=== PATIENT | female | born 1940 | race Caucasian/White ===

== ENCOUNTER 2016-06-18 11:27 | Outpatient (RCR) | payer MEDICARE, MEDICAID ==
[2016-03-25 10:27] LABS: BASOPHILS % (AUTO) 1 % (0-10); EOSINOPHILS # (AUTO) 0.3 10^3/uL (0.0-0.3); EOSINOPHILS % (AUTO) 6 % (0-10); LYMPHOCYTES # (AUTO) 0.8 X 10^3 (1.0-4.0); LYMPHOCYTES % (AUTO) 18 % (12-44); MEAN CORPUSCULAR HEMOGLOBIN 34 PG (25-34); MEAN CORPUSCULAR HGB CONC 32 G/DL (32-36); MEAN CORPUSCULAR VOLUME 106 FL (80-99); MEAN PLATELET VOLUME 7.4 FL (7.4-10.4); MONOCYTES # (AUTO) 0.5 X 10^3 (0.0-1.0); MONOCYTES % (AUTO) 11 % (0-12); NEUTROPHILS # (AUTO) 2.7 X 10^3 (1.8-7.8); NEUTROPHILS % (AUTO) 64 % (42-75); PLATELET COUNT 282 10^3/uL (130-400); RED BLOOD COUNT 2.82 10^6/uL (4.35-5.85); RED CELL DISTRIBUTION WIDTH 15.2 % (10.0-14.5); WHITE BLOOD COUNT 4.2 10^3/uL (4.3-11.0)
[2016-04-08 11:08] LABS: BASOPHILS % (AUTO) 1 % (0-10); EOSINOPHILS # (AUTO) 0.2 10^3/uL (0.0-0.3); EOSINOPHILS % (AUTO) 4 % (0-10); LYMPHOCYTES # (AUTO) 0.9 X 10^3 (1.0-4.0); LYMPHOCYTES % (AUTO) 20 % (12-44); MEAN CORPUSCULAR HEMOGLOBIN 34 PG (25-34); MEAN CORPUSCULAR HGB CONC 33 G/DL (32-36); MEAN CORPUSCULAR VOLUME 106 FL (80-99); MEAN PLATELET VOLUME 7.8 FL (7.4-10.4); MONOCYTES # (AUTO) 0.4 X 10^3 (0.0-1.0); MONOCYTES % (AUTO) 9 % (0-12); NEUTROPHILS # (AUTO) 2.8 X 10^3 (1.8-7.8); NEUTROPHILS % (AUTO) 67 % (42-75); PLATELET COUNT 315 10^3/uL (130-400); RED BLOOD COUNT 3.03 10^6/uL (4.35-5.85); RED CELL DISTRIBUTION WIDTH 15.1 % (10.0-14.5); WHITE BLOOD COUNT 4.2 10^3/uL (4.3-11.0)
[2016-04-22 14:56] LABS: BASOPHILS % (AUTO) 1 % (0-10); EOSINOPHILS # (AUTO) 0.2 10^3/uL (0.0-0.3); EOSINOPHILS % (AUTO) 4 % (0-10); LYMPHOCYTES # (AUTO) 0.9 X 10^3 (1.0-4.0); LYMPHOCYTES % (AUTO) 16 % (12-44); MEAN CORPUSCULAR HEMOGLOBIN 34 PG (25-34); MEAN CORPUSCULAR HGB CONC 32 G/DL (32-36); MEAN CORPUSCULAR VOLUME 107 FL (80-99); MEAN PLATELET VOLUME 7.6 FL (7.4-10.4); MONOCYTES # (AUTO) 0.5 X 10^3 (0.0-1.0); MONOCYTES % (AUTO) 9 % (0-12); NEUTROPHILS % (AUTO) 71 % (42-75); PLATELET COUNT 308 10^3/uL (130-400); RED BLOOD COUNT 3.28 10^6/uL (4.35-5.85); RED CELL DISTRIBUTION WIDTH 14.2 % (10.0-14.5); WHITE BLOOD COUNT 5.7 10^3/uL (4.3-11.0)
[2016-04-22 15:30] LABS: ALBUMIN 4.4 G/DL (3.2-4.5); BILIRUBIN,TOTAL 0.8 MG/DL (0.1-1.0); CALCIUM 9.8 MG/DL (8.5-10.1); CREATININE SERUM 2.38 MG/DL (0.60-1.30); POTASSIUM 4.4 MMOL/L (3.6-5.0); TOTAL PROTEIN 6.9 G/DL (6.4-8.2)
[2016-04-22 16:32] LABS: %SAT TOTAL IRON BINDING CAPIC 35 % (15-50); TIBC 475 ug/dL (280-380)
[2016-04-23 07:35] LABS: FERRITIN 218 ng/mL (15-150); UIBC 309 ug/dL (55-450)
[2016-05-06 11:03] LABS: BASOPHILS % (AUTO) 0 % (0-10); EOSINOPHILS # (AUTO) 0.2 10^3/uL (0.0-0.3); EOSINOPHILS % (AUTO) 4 % (0-10); LYMPHOCYTES # (AUTO) 0.8 X 10^3 (1.0-4.0); LYMPHOCYTES % (AUTO) 19 % (12-44); MEAN CORPUSCULAR HEMOGLOBIN 34 PG (25-34); MEAN CORPUSCULAR HGB CONC 33 G/DL (32-36); MEAN CORPUSCULAR VOLUME 104 FL (80-99); MEAN PLATELET VOLUME 7.9 FL (7.4-10.4); MONOCYTES # (AUTO) 0.3 X 10^3 (0.0-1.0); MONOCYTES % (AUTO) 8 % (0-12); NEUTROPHILS # (AUTO) 2.9 X 10^3 (1.8-7.8); NEUTROPHILS % (AUTO) 69 % (42-75); PLATELET COUNT 294 10^3/uL (130-400); RED BLOOD COUNT 3.09 10^6/uL (4.35-5.85); RED CELL DISTRIBUTION WIDTH 12.7 % (10.0-14.5); WHITE BLOOD COUNT 4.2 10^3/uL (4.3-11.0)
[2016-05-20 10:59] LABS: BASOPHILS % (AUTO) 1 % (0-10); EOSINOPHILS # (AUTO) 0.2 10^3/uL (0.0-0.3); EOSINOPHILS % (AUTO) 4 % (0-10); LYMPHOCYTES # (AUTO) 0.8 X 10^3 (1.0-4.0); LYMPHOCYTES % (AUTO) 20 % (12-44); MEAN CORPUSCULAR HEMOGLOBIN 34 PG (25-34); MEAN CORPUSCULAR HGB CONC 32 G/DL (32-36); MEAN CORPUSCULAR VOLUME 104 FL (80-99); MEAN PLATELET VOLUME 7.5 FL (7.4-10.4); MONOCYTES # (AUTO) 0.5 X 10^3 (0.0-1.0); MONOCYTES % (AUTO) 12 % (0-12); NEUTROPHILS # (AUTO) 2.5 X 10^3 (1.8-7.8); NEUTROPHILS % (AUTO) 64 % (42-75); PLATELET COUNT 256 10^3/uL (130-400); RED BLOOD COUNT 3.21 10^6/uL (4.35-5.85); RED CELL DISTRIBUTION WIDTH 13.9 % (10.0-14.5); WHITE BLOOD COUNT 3.9 10^3/uL (4.3-11.0)
[2016-06-03 11:17] LABS: BASOPHILS % (AUTO) 1 % (0-10); EOSINOPHILS # (AUTO) 0.2 10^3/uL (0.0-0.3); EOSINOPHILS % (AUTO) 5 % (0-10); LYMPHOCYTES # (AUTO) 0.7 X 10^3 (1.0-4.0); LYMPHOCYTES % (AUTO) 19 % (12-44); MEAN CORPUSCULAR HEMOGLOBIN 34 PG (25-34); MEAN CORPUSCULAR HGB CONC 32 G/DL (32-36); MEAN CORPUSCULAR VOLUME 106 FL (80-99); MEAN PLATELET VOLUME 7.9 FL (7.4-10.4); MONOCYTES # (AUTO) 0.5 X 10^3 (0.0-1.0); MONOCYTES % (AUTO) 13 % (0-12); NEUTROPHILS # (AUTO) 2.3 X 10^3 (1.8-7.8); NEUTROPHILS % (AUTO) 62 % (42-75); PLATELET COUNT 234 10^3/uL (130-400); RED BLOOD COUNT 3.24 10^6/uL (4.35-5.85); RED CELL DISTRIBUTION WIDTH 14.5 % (10.0-14.5); WHITE BLOOD COUNT 3.7 10^3/uL (4.3-11.0)
[~2016-06-18 11:27] MED LIST: ALDACTONE25 MG PO; AMLO10TA4 PO; ASP325T PO; BONIVA; CALC-656 PO; CARV3.122 PO; CYANOCOBALAMIN INJ 1000 MCG/ML (CANCER CENTER) ONE; DARBEPOETIN 60 MCG/ML ARANESP (CANCER CTR) INJ SCH; ESZO2TAB4 PO; FEXO180T PO; FURO40TA4 PO; HYDR50TA76 PO; MNTL10T PO; MULT-349 PO; NTR.4SL SL; OMG1KC PO; PROP1TAB77 PO; SIMV80TA3 PO
[2016-06-18 11:58] LABS: BASOPHILS % (AUTO) 1 % (0-10); EOSINOPHILS # (AUTO) 0.2 10^3/uL (0.0-0.3); EOSINOPHILS % (AUTO) 4 % (0-10); LYMPHOCYTES # (AUTO) 1.1 X 10^3 (1.0-4.0); LYMPHOCYTES % (AUTO) 21 % (12-44); MEAN CORPUSCULAR HEMOGLOBIN 34 PG (25-34); MEAN CORPUSCULAR HGB CONC 32 G/DL (32-36); MEAN CORPUSCULAR VOLUME 106 FL (80-99); MEAN PLATELET VOLUME 7.5 FL (7.4-10.4); MONOCYTES # (AUTO) 0.4 X 10^3 (0.0-1.0); MONOCYTES % (AUTO) 8 % (0-12); NEUTROPHILS # (AUTO) 3.3 X 10^3 (1.8-7.8); NEUTROPHILS % (AUTO) 66 % (42-75); PLATELET COUNT 388 10^3/uL (130-400); RED CELL DISTRIBUTION WIDTH 13.7 % (10.0-14.5); WHITE BLOOD COUNT 5.1 10^3/uL (4.3-11.0)
[2016-06-18] MEDS ORDERED: CYANOCOBALAMIN INJ 1000 MCG/ML (CANCER CENTER) ONE (12:01)
== END 2016-06-23 | disposition home or self-care (01) ==
LOC: ONC 11:27
PROVIDERS: ATTEND Internal Medicine Hematology & Oncology
DX: C90.00 Multiple myeloma not having achieved remission (principal); D53.9 Nutritional anemia, unspecified; N18.9 Chronic kidney disease, unspecified; I95.1 Orthostatic hypotension; I25.10 Atherosclerotic heart disease of native coronary artery without angina pectoris; J44.9 Chronic obstructive pulmonary disease, unspecified; Z95.1 Presence of aortocoronary bypass graft; Z87.891 Personal history of nicotine dependence; Z79.899 Other long term (current) drug therapy
CPT/HCPCS: 36415; 80053; 82728; 83540; 85025; 96372; 99213

== ENCOUNTER → 2016-09-06 | Outpatient (CLI) | payer MEDICARE, MEDICAID ==
[~2016-09-06] MED LIST changes: +ALBU2.5V4 IH; +AMLO10TA2 PO; +CETI10TA20 PO; +CHOL20003 PO; -CYANOCOBALAMIN INJ 1000 MCG/ML (CANCER CENTER) ONE; -DARBEPOETIN 60 MCG/ML ARANESP (CANCER CTR) INJ SCH; +EZET10TA5 PO; +FENO145T2 PO; +FERR324T11 PO; +FLT11013 IH; +GABA-486 PO; +HYDR25TA4 PO; +IPRA4AER IH; +LISI10TA2 PO; +LOSA100T28 PO; +MAG30ORA2 PO; +METO-270 PO; +NITR0.4T39 SL; +OMEG-141 PO; +OXYB5TAB9 PO; +PARI1CAP PO; +PARO30TA3 PO; +PARO40TA3 PO; +POLY17PO6 PO; +PRAV80TA2 PO; +PRIM50TA PO; +PROP20TA5 PO; +RANI150T90 PO; +RANO500T3 PO; +RT-ALBUINH IH; +UMEC62.5 IH
--- NOTE | 2016-09-06 14:12 | Diagnostic Imaging Report ---
PROCEDURE: MR imaging of the brain without contrast. TECHNIQUE: Multiplanar, multisequence MR imaging of the brain was performed without contrast. INDICATION: Memory loss. Vertigo. Confusion. FINDINGS: There is no diffusion restriction to suggest an acute infarct or other diffusion abnormality. There is a 1 cm T2 hyperintense lesion seen in the right periventricular white matter with superimposed background periventricular and deep white matter T2 hyperintensities seen probably related to chronic microvascular ischemic changes. There is also a focal area of encephalomalacia measuring 1.8 x 1 cm in the right cerebellar hemisphere probably related to an old infarct. There is no brain edema or suggestion of a mass. There is no hydrocephalus. No extra-axial fluid collection is seen. The central vascular flow voids in the basilar artery, dominant left vertebral artery, the right ICA, VICTORIANO and MCA, and the left ICA and MCA are seen. Flow-void signal in the left VITCORIANO is diminished. The visualized portions of the paranasal sinuses and orbits appear grossly unremarkable. IMPRESSION: 1. 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 2. There is diminished expected flow-void signal in the proximal left anterior cerebral artery with no significant abnormality along this arterial distribution and no evidence of acute infarct. If indicated, further evaluation could be obtained with an MRA of the head. Dictated by: Dictated on workstation # [id number]
== END ==
LOC: RAD 10:14
PROVIDERS: ATTEND Nurse Practitioner Family
DX: G25.2 Other specified forms of tremor (principal); R42 Dizziness and giddiness; R41.3 Other amnesia
CPT/HCPCS: 70551

== ENCOUNTER 2016-09-09 11:20 | Outpatient (RCR) | payer MEDICARE, MEDICAID ==
[2016-07-01 10:57] LABS: BASOPHILS % (AUTO) 1 % (0-10); EOSINOPHILS # (AUTO) 0.2 10^3/uL (0.0-0.3); EOSINOPHILS % (AUTO) 4 % (0-10); LYMPHOCYTES # (AUTO) 0.9 X 10^3 (1.0-4.0); LYMPHOCYTES % (AUTO) 21 % (12-44); MEAN CORPUSCULAR HEMOGLOBIN 34 PG (25-34); MEAN CORPUSCULAR HGB CONC 33 G/DL (32-36); MEAN CORPUSCULAR VOLUME 106 FL (80-99); MEAN PLATELET VOLUME 7.4 FL (7.4-10.4); MONOCYTES # (AUTO) 0.4 X 10^3 (0.0-1.0); MONOCYTES % (AUTO) 10 % (0-12); NEUTROPHILS # (AUTO) 2.8 X 10^3 (1.8-7.8); NEUTROPHILS % (AUTO) 65 % (42-75); PLATELET COUNT 260 10^3/uL (130-400); RED BLOOD COUNT 3.32 10^6/uL (4.35-5.85); RED CELL DISTRIBUTION WIDTH 15.2 % (10.0-14.5); WHITE BLOOD COUNT 4.3 10^3/uL (4.3-11.0)
[2016-07-15 10:52] LABS: BASOPHILS % (AUTO) 1 % (0-10); EOSINOPHILS # (AUTO) 0.1 10^3/uL (0.0-0.3); EOSINOPHILS % (AUTO) 3 % (0-10); LYMPHOCYTES # (AUTO) 0.9 X 10^3 (1.0-4.0); LYMPHOCYTES % (AUTO) 21 % (12-44); MEAN CORPUSCULAR HEMOGLOBIN 34 PG (25-34); MEAN CORPUSCULAR HGB CONC 33 G/DL (32-36); MEAN CORPUSCULAR VOLUME 103 FL (80-99); MONOCYTES # (AUTO) 0.3 X 10^3 (0.0-1.0); MONOCYTES % (AUTO) 8 % (0-12); NEUTROPHILS # (AUTO) 2.8 X 10^3 (1.8-7.8); NEUTROPHILS % (AUTO) 68 % (42-75); PLATELET COUNT 334 10^3/uL (130-400); RED BLOOD COUNT 3.43 10^6/uL (4.35-5.85); RED CELL DISTRIBUTION WIDTH 13.7 % (10.0-14.5); WHITE BLOOD COUNT 4.1 10^3/uL (4.3-11.0)
[2016-07-15 11:37] LABS: ALBUMIN 4.6 G/DL (3.2-4.5); BILIRUBIN,TOTAL 0.7 MG/DL (0.1-1.0); CALCIUM 10.1 MG/DL (8.5-10.1); CREATININE SERUM 2.45 MG/DL (0.60-1.30); POTASSIUM 4.1 MMOL/L (3.6-5.0); TOTAL PROTEIN 7.1 G/DL (6.4-8.2)
[2016-08-12 11:21] LABS: BASOPHILS % (AUTO) 1 % (0-10); EOSINOPHILS # (AUTO) 0.1 10^3/uL (0.0-0.3); EOSINOPHILS % (AUTO) 3 % (0-10); LYMPHOCYTES # (AUTO) 0.8 X 10^3 (1.0-4.0); LYMPHOCYTES % (AUTO) 20 % (12-44); MEAN CORPUSCULAR HEMOGLOBIN 33 PG (25-34); MEAN CORPUSCULAR HGB CONC 33 G/DL (32-36); MEAN CORPUSCULAR VOLUME 103 FL (80-99); MEAN PLATELET VOLUME 7.4 FL (7.4-10.4); MONOCYTES # (AUTO) 0.4 X 10^3 (0.0-1.0); MONOCYTES % (AUTO) 10 % (0-12); NEUTROPHILS # (AUTO) 2.5 X 10^3 (1.8-7.8); NEUTROPHILS % (AUTO) 66 % (42-75); PLATELET COUNT 315 10^3/uL (130-400); RED BLOOD COUNT 2.94 10^6/uL (4.35-5.85); RED CELL DISTRIBUTION WIDTH 13.5 % (10.0-14.5); WHITE BLOOD COUNT 3.9 10^3/uL (4.3-11.0)
[~2016-09-09 11:20] MED LIST changes: -ALBU2.5V4 IH; -AMLO10TA2 PO; -CETI10TA20 PO; -CHOL20003 PO; +CYANOCOBALAMIN INJ 1000 MCG/ML (CANCER CENTER) ONE; +DARBEPOETIN 60 MCG/ML ARANESP (CANCER CTR) INJ SCH; -EZET10TA5 PO; -FENO145T2 PO; -FERR324T11 PO; -FLT11013 IH; -GABA-486 PO; -HYDR25TA4 PO; -IPRA4AER IH; -LISI10TA2 PO; -LOSA100T28 PO; -MAG30ORA2 PO; -METO-270 PO; -NITR0.4T39 SL; -OMEG-141 PO; -OXYB5TAB9 PO; -PARI1CAP PO; -PARO30TA3 PO; -PARO40TA3 PO; -POLY17PO6 PO; -PRAV80TA2 PO; -PRIM50TA PO; -PROP20TA5 PO; -RANI150T90 PO; -RANO500T3 PO; -RT-ALBUINH IH; -UMEC62.5 IH
[2016-09-09 11:34] LABS: BASOPHILS % (AUTO) 1 % (0-10); EOSINOPHILS # (AUTO) 0.2 10^3/uL (0.0-0.3); EOSINOPHILS % (AUTO) 4 % (0-10); LYMPHOCYTES # (AUTO) 0.9 X 10^3 (1.0-4.0); LYMPHOCYTES % (AUTO) 20 % (12-44); MEAN CORPUSCULAR HEMOGLOBIN 34 PG (25-34); MEAN CORPUSCULAR HGB CONC 33 G/DL (32-36); MEAN CORPUSCULAR VOLUME 104 FL (80-99); MEAN PLATELET VOLUME 7.8 FL (7.4-10.4); MONOCYTES # (AUTO) 0.5 X 10^3 (0.0-1.0); MONOCYTES % (AUTO) 11 % (0-12); NEUTROPHILS # (AUTO) 2.8 X 10^3 (1.8-7.8); NEUTROPHILS % (AUTO) 65 % (42-75); PLATELET COUNT 320 10^3/uL (130-400); RED BLOOD COUNT 3.17 10^6/uL (4.35-5.85); RED CELL DISTRIBUTION WIDTH 13.4 % (10.0-14.5); WHITE BLOOD COUNT 4.4 10^3/uL (4.3-11.0)
[2016-09-09] MEDS ORDERED: CYANOCOBALAMIN INJ 1000 MCG/ML (CANCER CENTER) ONE (11:36)
== END 2016-09-29 | disposition home or self-care (01) ==
LOC: ONC 11:20
PROVIDERS: ATTEND Internal Medicine Hematology & Oncology
DX: C90.00 Multiple myeloma not having achieved remission (principal); D53.9 Nutritional anemia, unspecified; N18.9 Chronic kidney disease, unspecified; I95.1 Orthostatic hypotension; I25.10 Atherosclerotic heart disease of native coronary artery without angina pectoris; J44.9 Chronic obstructive pulmonary disease, unspecified; Z95.1 Presence of aortocoronary bypass graft; Z87.891 Personal history of nicotine dependence; Z79.899 Other long term (current) drug therapy
CPT/HCPCS: 36415; 80053; 82728; 83540; 85025; 96372; 99213

== ENCOUNTER 2016-10-18 11:45 | Inpatient (IN) | payer MEDICARE, MEDICAID ==
[~2016-10-18] VITALS: Ht 157.5 cm; Wt 50.4 kg
[~2016-10-18 11:45] MED LIST changes: -CYANOCOBALAMIN INJ 1000 MCG/ML (CANCER CENTER) ONE; -DARBEPOETIN 60 MCG/ML ARANESP (CANCER CTR) INJ SCH
[2016-10-18 12:12] VITALS: BP 157/69
--- NOTE | 2016-10-18 12:37 | History & Physicial ---
History of Present Illness History of Present Illness Reason for visit/HPI Patient had a fall at home. Patient sent to [facility] in [place]. Patient had cervical surgery. Patient here for rehabilitation. Patient has a big hematoma on right side of forehead area Patient wears a cervical collar. Surgery open heart 3 vessels. Both breasts were noncancerous, appendectomy Date of Admission October 18, 2016 at 12:05 I consulted on this patient on 10/18/16 12:33 Attending Physician Andre Kimble MD Admitting Physician Trudy Jacobs DO Consult Allergies and Home Medications Allergies Coded Allergies: clopidogrel (Unverified Adverse Reaction, Severe, EXCESSIVE BLEEDING, 30/03) codeine (Unverified Adverse Reaction, Mild, NAUSEA, 03/30/10) warfarin (Unverified Adverse Reaction, Unknown, "REAL BAD SICK", 01/02/16) Uncoded Allergies: TRAZADONE (Adverse Reaction, Unknown, "CAN'T FUNCTION", 01/02/16) Home Medications Amlodipine Besylate 10 Mg Tablet, 10 MG PO DAILY, (Reported) Aspirin 325 Mg Tab, 325 MG PO DAILY, (Reported) Calcium Carbonate/Vitamin D3 1 Each Tablet, 1 EACH PO DAILY, (Reported) Carvedilol 3.125 Mg Tablet, 1 EACH PO BID, (Reported) Eszopiclone 2 Mg Tablet, 2 MG PO HS, (Reported) Fexofenadine Hcl 180 Mg Tablet, 1 TAB PO DAILY, (Reported) Furosemide 40 Mg Tablet, 1 EACH PO DAILY, (Reported) Hydroxyzine Hcl 50 Mg Tablet, 2 TAB PO DAILY, (Reported) Montelukast Sodium 10 Mg Tablet, 1 TAB PO DAILY, (Reported) Multivit,Ther Iron,Ca,Fa & Min 1 Each Tablet, 1 EACH PO DAILY, (Reported) Nitroglycerin 0.4 Mg Subl, 0.4 MG SL PRN, (Reported) Sacul 3 Polyunsat Fatty Acids 1,000 Mg Cap, 1,000 MG PO DAILY, (Reported) Propoxyphene/Acetaminophen 1 Tab Tablet, 1 EACH PO Q 4 - 6 HRS PRN, (Reported) Simvastatin 80 Mg Tablet, 80 MG PO DAILY, (Reported) Spironolactone 25 Mg Tablet, 0.5 TAB PO DAILY, (Reported) [Boniva] , (Reported) Past Mxeozfh-Suvrcz-Pbvffo Hx Patient Social History Employed/Student: unemployed Respiratory Respiratory Disorders: COPD Cardiovascular Cardiac Disorders: Coronary Artery Disease Constitutional: malaise, weakness EENTM: no symptoms reported Respiratory: short of breath Cardiovascular: no symptoms reported, other (Coronary artery disease) Gastrointestinal: no symptoms reported Physical Exam Vital Signs Vital Sign - Last 12Hours 10/18/16 12:12 Temp 96.8 Pulse 56 Resp 18 B/P (MAP) 157/69 Pulse Ox 95 O2 Delivery Room Air Capillary Refill : General Appearance: No Apparent Distress, Thin Eyes: Bilateral Eye Normal Inspection HEENT: Other (Cervical collar) Neck: Other (Cervical collar) Respiratory: Chest Non Tender, Normal Breath Sounds, No Accessory Muscle Use, No Respiratory Distress, Decreased Breath Sounds Cardiovascular: Regular Rate, Rhythm, No Murmur Gastrointestinal: Non Tender, Soft Assessment/Plan Assessment and Plan Weakness. Debility. Coronary artery disease. Cervical surgeries recently. Problems: JEANINE ORLANDO DO October 18, 2016 12:37
--- NOTE | 2016-10-18 13:25 | Physical Therapy Evaluation ---
PT Evaluation-General Medical Diagnosis Admission Date October 18, 2016 at 12:05 Medical Diagnosis: subluxation C5-6 Onset Date: Oct 08, 2016 Therapy Diagnosis Therapy Diagnosis: generalized weakness and debility Precautions Precautions/Isolations: Standard Precautions Referral Physician: Stephan Reason for Referral: Evaluation/Treatment Medical History Pertinent Medical History: Atrial Fib, Alcoholism, CABG, CAD, COPD, HTN, PVD, Renal Insufficiency Additional Medical History left fem-pop bypass; aortic aneurysm; acute encephalopathy; anxiety Current History fall at home hitting head on the toilet and tub (per patient report) resulting in multiple hematomas, C5-6 subluxation; closed fracture of cervical vertebrae; laminectomy C5-6; anterior and posterior fixation C4-7 Reviewed History: Yes Social History Home: Single Level Current Living Status: Spouse Entry Into Home: Stairs Without Railing PT Steps Into Home: 2 Prior/Core FIM Prior Level of Function Functional [place] Measure 0=Not Assessed/NA 4=Minimal Assistance 1=Total Assistance 5=Supervision or Setup 2=Maximal Assistance 6=Modified [place] 3=Moderate Assistance 7=Complete [place] Bed Mobility: 7 Transfers (B,C,W/C) (FIM): 7 Gait: 7 Locomotion: 7 PT Evaluation-Current Subjective Patient agrees to PT. Patient c/o dizziness and weakness. Pain Numeric Pain Scale: 8 Location: Incisional Location Body Site: Neck Pain Description: Acute Pt/Family Goals return to home Objective Patient Orientation: Normal For Age Problem Solving: Good cervical collar ROM/Strength ROM Lower Extremities bilateral LE WFL Strenght Lower Extremities right knee flexion/extension 4-/5; hip flexion 4-/5; ankle dorsi/plantarflexion 4-/5 left knee flexion/extension 4-/5; hip flexion 4-/5; ankle dorsi/plantarflexion 4-/5 Integumentary/Posture Integumentary refer to nursing notes Bowel Incontinence: No Bladder Incontinence: No Posture WNL Neuromuscular (Tone, Coordination, Reflexes) grossly intact Sensory Vision: Functional Hearing: Functional Sensation Right Lower Extremit: Intact Sensation Left Lower Extremity: Intact Transfers Functional [place] Measure 0=Not Assessed/NA 4=Minimal Assistance 1=Total Assistance 5=Supervision or Setup 2=Maximal Assistance 6=Modified [place] 3=Moderate Assistance 7=Complete IndependenceIRFPAI Quality Coding Scale 6 Independent with activity with or without an assistive device 5 Patient requires set up or clean up by helper. Patient completes activity by themselves 4 Supervision or touching assist (CGA). Roy provide cues , steadying assist 3 The helper provides less than half the effort to complete the activity 2 The helper provides more than half the effort to complete the activity 1 Dependent. The helper does all the effort to complete an activity 7 Patient refused to complete or attempt activity 9 The patient did not perform the activity before the current illness or injury 88 Not attempted due to Medical conditions or safety concerns Transfers (B, C, W/C) (FIM): 5 Scootin Rollin Roll Left to Right (QC): 5 Supine to/from Sit: 5 Sit to/from Stand: 5 Sit to Lying (QC): 5 Lying to Sitting/Side of Bed(Q: 5 Sit to Stand (QC): 5 Chair/Kps-hm-Gortx Xfer(QC): 5 Car Transfer (QC): 5 Gait Does the Patient Walk?: Yes Mode of Locomotion: Walk Anticipated Mode of Locomotion: Walk Gait (FIM): 2 Distance (FIM): 5=718-97 ft Walk 10 feet (QC): 4 Walk 50 ft with 2 Turns(QC): 4 Walk 150 ft (QC): 88 Walking 10ft/uneven surface-QC: 4 Distance: 75' Gait Level of Assist: 4 Gait Persons Needed: 1 Gait Assistive Device: FWW Comments/Gait Description slightly unsteady with FWW Stairs Stairs (FIM): 1 #of Steps: 1 Level of Assist: 4 1 Step (curb) (QC): 4 4 Steps (QC): 88 Assistive Device: Walker 12 Steps (QC): 88 Balance Sitting Static: Normal Sitting Dynamic: Normal Standing Static: Fair Standing Dynamic: Fair Picking up an Object (QC): 88 Assessment/Needs 75 y.o. female, limited with functional mobility and increased weakness, will benefit from skilled PT to address limitations to ensure safe return to home with spouse at maximum LOF. Rehab Potential: Good PT Short Term Goals Short Term Goals Time Frame: November 01, 2016 Transfers (B,C,W/C) (FIM): 6 Gait (FIM): 6 Distance (FIM): 3=150 ft Gait Distance Comment: 200' Gait Level of Assist: 6 Gait Assistive Device: FWW, Cane Single Point Stairs (FIM): 2 # of Steps: 4 Stairs Level of Assist: 5 PT Alf Goals Fireworks Display Specialist Goals PT Fireworks Display Specialist Goals Time Frame: Nov 15, 2016 Transfers (B,C,W/C) (FIM): 6 Sit to Lying (QC): 6 Lying-Sitting on Side/Bed(QC): 6 Sit to Stand (QC): 6 Rollin Roll Left to Right (QC): 6 Chair/Szk-yw-Jzxfk Xfer(QC): 6 Car Transfer (QC): 6 Does the Patient Walk: Yes Gait (FIM): 6 Gait distance (FIM): 3=150 ft Distance: >300' Walk 10 feet (QC): 6 Walk 10ft-Uneven Surface(QC): 6 Walk 50ft with 2 Turns (QC): 6 Walk 150 ft (QC): 6 Gait Level of Assist: 6 Gait Assistive Device: FWW Does the Pt use WC or Scooter?: No Stairs (FIM): 6 # of Steps: 12 1 Step (curb) (QC): 6 4 Steps (QC): 6 12 Steps (QC): 6 Stairs Level Of Assist: 6 Picking up an Object (QC): 6 PT Plan Problem List Problem List: Activity Tolerance, Functional Strength, Safety, Balance, Gait, Transfer, Bed Mobility Treatment/Plan Treatment Plan: Continue Plan of Care Treatment Plan: Bed Mobility, Education, Functional Activity Zena, Functional Strength, Group Therapy, Gait, Safety, Therapeutic Exercise, Transfers Treatment Duration: Nov 15, 2016 # of days/week 6 Minutes/Day (M-F): 60-90 Minutes/Day (Sat/Quintanilla): PRN Pt/Family Agrees w/Plan: Yes Safety Risks/Education Patient Education: Safety Issues Teaching Recipient: Patient Teaching Methods: Discussion Response to Teaching: Verbalize Understanding Discharge Recommendations Therapy D/C Recommendations: Home w/ Family Support, Physical Therapy Home Care Time/GCodes Time In: 1220 Time Out: 1245 Total Billed Treatment Time: 25 Total Billed Treatment 1 visit EVHighC 25 min G Codes Necessary: ELIZABETH Healy PT October 18, 2016 13:25
--- NOTE | 2016-10-18 14:08 | Occupational Therapy Eval ---
OT Evaluation-General/PLF Medical Diagnosis Admission Date October 18, 2016 at 12:05 Medical Diagnosis: subluxation C5-6, cervical fusion Onset Date: Oct 08, 2016 Therapy Diagnosis Therapy Diagnosis: weakness, decr self care, decr activity kay, decr funct mobility Precautions Precautions/Isolations: Standard Precautions Weight Bear Status Stephenson J collar on - may remove front to eat. No lifting over 10 lb. No driving for 2 weeks Referral Physician: Stephan Referral Reason: Evaluation/Treatment Medical History Pertinent Medical History: Atrial Fib, Alcoholism, CABG, CAD, COPD, HTN, PVD, Renal Insufficiency Additional Medical History chronic kidney disease stage III, acid reflux disease, anxiety, aortic aneurysm , osteoporosis, emphysema, L and R fem-pop bypass. 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 She was sent to hospital in [place] for surgery, with ant and posterior fixation on 10-10-16. Also reported minimally displaced fx L 8th rib. Social History Home: Single Level Current Living Status: Spouse Entry Into Home: Stairs Without Railing Steps Into Home: 2 ADL-Prior Level of Function ADL PLOF Comments Pt reported that she was generally able to manage her basic self care needs. Sometimes her had to help her with shoes and socks because she couldn't get to her feet, due to edema in LEs. Her also spotted her getting in and out of the tub. They shared chores at home but they also had a worker close to 8 hr a day, 5 days a week, who helped with chores. She still drives occasionally and hasn't worked since her stroke. She said she has a walker at home but it won't go into bathroom so she "furniture walks" in the house and uses a cane outside. DME/Equipment: Bedside Commode, Shower Hose Refining Machine Operator, Tub/Shower, Toilet/Riser OT Current Status Subjective Pt seen in room, up in bed, agreeable to OT. Pain reported 6/10 and nursing aware (in neck, not described). Appearance Alert, cooperative Mental Status/Objective Patient Orientation: Person, Place, Time, Situation Attachments: Other-See Comments (cervical collar) Current Glasses/Contacts: Yes Hearing Aids: No Dentures/Partials: Yes (top and bottom) Hand Dominance: Right Upper Extremity ROM Grossly WFL bilat (pt reported some discomfort at shoulders from cervical collar rubbing on them) Upper Extremity Coordination Pt reported coordination affected in R hand from old CVA, affecting handwriting Upper Extremity Strength Grossly 4/5 bilat. R side slightly less than L Edema: No UE edema observed ADL-Treatment ADL-Current Pt is fatigued from ambulance ride and would prefer to wait until tomorrow to do ADLs. Also, pain med orders are not in system yet and she is uncomfortable. Transfer per PT are SBA with FWW. Functional [place] Measure 0=Not Assessed/NA 4=Minimal Assistance 1=Total Assistance 5=Supervision or Setup 2=Maximal Assistance 6=Modified [place] 3=Moderate Assistance 7=Complete IndependenceIRFPAI Quality Coding Scale 6 Independent with activity with or without an assistive device 5 Patient requires set up or clean up by helper. Patient completes activity by themselves 4 Supervision or touching assist (CGA). [place] provide cues , steadying assist 3 The helper provides less than half the effort to complete the activity 2 The helper provides more than half the effort to complete the activity 1 Dependent. The helper does all the effort to complete an activity 7 Patient refused to complete or attempt activity 9 The patient did not perform the activity before the current illness or injury 88 Not attempted due to Medical conditions or safety concerns Eating (FIM): 5 (Pt was able to open crackers and feed herself and get a drink from pitcher. She has dentures and reported there is nothing she can't eat without them) Lower Body Dressing (QC): 3 (Pt could get slipper socks off and put R sock on but not L sock) Transfers (B, C, W/C) (FIM): 5 (Supine to sit snd sit to supine. SBA) Education OT Patient Education: Purpose of tx/functional activities, Reviewed precautions , Rehab process, Safety issues Teaching Recipient: Patient, Significant Other Teaching Methods: Discussion Response to Teaching: Verbalize Understanding OT Short Term Goals Short Term Goals Transfers (B,C,W/C) (FIM): 6 OT Iron Launder Operator Goals Iron Launder Operator Goals Time Frame: November 08, 2016 Eating (FIM): 7 Eating (QC): 6 Groomin Oral Hygiene (QC): 6 Bathing(FIM): 6 Shower/Bathe Self (QC): 6 Upper Body Dressing(FIM): 6 Upper Body Dressing (QC): 6 Lower Body Dressing(FIM): 6 Lower Body Dressing (QC): 6 On/Off Footwear (QC): 6 Toileting(FIM): 6 Toileting Hygiene (QC): 6 Toilet/Commode Transfer(FIM): 6 Toilet/Commode Transfer (QC): 6 Shower Transfer(FIM): 6 Additional Goals: 2-Verbalize Understanding, 3-ImproveStrength/Zena 1=Demonstrate adherence to instructed precautions during ADL tasks. 2=Patient will verbalize/demonstrate understanding of assistive devices/ modifications for ADL. 3=Patient will improve strength/tolerance for activity to enable patient to perform ADL's. OT Education/Plan Problem List/Assessment Assessment: Decreased Activ Tolerance, Decreased UE Strength, Impaired Funct Balance, Impaired Self-Care Skills Pt would benefit from skilled OT to increase her independence in basic self care to allow her to return home safely to live with her Discharge Recommendations Plan/Recommendations: Continue POC Barriers to Progress memory issues? Target Placement home with spouse Treatment Plan/Plan of Care Treatment,Training & Education: Yes Patient would benefit from OT for education, treatment and training to promote independence in ADL's, mobility, safety and/or upper extremity function for ADL' s. Plan of Care: ADL Retraining, Functional Mobility, Group Exercise/Act as Ind ( education, exercise, funct activities, activity tolerance, memory, problem solving), UE Funct Exercise/Act, UE Neuromus Re-Ed/Coord Treatment Duration: November 08, 2016 # of days/week 5-6 Visits Per Week: 10-11 Minutes/Day (M-F): 75-90 Minutes/Day (Sat/Quintanilla): PRN Agreement: Yes Rehab Potential: Good Time/GCodes Start Time: 13:10 Stop Time: 13:45 Total Time Billed (hr/min): 35 Billed Treatment Time visit, 20 minutes evaluation moderate intensity, 15 minutes ADL XAVIER FARFAN OT October 18, 2016 14:08
[2016-10-18] MEDS ORDERED: ANTACID SUSP 30 ML UDC (MYLANTA) PO PRN (14:45)
[2016-10-18] MEDS ORDERED: BISACODYL 10 MG SUPP (DULCOLAX) PR PRN (14:45)
[2016-10-18] MEDS ORDERED: NITROGLYCERIN SUBLINGUAL 0.4 MG TAB (NITROSTAT) SL PRN (14:45)
[2016-10-18] MEDS ORDERED: cloNIDine 0.1 MG (CATAPRES) TAB PO PRN (14:45)
[2016-10-18] MEDS ORDERED: MAG30ORA2 PO (15:09)
[2016-10-18] MEDS ORDERED: NITR0.4T39 SL (15:37)
[2016-10-18] MEDS ORDERED: FENO145T2 PO (15:37)
[2016-10-18] MEDS ORDERED: FERR324T11 PO (15:37)
[2016-10-18] MEDS ORDERED: GABA-486 PO (15:37)
[2016-10-18] MEDS ORDERED: RANI150T90 PO (15:37)
[2016-10-18] MEDS ORDERED: PARO30TA3 PO (15:37)
[2016-10-18] MEDS ORDERED: ALBU2.5V4 IH (15:37)
[2016-10-18] MEDS ORDERED: OXYB5TAB9 PO (15:37)
[2016-10-18] MEDS ORDERED: CHOL20003 PO (15:37)
[2016-10-18] MEDS ORDERED: HYDR25TA4 PO (15:37)
[2016-10-18] MEDS ORDERED: METO-270 PO (15:37)
[2016-10-18] MEDS ORDERED: LISI10TA2 PO (15:37)
[2016-10-18] MEDS ORDERED: RANO500T3 PO (15:37)
[2016-10-18] MEDS ORDERED: LOSA100T28 PO (15:37)
[2016-10-18] MEDS ORDERED: POLY17PO6 PO (15:37)
[2016-10-18] MEDS ORDERED: PRAV80TA2 PO (15:37)
[2016-10-18] MEDS ORDERED: PARO40TA3 PO (15:37)
[2016-10-18] MEDS ORDERED: AMLO10TA2 PO (15:37)
[2016-10-18] MEDS ORDERED: PRIM50TA PO (15:37)
[2016-10-18] MEDS ORDERED: IPRA4AER IH (15:37)
[2016-10-18] MEDS ORDERED: FLT11013 IH (15:37)
[2016-10-18] MEDS ORDERED: UMEC62.5 IH (15:37)
[2016-10-18] MEDS ORDERED: PARI1CAP PO (15:37)
[2016-10-18] MEDS ORDERED: RT-ALBUINH IH (15:37)
[2016-10-18] MEDS ORDERED: OMEG-141 PO (15:37)
[2016-10-18] MEDS ORDERED: PROP20TA5 PO (15:37)
[2016-10-18] MEDS ORDERED: CETI10TA20 PO (15:37)
[2016-10-18] MEDS ORDERED: EZET10TA5 PO (15:45)
[2016-10-18] MEDS: FERROUS SULF 325 MG (IRON) TAB PO SCH (17:07)
[2016-10-18 18:02] VITALS: BP 167/80
[2016-10-18] MEDS: RT-FLUTICASONE 110 MCG (FLOVENT) PER PUFF INH SCH (18:40)
[2016-10-18] MEDS: LORATADINE (CLARITIN) 10 MG TAB PO SCH (20:49)
[2016-10-18] MEDS: GABAPENTIN 100 MG (NEURONTIN) CAP PO SCH (20:49)
[2016-10-18] MEDS: FENOFIBRATE 134 MG (LOFIBRA) CAPSULE PO SCH (20:49)
[2016-10-18] MEDS: ATORVASTATIN 20 MG (LIPITOR) TABLET PO SCH (20:49)
[2016-10-18] MEDS: FAMOTIDINE 20 MG (PEPCID) TABLET PO SCH (20:49)
[2016-10-18] MEDS: eZETimibe 10 MG (ZETIA) TABLET PO SCH (20:49)
[2016-10-18] MEDS: OXYBUTYNIN (DITROPAN) 5 MG TAB PO SCH (20:49)
[2016-10-18] MEDS: PRIMIDONE 50 MG TAB (MYSOLINE) PO SCH (20:49)
[2016-10-18] MEDS: PROPRANOLOL 20 MG (INDERAL) TABLET PO SCH (20:49)
[2016-10-18] MEDS: POLYETHYLENE GLYCOL 17 GM (MIRALAX) PACK PO SCH (21:10)
[2016-10-18] MEDS: hydrALAZINE (APRESOLINE) 25 MG TAB PO SCH (22:36)
[2016-10-19 05:00] VITALS: BP 145/62
[2016-10-19 06:01] LABS: MEAN PLATELET VOLUME 8.9 FL (7.4-10.4); RED BLOOD COUNT 2.15 10^6/uL (4.35-5.85); RED CELL DISTRIBUTION WIDTH 17.1 % (10.0-14.5); WHITE BLOOD COUNT 4.5 10^3/uL (4.3-11.0)
[2016-10-19] MEDS: THIAMINE 100 MG (VITAMIN B-1) TAB PO SCH (06:44)
[2016-10-19] MEDS: MULTIVIT W/MINERALS TAB (THERAGRAN M) PO SCH (06:44)
[2016-10-19] MEDS: FOLIC ACID 1 MG TAB PO SCH (06:44)
[2016-10-19] MEDS: FERROUS SULF 325 MG (IRON) TAB PO SCH ×2 (06:44→17:53)
[2016-10-19] MEDS: OMEGA 3 (FISH OIL) 1000 MG CAP PO SCH (06:44)
[2016-10-19] MEDS: VITAMIN D3 1,000 UNITS (CHOLECALCIFEROL) TABLET PO SCH (06:45)
[2016-10-19] MEDS: hydrALAZINE (APRESOLINE) 25 MG TAB PO SCH ×3 (06:45→22:30)
[2016-10-19 06:50] LABS: ALBUMIN 2.7 G/DL (3.2-4.5); BILIRUBIN,TOTAL 0.8 MG/DL (0.1-1.0); CREATININE SERUM 1.18 MG/DL (0.60-1.30); POTASSIUM 4.1 MMOL/L (3.6-5.0)
[2016-10-19] MEDS: RT-FLUTICASONE 110 MCG (FLOVENT) PER PUFF INH SCH ×2 (07:19→19:39)
[2016-10-19] MEDS: UMECLIDINIUM BROMIDE (INCRUSE ELLIPTA) 7'S IH SCH (07:19)
--- NOTE | 2016-10-19 08:33 | PM&R Post Admission Assessment ---
Post Admission Physician Asses The preadmission screen agrees with the post admission assessment that the patient is a good candidate for inpatient rehabilitation. The patient will have a comprehensive program of inpatient rehabilitation with a goal of maximizing level of functional independence prior to discharge home with spouse. The patient will have PT/OT ninety minutes per day, each discipline, five days a week for gait, strengthening, conditioning, balance, ADLs, any patient/family/caregiver training necessary. Speech therapy to do cognitive assessment and treat as indicated 3 -5 times a week for 2 weeks. Rehabilitation nursing to assist with bowel, bladder, skin, wound care, medication administration, pain management. Airline Hostess to assist with discharge planning, community reentry. SCD's for DVT prophylaxis. She appears to be well motivated to participate in three hours of therapy a day. She should be able to tolerate three hours of therapy a day from a medical standpoint. She should benefit from the three hours of therapy a day. She has a reasonable discharge plan, reasonable discharge rehabilitation goals and a supportive family. She has various comorbidities that need to be closely monitored with medications and treatments adjusted on a daily basis as needed. These include: Recent C spine surgery Copd Barriers to discharge for this patient who had been independent prior to this are for her to be modified independent to supervision for ADLs and mobility skills prior to discharge home with spouse, so as to lessen the burden of the caregivers. Risks for this patient include: 1. Fall 2. Fracture 3. DVT 4. Pulmonary embolism 5. Wound infection 6. Skin breakdown 7. Contractures 8. Poorly controlled pain 9. Urinary retention 10. UTI 11. Respiratory infection 12. Aspiration 13. Exacerbation of COPD Estimated Length of Stay: 14 days Prognosis: Rehab prognosis appears good for goal of discharge home with spouse modified independent to supervision for ADLs and mobility skills. LOUIS BONILLA MD October 19, 2016 08:33
[2016-10-19] MEDS ORDERED: HYDROCHLOROTHIAZIDE 12.5 MG (HCTZ) CAP PO PRN (09:00)
[2016-10-19] MEDS ORDERED: PARoxetine 10 MG (PAXIL) TAB PO SCH (09:00)
[2016-10-19] MEDS: FAMOTIDINE 20 MG (PEPCID) TABLET PO SCH ×2 (09:29→20:21)
[2016-10-19] MEDS: lisINopril 10 MG (PRINIVIL) TAB PO SCH (09:29)
[2016-10-19] MEDS: PROPRANOLOL 20 MG (INDERAL) TABLET PO SCH ×2 (09:29→20:20)
[2016-10-19] MEDS: GABAPENTIN 100 MG (NEURONTIN) CAP PO SCH ×3 (09:30→20:20)
[2016-10-19] MEDS: ASPIRIN 81 MG CHEW (CHILDREN'S ASA) PO SCH (09:30)
[2016-10-19] MEDS: PARoxetine 20 MG (PAXIL) TAB PO SCH (09:30)
[2016-10-19] MEDS: OXYBUTYNIN (DITROPAN) 5 MG TAB PO SCH ×2 (09:30→20:20)
[2016-10-19] MEDS: amLODIPine 10 MG (NORVASC) TAB PO SCH (09:30)
--- NOTE | 2016-10-19 12:19 | Physical Therapy Daily Note ---
PT Daily Note-Current Subjective Pt. in bed asleep. Wants to know why she cant have regular food and why her fluids are thickened. This MEAT SUPERVISOR explained swallowing issues Pain Numeric Pain Scale: 4 Location: Medial Location Body Site: Neck Pain Description: Ache Comment: reported to nursing, not time for pain meds Mental Status Patient Orientation: Person, Place, Time, Situation Attachments: Other-See Comments ([place] collar) Transfers Functional [place] Measure 0=Not Assessed/NA 4=Minimal Assistance 1=Total Assistance 5=Supervision or Setup 2=Maximal Assistance 6=Modified [place] 3=Moderate Assistance 7=Complete IndependenceIRFPAI Quality Coding Scale 6 Independent with activity with or without an assistive device 5 Patient requires set up or clean up by helper. Patient completes activity by themselves 4 Supervision or touching assist (CGA). [place] provide cues , steadying assist 3 The helper provides less than half the effort to complete the activity 2 The helper provides more than half the effort to complete the activity 1 Dependent. The helper does all the effort to complete an activity 7 Patient refused to complete or attempt activity 9 The patient did not perform the activity before the current illness or injury 88 Not attempted due to Medical conditions or safety concerns Transfers (B, C, W/C) (FIM): 4 Scootin Rollin Supine to/from Sit: 4 Sit to/from Stand: 4 Bed to/from Chair: 4 Gait Training Does the Patient Walk?: Yes Gait (FIM): 4 Distance (FIM): 3=150 ft (x2) Gait Level of Assist: 4 Gait Persons Needed: 1 Gait Assistive Device: FWW needs some assist for balance Exercises Supine Ex: Ankle pumps, Quad Set, Heel Slides, Hip abd/add Supine Reps: 10 Assessment Current Status: Good Progress tolerated sitting better, up in recliner after rx, hurst at hand PT Short Term Goals Short Term Goals Time Frame: November 01, 2016 Transfers (B,C,W/C) (FIM): 6 Gait (FIM): 6 Distance (FIM): 3=150 ft Gait Distance Comment: 200' Gait Level of Assist: 6 Gait Assistive Device: FWW, Cane Single Point Stairs (FIM): 2 # of Steps: 4 Stairs Level of Assist: 5 PT Guest Request Runner Goals Guest Request Runner Goals PT Guest Request Runner Goals Time Frame: Nov 15, 2016 Transfers (B,C,W/C) (FIM): 6 Sit to Lying (QC): 6 Lying-Sitting on Side/Bed(QC): 6 Sit to Stand (QC): 6 Rollin Roll Left to Right (QC): 6 Chair/Zkw-ln-Yqmqj Xfer(QC): 6 Car Transfer (QC): 6 Does the Patient Walk: Yes Gait (FIM): 6 Gait distance (FIM): 3=150 ft Distance: >300' Walk 10 feet (QC): 6 Walk 10ft-Uneven Surface(QC): 6 Walk 50ft with 2 Turns (QC): 6 Walk 150 ft (QC): 6 Gait Level of Assist: 6 Gait Assistive Device: FWW Does the Pt use WC or Scooter?: No Stairs (FIM): 6 # of Steps: 12 1 Step (curb) (QC): 6 4 Steps (QC): 6 12 Steps (QC): 6 Stairs Level Of Assist: 6 Picking up an Object (QC): 6 PT Plan Treatment/Plan Treatment Plan: Continue Plan of Care Treatment Plan: Bed Mobility, Education, Functional Activity Zena, Functional Strength, Group Therapy, Gait, Safety, Therapeutic Exercise, Transfers Treatment Duration: Nov 15, 2016 Minutes/Day (M-F): 60-90 Minutes/Day (Sat/Quintanilla): PRN Safety Risks/Education Patient Education: Gait Training, Transfer Techniques, Correct Positioning, Disease Process, Safety Issues Teaching Recipient: Patient Teaching Methods: Demonstration, Discussion Response to Teaching: Verbalize Understanding, Return Demonstration, Reinforcement Needed Time/GCodes Time In: 920 Time Out: 945 Total Billed Treatment Time: 25 Total Billed Treatment 1,GT15m,FA10m G Codes Necessary: JUAN CARLOS Rebolledo MEAT SUPERVISOR October 19, 2016 12:19
--- NOTE | 2016-10-19 12:32 | Occupational Ther Daily Note ---
OT Current Status-Daily Note Subjective Pt seen in room, up in recliner, agreeable to OT. Appearance Alert, cooperative, talkative Mental Status/Objective Functional [place] Measure 0=Not Assessed/NA 4=Minimal Assistance 1=Total Assistance 5=Supervision or Setup 2=Maximal Assistance 6=Modified [place] 3=Moderate Assistance 7=Complete [place] Comprehension(FIM): 4 (A little distractable) Expression(FIM): 5 Social Interaction(FIM): 4 (Very chatty, sometimes distractable) Problem Solving(FIM): 4 (A little difficulty with sequencing during shower) Memory(FIM): 4 (Seemed to sometimes forget what she was doing and needed cueing ) Attachments: Other-See Comments (cervical collar) ADL-Treatment All ADLS took longer than usual. Pt reported neck discomfort during shower, even though cervical collar was on. Supervision during many ADLs due to distractibility. Functional [place] Measure 0=Not Assessed/NA 4=Minimal Assistance 1=Total Assistance 5=Supervision or Setup 2=Maximal Assistance 6=Modified [place] 3=Moderate Assistance 7=Complete IndependenceIRFPAI Quality Coding Scale 6 Independent with activity with or without an assistive device 5 Patient requires set up or clean up by helper. Patient completes activity by themselves 4 Supervision or touching assist (CGA). [place] provide cues , steadying assist 3 The helper provides less than half the effort to complete the activity 2 The helper provides more than half the effort to complete the activity 1 Dependent. The helper does all the effort to complete an activity 7 Patient refused to complete or attempt activity 9 The patient did not perform the activity before the current illness or injury 88 Not attempted due to Medical conditions or safety concerns Eating (FIM): 5 (setup, pureed diet) Eating (QC): 5 (setup) Grooming (FIM): 5 (setup. Brushed hair. Washed face and hands during shower. Cleaned dentures with setup) Oral Hygiene (QC): 5 (setup to brush dentures, apply denture tape) Bathing (FIM): 5 (Washed and dried all parts except back, supervision for sequencing and safety. Shower bench, grab bars, hand held shower. Help to wash hair. Setup. Sat to wash bottom) Shower/Bathe Self (QC): 4 (supervision) Upper Body (FIM): 4 (Min assist to get t shirt over head to don it. Able to manage buttons on shirt) Upper Body Dressing (QC): 3 Lower Body Dressing (FIM): 3 (Help to get socks on, able to get them off. Able to get feet and into pants and CGA when standing to pull them up. FWW. Pt educ mod techniqqqque) Lower Body Dressing (QC): 3 On/Off Footwear (QC): 3 Toileting (FIM): 4 (CGA for clothing management, tall toilet, grab bar, FWW) Toileting Hygiene (QC): 4 Transfers (B, C, W/C) (FIM): 4 (CGA, FWW) Toilet/Commode Transfer (FIM): 3 (Min assist stand to sit, mod assist sit to stand. Needed something to push up off toilet so BSC placed over toilet. ) Toilet Transfer (QC): 3 Shower Transfer(FIM): 4 (CGA, shower bench, grab bars, FWW. Pt educ for hand placement) Noted that pt has had bilat mastectomies. Dry cervical collar applied after shower. Pt needed O2 at times due to SOB and extra recovery times while pacing herself during ADLs. Pt left up in recliner, present, all needs met. Education OT Patient Education: Modified ADL techniques, Purpose of tx/functional activities, Safety issues, Transfer techniques Teaching Recipient: Patient Teaching Methods: Demonstration, Discussion Response to Teaching: Reinforcement Needed OT Short Term Goals Short Term Goals Transfers (B,C,W/C) (FIM): 6 1=Demonstrate adherence to instructed precautions during ADL tasks. 2=Patient will verbalize/demonstrate understanding of assistive devices/ modifications for ADL. 3=Patient will improve strength/tolerance for activity to enable patient to perform ADL's. OT Fpc Goals Fpc Goals Time Frame: November 08, 2016 Eating (FIM): 7 Eating (QC): 6 Groomin Oral Hygiene (QC): 6 Bathing(FIM): 6 Shower/Bathe Self (QC): 6 Upper Body Dressing(FIM): 6 Upper Body Dressing (QC): 6 Lower Body Dressing(FIM): 6 Lower Body Dressing (QC): 6 On/Off Footwear (QC): 6 Toileting(FIM): 6 Toileting Hygiene (QC): 6 Toilet/Commode Transfer(FIM): 6 Toilet/Commode Transfer (QC): 6 Shower Transfer(FIM): 6 Additional Goals: 2-Verbalize Understanding, 3-ImproveStrength/Zena 1=Demonstrate adherence to instructed precautions during ADL tasks. 2=Patient will verbalize/demonstrate understanding of assistive devices/ modifications for ADL. 3=Patient will improve strength/tolerance for activity to enable patient to perform ADL's. OT Education/Plan Problem List/Assessment Pt would benefit from skilled OT to increase her independence in basic self care to allow her to return home safely to live with her Discharge Recommendations Plan/Recommendations: Continue POC Treatment Plan/Plan of Care Patient would benefit from OT for education, treatment and training to promote independence in ADL's, mobility, safety and/or upper extremity function for ADL' s. Plan of Care: ADL Retraining, Functional Mobility, Group Exercise/Act as Ind ( education, exercise, funct activities, activity tolerance, memory, problem solving), UE Funct Exercise/Act, UE Neuromus Re-Ed/Coord Treatment Duration: November 08, 2016 Visits Per Week: 10-11 Minutes/Day (M-F): 75-90 Minutes/Day (Sat/Quintanilla): PRN Agreement: Yes Rehab Potential: Good Time/GCodes Start Time: 10:05 Stop Time: 11:20 Total Time Billed (hr/min): 75 Billed Treatment Time visit, 75 minutes ADL XAVIER FARFAN OT October 19, 2016 12:32
[2016-10-19 18:23] VITALS: BP 141/56
[2016-10-19] MEDS: PRIMIDONE 50 MG TAB (MYSOLINE) PO SCH (20:20)
[2016-10-19] MEDS: ATORVASTATIN 20 MG (LIPITOR) TABLET PO SCH (20:20)
[2016-10-19] MEDS: eZETimibe 10 MG (ZETIA) TABLET PO SCH (20:20)
[2016-10-19] MEDS: FENOFIBRATE 134 MG (LOFIBRA) CAPSULE PO SCH (20:20)
[2016-10-19] MEDS: LORATADINE (CLARITIN) 10 MG TAB PO SCH (20:20)
[2016-10-19] MEDS: POLYETHYLENE GLYCOL 17 GM (MIRALAX) PACK PO SCH (21:03)
[2016-10-20 05:00] VITALS: BP 144/54
[2016-10-20] MEDS: MULTIVIT W/MINERALS TAB (THERAGRAN M) PO SCH (06:43)
[2016-10-20] MEDS: THIAMINE 100 MG (VITAMIN B-1) TAB PO SCH (06:43)
[2016-10-20] MEDS: OMEGA 3 (FISH OIL) 1000 MG CAP PO SCH (06:43)
[2016-10-20] MEDS: FOLIC ACID 1 MG TAB PO SCH (06:43)
[2016-10-20] MEDS: VITAMIN D3 1,000 UNITS (CHOLECALCIFEROL) TABLET PO SCH (06:43)
[2016-10-20] MEDS: FERROUS SULF 325 MG (IRON) TAB PO SCH ×2 (06:43→16:19)
[2016-10-20] MEDS: hydrALAZINE (APRESOLINE) 25 MG TAB PO SCH ×3 (06:45→21:04)
[2016-10-20] MEDS: UMECLIDINIUM BROMIDE (INCRUSE ELLIPTA) 7'S IH SCH (07:13)
[2016-10-20] MEDS: RT-FLUTICASONE 110 MCG (FLOVENT) PER PUFF INH SCH ×2 (07:13→17:59)
[2016-10-20 08:10] VITALS: BP 163/69
[2016-10-20] MEDS: FAMOTIDINE 20 MG (PEPCID) TABLET PO SCH ×2 (08:13→21:03)
[2016-10-20] MEDS: amLODIPine 10 MG (NORVASC) TAB PO SCH (08:13)
[2016-10-20] MEDS: PARoxetine 20 MG (PAXIL) TAB PO SCH (08:13)
[2016-10-20] MEDS: GABAPENTIN 100 MG (NEURONTIN) CAP PO SCH ×3 (08:13→21:04)
[2016-10-20] MEDS: PROPRANOLOL 20 MG (INDERAL) TABLET PO SCH ×2 (08:13→21:03)
[2016-10-20] MEDS: OXYBUTYNIN (DITROPAN) 5 MG TAB PO SCH ×2 (08:13→21:03)
[2016-10-20] MEDS: ASPIRIN 81 MG CHEW (CHILDREN'S ASA) PO SCH (08:13)
[2016-10-20] MEDS: lisINopril 10 MG (PRINIVIL) TAB PO SCH (08:17)
[2016-10-20] MEDS ORDERED: NON-FORMULARY MEDICATION 1 EA EA PO SCH (09:00)
[2016-10-20] MEDS: DICLOFENAC 1% GEL 100 GM (VOLTAREN) TUBE TOP SCH ×3 (13:22→21:11)
[2016-10-20 14:17] VITALS: BP 126/75
[2016-10-20] MEDS: RT-ALBUTEROL SULF 2.5 MG/3 ML PRE-MIX VIAL IH PRN (17:59)
[2016-10-20] MEDS ORDERED: ASPIRIN 81 MG CHEW (CHILDREN'S ASA) PO ONE (18:15)
[2016-10-20] MEDS ORDERED: morphine INJ 4 MG/ML 1 ML (VIAL/SYRINGE) IVP ONE (18:15)
[2016-10-20 18:28] VITALS: BP 130/78
[2016-10-20 21:00] VITALS: BP 136/79
[2016-10-20] MEDS: LORATADINE (CLARITIN) 10 MG TAB PO SCH (21:03)
[2016-10-20] MEDS: ATORVASTATIN 20 MG (LIPITOR) TABLET PO SCH (21:03)
[2016-10-20] MEDS: eZETimibe 10 MG (ZETIA) TABLET PO SCH (21:04)
[2016-10-20] MEDS: PRIMIDONE 50 MG TAB (MYSOLINE) PO SCH (21:04)
[2016-10-20] MEDS: FENOFIBRATE 134 MG (LOFIBRA) CAPSULE PO SCH (21:04)
[2016-10-20] MEDS: POLYETHYLENE GLYCOL 17 GM (MIRALAX) PACK PO SCH (21:13)
[2016-10-21 05:13] VITALS: BP 147/75
[2016-10-21] MEDS: hydrALAZINE (APRESOLINE) 25 MG TAB PO SCH ×3 (05:37→22:57)
[2016-10-21] MEDS: FERROUS SULF 325 MG (IRON) TAB PO SCH ×2 (05:44→17:38)
[2016-10-21] MEDS: MULTIVIT W/MINERALS TAB (THERAGRAN M) PO SCH (05:44)
[2016-10-21] MEDS: OMEGA 3 (FISH OIL) 1000 MG CAP PO SCH (05:44)
[2016-10-21] MEDS: FOLIC ACID 1 MG TAB PO SCH (05:44)
[2016-10-21] MEDS: THIAMINE 100 MG (VITAMIN B-1) TAB PO SCH (05:44)
[2016-10-21] MEDS: VITAMIN D3 1,000 UNITS (CHOLECALCIFEROL) TABLET PO SCH (05:45)
[2016-10-21 06:03] LABS: MEAN PLATELET VOLUME 8.8 FL (7.4-10.4); RED BLOOD COUNT 2.18 10^6/uL (4.35-5.85); RED CELL DISTRIBUTION WIDTH 16.3 % (10.0-14.5); WHITE BLOOD COUNT 7.2 10^3/uL (4.3-11.0)
[2016-10-21] MEDS: RT-FLUTICASONE 110 MCG (FLOVENT) PER PUFF INH SCH ×2 (06:57→20:12)
[2016-10-21] MEDS: UMECLIDINIUM BROMIDE (INCRUSE ELLIPTA) 7'S IH SCH (06:58)
--- NOTE | 2016-10-21 08:46 | Progress Note (SOAP) ---
Subjective Subjective/Events-last exam cervical surgery. Patient wearing a cervical collar.. Patient wants to eat. more Patient voices no other complaints Objective Exam Vital Signs Date Time Temp Pulse Resp B/P (MAP) Pulse Ox O2 Delivery O2 Flow Rate FiO2 10/21/16 07:01 92 10/21/16 06:58 92 2.00 10/21/16 05:34 60 10/21/16 05:13 97.6 54 16 147/75 94 Nasal Cannula 2.00 10/20/16 21:00 76 136/79 10/20/16 19:30 51 93 Nasal Cannula 2.00 10/20/16 18:55 51 96 Nasal Cannula 3.50 10/20/16 18:28 98.9 60 16 130/78 92 Nasal Cannula 2.00 10/20/16 18:00 89 2.50 10/20/16 14:17 64 126/75 I & O 10/21/16 07:00 Intake Total 5240 ml Balance 5240 ml Capillary Refill : General Appearance: No Apparent Distress, Thin HEENT: Other (hematoma on forehead) Neck: Other (cervical collar) Respiratory: Chest Non Tender, Lungs Clear, Normal Breath Sounds, No Accessory Muscle Use, No Respiratory Distress Cardiovascular: Regular Rate, Rhythm, No Murmur Gastrointestinal: non tender, soft Results Lab Laboratory Tests 10/21/16 05:56 Laboratory Tests 10/20/16 18:26: Troponin I < 0.30 10/21/16 05:56: White Blood Count 7.2, Red Blood Count 2.18L, Hemoglobin 7.2L, Hematocrit 23L, Mean Corpuscular Volume 106H, Mean Corpuscular Hemoglobin 33, Mean Corpuscular Hemoglobin Concent 31L, Red Cell Distribution Width 16.3H, Platelet Count 349, Mean Platelet Volume 8.8 Assessment/Plan Assessment/Plan Assess & Plan/Chief Complaint cervical surgery. Hematoma on the forehead. Patient worried about eating more food Clinical Quality Measures DVT/VTE Risk/Contraindication: Risk Factor Score Per Nursin RFS Level Per Nursing on Admit: 4+=Very High JEANINE ORLANDO DO October 21, 2016 08:46
[2016-10-21] MEDS: GABAPENTIN 100 MG (NEURONTIN) CAP PO SCH ×3 (08:54→20:24)
[2016-10-21] MEDS: OXYBUTYNIN (DITROPAN) 5 MG TAB PO SCH ×2 (08:54→20:23)
[2016-10-21] MEDS: ASPIRIN 81 MG CHEW (CHILDREN'S ASA) PO SCH (08:54)
[2016-10-21] MEDS: PROPRANOLOL 20 MG (INDERAL) TABLET PO SCH ×2 (08:54→20:23)
[2016-10-21] MEDS: lisINopril 10 MG (PRINIVIL) TAB PO SCH (08:55)
[2016-10-21] MEDS: amLODIPine 10 MG (NORVASC) TAB PO SCH (08:55)
[2016-10-21] MEDS: PARoxetine 20 MG (PAXIL) TAB PO SCH (08:55)
[2016-10-21] MEDS: DICLOFENAC 1% GEL 100 GM (VOLTAREN) TUBE TOP SCH ×4 (09:00→20:25)
--- NOTE | 2016-10-21 10:00 | Physical Therapy Daily Note ---
PT Daily Note-Current Subjective Pt. states she has pain in her neck at 5/10 points to the area. Pt.also c/o that she cant move without losing control and "jerking" Pain Numeric Pain Scale: 5-Moderate Pain Location: Medial Location Body Site: Neck Pain Description: Ache Appearance pt. with [place] collar on crooked, several attempts to straighten but it moves easily. Mental Status Patient Orientation: Normal For Age Attachments: Oxygen, Other-See Comments (Loyal collar) Transfers Functional [place] Measure 0=Not Assessed/NA 4=Minimal Assistance 1=Total Assistance 5=Supervision or Setup 2=Maximal Assistance 6=Modified [place] 3=Moderate Assistance 7=Complete IndependenceIRFPAI Quality Coding Scale 6 Independent with activity with or without an assistive device 5 Patient requires set up or clean up by helper. Patient completes activity by themselves 4 Supervision or touching assist (CGA). [place] provide cues , steadying assist 3 The helper provides less than half the effort to complete the activity 2 The helper provides more than half the effort to complete the activity 1 Dependent. The helper does all the effort to complete an activity 7 Patient refused to complete or attempt activity 9 The patient did not perform the activity before the current illness or injury 88 Not attempted due to Medical conditions or safety concerns Transfers (B, C, W/C) (FIM): 3 Scootin Rollin Supine to/from Sit: 4 Sit to/from Stand: 3 Bed to/from Chair: 3 Gait Training Does the Patient Walk?: Yes Gait (FIM): 1 Distance (FIM): 1=up to 49 ft (10ftx2) Gait Level of Assist: 2 Gait Persons Needed: 2 Gait Assistive Device: FWW gait very unstable this date with pt. jerking and losing control and needing assist to keep from falling several times during attempts at gait training Exercises Supine Ex: Ankle pumps, Quad Set, Rolling, Glut sets, Heel Slides, Short Arc Quads, Scooting, Straight leg raise, Hip abd/add Supine Reps: 12 Neuromuscular uncoordination of movements, strong jerking, unsafe on feet Assessment Current Status: Fair Progress this [place] communicated with [facility] PT re: pts. unsafe movement patterns today. [facility] requesting XRs to check security of cervical spine etc. PT Short Term Goals Short Term Goals Time Frame: November 01, 2016 Transfers (B,C,W/C) (FIM): 6 Gait (FIM): 6 Distance (FIM): 3=150 ft Gait Distance Comment: 200' Gait Level of Assist: 6 Gait Assistive Device: FWW, Cane Single Point Stairs (FIM): 2 # of Steps: 4 Stairs Level of Assist: 5 PT Non Profit Director Goals Half-Way Goals PT Half-Way Goals Time Frame: Nov 15, 2016 Transfers (B,C,W/C) (FIM): 6 Sit to Lying (QC): 6 Lying-Sitting on Side/Bed(QC): 6 Sit to Stand (QC): 6 Rollin Roll Left to Right (QC): 6 Chair/Uwr-ij-Ovsei Xfer(QC): 6 Car Transfer (QC): 6 Does the Patient Walk: Yes Gait (FIM): 6 Gait distance (FIM): 3=150 ft Distance: >300' Walk 10 feet (QC): 6 Walk 10ft-Uneven Surface(QC): 6 Walk 50ft with 2 Turns (QC): 6 Walk 150 ft (QC): 6 Gait Level of Assist: 6 Gait Assistive Device: FWW Does the Pt use WC or Scooter?: No Stairs (FIM): 6 # of Steps: 12 1 Step (curb) (QC): 6 4 Steps (QC): 6 12 Steps (QC): 6 Stairs Level Of Assist: 6 Picking up an Object (QC): 6 PT Plan Treatment/Plan Treatment Plan: Continue Plan of Care Treatment Plan: Bed Mobility, Education, Functional Activity Zena, Functional Strength, Group Therapy, Gait, Safety, Therapeutic Exercise, Transfers Treatment Duration: Nov 15, 2016 Visits Per Week: 10-11 Minutes/Day (M-F): 60-90 Minutes/Day (Sat/Quintanilla): PRN Safety Risks/Education Patient Education: Gait Training, Transfer Techniques Teaching Recipient: Patient Teaching Methods: Demonstration, Discussion Response to Teaching: Verbalize Understanding, Return Demonstration, Reinforcement Needed Time/GCodes Time In: 900 Time Out: 1000 Total Billed Treatment Time: 60 Total Billed Treatment 1,GT15m,FA25m,EX20 G Codes Necessary: JUAN CARLOS Rebolledo [place] October 21, 2016 10:00
--- NOTE | 2016-10-21 11:59 | Occupational Ther Daily Note ---
OT Current Status-Daily Note Subjective Pt. does not report pain this date. Appearance Pt. in bed. Agrees to work with OT. Spongebathes until further notice to remove [place] j collar to shower. Pt. has difficulty staying on task. Requires re-direction at times. Mental Status/Objective Patient Orientation: Unable to Assess Functional [place] Measure 0=Not Assessed/NA 4=Minimal Assistance 1=Total Assistance 5=Supervision or Setup 2=Maximal Assistance 6=Modified [place] 3=Moderate Assistance 7=Complete [place] ADL-Treatment Functional [place] Measure 0=Not Assessed/NA 4=Minimal Assistance 1=Total Assistance 5=Supervision or Setup 2=Maximal Assistance 6=Modified [place] 3=Moderate Assistance 7=Complete IndependenceIRFPAI Quality Coding Scale 6 Independent with activity with or without an assistive device 5 Patient requires set up or clean up by helper. Patient completes activity by themselves 4 Supervision or touching assist (CGA). [place] provide cues , steadying assist 3 The helper provides less than half the effort to complete the activity 2 The helper provides more than half the effort to complete the activity 1 Dependent. The helper does all the effort to complete an activity 7 Patient refused to complete or attempt activity 9 The patient did not perform the activity before the current illness or injury 88 Not attempted due to Medical conditions or safety concerns Grooming (FIM): 5 (Pt. is able to bring brush to her head.) Bathing (FIM): 4 (Pt. requires CGA for all transfers. CGA in stance for balance to wash her reginald area.) Shower/Bathe Self (QC): 4 Upper Body (FIM): 3 (Pt. has difficulty doffing shirt over her head. Then has difficulty donning clean shirt over her arms. Unable to fasten [place] j collar to re-adjust it.) Upper Body Dressing (QC): 3 Lower Body Dressing (FIM): 4 Lower Body Dressing (QC): 4 On/Off Footwear (QC): 4 Transfers (B, C, W/C) (FIM): 4 (Pt. is able to transfer from supine to and from sit with SBA. Is able to stand with CGA.) Pt. demonstrates great fatigue with activity. Requires several rest breaks in which she needed to lay down on bed and rest. Pt. has difficulty staying on task and multi-tasking. If she is telling a story, is unable to work on ADLs at the same time. O2 sats at 92% with 2 L 02 on. Pt. tired throughout treatment. States that she is motivated to get better. Noted decreased coordination in left UE. Hand is swollen from previous IV. Pt. had difficulty manipulating buttons on her shirt. Required increased time for this. Education OT Patient Education: Correct positioning, Modified ADL techniques, Progress toward Goal/Update tx plan, Purpose of tx/functional activities, Reviewed precautions, Rehab process, Transfer techniques, Use of adapted equipment Teaching Recipient: Patient Teaching Methods: Demonstration, Discussion Response to Teaching: Verbalize Understanding, Return Demonstration OT Short Term Goals Short Term Goals Transfers (B,C,W/C) (FIM): 6 1=Demonstrate adherence to instructed precautions during ADL tasks. 2=Patient will verbalize/demonstrate understanding of assistive devices/ modifications for ADL. 3=Patient will improve strength/tolerance for activity to enable patient to perform ADL's. OT Fci Goals Fci Goals Time Frame: November 08, 2016 Eating (FIM): 7 Eating (QC): 6 Groomin Oral Hygiene (QC): 6 Bathing(FIM): 6 Shower/Bathe Self (QC): 6 Upper Body Dressing(FIM): 6 Upper Body Dressing (QC): 6 Lower Body Dressing(FIM): 6 Lower Body Dressing (QC): 6 On/Off Footwear (QC): 6 Toileting(FIM): 6 Toileting Hygiene (QC): 6 Toilet/Commode Transfer(FIM): 6 Toilet/Commode Transfer (QC): 6 Shower Transfer(FIM): 6 Additional Goals: 2-Verbalize Understanding, 3-ImproveStrength/Zena 1=Demonstrate adherence to instructed precautions during ADL tasks. 2=Patient will verbalize/demonstrate understanding of assistive devices/ modifications for ADL. 3=Patient will improve strength/tolerance for activity to enable patient to perform ADL's. OT Education/Plan Problem List/Assessment Assessment: Decreased Activ Tolerance, Decreased UE Strength, Impaired Cognition, Impaired Coordination, Impaired Funct Balance, Impaired I ADL's, Impaired Self-Care Skills Pt would benefit from skilled OT to increase her independence in basic self care to allow her to return home safely to live with her Discharge Recommendations Plan/Recommendations: Continue POC Therapy D/C Recommendations: Home w/ Family Support, Occupational Therapy Home Care, Scheduled Assistance Barriers to Progress Cognition at this time. Decreased coordination. Fatigue Treatment Plan/Plan of Care Treatment,Training & Education: Yes Patient would benefit from OT for education, treatment and training to promote independence in ADL's, mobility, safety and/or upper extremity function for ADL' s. Plan of Care: ADL Retraining, Functional Mobility, Group Exercise/Act as Ind ( education, exercise, funct activities, activity tolerance, memory, problem solving), UE Funct Exercise/Act, UE Neuromus Re-Ed/Coord Treatment Duration: November 08, 2016 Visits Per Week: 10-11 Minutes/Day (M-F): 75-90 Minutes/Day (Sat/Quintanilla): PRN Agreement: Yes Rehab Potential: Good Time/GCodes Start Time: 10:00 Stop Time: 11:00 Total Time Billed (hr/min): 60 Billed Treatment Time 1, ADL x 4 EDMOND BARCENAS OT October 21, 2016 11:59
--- NOTE | 2016-10-21 12:56 | Diagnostic Imaging Report ---
Left upper extremity duplex venous ultrasound. INDICATION: Left arm puffiness. FINDINGS: The left axillary, brachial, basilic, radial and ulnar veins are all patent with normal color-flow and venous waveforms as well as compressibility. The left subclavian vein demonstrates normal flow as well. The internal jugular vein is the not evaluated on this exam. IMPRESSION: No evidence of a venous occlusion or thrombosis in the left upper extremity. Dictated by: Dictated on workstation # [id number]
--- NOTE | 2016-10-21 14:20 | Physical Therapy Daily Note ---
PT Daily Note-Current Subjective Pt. states she has such pain in her neck, rates at 8/10 off and on as well as some breathing difficulties. Pt. declines donning O2 but instead asks for one of her 3 inhalers. This was relayed to nurse who located her inhaler. Pt used it and stated this really helped her. Pain Numeric Pain Scale: 8 Location: Medial Location Body Site: Neck Pain Description: Stabbing Mental Status Attachments: Other-See Comments (moise armijo) Transfers Functional [place] Measure 0=Not Assessed/NA 4=Minimal Assistance 1=Total Assistance 5=Supervision or Setup 2=Maximal Assistance 6=Modified [place] 3=Moderate Assistance 7=Complete IndependenceIRFPAI Quality Coding Scale 6 Independent with activity with or without an assistive device 5 Patient requires set up or clean up by helper. Patient completes activity by themselves 4 Supervision or touching assist (CGA). [place] provide cues , steadying assist 3 The helper provides less than half the effort to complete the activity 2 The helper provides more than half the effort to complete the activity 1 Dependent. The helper does all the effort to complete an activity 7 Patient refused to complete or attempt activity 9 The patient did not perform the activity before the current illness or injury 88 Not attempted due to Medical conditions or safety concerns in out bed min assist . Gait Training Gait Assistive Device: FWW gait 6 ft left and right at side of bed. Pt did not have the ataxic quick jerking movements she had in the morning but did c/o pain in her neck increasing and could not tolerate sitting position Exercises Supine Ex: Ankle pumps, Quad Set, Glut sets, Heel Slides, Hip abd/add Supine Reps: 12 Assessment Current Status: Fair Progress poor tolerance for rx up and about activity PT Short Term Goals Short Term Goals Time Frame: November 01, 2016 Transfers (B,C,W/C) (FIM): 6 Gait (FIM): 6 Distance (FIM): 3=150 ft Gait Distance Comment: 200' Gait Level of Assist: 6 Gait Assistive Device: FWW, Cane Single Point Stairs (FIM): 2 # of Steps: 4 Stairs Level of Assist: 5 PT Fpc Goals Fpc Goals PT Cash Accountant Goals Time Frame: Nov 15, 2016 Transfers (B,C,W/C) (FIM): 6 Sit to Lying (QC): 6 Lying-Sitting on Side/Bed(QC): 6 Sit to Stand (QC): 6 Rollin Roll Left to Right (QC): 6 Chair/Jfd-oz-Lagks Xfer(QC): 6 Car Transfer (QC): 6 Does the Patient Walk: Yes Gait (FIM): 6 Gait distance (FIM): 3=150 ft Distance: >300' Walk 10 feet (QC): 6 Walk 10ft-Uneven Surface(QC): 6 Walk 50ft with 2 Turns (QC): 6 Walk 150 ft (QC): 6 Gait Level of Assist: 6 Gait Assistive Device: FWW Does the Pt use WC or Scooter?: No Stairs (FIM): 6 # of Steps: 12 1 Step (curb) (QC): 6 4 Steps (QC): 6 12 Steps (QC): 6 Stairs Level Of Assist: 6 Picking up an Object (QC): 6 PT Plan Treatment/Plan Treatment Plan: Continue Plan of Care Treatment Plan: Bed Mobility, Education, Functional Activity [place], Functional Strength, Group Therapy, Gait, Safety, Therapeutic Exercise, Transfers Treatment Duration: Nov 15, 2016 Visits Per Week: 10-11 Minutes/Day (M-F): 60-90 Minutes/Day (Sat/Quintanilla): PRN Safety Risks/Education Patient Education: Gait Training, Transfer Techniques Teaching Recipient: Patient Teaching Methods: Demonstration, Discussion Response to Teaching: Verbalize Understanding, Return Demonstration, Reinforcement Needed Time/GCodes Time In: 1330 Time Out: 1400 Total Billed Treatment Time: 30 Total Billed Treatment 1,FA20,EX10 G Codes Necessary: JUAN CARLOS Rebolledo [employer]ES ATT[employer] October 21, 2016 14:20
--- NOTE | 2016-10-21 14:40 | Occupational Ther Daily Note ---
OT Current Status-Daily Note Subjective Pt. is eating lunch. States that it is "delicious." Appearance Pt. in bed with neck brace off to eat her lunch, per nursing. Pt. requires cues to keep her head straight, and to not turn toward OT. Mental Status/Objective Patient Orientation: Unable to Assess Functional Bullock Measure 0=Not Assessed/NA 4=Minimal Assistance 1=Total Assistance 5=Supervision or Setup 2=Maximal Assistance 6=Modified Bullock 3=Moderate Assistance 7=Complete Bullock ADL-Treatment Functional Bullock Measure 0=Not Assessed/NA 4=Minimal Assistance 1=Total Assistance 5=Supervision or Setup 2=Maximal Assistance 6=Modified [place]ock 3=Moderate Assistance 7=Complete IndependenceIRFPAI Quality Coding Scale 6 Independent with activity with or without an assistive device 5 Patient requires set up or clean up by helper. Patient completes activity by themselves 4 Supervision or touching assist (CGA). [place] provide cues , steadying assist 3 The helper provides less than half the effort to complete the activity 2 The helper provides more than half the effort to complete the activity 1 Dependent. The helper does all the effort to complete an activity 7 Patient refused to complete or attempt activity 9 The patient did not perform the activity before the current illness or injury 88 Not attempted due to Medical conditions or safety concerns Eating (FIM): 5 Eating (QC): 5 Other Treatment OT checked chart. Noted nothing found with venous doppler study today. While pt. fed self with right UE after set up, OT worked on left UE swelling and coordination. Pt. was provided with yellow hand sponge to decrease swelling and improve strength. Pt. able to squeeze this x 20 reps. OT then applied lotion and began gentle retrograde massage to left UE. Worked on pushing fluid up arm to decrease swelling. Pt. states that "that feels good." Pt. requires cues to continue eating. Will stop to talk and put down fork. Requires cues and re-direction at times. Will often stop what she is doing and get off on another topic. Has difficulty staying on track. Pt. also requires cues to keep her head forward while eating with solomon j collar off. Will state, "oh yeah, I knew that." All needs met in room. Education OT Patient Education: Correct positioning, Exercise program, Progress toward Goal/Update tx plan, Purpose of tx/functional activities, Reviewed precautions, Rehab process, Transfer techniques Teaching Recipient: Patient Teaching Methods: Demonstration, Discussion Response to Teaching: Verbalize Understanding, Return Demonstration OT Short Term Goals Short Term Goals Transfers (B,C,W/C) (FIM): 6 1=Demonstrate adherence to instructed precautions during ADL tasks. 2=Patient will verbalize/demonstrate understanding of assistive devices/ modifications for ADL. 3=Patient will improve strength/tolerance for activity to enable patient to perform ADL's. OT Fdc Goals [place]icking Machine Operator Goals Time Frame: November 08, 2016 Eating (FIM): 7 Eating (QC): 6 Groomin Oral Hygiene (QC): 6 Bathing(FIM): 6 Shower/Bathe Self (QC): 6 Upper Body Dressing(FIM): 6 Upper Body Dressing (QC): 6 Lower Body Dressing(FIM): 6 Lower Body Dressing (QC): 6 On/Off Footwear (QC): 6 Toileting(FIM): 6 Toileting Hygiene (QC): 6 Toilet/Commode Transfer(FIM): 6 Toilet/Commode Transfer (QC): 6 Shower Transfer(FIM): 6 Additional Goals: 2-Verbalize Understanding, 3-ImproveStrength/Zena 1=Demonstrate adherence to instructed precautions during ADL tasks. 2=Patient will verbalize/demonstrate understanding of assistive devices/ modifications for ADL. 3=Patient will improve strength/tolerance for activity to enable patient to perform ADL's. OT Education/Plan Problem List/Assessment Assessment: Decreased Activ Tolerance, Decreased Safety Aware, Decreased UE Strength, Dependent Transfers, Impaired Bed Mobility, Impaired Cognition, Impaired Coordination, Impaired Funct Balance, Impaired I ADL's, Impaired Self- Care Skills, Restricted Funct UE ROM Pt would benefit from skilled OT to increase her independence in basic self care to allow her to return home safely to live with her Discharge Recommendations Plan/Recommendations: Continue POC Therapy D/C Recommendations: Home w/ Family Support, Occupational Therapy Home Care, Scheduled Assistance Treatment Plan/Plan of Care Treatment,Training & Education: Yes Patient would benefit from OT for education, treatment and training to promote independence in ADL's, mobility, safety and/or upper extremity function for ADL' s. Plan of Care: ADL Retraining, Functional Mobility, Group Exercise/Act as Ind ( education, exercise, funct activities, activity tolerance, memory, problem solving), UE Funct Exercise/Act, UE Neuromus Re-Ed/Coord Treatment Duration: November 08, 2016 Visits Per Week: 10-11 Minutes/Day (M-F): 75-90 Minutes/Day (Sat/Quintanilla): PRN Agreement: Yes Rehab Potential: Good Time/GCodes Start Time: 13:00 Stop Time: 13:30 Total Time Billed (hr/min): 30 Billed Treatment Time 1, FA x 2 EDMOND BARCENAS OT October 21, 2016 14:40
--- NOTE | 2016-10-21 15:23 | Diagnostic Imaging Report ---
INDICATION: Neck pain. FINDINGS: AP and lateral views of the cervical spine show postop changes from anterior cervical discectomy fusion at C5-6 and dorsal fusion at C4-C7. Alignment is normal. Hardware appears to be intact. Atlantoaxial relationship is normal. The odontoid appears to be intact. IMPRESSION: Postop changes of the cervical spine. There is no fracture or prevertebral soft tissue swelling present. Dictated by: Dictated on workstation # [id number]
[2016-10-21 18:00] VITALS: BP 125/71
[2016-10-21] MEDS: PRIMIDONE 50 MG TAB (MYSOLINE) PO SCH (20:23)
[2016-10-21] MEDS: FENOFIBRATE 134 MG (LOFIBRA) CAPSULE PO SCH (20:23)
[2016-10-21] MEDS: ATORVASTATIN 20 MG (LIPITOR) TABLET PO SCH (20:23)
[2016-10-21] MEDS: POLYETHYLENE GLYCOL 17 GM (MIRALAX) PACK PO SCH (20:24)
[2016-10-21] MEDS: eZETimibe 10 MG (ZETIA) TABLET PO SCH (20:24)
[2016-10-21] MEDS: LORATADINE (CLARITIN) 10 MG TAB PO SCH (20:24)
[2016-10-21] MEDS: FAMOTIDINE 20 MG (PEPCID) TABLET PO SCH (20:24)
[2016-10-21] MEDS: RT-ALBUTEROL SULF 2.5 MG/3 ML PRE-MIX VIAL IH PRN (20:46)
--- NOTE | 2016-10-21 22:01 | Individualized Plan of Care ---
Individualized Plan of Care Rehab Nursing IPOC Order Admission Date October 18, 2016 at 12:05 Current Orders Orders Cbc No Diff (10/22/16 06:00) Us Venous Upper Ext Lt (10/21/16 09:21) Cervical Spine 3 Views Or Less (10/21/16 10:40) Ferrous Sulfate Tablet (Feosol Tablet) (10/21/16 17:00) Patient Visit (10/21/16 ) Exercise Therap, Ea 15 Min (10/21/16 ) Functional Activities, Ea 15 (10/21/16 ) Gait Training, Ea 15 Min (10/21/16 ) Toilet every (bladder): (hrs): 2 hours while AWAKE PRN PT IPOC Problem List: Activity Tolerance, Functional Strength, Safety, Balance, Gait, Transfer, Bed Mobility Treatment Plan: Continue Plan of Care Bed Mobility, Education, Functional Activity Zena, Functional Strength, Group Therapy, Gait, Safety, Therapeutic Exercise, Transfers Treatment Duration: Nov 15, 2016 Visits Per Week: 10-11 Minutes/Day (M-F): 60-90 Minutes/Day (Sat/Quintanilla): PRN OT IPOC Problems: Decreased Activ Tolerance, Decreased Safety Aware, Decreased UE Strength, Dependent Transfers, Impaired Bed Mobility, Impaired Cognition, Impaired Coordination, Impaired Funct Balance, Impaired I ADL's, Impaired Self- Care Skills, Restricted Funct UE ROM OT Problems Pt would benefit from skilled OT to increase her independence in basic self care to allow her to return home safely to live with her Plan of Care: ADL Retraining, Functional Mobility, Group Exercise/Act as Ind ( education, exercise, funct activities, activity tolerance, memory, problem solving), UE Funct Exercise/Act, UE Neuromus Re-Ed/Coord Treatment Duration: November 08, 2016 Visits Per Week: 10-11 Minutes/Day (M-F): 75-90 Minutes/Day (Sat/Quintanilla): PRN Physician IPOC Medical Issues being managed closely and that require the 24 hour availability of a physician:RECENT FALL AND CERVICAL SPINE SURGERY Medical Issues: DVT Prophylaxis, Falls Precautions, Infection Protection, Pain Management, Wound Care, Other (List) ( PER ABOVE) Brief Synthesis of Preadmission Screen, Post-Admission Evaluation, and Therapy Evaluations:75 YO FEMALE WHO FELL AND HAD cSPINE SURGERY WITH REPAIR REFERRED TO [facility] FOR ONGOING THERAPIES HAD BEEN mODIFIED iNDEPENDENT PRIOR TO THIS Medical Prognosis: GOOD Anticipated Length of Stay: 11-08-16 Rehab Goals mODIFEID iNDEPENDENT TO SUPERVSION FOR ADLS AND MOBILITY SKILLS Anticipated discharge destinat: [facility] WITH FAMILY AND [facility] LOUIS BONILLA MD October 21, 2016 22:01
[2016-10-22 06:21] LABS: MEAN PLATELET VOLUME 9.2 FL (7.4-10.4); RED BLOOD COUNT 2.04 10^6/uL (4.35-5.85); RED CELL DISTRIBUTION WIDTH 16.5 % (10.0-14.5); WHITE BLOOD COUNT 7.4 10^3/uL (4.3-11.0)
[2016-10-22 06:22] VITALS: BP 147/66
[2016-10-22] MEDS ORDERED: diphenhydrAMINE 25 MG TAB (BENADRYL) PO ONE (06:45)
[2016-10-22] MEDS ORDERED: ACETAMINOPHEN 325 MG TABLET/CAPLET (TYLENOL) PO ONE (06:45)
[2016-10-22] MEDS: FOLIC ACID 1 MG TAB PO SCH (07:02)
[2016-10-22] MEDS: FERROUS SULF 325 MG (IRON) TAB PO SCH ×3 (07:02→16:08)
[2016-10-22] MEDS: VITAMIN D3 1,000 UNITS (CHOLECALCIFEROL) TABLET PO SCH (07:03)
[2016-10-22] MEDS: OMEGA 3 (FISH OIL) 1000 MG CAP PO SCH (07:03)
[2016-10-22] MEDS: THIAMINE 100 MG (VITAMIN B-1) TAB PO SCH (07:03)
[2016-10-22] MEDS: hydrALAZINE (APRESOLINE) 25 MG TAB PO SCH ×3 (07:03→21:09)
[2016-10-22] MEDS: MULTIVIT W/MINERALS TAB (THERAGRAN M) PO SCH (07:04)
[2016-10-22] MEDS: RT-FLUTICASONE 110 MCG (FLOVENT) PER PUFF INH SCH ×2 (07:23→18:49)
[2016-10-22] MEDS: UMECLIDINIUM BROMIDE (INCRUSE ELLIPTA) 7'S IH SCH (07:23)
[2016-10-22] MEDS: RT-ALBUTEROL SULF 2.5 MG/3 ML PRE-MIX VIAL IH PRN ×3 (07:30→18:49)
[2016-10-22 08:07] VITALS: BP 143/71
[2016-10-22] MEDS: lisINopril 10 MG (PRINIVIL) TAB PO SCH (08:07)
[2016-10-22] MEDS: PARoxetine 20 MG (PAXIL) TAB PO SCH (08:07)
[2016-10-22] MEDS: ASPIRIN 81 MG CHEW (CHILDREN'S ASA) PO SCH (08:07)
[2016-10-22] MEDS: OXYBUTYNIN (DITROPAN) 5 MG TAB PO SCH ×2 (08:07→20:56)
[2016-10-22] MEDS: GABAPENTIN 100 MG (NEURONTIN) CAP PO SCH ×3 (08:07→20:57)
[2016-10-22] MEDS: amLODIPine 10 MG (NORVASC) TAB PO SCH (08:07)
[2016-10-22] MEDS: PROPRANOLOL 20 MG (INDERAL) TABLET PO SCH ×2 (08:07→20:56)
[2016-10-22] MEDS: DICLOFENAC 1% GEL 100 GM (VOLTAREN) TUBE TOP SCH ×4 (08:08→21:07)
--- NOTE | 2016-10-22 08:12 | Progress Note (SOAP) ---
Subjective Subjective/Events-last exam patient hemoglobin 6.8. Patient to receive 2 units of packed. Patient not able to get full therapy today due to getting blood. Swelling in left hand is better and venous Doppler negative Objective Exam Vital Signs Date Time Temp Pulse Resp B/P (MAP) Pulse Ox O2 Delivery O2 Flow Rate FiO2 10/22/16 07:30 87 3.00 10/22/16 07:29 92 10/22/16 07:24 87 3.00 10/22/16 06:22 97.2 55 0 147/66 Nasal Cannula 3.00 10/21/16 20:47 90 3.00 10/21/16 20:14 87 10/21/16 20:05 3.00 10/21/16 18:00 100.2 60 16 125/71 94 Nasal Cannula 2.00 I & O 10/22/16 07:00 Intake Total 740 ml Balance 740 ml Capillary Refill : General Appearance: No Apparent Distress, WD/WN, Thin Neck: Full Range of Motion Respiratory: Chest Non Tender Cardiovascular: Regular Rate, Rhythm, No Murmur Results Lab Laboratory Tests 10/22/16 05:59 Laboratory Tests 10/22/16 05:59: White Blood Count 7.4, Red Blood Count 2.04L, Hemoglobin 6.8*L, Hematocrit 22L, Mean Corpuscular Volume 106H, Mean Corpuscular Hemoglobin 33, Mean Corpuscular Hemoglobin Concent 31L, Red Cell Distribution Width 16.5H, Platelet Count 373, Mean Platelet Volume 9.2 Assessment/Plan Assessment/Plan Assess & Plan/Chief Complaint cervical surgery. Hematoma on the forehead. Patient worried about eating more food. . 10/22/16.. Cervical surgery. Hematoma. Anemia Patient to receive blood. Left hand no swelling Clinical Quality Measures DVT/VTE Risk/Contraindication: Risk Factor Score Per Nursin RFS Level Per Nursing on Admit: 4+=Very High JEANINE ORLANDO DO October 22, 2016 08:12
--- NOTE | 2016-10-22 08:29 | Physical Therapy Daily Note ---
PT Daily Note-Current Subjective Patient agrees to PT. Patient states she is very tired and then will drift off to sleep. Pain Numeric Pain Scale: 0-No Pain Location: No Pain Reported Appearance noted "twitching" of bilateral extremities; decreased edema left UE. Mental Status Patient Orientation: Person, Situation, Listless Transfers Functional Sawyer Measure 0=Not Assessed/NA 4=Minimal Assistance 1=Total Assistance 5=Supervision or Setup 2=Maximal Assistance 6=Modified [place] 3=Moderate Assistance 7=Complete IndependenceIRFPAI Quality Coding Scale 6 Independent with activity with or without an assistive device 5 Patient requires set up or clean up by helper. Patient completes activity by themselves 4 Supervision or touching assist (CGA). [place] provide cues , steadying assist 3 The helper provides less than half the effort to complete the activity 2 The helper provides more than half the effort to complete the activity 1 Dependent. The helper does all the effort to complete an activity 7 Patient refused to complete or attempt activity 9 The patient did not perform the activity before the current illness or injury 88 Not attempted due to Medical conditions or safety concerns Exercises Supine Ex: Ankle pumps, Quad Set, Glut sets, Heel Slides, Straight leg raise, Hip abd/add Supine Reps: 15 (x 2 sets AAROM) Assessment Patient having difficulty attending to tasks due to lethargy. Patient requires much encouragement to stay awake and to remain on task, however, patient is unable to do so. Dr. Victor and RN (Natalie) notified. PT to increase activity as tolerated after 2 units of PRBC to be issued on this date. PT Short Term Goals Short Term Goals Time Frame: November 01, 2016 Transfers (B,C,W/C) (FIM): 6 Gait (FIM): 6 Distance (FIM): 3=150 ft Gait Distance Comment: 200' Gait Level of Assist: 6 Gait Assistive Device: FWW, Cane Single Point Stairs (FIM): 2 # of Steps: 4 Stairs Level of Assist: 5 PT Director Radio Goals Residential Goals PT Director Radio Goals Time Frame: Nov 15, 2016 Transfers (B,C,W/C) (FIM): 6 Sit to Lying (QC): 6 Lying-Sitting on Side/Bed(QC): 6 Sit to Stand (QC): 6 Rollin Roll Left to Right (QC): 6 Chair/Tng-vy-Yvvab Xfer(QC): 6 Car Transfer (QC): 6 Does the Patient Walk: Yes Gait (FIM): 6 Gait distance (FIM): 3=150 ft Distance: >300' Walk 10 feet (QC): 6 Walk 10ft-Uneven Surface(QC): 6 Walk 50ft with 2 Turns (QC): 6 Walk 150 ft (QC): 6 Gait Level of Assist: 6 Gait Assistive Device: FWW Does the Pt use WC or Scooter?: No Stairs (FIM): 6 # of Steps: 12 1 Step (curb) (QC): 6 4 Steps (QC): 6 12 Steps (QC): 6 Stairs Level Of Assist: 6 Picking up an Object (QC): 6 PT Plan Treatment/Plan Treatment Plan: Continue Plan of Care Treatment Plan: Bed Mobility, Education, Functional Activity Zena, Functional Strength, Group Therapy, Gait, Safety, Therapeutic Exercise, Transfers Treatment Duration: Nov 15, 2016 Visits Per Week: 10-11 Minutes/Day (M-F): 60-90 Minutes/Day (Sat/Quintanilla): PRN Time/GCodes Time In: 805 Time Out: 830 Total Billed Treatment Time: 25 Total Billed Treatment 1 visit EX x 2 25 min ELIZABETH BILLS PT October 22, 2016 08:29
[2016-10-22] MEDS ORDERED: BISACODYL 10 MG SUPP (DULCOLAX) PR PRN (09:15)
--- NOTE | 2016-10-22 11:27 | Occ Therapy Progress Note ---
Therapy Progress Note Attempted treatment this date. Pt. has low hemoglobin, and physician aware. Pt. would like to hold off on getting units of blood until she sees her cancer physician. Spoke with nursing in depth before seeing pt. Nursing states that it is okay to see pt. if she feels like it. Pt. has just got back to bed with assist of another therapist. Pt. somewhat confused. States that she is having trouble breathing. Spouse in room and states that pt. wears oxygen at times at night and during the day if she needs it. Pt. on 4 L of O2, and sats at 90%. Pt. states that she is hungry. OT encourages her to order a meal, with her 's assistance. Pt. is confused and states that she doesn't want to make "them mad" in the kitchen. Pt. is encouraged that this is not the case. Pt. educated that OT will check back again at 1:00. Will attempt back at 1:00. 1, visit [id number] no charge EDMOND BARCENAS OT October 22, 2016 11:27
--- NOTE | 2016-10-22 11:43 | ST Dysphagia Evaluation ---
Speech Evaluation-General Medical Diagnosis subluxation C5-6, cervical fusion Onset Date: Oct 08, 2016 Therapy Diagnosis Therapy Diagnosis: Oropharyngeal Swallow WFL Precautions Precautions/Isolations: Fall Prevention, Standard Precautions Referral Referring Physician: Dr. Andre Kimble Reason for Referral: Evaluation/Treatment Bedside Swallowing Evaluation Medical History Pertinent Medical History: Atrial Fib, Alcoholism, CABG, CAD, COPD, HTN, PVD, Renal Insufficiency Reviewed History: Yes Social History Current Living Status: Spouse Speech PLF/Current-Dysphagia Prior Level of Function The patient denied challenges with swallowing prior to her cervical spine procedure. Subjective The patient was recently admitted to [facility] following a cervical spine procedure. The patient greeted the clinician appropriately and was agreeable to participation in the bedside swallowing evaluation on this date. The patient was placed on a mechanically altered with nectar-thick liquids at an outside facility. Per patient, she has not experienced any signs/ symptoms of aspiration with the previously recommended consistency and is interested in "upgrading" her diet when able. Cognitive Status Patient Orientation: Person, Confused Oral Motor Skills Dentition: Edentalous Denture Type: Full- Upper & Lower Current Food Consistancy: Mechanical Soft, Williams Liquids Ability to Follow Directions: Good Oral Expression Ability: Mild Impairment Voice Voice Phonatory-Based Quality: Glottal Arreguin Voice Pitch: Moderately Low Voice Loudness: Normal Face Facial Symmetry: Symmetrical Oral-Facial Assessment Oral-Facial Dentition: Normal Labial Seal Description: Normal Smile: Normal Puff Cheeks: Normal Lingual Protrusion: Normal Lingual ROM: Normal Lingual Strength: Normal Pharynx Velopharyngeal Move.: Normal Volitional Dry Swallow: Yes Dysphagia Evaluation Consistencies Presented: Regular (Jose Cracker), Thin Liquid (Teaspoon, Cup, Straw), Pureed (Pudding via teaspoon) - Mildly increased mastication time was demonstrated with solid consistencies tested. The patient was able to clear residual material with a spontaneous, second dry swallow. - No pharyngeal phase impairments were noted throughout the evaluation. - No signs/symptoms of aspiration were demonstrated with multiple boluses of thin liquid (via teaspoon, cup sip, straw sip), puree, or solid consistencies tested. The patient's vocal quality remained clear throughout bolus trials. Dietary Recommendations: Regular Liquid Recommendations: Thin Swallowing Precautions: Alternate Liquids/Solids, Small Bites and Sips, Sitting Upright 90 Degrees Dysphagia Evaluation Summary The patient demonstrated an oropharyngeal swallow function grossly within normal limits. Speech-Plan Treatment Plan Speech Therapy Treatment Plan: Discontinue ST Evaluation, only. Rehab Potential: Guarded Safety Risks/Education Teaching Recipient: Patient, Significant Other Teaching Methods: Discussion Response to Teaching: Verbalize Understanding Education Topics Provided: Results, Recommendations, Signs/symptoms of aspiration, Swallowing Strategies Time Speech Therapy Time In: 09:30 Speech Therapy Time Out: 09:45 Total Billed Time: 15 Billed Treatment Time 1, TIERA SALCIDO October 22, 2016 11:43
--- NOTE | 2016-10-22 11:52 | ST Cognitive Linguistic Eval ---
Speech Evaluation-General Medical Diagnosis subluxation C5-6, cervical fusion Onset Date: Oct 08, 2016 Therapy Diagnosis Therapy Diagnosis: Mild Cognitive Impairment Precautions Precautions/Isolations: Fall Prevention, Standard Precautions Referral Referring Physician: Dr. Andre Kibmle Reason for Referral: Evaluation/Treatment Cognitive Evaluation Medical History Pertinent Medical History: Atrial Fib, Alcoholism, CABG, CAD, COPD, HTN, PVD, Renal Insufficiency Reviewed History: Yes Social History Current Living Status: Spouse Speech PLF-Current Status Prior Level of Function The patient reported mild memory impairments at baseline. Subjective The patient was recently admitted to [facility] following a cervical spine procedure. The patient greeted the clinician appropriately and was agreeable to participation in the cognitive evaluation. To note, the patient 's was present at bedside. Language Eval: Auditory Comprehends Simple Yes/No Ques: Mild Indent/Objects Multiple Naylor: Functional Ident/Pics in Multiple Naylor: Functional Follows 1-Step Commands: Mild Follows Complex Directions: Mild Follows General Conversations: Mild Language Eval: Verbal Language Completes Spontaneous Greeting: Functional Produces Auto, Serial Info: Mild Imitates Simple Words/Phrases: Mild Word Finding: Mild Requests Basic Needs: Functional States Basic Personal Info: Functional Expresses Complex Ideas: Mild Cognitive Patient Orientation The patient was oriented to self, location, and day of week. The patient required mild verbal prompting to identify month and year. Objective Cognitive Domain Attention: Mild Memory: Moderate Problem Solving: Moderate Objective Impression The patient demonstrated a mild cognitive impairment in the areas of memory, problem solving, and attention. Communication/Social Cognition Comprehension: 4 Expression: 4 Social Interaction: 5 Problem Solvin Memory: 3 Speech Patient Assess Expression of Ideas/Wants: Exhibits (3) Understanding Vebal Content: Usually Understands (3) Brief Interview-Mental Status: Yes Repetition of Three Words: Three (3) Temporal Orientation: Year: Missed by more than 5 yrs (0) Temporal Orientation: Month: Accurate within 5 days(2) Temporal Orientation: Day: Correct (1) Recall : Wear to say "Sock": No, could not recall (0) Recall : Color: Yes, after cueing (1) Recall : Bed: No, could not recall (0) Speech Short Term Goals Short Term Goals Short Term Goals 1. The patient will demonstrated 80% accuracy with simple orientation information using an external aid and mild clinician verbal cueing. 2. The patient will display 80% accuracy with safety problem solving with mild clinician verbal cueing. 3. The patient will recall two functional memory strategies for use at home. Time Frame-STG: Two Weeks Speech News Assistant Goals Halfway Goals 1. The patient will display improved cognitive skills for increased safety and function with ADL's. Time Frame: Four Weeks Comprehension: 5 Expression: 5 Social Interaction: 5 Problem Solvin Memory: 4 Speech-Plan Treatment Plan Speech Therapy Treatment Plan: Continue Plan of Care Continue skilled speech pathology intervention for improved cognition with functional tasks. Treatment Duration: Nov 19, 2016 # of days/week Four to Five Visits Per Week: Four to Five. Minutes/Day (M-F): 30 Rehab Potential: Guarded Safety Risks/Education Teaching Recipient: Patient, Significant Other Teaching Methods: Discussion Response to Teaching: Reinforcement Needed Education Topics Provided: Results, Recommendations, Plan of Care Time Speech Therapy Time In: 09:45 Speech Therapy Time Out: 10:00 Total Billed Time: 15 Billed Treatment Time 1, TIERA CARRERO October 22, 2016 11:52
[2016-10-22 13:17] VITALS: BP 111/64
--- NOTE | 2016-10-22 13:18 | Occupational Ther Daily Note ---
OT Current Status-Daily Note Subjective Pt alert, sitting up in recliner. present in room. Pt was ready to get back into bed. Mental Status/Objective Functional [place] Measure 0=Not Assessed/NA 4=Minimal Assistance 1=Total Assistance 5=Supervision or Setup 2=Maximal Assistance 6=Modified [place] 3=Moderate Assistance 7=Complete [place] ADL-Treatment Functional [place] Measure 0=Not Assessed/NA 4=Minimal Assistance 1=Total Assistance 5=Supervision or Setup 2=Maximal Assistance 6=Modified [place] 3=Moderate Assistance 7=Complete IndependenceIRFPAI Quality Coding Scale 6 Independent with activity with or without an assistive device 5 Patient requires set up or clean up by helper. Patient completes activity by themselves 4 Supervision or touching assist (CGA). [place] provide cues , steadying assist 3 The helper provides less than half the effort to complete the activity 2 The helper provides more than half the effort to complete the activity 1 Dependent. The helper does all the effort to complete an activity 7 Patient refused to complete or attempt activity 9 The patient did not perform the activity before the current illness or injury 88 Not attempted due to Medical conditions or safety concerns Other Treatment SMYTH donned neck brace, pt stated that it was poking her in her shldr, adjustment made. Pt called over and told him to assist her to push to stand by grabbing her under her R arm. Then when in standing, pt demonstrated slight LOB initially. Pt then required CGA and assistance needed to guide FWW with transfer for safety. Pt required min A to go from sitting EOB to supine. After therapy, pt lying in bed with call light/phone in reach. All needs met in room. OT Short Term Goals Short Term Goals Transfers (B,C,W/C) (FIM): 6 1=Demonstrate adherence to instructed precautions during ADL tasks. 2=Patient will verbalize/demonstrate understanding of assistive devices/ modifications for ADL. 3=Patient will improve strength/tolerance for activity to enable patient to perform ADL's. OT Chain Hoist Operator Goals Chain Hoist Operator Goals Time Frame: November 08, 2016 Eating (FIM): 7 Eating (QC): 6 Groomin Oral Hygiene (QC): 6 Bathing(FIM): 6 Shower/Bathe Self (QC): 6 Upper Body Dressing(FIM): 6 Upper Body Dressing (QC): 6 Lower Body Dressing(FIM): 6 Lower Body Dressing (QC): 6 On/Off Footwear (QC): 6 Toileting(FIM): 6 Toileting Hygiene (QC): 6 Toilet/Commode Transfer(FIM): 6 Toilet/Commode Transfer (QC): 6 Shower Transfer(FIM): 6 Comprehension(FIM): 5 Expression (FIM): 5 Social Interaction(FIM): 5 Problem Solving(FIM): 4 Memory(FIM): 4 Additional Goals: 2-Verbalize Understanding, 3-ImproveStrength/Zena 1=Demonstrate adherence to instructed precautions during ADL tasks. 2=Patient will verbalize/demonstrate understanding of assistive devices/ modifications for ADL. 3=Patient will improve strength/tolerance for activity to enable patient to perform ADL's. OT Education/Plan Problem List/Assessment Pt would benefit from skilled OT to increase her independence in basic self care to allow her to return home safely to live with her Discharge Recommendations Plan/Recommendations: Continue POC Treatment Plan/Plan of Care Patient would benefit from OT for education, treatment and training to promote independence in ADL's, mobility, safety and/or upper extremity function for ADL' s. Plan of Care: ADL Retraining, Functional Mobility, Group Exercise/Act as Ind ( education, exercise, funct activities, activity tolerance, memory, problem solving), UE Funct Exercise/Act, UE Neuromus Re-Ed/Coord Treatment Duration: November 08, 2016 Visits Per Week: 10-11 Minutes/Day (M-F): 75-90 Minutes/Day (Sat/Quintanilla): PRN Agreement: Yes Rehab Potential: Guarded Time/GCodes Start Time: 11:00 Stop Time: 11:10 Total Time Billed (hr/min): 10 Billed Treatment Time 1 visit-FA 1 (10 min) TYSON RAMOS October 22, 2016 13:18
--- NOTE | 2016-10-22 13:20 | Physical Therapy Daily Note ---
PT Daily Note-Current Subjective Patient just complete with lunch and agrees to attempt to participate with therapy. Pain Numeric Pain Scale: 5-Moderate Pain Location: Incisional Location Body Site: Neck Pain Description: Pressure, Acute Mental Status Patient Orientation: Confused Attachments: Oxygen Transfers Functional [place] Measure 0=Not Assessed/NA 4=Minimal Assistance 1=Total Assistance 5=Supervision or Setup 2=Maximal Assistance 6=Modified [place] 3=Moderate Assistance 7=Complete IndependenceIRFPAI Quality Coding Scale 6 Independent with activity with or without an assistive device 5 Patient requires set up or clean up by helper. Patient completes activity by themselves 4 Supervision or touching assist (CGA). [place] provide cues , steadying assist 3 The helper provides less than half the effort to complete the activity 2 The helper provides more than half the effort to complete the activity 1 Dependent. The helper does all the effort to complete an activity 7 Patient refused to complete or attempt activity 9 The patient did not perform the activity before the current illness or injury 88 Not attempted due to Medical conditions or safety concerns Transfers (B, C, W/C) (FIM): 4 Scootin Rollin Roll Left to Right (QC): 5 Supine to/from Sit: 5 Sit to/from Stand: 4 Sit to Lying (QC): 5 Sit to Stand (QC): 4 Gait Training Does the Patient Walk?: Yes Gait (FIM): 2 Distance (FIM): 6=401-74 ft Distance: 100' x 2; 150' x 1 Walk 10 feet (QC): 4 Walk 50 ft with 2 Turns(QC): 4 Walk 150 ft (QC): 4 Gait Level of Assist: 4 Gait Persons Needed: 1 Gait Assistive Device: FWW multiple episodes of LOB with PT correcting with use of gait belt Exercises Seated Therapy Exercises: Ankle pumps, Long arc quads Seated Reps: 10 NuStep Minutes: 3 NuStep Workload: 1 Assessment Patient is very fatigued due to decreased Hgb. Patient requests to discuss condition with oncologist. PT to increase activity. PT Short Term Goals Short Term Goals Time Frame: November 01, 2016 Transfers (B,C,W/C) (FIM): 6 Gait (FIM): 6 Distance (FIM): 3=150 ft Gait Distance Comment: 200' Gait Level of Assist: 6 Gait Assistive Device: FWW, Cane Single Point Stairs (FIM): 2 # of Steps: 4 Stairs Level of Assist: 5 PT Brake Repairer Bus Goals Brake Repairer Bus Goals PT Retirement Goals Time Frame: Nov 15, 2016 Transfers (B,C,W/C) (FIM): 6 Sit to Lying (QC): 6 Lying-Sitting on Side/Bed(QC): 6 Sit to Stand (QC): 6 Rollin Roll Left to Right (QC): 6 Chair/Uzm-fi-Wdruk Xfer(QC): 6 Car Transfer (QC): 6 Does the Patient Walk: Yes Gait (FIM): 6 Gait distance (FIM): 3=150 ft Distance: >300' Walk 10 feet (QC): 6 Walk 10ft-Uneven Surface(QC): 6 Walk 50ft with 2 Turns (QC): 6 Walk 150 ft (QC): 6 Gait Level of Assist: 6 Gait Assistive Device: FWW Does the Pt use WC or Scooter?: No Stairs (FIM): 6 # of Steps: 12 1 Step (curb) (QC): 6 4 Steps (QC): 6 12 Steps (QC): 6 Stairs Level Of Assist: 6 Picking up an Object (QC): 6 PT Plan Treatment/Plan Treatment Plan: Continue Plan of Care Treatment Plan: Bed Mobility, Education, Functional Activity Zena, Functional Strength, Group Therapy, Gait, Safety, Therapeutic Exercise, Transfers Treatment Duration: Nov 15, 2016 Visits Per Week: 10-11 Minutes/Day (M-F): 60-90 Minutes/Day (Sat/Quintanilla): PRN Time/GCodes Time In: 1240 Time Out: 1315 Total Billed Treatment Time: 35 Total Billed Treatment 1 visit FA x 2 35 min ELIZABETH BILLS PT October 22, 2016 13:20
--- NOTE | 2016-10-22 13:58 | Occupational Ther Daily Note ---
OT Current Status-Daily Note Subjective Pt. does not report pain, but does state that she is just "really worn out." Appearance Pt. declines all out of bed activity. However, states that she needs to go to the bathroom. OT asks pt. Pt. states "no." OT asks pt.'s again. states that he doesn't know. Friend in room confers that she needs to go to the bathroom. Pt. asked again and states, "oh yeah, I have to go." Mental Status/Objective Patient Orientation: Confused Functional [place] Measure 0=Not Assessed/NA 4=Minimal Assistance 1=Total Assistance 5=Supervision or Setup 2=Maximal Assistance 6=Modified [place] 3=Moderate Assistance 7=Complete [place] ADL-Treatment Functional [place] Measure 0=Not Assessed/NA 4=Minimal Assistance 1=Total Assistance 5=Supervision or Setup 2=Maximal Assistance 6=Modified [place] 3=Moderate Assistance 7=Complete IndependenceIRFPAI Quality Coding Scale 6 Independent with activity with or without an assistive device 5 Patient requires set up or clean up by helper. Patient completes activity by themselves 4 Supervision or touching assist (CGA). [place] provide cues , steadying assist 3 The helper provides less than half the effort to complete the activity 2 The helper provides more than half the effort to complete the activity 1 Dependent. The helper does all the effort to complete an activity 7 Patient refused to complete or attempt activity 9 The patient did not perform the activity before the current illness or injury 88 Not attempted due to Medical conditions or safety concerns Toileting (FIM): 4 Toileting Hygiene (QC): 4 Transfers (B, C, W/C) (FIM): 4 Toilet/Commode Transfer (FIM): 4 Toilet Transfer (QC): 4 Other Treatment Pt. able to transfer from supine-sit with SBA. Stood with min assist needed. Noted that pt. very unsteady on her feet. Begins to walk with walker into bathroom. Pt. requires min assist for balance and endurance. Slow to move and somewhat "wobbly." Pt. able to pull pants down, but this is an effort. Requires min assist in stance for balance. Able to urinate a little, but OT did not want to leave pt., as she seems somewhat unsteady on toilet. Pt. stood again after cleansing reginald area, and able to slowly pull up pants with min assist for balance. Began to ambulate to sink. However, pt. wobbly and not safe. Went to bed. Able to get into bed with effort. OT provided hand oral and maxillofacial surgery resident. All needs met. Pt. declines any further OT treatment at this time. States that she is too tired and that she is waiting on Dr. Jeong. All needs met in room. Education OT Patient Education: Correct positioning, Modified ADL techniques, Progress toward Goal/Update tx plan, Purpose of tx/functional activities, Reviewed precautions, Rehab process, Transfer techniques Teaching Recipient: Patient Teaching Methods: Demonstration, Discussion Response to Teaching: Verbalize Understanding, Return Demonstration OT Short Term Goals Short Term Goals Transfers (B,C,W/C) (FIM): 6 1=Demonstrate adherence to instructed precautions during ADL tasks. 2=Patient will verbalize/demonstrate understanding of assistive devices/ modifications for ADL. 3=Patient will improve strength/tolerance for activity to enable patient to perform ADL's. OT Operating Room Specialist Goals Operating Room Specialist Goals Time Frame: November 08, 2016 Eating (FIM): 7 Eating (QC): 6 Groomin Oral Hygiene (QC): 6 Bathing(FIM): 6 Shower/Bathe Self (QC): 6 Upper Body Dressing(FIM): 6 Upper Body Dressing (QC): 6 Lower Body Dressing(FIM): 6 Lower Body Dressing (QC): 6 On/Off Footwear (QC): 6 Toileting(FIM): 6 Toileting Hygiene (QC): 6 Toilet/Commode Transfer(FIM): 6 Toilet/Commode Transfer (QC): 6 Shower Transfer(FIM): 6 Comprehension(FIM): 5 Expression (FIM): 5 Social Interaction(FIM): 5 Problem Solving(FIM): 4 Memory(FIM): 4 Additional Goals: 2-Verbalize Understanding, 3-ImproveStrength/Zena 1=Demonstrate adherence to instructed precautions during ADL tasks. 2=Patient will verbalize/demonstrate understanding of assistive devices/ modifications for ADL. 3=Patient will improve strength/tolerance for activity to enable patient to perform ADL's. OT Education/Plan Problem List/Assessment Assessment: Decreased Activ Tolerance, Decreased Safety Aware, Decreased UE Strength, Dependent Transfers, Impaired Bed Mobility, Impaired Cognition, Impaired Coordination, Impaired Funct Balance, Impaired I ADL's, Impaired Self- Care Skills, Restricted Funct UE ROM Pt would benefit from skilled OT to increase her independence in basic self care to allow her to return home safely to live with her Discharge Recommendations Plan/Recommendations: Continue POC Therapy D/C Recommendations: 24 hr Supervision Treatment Plan/Plan of Care Treatment,Training & Education: Yes Patient would benefit from OT for education, treatment and training to promote independence in ADL's, mobility, safety and/or upper extremity function for ADL' s. Plan of Care: ADL Retraining, Functional Mobility, Group Exercise/Act as Ind ( education, exercise, funct activities, activity tolerance, memory, problem solving), UE Funct Exercise/Act, UE Neuromus Re-Ed/Coord Treatment Duration: November 08, 2016 Visits Per Week: 10-11 Minutes/Day (M-F): 75-90 Minutes/Day (Sat/Quintanilla): PRN Agreement: Yes Rehab Potential: Guarded Time/GCodes Start Time: 13:35 Stop Time: 13:50 Total Time Billed (hr/min): 15 Billed Treatment Time 1, ADL EDMOND BARCENAS OT October 22, 2016 13:58
--- NOTE | 2016-10-22 15:41 | Oncology Consultation ---
Visit Information Visit Information Date of Admission October 18, 2016 at 12:05 Attending Physician Andre Kimble MD Admitting Physician Trudy Jacobs DO Chief Complaint Anemia Interval History Ms. Murphy is a 75 year old white female known to me in the past for anemia and was treated with EPO and B12 and achieved good result Hb normalized. She had a fall at home and had fracture of her servical vertebrates and large hematoma of her right forehead. She has surgery in [facility] and transferred her for rehab. He Hb slowly dropped from 7.1 on admission 10/18/[address] Hanks wanted to give her a unit of RBC transfusion but patient wanted me to be involved because she had volume overload with SOB in the past. Currently she is also on Heparin 5000 q8r SQ and was ordered at [facility]. PMH: 1. Macrocytic anemia, 2. Orthostatic hypotension with frequent falls, 3. Renal failure, due to CAD and mild DM. She has elevated kappa light chain and ratios but the bone survey showed no lytic lesion. 4. CAD, s/p GBAG x 3 on three BP meds and 3 heart meds and HCTZ. 5. h/o heavy alcohol abuse, stopped now. ? liver cirrohsis 6. h/o heavy tobacco abuse, stopped now. COPD 7. h/o positive stool occult blood test but negative EGD and colonoscope per patient report. I consulted the patient on: 10/22/16 15:38 Constitutional: weakness Respiratory: no symptoms reported Cardiovascular: no symptoms reported Gastrointestinal: no symptoms reported Genitourinary: no symptoms reported Health Status Allergies Coded Allergies: clopidogrel (Unverified Adverse Reaction, Severe, EXCESSIVE BLEEDING, 30/03) codeine (Unverified Adverse Reaction, Mild, NAUSEA, 03/30/10) warfarin (Unverified Adverse Reaction, Unknown, "REAL BAD SICK", 01/02/16) Uncoded Allergies: TRAZADONE (Adverse Reaction, Unknown, "CAN'T FUNCTION", 01/02/16) Home Medications Albuterol Sulfate (Ventolin Hfa) 1 Puff Puff, 2 PUFF IH Q4H PRN for SHORTNESS OF BREATH, (Reported) 1 PUFF = 90 MCG Albuterol Sulfate (Albuterol Sulfate) 2.5 Mg/3 Ml Vial.neb, 2.5 MG IH Q1H PRN for SHORTNESS OF BREATH, (Reported) Albuterol/Ipratropium (Combivent Respimat Inhal Padroni) 4 Gm Aero, IH UD, ( Reported) Amlodipine Besylate (Amlodipine Besylate) 10 Mg Tablet, 10 MG PO DAILY, ( Reported) Cetirizine HCl (Zyrtec) 10 Mg Tablet, 10 MG PO DAILY, (Reported) Cholecalciferol (Vitamin D3) (Vitamin D3) 2,000 Unit Capsule, 2,000 UNIT PO DAILY, (Reported) Ezetimibe (Zetia) 10 Mg Tablet, 10 MG PO DAILY, (Reported) Fenofibrate Nanocrystallized (Tricor) 145 Mg Tablet, 145 MG PO DAILY, (Reported) Ferrous Fumarate (Ferrous Fumarate) 324 Mg Tablet, 325 MG PO BID, (Reported) Fluticasone Propionate (Flovent Hfa 110 mcg) 1 Ea Aero, 1 PUFF IH BID, (Reported ) Gabapentin (Gabapentin) 100 Mg Capsule, 100 MG PO TID, (Reported) Hydrochlorothiazide (Hydrochlorothiazide) 25 Mg Tablet, 12.5-25 MG PO DAILY PRN for SWELLING, (Reported) Lisinopril (Lisinopril) 10 Mg Tablet, 10 MG PO DAILY, (Reported) Losartan Potassium (Losartan Potassium) 100 Mg Tablet, PO UD, (Reported) Metoprolol Succinate (Metoprolol Succinate) 25 Mg Tab.er.24h, 25 MG PO DAILY, ( Reported) Nitroglycerin (Nitroglycerin) 0.4 Mg Tab.subl, 0.4 MG SL UD PRN for CHEST PAIN, (Reported) [place]-3/Dha/Epa/Fish Oil ([place] 3 500 Softgel) 1 Each Capsule, 1,500 MG PO DAILY , (Reported) Oxybutynin Chloride (Oxybutynin Chloride) 5 Mg Tablet, 5 MG PO BID, (Reported) Paricalcitol (Zemplar) 1 Mcg Capsule, 1 MCG PO Q48H, (Reported) Paroxetine HCl (Paroxetine HCl) 40 Mg Tablet, 40 MG PO DAILY, (Reported) Paroxetine HCl (Paroxetine HCl) 30 Mg Tablet, 30 MG PO DAILY, (Reported) Polyethylene Glycol 3350 (Miralax) 17 Gm Powd.pack, 17 GM PO DAILY, (Reported) Pravastatin Sodium (Pravastatin Sodium) 80 Mg Tablet, 80 MG PO HS, (Reported) Primidone (Primidone) 50 Mg Tablet, 25 MG PO HS, (Reported) Propranolol HCl (Propranolol HCl) 20 Mg Tablet, 20 MG PO BID, (Reported) Ranitidine HCl (Acid Csr Technician (RANITIDINE)) 150 Mg Tablet, 150 MG PO BID, ( Reported) Ranolazine (Ranexa) 500 Mg Tab.er.12h, PO UD, (Reported) Umeclidinium [place] (Incruse Ellipta) 62.5 Mcg Blst.w.dev, 1 PUFF IH DAILY, ( Reported) COT-Fysqmp-Xcerqb Hx Patient Social History Employed/Student: unemployed Alcohol Use: Denies Use Recreational Drug Use: No Smoking Status: Former Smoker Type Used: Cigarettes Recent Foreign Travel: No Contact w/other who traveled: No Recent Infectious Disease Expo: No Recent Hopitalizations: Yes Physical Abuse Screen: No Sexual Abuse: No Immunizations Up To Date Date of Pneumonia Vaccine: Feb 19, 2016 Family Medical History Family History: Patient reports no known family medical history. Physical Exam Vital Signs Vital Sign - Last 12Hours 10/18/16 10/18/16 12:12 18:46 Temp 96.8 Pulse 56 Resp 18 B/P (MAP) 157/69 Pulse Ox 95 O2 Delivery Room Air O2 Flow Rate 2.00 Capillary Refill : General Appearance: No Apparent Distress, Other (in collar device) HEENT: PERRL/EOMI Neck: Other (limited by the collar) Respiratory: Lungs Clear, No Accessory Muscle Use, No Respiratory Distress Cardiovascular: No Gallop, No JVD Gastrointestinal: Non Tender, Soft Extremity: Swelling Neurologic/Psychiatric: Alert, Oriented x3 Data Review Labs Laboratory Tests 10/22/16 05:59 Laboratory Tests 10/20/16 18:26: 10/21/16 05:56: Red Blood Count 2.18L, Hemoglobin 7.2L, Hematocrit 23L, Mean Corpuscular Volume 106H, Mean Corpuscular Hemoglobin Concent 31L, Red Cell Distribution Width 16.3H 10/22/16 05:59: Red Blood Count 2.04L, Hemoglobin 6.8*L, Hematocrit 22L, Mean Corpuscular Volume 106H, Mean Corpuscular Hemoglobin Concent 31L, Red Cell Distribution Width 16.5H Impression & Plan Impression & Plan 1. Fall and cervical vertebrate fracture, s/p repair. on Heparin 5000 q 8hrs. 2. Large right forehead hematoma. 3. Anemia most likely form hematoma and recent surgery loss. Hb 6.9 macrocytic but Pt does not want to have transfusion. Minimal symptoms with SOB. Pt was put on iron pills today. 4. CAD, s/p GBAG x 3 on three BP meds and 3 heart meds and HCTZ. 5. h/o heavy alcohol abuse, stopped now. ? liver cirrohsis 6. h/o heavy tobacco abuse, stopped now. COPD Plan: 1. I suggest to repeat CBC tomorrow. If Hb gets lower tomorrow, then consider 1 unit of RBC transfusion tomorrow. If it is better, we can watch her. She agreed. 2. Give her 1mg B12 today. 3. Constipation prophylaxis while on oral iron pills 4. Change Heparin from 5000 q 8hrs to 40mg daily. We may need to reduce to 30mg daily if her Hb lower tomorrow. TRUPTI NOLAND MD October 22, 2016 15:41
[2016-10-22 18:36] VITALS: BP 123/65
[2016-10-22] MEDS ORDERED: CYANOCOBALAMIN INJ 1000 MCG/ML IM ONE (20:30)
[2016-10-22] MEDS: LORATADINE (CLARITIN) 10 MG TAB PO SCH (20:56)
[2016-10-22] MEDS: FAMOTIDINE 20 MG (PEPCID) TABLET PO SCH (20:56)
[2016-10-22] MEDS: DOCUSATE SODIUM 100 MG (COLACE) CAP PO SCH (20:56)
[2016-10-22] MEDS: POLYETHYLENE GLYCOL 17 GM (MIRALAX) PACK PO SCH (20:56)
[2016-10-22] MEDS: ATORVASTATIN 20 MG (LIPITOR) TABLET PO SCH (20:56)
[2016-10-22] MEDS: PRIMIDONE 50 MG TAB (MYSOLINE) PO SCH (20:56)
[2016-10-22] MEDS: FENOFIBRATE 134 MG (LOFIBRA) CAPSULE PO SCH (20:56)
[2016-10-22] MEDS: eZETimibe 10 MG (ZETIA) TABLET PO SCH (20:56)
[2016-10-23] VITALS (8 sets, daily range): BP systolic 95–159; BP diastolic 65–91
[2016-10-23] MEDS: OMEGA 3 (FISH OIL) 1000 MG CAP PO SCH (05:58)
[2016-10-23] MEDS: VITAMIN D3 1,000 UNITS (CHOLECALCIFEROL) TABLET PO SCH (05:58)
[2016-10-23] MEDS: FERROUS SULF 325 MG (IRON) TAB PO SCH ×2 (05:58→12:52)
[2016-10-23] MEDS: hydrALAZINE (APRESOLINE) 25 MG TAB PO SCH ×3 (05:58→22:06)
[2016-10-23] MEDS: THIAMINE 100 MG (VITAMIN B-1) TAB PO SCH (05:58)
[2016-10-23] MEDS: MULTIVIT W/MINERALS TAB (THERAGRAN M) PO SCH (05:59)
[2016-10-23] MEDS: FOLIC ACID 1 MG TAB PO SCH (05:59)
[2016-10-23] MEDS: RT-ALBUTEROL SULF 2.5 MG/3 ML PRE-MIX VIAL IH PRN ×5 (06:12→21:45)
[2016-10-23 06:21] LABS: BASOPHILS % (AUTO) 1 % (0-10); EOSINOPHILS # (AUTO) 0.2 10^3/uL (0.0-0.3); EOSINOPHILS % (AUTO) 2 % (0-10); LYMPHOCYTES # (AUTO) 0.9 X 10^3 (1.0-4.0); LYMPHOCYTES % (AUTO) 11 % (12-44); MEAN CORPUSCULAR HEMOGLOBIN 33 PG (25-34); MEAN CORPUSCULAR HGB CONC 31 G/DL (32-36); MEAN CORPUSCULAR VOLUME 107 FL (80-99); MEAN PLATELET VOLUME 9.3 FL (7.4-10.4); MONOCYTES # (AUTO) 0.7 X 10^3 (0.0-1.0); MONOCYTES % (AUTO) 9 % (0-12); NEUTROPHILS # (AUTO) 6.2 X 10^3 (1.8-7.8); NEUTROPHILS % (AUTO) 78 % (42-75); PLATELET COUNT 392 10^3/uL (130-400); RED BLOOD COUNT 1.97 10^6/uL (4.35-5.85); RED CELL DISTRIBUTION WIDTH 16.7 % (10.0-14.5)
[2016-10-23 07:02] LABS: CREATININE SERUM 1.7 MG/DL (0.60-1.30); POTASSIUM 4.3 MMOL/L (3.6-5.0)
[2016-10-23] MEDS ORDERED: CYANOCOBALAMIN INJ 1000 MCG/ML IM NR (08:30)
[2016-10-23] MEDS ORDERED: ENOXAPARIN 40 MG/0.4 ML (LOVENOX) SYR SC SCH (09:00)
[2016-10-23] MEDS: DICLOFENAC 1% GEL 100 GM (VOLTAREN) TUBE TOP SCH ×4 (09:00→20:28)
--- NOTE | 2016-10-23 09:00 | Progress Note (SOAP) ---
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 Patient anemic and is worse. Streetsweeper Operator taking care of this Objective Exam Vital Signs Date Time Temp Pulse Resp B/P (MAP) Pulse Ox O2 Delivery O2 Flow Rate FiO2 10/23/16 06:07 99.1 56 16 145/76 88 Nasal Cannula 3.00 10/22/16 20:45 3.00 10/22/16 18:57 3.00 10/22/16 18:51 88 3.00 10/22/16 18:36 97.1 60 14 123/65 90 10/22/16 13:19 91 3.00 10/22/16 13:17 54 111/64 96 Nasal Cannula 3.00 10/22/16 09:25 3.00 I & O 10/23/16 07:00 Intake Total 540 ml Balance 540 ml Capillary Refill : General Appearance: No Apparent Distress, Thin HEENT: Normal ENT Inspection, Other (hematoma on forehead) Respiratory: Chest Non Tender, No Accessory Muscle Use, No Respiratory Distress Cardiovascular: Regular Rate, Rhythm, No Murmur Results Lab Laboratory Tests 10/23/16 05:18: White Blood Count 8.0, Red Blood Count 1.97L, Hemoglobin 6.5*L, Hematocrit 21L, Mean Corpuscular Volume 107H, Mean Corpuscular Hemoglobin 33, Mean Corpuscular Hemoglobin Concent 31L, Red Cell Distribution Width 16.7H, Platelet Count 392, Mean Platelet Volume 9.3, Neutrophils (%) (Auto) 78H, Lymphocytes (%) (Auto) 11L , Monocytes (%) (Auto) 9, Eosinophils (%) (Auto) 2, Basophils (%) (Auto) 1, Neutrophils # (Auto) 6.2, Lymphocytes # (Auto) 0.9L, Monocytes # (Auto) 0.7, Eosinophils # (Auto) 0.2, Basophils # (Auto) 0.0, Sodium Level 139, Potassium Level 4.3, Chloride Level 107, Carbon Dioxide Level 23, Anion Gap 9, Blood Urea Nitrogen 29H, Creatinine 1.70H, Estimat Glomerular Filtration Rate 29, BUN/ Creatinine Ratio 17, Glucose Level 67L, Calcium Level 9.0 Assessment/Plan Assessment/Plan Assess & Plan/Chief Complaint cervical surgery. Hematoma on the forehead. Patient worried about eating more food. . 10/22/16.. Cervical surgery. Hematoma. Anemia Patient to receive blood. Left hand no swelling. . 10/23/16. Cervical surgery. Anemia worse. Patient may get blood today Clinical Quality Measures DVT/VTE Risk/Contraindication: Risk Factor Score Per Nursin RFS Level Per Nursing on Admit: 4+=Very High JEANINE ORLANDO DO October 23, 2016 09:00
[2016-10-23] MEDS: PROPRANOLOL 20 MG (INDERAL) TABLET PO SCH ×2 (09:19→20:27)
[2016-10-23] MEDS: OXYBUTYNIN (DITROPAN) 5 MG TAB PO SCH ×2 (09:19→20:27)
[2016-10-23] MEDS: GABAPENTIN 100 MG (NEURONTIN) CAP PO SCH ×3 (09:20→20:26)
[2016-10-23] MEDS: lisINopril 10 MG (PRINIVIL) TAB PO SCH (09:20)
[2016-10-23] MEDS: DOCUSATE SODIUM 100 MG (COLACE) CAP PO SCH ×2 (09:20→20:27)
[2016-10-23] MEDS: amLODIPine 10 MG (NORVASC) TAB PO SCH (09:20)
[2016-10-23] MEDS: PARoxetine 20 MG (PAXIL) TAB PO SCH (09:21)
[2016-10-23] MEDS: RT-FLUTICASONE 110 MCG (FLOVENT) PER PUFF INH SCH ×2 (10:04→18:17)
[2016-10-23] MEDS: UMECLIDINIUM BROMIDE (INCRUSE ELLIPTA) 7'S IH SCH (10:05)
--- NOTE | 2016-10-23 10:48 | Physical Therapy Daily Note ---
PT Daily Note-Current Subjective Pt. on BSC upon entering room, states she is having a BM but is in so much discomfort in her neck. Points to area just below line of her cervical collar. Pain Numeric Pain Scale: 7 Location: Medial Location Body Site: Neck Pain Description: Stabbing Mental Status Patient Orientation: Normal For Age Attachments: Other-See Comments (j collar) Transfers Functional [place] Measure 0=Not Assessed/NA 4=Minimal Assistance 1=Total Assistance 5=Supervision or Setup 2=Maximal Assistance 6=Modified [place] 3=Moderate Assistance 7=Complete IndependenceIRFPAI Quality Coding Scale 6 Independent with activity with or without an assistive device 5 Patient requires set up or clean up by helper. Patient completes activity by themselves 4 Supervision or touching assist (CGA). [place] provide cues , steadying assist 3 The helper provides less than half the effort to complete the activity 2 The helper provides more than half the effort to complete the activity 1 Dependent. The helper does all the effort to complete an activity 7 Patient refused to complete or attempt activity 9 The patient did not perform the activity before the current illness or injury 88 Not attempted due to Medical conditions or safety concerns Transfers (B, C, W/C) (FIM): 4 Scootin Rollin Supine to/from Sit: 4 Sit to/from Stand: 4 Bed to/from Chair: 4 Gait Training Does the Patient Walk?: Yes Gait (FIM): 1 Distance (FIM): 1=up to 49 ft (8f) Gait Level of Assist: 4 Gait Persons Needed: 1 Gait Assistive Device: FWW (pt. very weak and c/o pain at high level in her neck and shoulder blades) Exercises Supine Ex: Ankle pumps, Quad Set, Glut sets, Heel Slides, Hip abd/add Supine Reps: 12 Treatments Pt. required mod to min assist for balance for pants up, pt. was able to clean herself with success after BM. Moist hot pack was applied to traps with pt. statin this gave her some relief and relaxed her. This AIRPORT LOCATION MANAGER siting with pt to monitor MH for 1st 10m Assessment Current Status: Poor Progress pain limits all mobility. PT Short Term Goals Short Term Goals Time Frame: November 01, 2016 Transfers (B,C,W/C) (FIM): 6 Gait (FIM): 6 Distance (FIM): 3=150 ft Gait Distance Comment: 200' Gait Level of Assist: 6 Gait Assistive Device: FWW, Cane Single Point Stairs (FIM): 2 # of Steps: 4 Stairs Level of Assist: 5 PT Detention Goals Emergency Room Nurse Goals PT Detention Goals Time Frame: Nov 15, 2016 Transfers (B,C,W/C) (FIM): 6 Sit to Lying (QC): 6 Lying-Sitting on Side/Bed(QC): 6 Sit to Stand (QC): 6 Rollin Roll Left to Right (QC): 6 Chair/Isu-eu-Oumqf Xfer(QC): 6 Car Transfer (QC): 6 Does the Patient Walk: Yes Gait (FIM): 6 Gait distance (FIM): 3=150 ft Distance: >300' Walk 10 feet (QC): 6 Walk 10ft-Uneven Surface(QC): 6 Walk 50ft with 2 Turns (QC): 6 Walk 150 ft (QC): 6 Gait Level of Assist: 6 Gait Assistive Device: FWW Does the Pt use WC or Scooter?: No Stairs (FIM): 6 # of Steps: 12 1 Step (curb) (QC): 6 4 Steps (QC): 6 12 Steps (QC): 6 Stairs Level Of Assist: 6 Picking up an Object (QC): 6 PT Plan Treatment/Plan Treatment Plan: Continue Plan of Care Treatment Plan: Bed Mobility, Education, Functional Activity Zena, Functional Strength, Group Therapy, Gait, Safety, Therapeutic Exercise, Transfers Treatment Duration: Nov 15, 2016 Visits Per Week: 10-11 Minutes/Day (M-F): 60-90 Minutes/Day (Sat/Quintanilla): PRN Safety Risks/Education Patient Education: Gait Training, Transfer Techniques, Correct Positioning, Safety Issues Teaching Recipient: Patient Teaching Methods: Demonstration, Discussion Response to Teaching: Verbalize Understanding, Return Demonstration, Reinforcement Needed Time/GCodes Time In: 1000 Time Out: 1100 Total Billed Treatment Time: 60 Total Billed Treatment 1,FA45m,EX15m G Codes Necessary: No JUAN CARLOS DONALD AIRPORT LOCATION MANAGER October 23, 2016 10:48
--- NOTE | 2016-10-23 11:00 | Speech Therapy Daily Note ---
Speech Daily Progress Note Subjective The patient was laying in bed upon entrance. Per patient (and RN present), the patient's hemoglobin is low on this date resulting in the patient to feel weak/ fatigued. The patient was agreeable to participate in the cognitive treatment session on this date. Objective Safety Problem Solving: The patient was provided images depicting safety issues in a common home environment. The patient was asked to identify the safety issue and state a solution to the problem. The patient demonstrated excellent accuracy with this task (100%), independently. Assessment Assessment Current Status: Good Progress Treatment Plan Continue Plan of Care Communication Comprehension: 4 Expression: 4 Social Cognition Social Interaction: 4 Problem Solvin Memory: 3 Speech Short Term Goals Short Term Goals Short Term Goals 1. The patient will demonstrated 80% accuracy with simple orientation information using an external aid and mild clinician verbal cueing. 2. The patient will display 80% accuracy with safety problem solving with mild clinician verbal cueing. 3. The patient will recall two functional memory strategies for use at home. Time Frame-STG: Two Weeks Speech Administrative Manager Goals Senior Living Goals 1. The patient will display improved cognitive skills for increased safety and function with ADL's. Time Frame: Four Weeks Comprehension: 5 Expression: 5 Social Interaction: 5 Problem Solvin Memory: 4 Speech-Plan Treatment Plan Speech Therapy Treatment Plan: Continue Plan of Care Continue skilled speech pathology to target functional problem solving ( cognition). Treatment Duration: Nov 19, 2016 # of days/week Four to five. Visits Per Week: Four to Five. Minutes/Day (M-F): 30 Rehab Potential: Guarded Safety Risks/Education Teaching Recipient: Patient Teaching Methods: Demonstration, Discussion Response to Teaching: Return Demonstration Education Topics Provided: Orientation Strategies Time Speech Therapy Time In: 09:15 Speech Therapy Time Out: 09:45 Total Billed Time: 30 Billed Treatment Time AlonzoBENJAMINSHARON MORGANJaniyaTIERA ST October 23, 2016 11:00
--- NOTE | 2016-10-23 14:36 | Physical Therapy Daily Note ---
PT Daily Note-Current Subjective Pt. initially requests to get on BSC but states she cannot get her air. Pt. noted with rising shoulders and axillary breathing. States she "cannot live like this", "Please get me some help" Nursing alerted to pts c/o Pain Numeric Pain Scale: 7 Location: Medial Location Body Site: Neck Pain Description: Pressure Appearance axillary breathing, difficulty talking secondary to breathing difficulty. O2 patent at 4L. per nasal cannula Mental Status Patient Orientation: Normal For Age Attachments: Oxygen, Other-See Comments (j collar) Transfers Functional [place] Measure 0=Not Assessed/NA 4=Minimal Assistance 1=Total Assistance 5=Supervision or Setup 2=Maximal Assistance 6=Modified [place] 3=Moderate Assistance 7=Complete IndependenceIRFPAI Quality Coding Scale 6 Independent with activity with or without an assistive device 5 Patient requires set up or clean up by helper. Patient completes activity by themselves 4 Supervision or touching assist (CGA). [place] provide cues , steadying assist 3 The helper provides less than half the effort to complete the activity 2 The helper provides more than half the effort to complete the activity 1 Dependent. The helper does all the effort to complete an activity 7 Patient refused to complete or attempt activity 9 The patient did not perform the activity before the current illness or injury 88 Not attempted due to Medical conditions or safety concerns in out bed and on off BSC x3 as pt. was anxious about breathing and searching for position of comfort Gait Training side stepping and SPTs 6-7 ft x3 with mod assist Treatments pt. managed cleaning after BM indep. mod assist for pants down and up. double pillows under each arm as pt. feels she may get her breath better with arms up Assessment Current Status: Regressing difficulty breathing. Nurse and RT in room. PT Short Term Goals Short Term Goals Time Frame: November 01, 2016 Transfers (B,C,W/C) (FIM): 6 Gait (FIM): 6 Distance (FIM): 3=150 ft Gait Distance Comment: 200' Gait Level of Assist: 6 Gait Assistive Device: FWW, Cane Single Point Stairs (FIM): 2 # of Steps: 4 Stairs Level of Assist: 5 PT Senior Living Goals Pl[place] Goals PT Senior Living Goals Time Frame: Nov 15, 2016 Transfers (B,C,W/C) (FIM): 6 Sit to Lying (QC): 6 Lying-Sitting on Side/Bed(QC): 6 Sit to Stand (QC): 6 Rollin Roll Left to Right (QC): 6 Chair/Hfu-vq-Jwvxu Xfer(QC): 6 Car Transfer (QC): 6 Does the Patient Walk: Yes Gait (FIM): 6 Gait distance (FIM): 3=150 ft Distance: >300' Walk 10 feet (QC): 6 Walk 10ft-Uneven Surface(QC): 6 Walk 50ft with 2 Turns (QC): 6 Walk 150 ft (QC): 6 Gait Level of Assist: 6 Gait Assistive Device: FWW Does the Pt use WC or Scooter?: No Stairs (FIM): 6 # of Steps: 12 1 Step (curb) (QC): 6 4 Steps (QC): 6 12 Steps (QC): 6 Stairs Level Of Assist: 6 Picking up an Object (QC): 6 PT Plan Treatment/Plan Treatment Plan: Continue Plan of Care Treatment Plan: Bed Mobility, Education, Functional Activity Zena, Functional Strength, Group Therapy, Gait, Safety, Therapeutic Exercise, Transfers Treatment Duration: Nov 15, 2016 Visits Per Week: 10-11 Minutes/Day (M-F): 60-90 Minutes/Day (Sat/Quintanilla): PRN Safety Risks/Education Patient Education: Transfer Techniques, Correct Positioning, Disease Process, Safety Issues Teaching Recipient: Patient Teaching Methods: Demonstration Response to Teaching: Verbalize Understanding Time/GCodes Time In: 1400 Time Out: 1430 Total Billed Treatment Time: 30 Total Billed Treatment 1,FA30m G Codes Necessary: JUAN CARLOS Rebolledo COMPOUNDER [employer] October 23, 2016 14:36
--- NOTE | 2016-10-23 14:55 | Occupational Ther Daily Note ---
OT Current Status-Daily Note Subjective Pt. is not reporting specific pain with this therapist, but states that she does not feel well. States that she is so tired, and declines out of bed activity. Nursing states that pt. has low hemoglobin, but it is okay to attempt to work with her. Appearance Pt. in bed. Speaks but at times "trails off." Mental Status/Objective Patient Orientation: Unable to Assess Functional [place] Measure 0=Not Assessed/NA 4=Minimal Assistance 1=Total Assistance 5=Supervision or Setup 2=Maximal Assistance 6=Modified [place] 3=Moderate Assistance 7=Complete [place] ADL-Treatment Functional [place] Measure 0=Not Assessed/NA 4=Minimal Assistance 1=Total Assistance 5=Supervision or Setup 2=Maximal Assistance 6=Modified [place] 3=Moderate Assistance 7=Complete IndependenceIRFPAI Quality Coding Scale 6 Independent with activity with or without an assistive device 5 Patient requires set up or clean up by helper. Patient completes activity by themselves 4 Supervision or touching assist (CGA). [place] provide cues , steadying assist 3 The helper provides less than half the effort to complete the activity 2 The helper provides more than half the effort to complete the activity 1 Dependent. The helper does all the effort to complete an activity 7 Patient refused to complete or attempt activity 9 The patient did not perform the activity before the current illness or injury 88 Not attempted due to Medical conditions or safety concerns Eating (FIM): 4 (See note below) Eating (QC): 4 Pt's breakfast comes. Pt. is unable to scoot self up in bed, and requires max assist x 2 for this. HOB raised. Pt. declines changing clothing, even at bed level. Pt. states that she is hungry. Pt. given opportunity to set up her own tray. Attempts to do this, but unable to open milk carton or cut up biscuits/ gravy. OT does this for her. Pt. will take a bite, but then seem to forget that she is eating. Pt. encouraged to take another bite. Pt. will make comments such as, "don't get in a hurry." Pt. attempts multiple times to picking machine operator milk container. At times, she is able to bring to her mouth and take a drink out of straw. At other times however, her arm will experience a tremor and she will either spill the milk or drop the container. Pt. states that she has been experiencing tremors approximately 6 months. Pt. is encouraged to attempt to use the bathroom. Pt. states that she doesn't have to, but that her bottom is sore. OT looks at coccyx area, which is slightly red. OT assists pt. to roll onto her side. Pillows appropriately placed for positioning. Nursing notified and checked bottom area. All needs met. Pt. awaiting to see about getting blood. Education OT Patient Education: Correct positioning, Modified ADL techniques, Progress toward Goal/Update tx plan, Purpose of tx/functional activities, Reviewed precautions, Rehab process, Transfer techniques, Use of adapted equipment Teaching Recipient: Patient Teaching Methods: Demonstration, Discussion Response to Teaching: Verbalize Understanding, Return Demonstration OT Short Term Goals Short Term Goals Transfers (B,C,W/C) (FIM): 6 1=Demonstrate adherence to instructed precautions during ADL tasks. 2=Patient will verbalize/demonstrate understanding of assistive devices/ modifications for ADL. 3=Patient will improve strength/tolerance for activity to enable patient to perform ADL's. OT Fpc Goals Offset Proof Press Operator Goals Time Frame: November 08, 2016 Eating (FIM): 7 Eating (QC): 6 Groomin Oral Hygiene (QC): 6 Bathing(FIM): 6 Shower/Bathe Self (QC): 6 Upper Body Dressing(FIM): 6 Upper Body Dressing (QC): 6 Lower Body Dressing(FIM): 6 Lower Body Dressing (QC): 6 On/Off Footwear (QC): 6 Toileting(FIM): 6 Toileting Hygiene (QC): 6 Toilet/Commode Transfer(FIM): 6 Toilet/Commode Transfer (QC): 6 Shower Transfer(FIM): 6 Comprehension(FIM): 5 Expression (FIM): 5 Social Interaction(FIM): 5 Problem Solving(FIM): 4 Memory(FIM): 4 Additional Goals: 2-Verbalize Understanding, 3-ImproveStrength/Zena 1=Demonstrate adherence to instructed precautions during ADL tasks. 2=Patient will verbalize/demonstrate understanding of assistive devices/ modifications for ADL. 3=Patient will improve strength/tolerance for activity to enable patient to perform ADL's. OT Education/Plan Problem List/Assessment Assessment: Decreased Activ Tolerance, Decreased Safety Aware, Decreased UE Strength, Dependent Transfers, Impaired Bed Mobility, Impaired Cognition, Impaired Coordination, Impaired Funct Balance, Impaired I ADL's, Impaired Self- Care Skills, Restricted Funct UE ROM Pt would benefit from skilled OT to increase her independence in basic self care to allow her to return home safely to live with her Discharge Recommendations Plan/Recommendations: Continue POC Therapy D/C Recommendations: 24 hr Supervision Treatment Plan/Plan of Care Treatment,Training & Education: Yes Patient would benefit from OT for education, treatment and training to promote independence in ADL's, mobility, safety and/or upper extremity function for ADL' s. Plan of Care: ADL Retraining, Functional Mobility, Group Exercise/Act as Ind ( education, exercise, funct activities, activity tolerance, memory, problem solving), UE Funct Exercise/Act, UE Neuromus Re-Ed/Coord Treatment Duration: November 08, 2016 Visits Per Week: 10-11 Minutes/Day (M-F): 75-90 Minutes/Day (Sat/Quintanilla): PRN Agreement: Yes Rehab Potential: Guarded Time/GCodes Start Time: 08:15 Stop Time: 09:15 Total Time Billed (hr/min): 60 Billed Treatment Time 1, ADL x 45minutes, FA x 15minutes EDMOND BARCENAS OT October 23, 2016 14:55
--- NOTE | 2016-10-23 15:02 | Occupational Ther Daily Note ---
OT Current Status-Daily Note Subjective No pain reported to this therapist. Pt. does still state that she is not feeling well. Appearance Pt. in bed with neck brace on. States that she does not feel like getting out of bed. Mental Status/Objective Patient Orientation: Confused Functional [place] Measure 0=Not Assessed/NA 4=Minimal Assistance 1=Total Assistance 5=Supervision or Setup 2=Maximal Assistance 6=Modified [place] 3=Moderate Assistance 7=Complete [place] ADL-Treatment Functional [place] Measure 0=Not Assessed/NA 4=Minimal Assistance 1=Total Assistance 5=Supervision or Setup 2=Maximal Assistance 6=Modified [place] 3=Moderate Assistance 7=Complete IndependenceIRFPAI Quality Coding Scale 6 Independent with activity with or without an assistive device 5 Patient requires set up or clean up by helper. Patient completes activity by themselves 4 Supervision or touching assist (CGA). [place] provide cues , steadying assist 3 The helper provides less than half the effort to complete the activity 2 The helper provides more than half the effort to complete the activity 1 Dependent. The helper does all the effort to complete an activity 7 Patient refused to complete or attempt activity 9 The patient did not perform the activity before the current illness or injury 88 Not attempted due to Medical conditions or safety concerns Other Treatment Pt. agrees to work with therapist at bed level. Pt. and OT go over naming tasks , grouping, finding things in common, and categorization. Pt. is able to complete approximately 50% of tasks. Requires things to be repeated at times. When pt. is given a sentence with a meaning that she is to decifer, she does relatively well with this task. However, pt. is lethargic throughout treatment and has difficulty staying on task. All needs met in room after treatment. Education OT Patient Education: Correct positioning, Progress toward Goal/Update tx plan , Purpose of tx/functional activities, Reviewed precautions, Rehab process Teaching Recipient: Patient Teaching Methods: Demonstration, Discussion Response to Teaching: Verbalize Understanding, Return Demonstration OT Short Term Goals Short Term Goals Transfers (B,C,W/C) (FIM): 6 1=Demonstrate adherence to instructed precautions during ADL tasks. 2=Patient will verbalize/demonstrate understanding of assistive devices/ modifications for ADL. 3=Patient will improve strength/tolerance for activity to enable patient to perform ADL's. OT Skilled Nursing Goals Skilled Nursing Goals Time Frame: November 08, 2016 Eating (FIM): 7 Eating (QC): 6 Groomin Oral Hygiene (QC): 6 Bathing(FIM): 6 Shower/Bathe Self (QC): 6 Upper Body Dressing(FIM): 6 Upper Body Dressing (QC): 6 Lower Body Dressing(FIM): 6 Lower Body Dressing (QC): 6 On/Off Footwear (QC): 6 Toileting(FIM): 6 Toileting Hygiene (QC): 6 Toilet/Commode Transfer(FIM): 6 Toilet/Commode Transfer (QC): 6 Shower Transfer(FIM): 6 Comprehension(FIM): 5 Expression (FIM): 5 Social Interaction(FIM): 5 Problem Solving(FIM): 4 Memory(FIM): 4 Additional Goals: 2-Verbalize Understanding, 3-ImproveStrength/[place] 1=Demonstrate adherence to instructed precautions during ADL tasks. 2=Patient will verbalize/demonstrate understanding of assistive devices/ modifications for ADL. 3=Patient will improve strength/tolerance for activity to enable patient to perform ADL's. OT Education/Plan Problem List/Assessment Assessment: Decreased Activ Tolerance, Decreased UE Strength, Dependent Transfers, Impaired Bed Mobility, Impaired Cognition, Impaired Coordination, Impaired Funct Balance, Impaired I ADL's, Impaired Self-Care Skills, Restricted Funct UE ROM Pt would benefit from skilled OT to increase her independence in basic self care to allow her to return home safely to live with her Discharge Recommendations Plan/Recommendations: Continue POC Therapy D/C Recommendations: 24 hr Supervision Treatment Plan/Plan of Care Treatment,Training & Education: Yes Patient would benefit from OT for education, treatment and training to promote independence in ADL's, mobility, safety and/or upper extremity function for ADL' s. Plan of Care: ADL Retraining, Functional Mobility, Group Exercise/Act as Ind ( education, exercise, funct activities, activity tolerance, memory, problem solving), UE Funct Exercise/Act, UE Neuromus Re-Ed/Coord Treatment Duration: November 08, 2016 Visits Per Week: 10-11 Minutes/Day (M-F): 75-90 Minutes/Day (Sat/Quintanilla): PRN Agreement: Yes Rehab Potential: Guarded Time/GCodes Start Time: 11:25 Stop Time: 11:55 Total Time Billed (hr/min): 30 Billed Treatment Time 1, FA x 2 EDMOND BARCENAS OT October 23, 2016 15:02
--- NOTE | 2016-10-23 15:11 | Diagnostic Imaging Report ---
INDICATION: Chest pain. EXAM: PA and lateral chest. FINDINGS: There are postop changes from CABG surgery. There is cardiomegaly with pulmonary vascular congestion. There are small pleural effusions. IMPRESSION: Congestive heart failure. Dictated by: Dictated on workstation # [id number]
[2016-10-23] MEDS ORDERED: NS IV 500 ML 500 ML ONE (15:23)
[2016-10-23] MEDS ORDERED: ACETAMINOPHEN 325 MG TABLET/CAPLET (TYLENOL) ONE (15:27)
[2016-10-23] MEDS ORDERED: diphenhydrAMINE 25 MG TAB (BENADRYL) PO ONE (15:28)
[2016-10-23] MEDS ORDERED: FUROSEMIDE 40 MG/4 ML INJ (LASIX) IVP NR (15:30)
--- NOTE | 2016-10-23 15:47 | Oncology Progress Note ---
Subjective Subjective/Events-last exam Pt declined RBC transfusion yesterday when Hb 6.8 Pt had more SOB and chest pressure this afternoon. CXR showed congestive heart failure and cardiomegaly. Cr is up from 1.2 to 1.7 today. Cardiology consult Data Review Labs Laboratory Tests 10/23/16 05:18 Laboratory Tests 10/20/16 18:26: 10/21/16 05:56: Red Blood Count 2.18L, Hemoglobin 7.2L, Hematocrit 23L, Mean Corpuscular Volume 106H, Mean Corpuscular Hemoglobin Concent 31L, Red Cell Distribution Width 16.3H 10/22/16 05:59: Red Blood Count 2.04L, Hemoglobin 6.8*L, Hematocrit 22L, Mean Corpuscular Volume 106H, Mean Corpuscular Hemoglobin Concent 31L, Red Cell Distribution Width 16.5H 10/23/16 05:18: Red Blood Count 1.97L, Hemoglobin 6.5*L, Hematocrit 21L, Mean Corpuscular Volume 107H, Mean Corpuscular Hemoglobin Concent 31L, Red Cell Distribution Width 16.7H, Neutrophils (%) (Auto) 78H, Lymphocytes (%) (Auto) 11L, Lymphocytes # (Auto) 0.9L, Blood Urea Nitrogen 29H, Creatinine 1.70H, Glucose Level 67L 10/23/16 15:02: Physical Exam Vital Signs Vital Sign - Last 12Hours 10/18/16 10/18/16 12:12 18:46 Temp 96.8 Pulse 56 Resp 18 B/P (MAP) 157/69 Pulse Ox 95 O2 Delivery Room Air O2 Flow Rate 2.00 Capillary Refill : General Appearance: Mild Distress HEENT: PERRL/EOMI Neck: Other (collar device) Respiratory: Wheezing Cardiovascular: Regular Rate, Rhythm Gastrointestinal: Non Tender, Soft Extremity: Swelling (left arm due to IV infiltration) Neurologic/Psychiatric: Alert, Oriented x3 Impression & Plan Impression & Plan 1. Fall and cervical vertebrate fracture, s/p repair. 2. Large right forehead hematoma. 3. Anemia most likely form hematoma and recent surgery loss. Pt declined RBC transfusion yesterday when Hb 6.9 4. CAD, s/p GBAG x 3 on three BP meds and 3 heart meds and HCTZ. 5. h/o heavy alcohol abuse, stopped now. ? liver cirrohsis 6. h/o heavy tobacco abuse, stopped now. COPD 7. Acute renal failure Cr from 1.2 to 1.7 today. 8. CHF on CXR today and increasing SOB, O2 Sat 90% on 3L NC. Plan: 1. I discussed with patient about transfusion. She agreed today. Because of CHF , I will give 20mg Lasix before the first unit of RBC. We need to re-assess her situation before the 2nd unit of RBC. She is extremely high risk of volume overload. 2. Give her 1mg B12 today. 3. Stop oral iron since Pt will get transfusion today. 4. Stop Lovenox due to bleeding and anemia. Use SCD. 5. Cardiology consult for CHF and chest pressure 6. Pt will be very challenge in terms of managing her fluid, CHF and acute renal failure. 7. We need to discuss the DNR status. 8. Cardiology to determine if patient needs to be moved to ICU. 9. Stool occult blood 10. Protonix 40mg daily. Clinical Quality Measures DVT/VTE Risk/Contraindication: Risk Factor Score Per Nursin RFS Level Per Nursing on Admit: 4+=Very High TRUPTI NOLAND MD October 23, 2016 15:47
[2016-10-23] MEDS: FENOFIBRATE 134 MG (LOFIBRA) CAPSULE PO SCH (20:26)
[2016-10-23] MEDS: FAMOTIDINE 20 MG (PEPCID) TABLET PO SCH (20:26)
[2016-10-23] MEDS: ATORVASTATIN 20 MG (LIPITOR) TABLET PO SCH (20:26)
[2016-10-23] MEDS: PRIMIDONE 50 MG TAB (MYSOLINE) PO SCH (20:26)
[2016-10-23] MEDS: eZETimibe 10 MG (ZETIA) TABLET PO SCH (20:27)
[2016-10-23] MEDS: LORATADINE (CLARITIN) 10 MG TAB PO SCH (20:27)
[2016-10-23] MEDS: POLYETHYLENE GLYCOL 17 GM (MIRALAX) PACK PO SCH (20:29)
[2016-10-23] MEDS: ALPRAZolam 0.25 MG (XANAX) TAB PO PRN (22:06)
--- NOTE | 2016-10-23 23:12 | Consultation-Cardiology ---
HPI-Cardiology Cardiology Consultation: Date of Consultation 10/23/16 Date of Admission Attending Physician Andre Kimble MD Admitting Physician Trudy Jacobs DO Consulting Physician Betzaida REYES MD HPI: Chief Complaint: chest pain This is 75 year old lady with recent cervical spine surgery and currently in the rehab floor of the hospital. Cardiology was consulted due to complain of chest pain. The chest pain was resolved when I saw the patient at around 5pm. She also has significant anemia and was receiving blood transfusion. She denied any significant shortness of breath. Review of Systems-Cardiology Review of Systems Constitutional: No As described under HPI, No no symptoms reported, No chills, No fever, No lightheadedness, No malaise, No tiredness, No weight loss, No weight gain, No other Eyes: No As described under HPI, No no symptoms reported, No blindness, No blurred vision, No contact lenses, No drainage, No decreased acuity, No foreign body sensation, No glasses, No inflammation, No pain, No photophobia, No previous injury, No shadows, No tunnel vision, No other, No vision change Ears/Nose/Throat: No As described under HPI, No no symptoms reported, No chronic hearing loss, No epistaxis, No ear discharge, No ear pain, No loose teeth, No mouth pain, No mouth swelling, No nasal drainage, No nose pain, No recent hearing loss, No throat pain, No throat swelling, No ulcerations, No other Respiratory: No no symptoms reported, No As described under HPI, No cough, No orthopnea, No shortness of breath, No SOB with excertion, No SOB at rest, No stridor, No wheezing, No other Cardiovascular: chest pain Gastrointestinal: No no symptoms reported, No As described under HPI, No abdomen distended, No abdominal pain, No blood streaked bowels, No constipation , No diarrhea, No difficulty swallowing, No nausea, No poor appetite, No poor fluid intake, No rectal bleeding, No vomiting, No other, No nausea/vomiting/ diarrhea, No stool coloration changes Genitourinary: No no symptoms reported, No As described under HPI, No burning, No dysuria, No discharge, No frequency, No flank pain, No hematuria, No incontinence, No pain, No urgency, No other, No urine frequency changes, No urine coloration changes Musculoskeletal: No no symptoms reported, No As describe under HPI, No back pain, No gout, No joint pain, No joint swelling, No muscle pain, No muscle stiffness, No neck pain, No other Skin: No no symptoms reported, No As described under HPI, No change in color, No change in hair/nails, No dryness, No lesions, No lumps, No rash, No other, No skin related problems, No ulcerations, No rash on exposed areas, No ulcerations on exposed areas Psychiatric/Neurological: As described under HPI, weakness Hematologic: anemia [id number] Hx Patient Social History Employed/Student: unemployed Alcohol Use: Denies Use Recreational Drug Use: No Smoking Status: Former Smoker Type Used: Cigarettes Recent Foreign Travel: No Recent Infectious Disease Expo: No Hospitalization with Isolation: Denies Physical Abuse Screen: No Sexual Abuse: No Immunizations Up To Date Date of Pneumonia Vaccine: Feb 19, 2016 Past Medical History PMH As described under Assessment. Family Medical History Family History: Patient reports no known family medical history. Allergies and Home Medications Allergies Coded Allergies: clopidogrel (Unverified Adverse Reaction, Severe, EXCESSIVE BLEEDING, 30/03) codeine (Unverified Adverse Reaction, Mild, NAUSEA, 03/30/10) warfarin (Unverified Adverse Reaction, Unknown, "REAL BAD SICK", 01/02/16) Uncoded Allergies: TRAZADONE (Adverse Reaction, Unknown, "CAN'T FUNCTION", 01/02/16) Home Medications Albuterol Sulfate 1 Puff Puff, 2 PUFF IH Q4H PRN for SHORTNESS OF BREATH, ( Reported) 1 PUFF = 90 MCG Albuterol Sulfate 2.5 Mg/3 Ml Vial.neb, 2.5 MG IH Q1H PRN for SHORTNESS OF BREATH, (Reported) Albuterol/Ipratropium 4 Gm Aero, IH UD, (Reported) Amlodipine Besylate 10 Mg Tablet, 10 MG PO DAILY, (Reported) Cetirizine HCl 10 Mg Tablet, 10 MG PO DAILY, (Reported) Cholecalciferol (Vitamin D3) 2,000 Unit Capsule, 2,000 UNIT PO DAILY, (Reported) Ezetimibe 10 Mg Tablet, 10 MG PO DAILY, (Reported) Fenofibrate Nanocrystallized 145 Mg Tablet, 145 MG PO DAILY, (Reported) Ferrous Fumarate 324 Mg Tablet, 325 MG PO BID, (Reported) Fluticasone Propionate 1 Ea Aero, 1 PUFF IH BID, (Reported) Gabapentin 100 Mg Capsule, 100 MG PO TID, (Reported) Hydrochlorothiazide 25 Mg Tablet, 12.5-25 MG PO DAILY PRN for SWELLING, ( Reported) Lisinopril 10 Mg Tablet, 10 MG PO DAILY, (Reported) Losartan Potassium 100 Mg Tablet, PO UD, (Reported) Metoprolol Succinate 25 Mg Tab.er.24h, 25 MG PO DAILY, (Reported) Nitroglycerin 0.4 Mg Tab.subl, 0.4 MG SL UD PRN for CHEST PAIN, (Reported) Cecil-3/Dha/Epa/Fish Oil 1 Each Capsule, 1,500 MG PO DAILY, (Reported) Oxybutynin Chloride 5 Mg Tablet, 5 MG PO BID, (Reported) Paricalcitol 1 Mcg Capsule, 1 MCG PO Q48H, (Reported) Paroxetine HCl 40 Mg Tablet, 40 MG PO DAILY, (Reported) Paroxetine HCl 30 Mg Tablet, 30 MG PO DAILY, (Reported) Polyethylene Glycol 3350 17 Gm Powd.pack, 17 GM PO DAILY, (Reported) Pravastatin Sodium 80 Mg Tablet, 80 MG PO HS, (Reported) Primidone 50 Mg Tablet, 25 MG PO HS, (Reported) Propranolol HCl 20 Mg Tablet, 20 MG PO BID, (Reported) Ranitidine HCl 150 Mg Tablet, 150 MG PO BID, (Reported) Ranolazine 500 Mg Tab.er.12h, PO UD, (Reported) Umeclidinium [place] 62.5 Mcg Blst.w.dev, 1 PUFF IH DAILY, (Reported) Physical Exam-Cardiology Physical Exam Vital Signs/I&O Vital Sign - Last 12Hours 10/23/16 10/23/16 10/23/16 10/23/16 14:33 16:00 16:24 18:15 Temp 98.4 98.0 98.7 Pulse 55 57 58 Resp 18 20 18 B/P (MAP) 145/65 149/71 95/73 Pulse Ox 92 95 94 91 O2 Delivery Nasal Cannula O2 Flow Rate 4.00 4.00 4.00 4.00 10/23/16 10/23/16 10/23/16 10/23/16 18:17 18:17 18:23 19:05 Temp 98.7 99.1 Pulse 58 51 Resp 18 14 B/P (MAP) 95/73 143/69 Pulse Ox 91 91 95 O2 Flow Rate 4.00 4.00 4.00 4.00 10/23/16 10/23/16 20:45 21:45 Pulse Ox 93 O2 Flow Rate 3.00 6.00 Intake and Output 10/23/16 00:00 Intake Total 340 ml Balance 340 ml Capillary Refill : Constitutional: No appears stated age, No AAO x 3, No apparent distress, No PERRL, No well-developed, No well-nourished, No other HEENT: No PERRL, No normal ENT inspection, No TMs normal, No pharynx normal, No scleral icterus (R), No scleral icterus (L), No pale conjunctivae (R), No pale conjunctivae (L), No photophobia, No TM abnormal (R), No TM abnormal (L), No pharyngeal erythema, No tonsillar exudate, other (evidence of hematoma on right forehead), No discharge, No EOMI, No hearing is well preserved, No hard of hearing, No oral hygience is good, No ulceration, No xanthelasmas are seen Neck: other (neck collar) Respiratory: No accessory muscle use, No respiratory distress, No chest tender , No chest expansion is symmetric, No chest is bilaterally symmetric, No lungs clear to percussion, No lungs clear to auscultation, No crackles, No rhonchi, No rales, No stridor, No wheezing, No pleural rub, No other Cardiovascular: No regular rate-rhythm, No irregularly irregular, No extra beats, No parasternal heave is noted, No JVD, No edema, No bradycardia, No tachycardia, No point of maximal impulse, No cardiac thrills are palpable, No S1 and S2, No gallop/S3, No gallop/S4, No diastolic murmur, No systolic murmur, No friction rub, No click, No other Gastrointestinal: No tender, No soft, No round, No distended, No pulsatile mass , No organomegaly, No guarding, No rebound, No tenderness, No hernia, No mass, No audible bowel sounds, No abnormal bowel sounds, No abdominal bruits, No spleenomegaly, No other Extremities: No normal range of motion, No non-tender, No normal inspection, No pedal edema, No calf tenderness, No normal capillary refill, No pelvis stable , No calf tenderness, No inflammation, No pedal edema, No slow capillary refill , No swelling, No other, No abrasion, No clubbing, No cyanosis, No ecchymosis, No laceration, No no lower extremity edema bilateral, No significant edema, No tenderness, No wound Neurologic/Psychiatric: No configuration specialist II-XII nml as tested, No no motor/sensory deficits, No alert, No normal mood/affect, No oriented x 3, No abnormal cerebellar tests, No abnormal configuration specialist II-XII, No abnormal gait, No aphasia, No EOM palsy, No facial droop, No motor weakness, No sensory deficit, No depressed affect, No disoriented x 3, No other, No grossly intact, No power is 5/5 both on sides Skin: No normal color, No warm/dry, No cyanosis, No cool, No diaphoresis, No damp, No ecchymosis, No jaundice, No mottled, No pallor, No rash, No tattoos/ piercings, No ulcerations, No rash on exposed areas, No ulcerations on exposed areas, No other Data Review Labs Laboratory Tests 10/23/16 05:18: White Blood Count 8.0, Red Blood Count 1.97L, Hemoglobin 6.5*L, Hematocrit 21L, Mean Corpuscular Volume 107H, Mean Corpuscular Hemoglobin 33, Mean Corpuscular Hemoglobin Concent 31L, Red Cell Distribution Width 16.7H, Platelet Count 392, Mean Platelet Volume 9.3, Neutrophils (%) (Auto) 78H, Lymphocytes (%) (Auto) 11L , Monocytes (%) (Auto) 9, Eosinophils (%) (Auto) 2, Basophils (%) (Auto) 1, Neutrophils # (Auto) 6.2, Lymphocytes # (Auto) 0.9L, Monocytes # (Auto) 0.7, Eosinophils # (Auto) 0.2, Basophils # (Auto) 0.0, Sodium Level 139, Potassium Level 4.3, Chloride Level 107, Carbon Dioxide Level 23, Anion Gap 9, Blood Urea Nitrogen 29H, Creatinine 1.70H, Estimat Glomerular Filtration Rate 29, BUN/ Creatinine Ratio 17, Glucose Level 67L, Calcium Level 9.0 10/23/16 15:02: Troponin I < 0.30 10/23/16 21:30: Troponin I < 0.30 ECG Impression ECG Initial ECG Rhythm: Normal Sinus Initial ECG Impression: Normal A/P-Cardiology Assessment/Admission Diagnosis spinal surgery, anemia, chest pain Plan Acute coronary syndrome ruled out with negative serial troponin and normal EKG. Could be secondary to anemia. Cannot recommend anti-platelet agents and anti- thrombin agents due to significant anemia. Will defer treatment of anemia to primary team. agree with transfusion. May need a nuclear stress test to risk stratify in the future. Clinical Quality Measures DVT/VTE Risk/Contraindication: Risk Factor Score Per Nursin RFS Level Per Nursing on Admit: 4+=Very High Betzaida REYES MD October 23, 2016 23:12
[2016-10-24 05:00] VITALS: BP 175/80
[2016-10-24] MEDS: VITAMIN D3 1,000 UNITS (CHOLECALCIFEROL) TABLET PO SCH (06:18)
[2016-10-24] MEDS: hydrALAZINE (APRESOLINE) 25 MG TAB PO SCH ×3 (06:18→21:22)
[2016-10-24] MEDS: MULTIVIT W/MINERALS TAB (THERAGRAN M) PO SCH (06:18)
[2016-10-24] MEDS: THIAMINE 100 MG (VITAMIN B-1) TAB PO SCH (06:18)
[2016-10-24] MEDS: OMEGA 3 (FISH OIL) 1000 MG CAP PO SCH (06:18)
[2016-10-24] MEDS: FOLIC ACID 1 MG TAB PO SCH (06:18)
[2016-10-24] MEDS: PANTOPRAZOLE 40 MG (PROTONIX) TAB PO SCH (06:20)
[2016-10-24 06:42] LABS: RED BLOOD COUNT 3.11 10^6/uL (4.35-5.85); RED CELL DISTRIBUTION WIDTH 22.3 % (10.0-14.5); WHITE BLOOD COUNT 11.6 10^3/uL (4.3-11.0)
[2016-10-24] MEDS: UMECLIDINIUM BROMIDE (INCRUSE ELLIPTA) 7'S IH SCH (06:49)
[2016-10-24] MEDS: RT-FLUTICASONE 110 MCG (FLOVENT) PER PUFF INH SCH ×2 (06:49→22:05)
[2016-10-24 07:01] LABS: CALCIUM 9.4 MG/DL (8.5-10.1); CREATININE SERUM 1.64 MG/DL (0.60-1.30); POTASSIUM 4.3 MMOL/L (3.6-5.0)
[2016-10-24] MEDS: POLYETHYLENE GLYCOL 17 GM (MIRALAX) PACK PO SCH ×2 (08:05→20:50)
[2016-10-24] MEDS: OXYBUTYNIN (DITROPAN) 5 MG TAB PO SCH ×2 (08:06→20:50)
[2016-10-24] MEDS: GABAPENTIN 100 MG (NEURONTIN) CAP PO SCH ×3 (08:06→20:51)
[2016-10-24] MEDS: PROPRANOLOL 20 MG (INDERAL) TABLET PO SCH ×2 (08:06→20:51)
[2016-10-24] MEDS: PARoxetine 20 MG (PAXIL) TAB PO SCH (08:06)
[2016-10-24] MEDS: DOCUSATE SODIUM 100 MG (COLACE) CAP PO SCH ×2 (08:06→20:51)
[2016-10-24] MEDS: lisINopril 10 MG (PRINIVIL) TAB PO SCH (08:06)
[2016-10-24] MEDS: amLODIPine 10 MG (NORVASC) TAB PO SCH (08:06)
[2016-10-24] MEDS: DICLOFENAC 1% GEL 100 GM (VOLTAREN) TUBE TOP SCH ×4 (08:07→20:51)
--- NOTE | 2016-10-24 08:42 | Occupational Ther Daily Note ---
OT Current Status-Daily Note Subjective Pt. does not report pain to this therapist, but states that she can't catch her breath. Pt. is very weak. Has difficulty participating. Appearance Pt. is in bed. Pt. awake but states that she does not feel well at all. Mental Status/Objective Functional [place] Measure 0=Not Assessed/NA 4=Minimal Assistance 1=Total Assistance 5=Supervision or Setup 2=Maximal Assistance 6=Modified [place] 3=Moderate Assistance 7=Complete [place] ADL-Treatment Functional [place] Measure 0=Not Assessed/NA 4=Minimal Assistance 1=Total Assistance 5=Supervision or Setup 2=Maximal Assistance 6=Modified [place] 3=Moderate Assistance 7=Complete IndependenceIRFPAI Quality Coding Scale 6 Independent with activity with or without an assistive device 5 Patient requires set up or clean up by helper. Patient completes activity by themselves 4 Supervision or touching assist (CGA). [place] provide cues , steadying assist 3 The helper provides less than half the effort to complete the activity 2 The helper provides more than half the effort to complete the activity 1 Dependent. The helper does all the effort to complete an activity 7 Patient refused to complete or attempt activity 9 The patient did not perform the activity before the current illness or injury 88 Not attempted due to Medical conditions or safety concerns Eating (FIM): 2 (Pt. has swollen tongue. States that she is dehydrated. Notified nursing. OT has to hold water cup for her to take a drink. Pt. only able to take one sip at a time. Pt. is encouraged throughout treatment to drink.) Bathing (FIM): 3 (Pt. is able to wash her face, chest, and arms with cues. Is able to somewhat wash front reginald area, but OT washes it thoroughly for her, as well as her rear reginald area and bilateral LE.) Upper Body (FIM): 2 (Pt. requires max assist for shirt and neck brace.) Lower Body Dressing (FIM): 1 On/Off Footwear (QC): 1 Transfers (B, C, W/C) (FIM): 4 (Pt. requires min assit for supine-sit, and then sit to stand.) Pt. initially agrees to shower. However, once ambulating to shower demonstrates great weakness. Is very "wobbly" on feet and unsafe. OT asks pt. if she feels like she might pass out. Pt. state yes. Nursing notified. Went back to bed. 02 sats at 95% with 4 1/2 L 02 on. OT sets up spongebath at bed level. Pt. lies supine to complete spongebath. Requires frequent cues and rest breaks. Sats at 94-95% throughout treatment. Nursing aware. All needs met in bed. OT applied lotion to bilateral LE. Education OT Patient Education: Correct positioning, Modified ADL techniques, Progress toward Goal/Update tx plan, Purpose of tx/functional activities, Reviewed precautions, Rehab process, Transfer techniques Teaching Recipient: Patient Teaching Methods: Demonstration, Discussion Response to Teaching: Verbalize Understanding, Return Demonstration OT Short Term Goals Short Term Goals Transfers (B,C,W/C) (FIM): 6 1=Demonstrate adherence to instructed precautions during ADL tasks. 2=Patient will verbalize/demonstrate understanding of assistive devices/ modifications for ADL. 3=Patient will improve strength/tolerance for activity to enable patient to perform ADL's. 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 Roofer Goals Time Frame: November 08, 2016 Eating (FIM): 7 Eating (QC): 6 Groomin Oral Hygiene (QC): 6 Bathing(FIM): 6 Shower/Bathe Self (QC): 6 Upper Body Dressing(FIM): 6 Upper Body Dressing (QC): 6 Lower Body Dressing(FIM): 6 Lower Body Dressing (QC): 6 On/Off Footwear (QC): 6 Toileting(FIM): 6 Toileting Hygiene (QC): 6 Toilet/Commode Transfer(FIM): 6 Toilet/Commode Transfer (QC): 6 Shower Transfer(FIM): 6 Comprehension(FIM): 5 Expression (FIM): 5 Social Interaction(FIM): 5 Problem Solving(FIM): 4 Memory(FIM): 4 Additional Goals: 2-Verbalize Understanding, 3-ImproveStrength/[place] 1=Demonstrate adherence to instructed precautions during ADL tasks. 2=Patient will verbalize/demonstrate understanding of assistive devices/ modifications for ADL. 3=Patient will improve strength/tolerance for activity to enable patient to perform ADL's. OT Education/Plan Problem List/Assessment Assessment: Decreased Activ Tolerance, Decreased Safety Aware, Decreased UE Strength, Dependent Transfers, Impaired Bed Mobility, Impaired Cognition, Impaired Coordination, Impaired Funct Balance, Impaired I ADL's, Impaired Self- Care Skills, Restricted Funct UE ROM Pt would benefit from skilled OT to increase her independence in basic self care to allow her to return home safely to live with her Discharge Recommendations Plan/Recommendations: Continue POC Therapy D/C Recommendations: 24 hr Supervision Treatment Plan/Plan of Care Treatment,Training & Education: Yes Patient would benefit from OT for education, treatment and training to promote independence in ADL's, mobility, safety and/or upper extremity function for ADL' s. Plan of Care: ADL Retraining, Functional Mobility, Group Exercise/Act as Ind ( education, exercise, funct activities, activity tolerance, memory, problem solving), UE Funct Exercise/Act, UE Neuromus Re-Ed/Coord Treatment Duration: November 08, 2016 Visits Per Week: 10-11 Minutes/Day (M-F): 75-90 Minutes/Day (Sat/[place]): PRN Agreement: Yes Rehab Potential: Guarded Time/GCodes Start Time: 07:30 Stop Time: 08:30 Total Time Billed (hr/min): 60 Billed Treatment Time 1, ADL x 4 EDMOND BARCENAS OT October 24, 2016 08:42
--- NOTE | 2016-10-24 08:49 | Progress Note (SOAP) ---
Subjective Subjective/Events-last exam patient states she's feeling better. Chest x-ray shows CHF.. Patient received blood yesterday. Patient has renal insufficiency. Troponin and EKG did not show heart damage. Patient is fragile Objective Exam Vital Signs Date Time Temp Pulse Resp B/P (MAP) Pulse Ox O2 Delivery O2 Flow Rate FiO2 10/24/16 06:54 93 6.00 10/24/16 05:00 96.8 53 18 175/80 98 Simple Mask 5.50 10/23/16 22:45 98.5 53 16 154/91 95 4.00 10/23/16 21:45 93 6.00 10/23/16 20:45 3.00 10/23/16 19:20 98.2 47 16 159/83 95 4.00 10/23/16 19:05 99.1 51 14 143/69 95 4.00 10/23/16 18:23 4.00 10/23/16 18:17 91 4.00 10/23/16 18:17 98.7 58 18 95/73 91 4.00 10/23/16 18:15 98.7 58 18 95/73 91 Nasal Cannula 4.00 10/23/16 16:24 98.0 57 20 149/71 94 4.00 10/23/16 16:00 98.4 55 18 145/65 95 4.00 10/23/16 14:33 92 4.00 10/23/16 10:03 99 3.00 10/23/16 09:00 3.00 I & O 10/24/16 07:00 Intake Total 460 ml Balance 460 ml Capillary Refill : General Appearance: No Apparent Distress, Thin HEENT: Normal ENT Inspection Respiratory: Chest Non Tender, No Accessory Muscle Use, No Respiratory Distress Cardiovascular: Regular Rate, Rhythm, No Murmur Gastrointestinal: soft Results Lab Laboratory Tests 10/24/16 05:40 10/24/16 05:46 Laboratory Tests 10/23/16 15:02: Troponin I < 0.30 10/23/16 21:30: Troponin I < 0.30 10/24/16 05:40: White Blood Count 11.6H, Red Blood Count 3.11L, Hemoglobin 9.8#L, Hematocrit 30L , Mean Corpuscular Volume 97, Mean Corpuscular Hemoglobin 32, Mean Corpuscular Hemoglobin Concent 33, Red Cell Distribution Width 22.3H, Platelet Count 399, Mean Platelet Volume 9.0 10/24/16 05:46: Troponin I < 0.30, Sodium Level 137, Potassium Level 4.3, Chloride Level 105, Carbon Dioxide Level 22, Anion Gap 10, Blood Urea Nitrogen 31H, Creatinine 1.64H , Estimat Glomerular Filtration Rate 31, BUN/Creatinine Ratio 19, Glucose Level 80, Calcium Level 9.4 Assessment/Plan Assessment/Plan Assess & Plan/Chief Complaint cervical surgery. Hematoma on the forehead. Patient worried about eating more food. . 10/22/16.. Cervical surgery. Hematoma. Anemia Patient to receive blood. Left hand no swelling. . 10/23/16. Cervical surgery. Anemia worse. Patient may get blood today. . 10/24/16.. Cervical surgery. Hematoma on forehead. Chest x-ray shows CHF. Patient anemia. Renal insufficiency Clinical Quality Measures DVT/VTE Risk/Contraindication: Risk Factor Score Per Nursin RFS Level Per Nursing on Admit: 4+=Very High JEANINE ORLANDO DO October 24, 2016 08:49
--- NOTE | 2016-10-24 09:30 | Cardiology Progress Note ---
Cardiology SOAP Progress Note Subjective: shortness of breath Objective: I&O/Vital Signs Vital Sign - Last 12Hours 10/24/16 10/24/16 06:54 09:00 Pulse Ox 93 O2 Flow Rate 6.00 3.00 Intake and Output 10/24/16 00:00 Intake Total 260 ml Balance 260 ml Weight (Pounds): 115 Weight (Ounces): 0.2 Weight (Calculated Kilograms): 52.389304 Constitutional: No appears stated age, No AAO x 3, No apparent distress, No PERRL, No well-developed, No well-nourished, No other Respiratory: No accessory muscle use, No respiratory distress, No chest tender , chest expansion is symmetric, chest is bilaterally symmetric, No lungs clear to percussion, No lungs clear to auscultation, No crackles, No rhonchi, No rales , No stridor, No wheezing, No pleural rub, other (poor air entry bilaterally) Cardiovascular: regular rate-rhythm, No irregularly irregular, No extra beats, No parasternal heave is noted, No JVD, No edema, No bradycardia, No tachycardia , No point of maximal impulse, No cardiac thrills are palpable, S1 and S2, No gallop/S3, No gallop/S4, No diastolic murmur, No systolic murmur, No friction rub, No click, No other Gastrointestional: No tender, No soft, No round, No distended, No pulsatile mass, No organomegaly, No guarding, No rebound, No tenderness, No hernia, No mass, No audible bowel sounds, No abnormal bowel sounds, No abdominal bruits, No spleenomegaly, No other Extremities: No normal range of motion, No non-tender, No normal inspection, No pedal edema, No calf tenderness, No normal capillary refill, No pelvis stable , No calf tenderness, No inflammation, No pedal edema, No slow capillary refill , No swelling, No other, No abrasion, No clubbing, No cyanosis, No ecchymosis, No laceration, No no lower extremity edema bilateral, No significant edema, No tenderness, No wound Neurologic/Psychiatric: No president [place] II-XII nml as tested, No no motor/sensory deficits, No alert, No normal mood/affect, No oriented x 3, No abnormal cerebellar tests, No abnormal president [place] II-XII, No abnormal gait, No aphasia, No EOM palsy, No facial droop, No motor weakness, No sensory deficit, No depressed affect, No disoriented x 3, No other, No grossly intact, No power is 5/5 both on sides Skin: No normal color, No warm/dry, No cyanosis, No cool, No diaphoresis, No damp, No ecchymosis, No jaundice, No mottled, No pallor, No rash, No tattoos/ piercings, No ulcerations, No rash on exposed areas, No ulcerations on exposed areas, No other Results/Procedures: Labs Laboratory Tests 10/23/16 21:30: Troponin I < 0.30 10/24/16 05:40: White Blood Count 11.6H, Red Blood Count 3.11L, Hemoglobin 9.8#L, Hematocrit 30L , Mean Corpuscular Volume 97, Mean Corpuscular Hemoglobin 32, Mean Corpuscular Hemoglobin Concent 33, Red Cell Distribution Width 22.3H, Platelet Count 399, Mean Platelet Volume 9.0, B-Type Natriuretic Peptide 2656.2H 10/24/16 05:46: Troponin I < 0.30, Sodium Level 137, Potassium Level 4.3, Chloride Level 105, Carbon Dioxide Level 22, Anion Gap 10, Blood Urea Nitrogen 31H, Creatinine 1.64H , Estimat Glomerular Filtration Rate 31, BUN/Creatinine Ratio 19, Glucose Level 80, Calcium Level 9.4 A/P: Assessment/Dx: spinal surgery, anemia, chest pain, shortness of breath Plan: Acute coronary syndrome ruled out with negative serial troponin and normal EKG. Could be secondary to anemia. Cannot recommend anti-platelet agents and anti- thrombin agents due to significant anemia. Will defer treatment of anemia to primary team. agree with transfusion. May need a nuclear stress test to risk stratify in the future. complains of shortness of breath, elevated BNP; will recommend Lasix 20 mg IV 1. We will review echocardiogram. She is not in overt congestive heart failure. Chronic kidney disease. Thank you for your consultation. Please call me if you have any questions. Otf Joseph MD, FACP, FACC, FSCAI, FHRS, CCDS Interventional Cardiology Cardiac Electrophysiology Vascular Medicine and Endovascular Interventions Betzaida JOSEPH MD October 24, 2016 9:30 am
--- NOTE | 2016-10-24 10:35 | Diagnostic Imaging Report ---
EXAMINATION: Portable upright radiograph of the chest. INDICATION: Shortness of breath. COMPARISON: 10/23/2016. FINDINGS: The heart size is markedly enlarged. There is improving pulmonary vascular congestion with bibasilar infiltrate or atelectasis, more on the left, and bilateral small effusions. Sternotomy wires are noted. The mediastinum and cedric appear unremarkable. Cervical spine fusion hardware and surgical clips in the left axillary region are seen. Again seen are calcified granulomas over the right hemithorax and mediastinum. IMPRESSION: Cardiomegaly with improving vascular congestion. There are bilateral small effusions with unchanged bibasilar infiltrate or atelectasis. Dictated by: Dictated on workstation # [id number]
--- NOTE | 2016-10-24 10:48 | Physical Therapy Daily Note ---
PT Daily Note-Current Subjective Patient is having much difficulty waking up to participate with PT. Patient will wake minimally during exercises and will fall asleep. RN notified. Patient is currently unable to actively participate with PT. Pain Numeric Pain Scale: 0-No Pain Location: No Pain Reported Mental Status Patient Orientation: Mumbles, Listless Attachments: Oxygen (4L) Transfers Functional [place] Measure 0=Not Assessed/NA 4=Minimal Assistance 1=Total Assistance 5=Supervision or Setup 2=Maximal Assistance 6=Modified [place] 3=Moderate Assistance 7=Complete IndependenceIRFPAI Quality Coding Scale 6 Independent with activity with or without an assistive device 5 Patient requires set up or clean up by helper. Patient completes activity by themselves 4 Supervision or touching assist (CGA). [place] provide cues , steadying assist 3 The helper provides less than half the effort to complete the activity 2 The helper provides more than half the effort to complete the activity 1 Dependent. The helper does all the effort to complete an activity 7 Patient refused to complete or attempt activity 9 The patient did not perform the activity before the current illness or injury 88 Not attempted due to Medical conditions or safety concerns Transfers (B, C, W/C) (FIM): 2 Scootin Rollin Roll Left to Right (QC): 2 Supine to/from Sit: 2 Sit to/from Stand: 2 Sit to Lying (QC): 2 Sit to Stand (QC): 2 Patient assist to EOB with max assist to reposition in bed. Patient is retropulsive in sit and stand with ataxic movements. Gait Training Does the Patient Walk?: Yes Gait (FIM): 1 Distance (FIM): 1=up to 49 ft Distance: 5' Gait Level of Assist: 2 Gait Persons Needed: 1 patient is retropulsive and unsafe to remain upright due to lethargy and increase weakness with inability to actively participate with PT. Exercises Supine Ex: Ankle pumps, Lower trunk rotation, Straight leg raise, Hip abd/add Supine Reps: 10 (PROM to AAROM in bed x 2 sets) Assessment Patient is severely lethargic and unable to actively participate with therapy. PT consulted with RN and examination supervisor. PT will continue to monitor patient status. PT Short Term Goals Short Term Goals Time Frame: November 01, 2016 Transfers (B,C,W/C) (FIM): 6 Gait (FIM): 6 Distance (FIM): 3=150 ft Gait Distance Comment: 200' Gait Level of Assist: 6 Gait Assistive Device: FWW, Cane Single Point Stairs (FIM): 2 # of Steps: 4 Stairs Level of Assist: 5 PT Customer Experience Retail Clerk Goals Customer Experience Retail Clerk Goals PT Customer Experience Retail Clerk Goals Time Frame: Nov 15, 2016 Transfers (B,C,W/C) (FIM): 6 Sit to Lying (QC): 6 Lying-Sitting on Side/Bed(QC): 6 Sit to Stand (QC): 6 Rollin Roll Left to Right (QC): 6 Chair/Trg-pj-Spmyr Xfer(QC): 6 Car Transfer (QC): 6 Does the Patient Walk: Yes Gait (FIM): 6 Gait distance (FIM): 3=150 ft Distance: >300' Walk 10 feet (QC): 6 Walk 10ft-Uneven Surface(QC): 6 Walk 50ft with 2 Turns (QC): 6 Walk 150 ft (QC): 6 Gait Level of Assist: 6 Gait Assistive Device: FWW Does the Pt use WC or Scooter?: No Stairs (FIM): 6 # of Steps: 12 1 Step (curb) (QC): 6 4 Steps (QC): 6 12 Steps (QC): 6 Stairs Level Of Assist: 6 Picking up an Object (QC): 6 PT Plan Problem List Problem List: Activity Tolerance, Functional Strength Treatment/Plan Treatment Plan: Continue Plan of Care Treatment Plan: Bed Mobility, Education, Functional Activity Zena, Functional Strength, Group Therapy, Gait, Safety, Therapeutic Exercise, Transfers Treatment Duration: Nov 15, 2016 Visits Per Week: 10-11 Minutes/Day (M-F): 60-90 Minutes/Day (Sat/Quintanilla): PRN Time/GCodes Time In: 1030 Time Out: 1100 Total Billed Treatment Time: 30 Total Billed Treatment 1 visit EX x 2 30 min ELIZABETH BILLS PT October 24, 2016 10:48
--- NOTE | 2016-10-24 14:12 | Speech Therapy Daily Note ---
Speech Daily Progress Note Subjective The patient was laying in bed, sleeping upon entrance. The patient required maximum verbal prompting for continued alertness, however, was agreeable to speech pathology treatment. Objective To note: The patient was extremely fatigued and lethargic on this date. Consistent verbal prompting (with all lights in room placed on) was required for continued appropriate participation with the treatment session. Assessment of Language-Related Functional Activities (NATHALIE): Functional daily tasks were initiated on this date. Telling Time: The patient was asked to read the time on an analog clock. With maximum verbal prompting for alertness, the patient met today's goal with 100% accuracy. The patient continued to demonstrate significant fatigue throughout the session. Orientation: The patient was able to state her name and location. The patient was unable to provide additional orientation information regardless of maximum verbal cues and direct modeling (demonstration) of in-room white board. Assessment Assessment Current Status: Poor Progress Treatment Plan Continue Plan of Care Communication Comprehension: 3 Expression: 4 Social Cognition Social Interaction: 2 Problem Solvin Memory: 3 Speech Short Term Goals Short Term Goals Short Term Goals 1. The patient will demonstrated 80% accuracy with simple orientation information using an external aid and mild clinician verbal cueing. 2. The patient will display 80% accuracy with safety problem solving with mild clinician verbal cueing. 3. The patient will recall two functional memory strategies for use at home. Time Frame-STG: Two Weeks Speech Customer Services Supervisor Goals Customer Services Supervisor Goals 1. The patient will display improved cognitive skills for increased safety and function with ADL's. Time Frame: Four Weeks Comprehension: 5 Expression: 5 Social Interaction: 5 Problem Solvin Memory: 4 Speech-Plan Treatment Plan Speech Therapy Treatment Plan: Continue Plan of Care Continue skilled speech pathology intervention to target functional cognition. Treatment Duration: Nov 19, 2016 # of days/week Four to five. Visits Per Week: Four to Five. Minutes/Day (M-F): 30 Rehab Potential: Guarded Safety Risks/Education Teaching Recipient: Patient Teaching Methods: Demonstration, Discussion Response to Teaching: Unable to Return Demonstration Education Topics Provided: Orientation Strategy (External Aid) Time Speech Therapy Time In: 09:15 Speech Therapy Time Out: 09:45 Total Billed Time: 30 Billed Treatment Time LAMAR Rosado ELIZABECARLOS ROCHA October 24, 2016 14:12
--- NOTE | 2016-10-24 14:40 | Therapy Group Daily Note ---
Therapy Daily Group Note Exercises LE Seated Exercise, Sit to/from Stand, UE Exercise Other/Notes This patient actively participated in group therapy this afternoon. Group consisted of her participating in introducing herself and telling where she was from as well as later in the group her giving her advice or "words of encouragement" to others in the group. Group consisted of a game of "[employer]" in which this patient was very participatory in answering questions. During the game, we required the players toss lucio bags to signal they wanted to answer as well as perform a sit to stand transfer to answer the question. We had a "commercial break" in which she participated in U/LE ther ex to promote strength and ROM for improved ability to participate in ADL;s and functional mobility. She was more alert this afternoon and engaged well with the group. She seemed more alert and eager to be involved once it began. Post group, pt desired to sit up in her wheelchair and visit with her spouse. Improved participation this afternoon compared to the morning PT visit. Start Time: 13:00 Stop Time: 14:15 Total Billed Treatment Time: 75 Total Billed Treatment visit Group 75 TYSON PHILIP PT October 24, 2016 14:40
--- NOTE | 2016-10-24 17:32 | Oncology Progress Note ---
Subjective Subjective/Events-last exam Feeling better today. She looked much better today when I walked into her room. Breathing more comfortable. Finished her 2 units of transfusion this morning. Hb up to 9.8. However this may not be accurate due to the transfusion Data Review Labs Laboratory Tests 10/24/16 05:40 10/24/16 05:46 Laboratory Tests 10/22/16 05:59: Red Blood Count 2.04L, Hemoglobin 6.8*L, Hematocrit 22L, Mean Corpuscular Volume 106H, Mean Corpuscular Hemoglobin Concent 31L, Red Cell Distribution Width 16.5H 10/23/16 05:18: Red Blood Count 1.97L, Hemoglobin 6.5*L, Hematocrit 21L, Mean Corpuscular Volume 107H, Mean Corpuscular Hemoglobin Concent 31L, Red Cell Distribution Width 16.7H, Neutrophils (%) (Auto) 78H, Lymphocytes (%) (Auto) 11L, Lymphocytes # (Auto) 0.9L, Blood Urea Nitrogen 29H, Creatinine 1.70H, Glucose Level 67L 10/23/16 15:02: 10/23/16 21:30: 10/24/16 05:40: White Blood Count 11.6H, Red Blood Count 3.11L, Hemoglobin 9.8#L, Hematocrit 30L , Red Cell Distribution Width 22.3H, B-Type Natriuretic Peptide 2656.2H 10/24/16 05:46: Blood Urea Nitrogen 31H, Creatinine 1.64H Physical Exam Vital Signs Vital Sign - Last 12Hours 10/18/16 10/18/16 12:12 18:46 Temp 96.8 Pulse 56 Resp 18 B/P (MAP) 157/69 Pulse Ox 95 O2 Delivery Room Air O2 Flow Rate 2.00 Capillary Refill : HEENT: PERRL/EOMI, Other (right forehead hematoma smaller) Respiratory: No Accessory Muscle Use, No Respiratory Distress, Wheezing Cardiovascular: Regular Rate, Rhythm Gastrointestinal: Non Tender, Soft Extremity: Swelling Neurologic/Psychiatric: Alert, Oriented x3 Impression & Plan Impression & Plan 1. Fall and cervical vertebrate fracture, s/p repair. 2. Large right forehead hematoma. 3. Anemia most likely form hematoma and recent surgery loss. Pt declined RBC transfusion yesterday when Hb 6.9 4. CAD, s/p GBAG x 3 on three BP meds and 3 heart meds and HCTZ. 5. h/o heavy alcohol abuse, stopped now. ? liver cirrohsis 6. h/o heavy tobacco abuse, stopped now. COPD 7. Acute renal failure Cr from 1.2 to 1.7 today. 8. CHF on CXR today and increasing SOB, O2 Sat 90% on 3L NC. Plan: 1. Repeat CBC tomorrow morning. Keep Hb above 9 with transfusion due to CHF and ARF. 2. Give her 1mg B12 today. 3. Closely monitor renal function. 4. Stop Lovenox due to bleeding and anemia. Use SCD. 5. Cardiology consult for CHF and chest pressure 6. Pt will be very challenge in terms of managing her fluid, CHF and acute renal failure. 7. We need to discuss the DNR status. 8. Cardiology to determine if patient needs to be moved to ICU. 9. Stool occult blood 10. Protonix 40mg daily. Clinical Quality Measures DVT/VTE Risk/Contraindication: Risk Factor Score Per Nursin RFS Level Per Nursing on Admit: 4+=Very High TRUPTI NOLAND MD October 24, 2016 17:32
[2016-10-24 18:05] VITALS: BP 154/61
[2016-10-24] MEDS ORDERED: FUROSEMIDE 40 MG/4 ML INJ (LASIX) ONE (18:28)
[2016-10-24] MEDS ORDERED: FUROSEMIDE 40 MG/4 ML INJ (LASIX) IVP NR (18:30)
[2016-10-24] MEDS: PRIMIDONE 50 MG TAB (MYSOLINE) PO SCH (20:50)
[2016-10-24] MEDS: eZETimibe 10 MG (ZETIA) TABLET PO SCH (20:51)
[2016-10-24] MEDS: ATORVASTATIN 20 MG (LIPITOR) TABLET PO SCH (20:51)
[2016-10-24] MEDS: FAMOTIDINE 20 MG (PEPCID) TABLET PO SCH (20:51)
[2016-10-24] MEDS: LORATADINE (CLARITIN) 10 MG TAB PO SCH (20:51)
[2016-10-24] MEDS: FENOFIBRATE 134 MG (LOFIBRA) CAPSULE PO SCH (20:51)
[2016-10-25 05:00] VITALS: BP 65/67
[2016-10-25 06:11] LABS: RED BLOOD COUNT 3.3 10^6/uL (4.35-5.85); RED CELL DISTRIBUTION WIDTH 21.7 % (10.0-14.5); WHITE BLOOD COUNT 9.4 10^3/uL (4.3-11.0)
[2016-10-25] MEDS: THIAMINE 100 MG (VITAMIN B-1) TAB PO SCH (06:17)
[2016-10-25] MEDS: VITAMIN D3 1,000 UNITS (CHOLECALCIFEROL) TABLET PO SCH (06:17)
[2016-10-25] MEDS: PANTOPRAZOLE 40 MG (PROTONIX) TAB PO SCH (06:17)
[2016-10-25] MEDS: hydrALAZINE (APRESOLINE) 25 MG TAB PO SCH ×3 (06:17→21:29)
[2016-10-25] MEDS: OMEGA 3 (FISH OIL) 1000 MG CAP PO SCH (06:18)
[2016-10-25] MEDS: MULTIVIT W/MINERALS TAB (THERAGRAN M) PO SCH (06:18)
[2016-10-25] MEDS: FOLIC ACID 1 MG TAB PO SCH (06:18)
[2016-10-25 07:03] LABS: CALCIUM 9.8 MG/DL (8.5-10.1); CREATININE SERUM 1.67 MG/DL (0.60-1.30); POTASSIUM 4.3 MMOL/L (3.6-5.0)
[2016-10-25] MEDS: UMECLIDINIUM BROMIDE (INCRUSE ELLIPTA) 7'S IH SCH (07:44)
[2016-10-25] MEDS: RT-FLUTICASONE 110 MCG (FLOVENT) PER PUFF INH SCH ×2 (07:44→19:59)
--- NOTE | 2016-10-25 08:00 | Progress Note (SOAP) ---
Subjective Subjective/Events-last exam patient states she's feeling better. Hemoglobin and hematocrit better. BNP improving. Chest x-ray yesterday shows improvement. Hematoma on forehead better. Renal insufficiency Objective Exam Vital Signs Date Time Temp Pulse Resp B/P (MAP) Pulse Ox O2 Delivery O2 Flow Rate FiO2 10/25/16 07:44 96 4.00 10/25/16 05:00 98.7 54 18 65/67 97 4.00 10/24/16 22:08 90 4.00 10/24/16 20:45 3.00 10/24/16 18:05 97.1 56 18 154/61 97 10/24/16 09:00 3.00 I & O 10/25/16 07:00 Intake Total 1100 ml Balance 1100 ml Capillary Refill : General Appearance: No Apparent Distress, Thin HEENT: Normal ENT Inspection Neck: Non Tender Respiratory: No Accessory Muscle Use, No Respiratory Distress, Decreased Breath Sounds Cardiovascular: Regular Rate, Rhythm Gastrointestinal: non tender, soft Results Lab Laboratory Tests 10/25/16 05:16 10/25/16 05:18 Laboratory Tests 10/25/16 03:00: Stool Occult Blood Immunoassay NEGATIVE 10/25/16 05:16: White Blood Count 9.4, Red Blood Count 3.30L, Hemoglobin 10.5L, Hematocrit 32L, Mean Corpuscular Volume 97, Mean Corpuscular Hemoglobin 32, Mean Corpuscular Hemoglobin Concent 33, Red Cell Distribution Width 21.7H, Platelet Count 395, Mean Platelet Volume 9.0, B-Type Natriuretic Peptide 1817.4H 10/25/16 05:18: Sodium Level 138, Potassium Level 4.3, Chloride Level 103, Carbon Dioxide Level 26, Anion Gap 9, Blood Urea Nitrogen 28H, Creatinine 1.67H, Estimat Glomerular Filtration Rate 30, BUN/Creatinine Ratio 17, Glucose Level 76, Calcium Level 9.8 Assessment/Plan Assessment/Plan Assess & Plan/Chief Complaint cervical surgery. Hematoma on the forehead. Patient worried about eating more food. . 10/22/16.. Cervical surgery. Hematoma. Anemia Patient to receive blood. Left hand no swelling. . 10/23/16. Cervical surgery. Anemia worse. Patient may get blood today. . 10/24/16.. Cervical surgery. Hematoma on forehead. Chest x-ray shows CHF. Patient anemia. Renal insufficiency. . 10/25/16. Cervical surgery. Hematoma resolving on forehead. CHF better. Patient breathing better and feeling better. Renal insufficiency area Anemia Clinical Quality Measures DVT/VTE Risk/Contraindication: Risk Factor Score Per Nursin RFS Level Per Nursing on Admit: 4+=Very High JEANINE ORLANDO DO October 25, 2016 08:00
--- NOTE | 2016-10-25 08:47 | Physical Therapy Daily Note ---
PT Daily Note-Current Subjective Patient in bed pre tx, without cervical collar on. States she has 7/10 pain in her neck and shoulders. Appearance Patient in recliner post tx with cervical collar on, has nurse call, phone, tray , all needs met. Mental Status Patient Orientation: Person, Place, Situation Attachments: Oxygen cervical collar, 4L of O2 nasal canula Transfers Functional [place] Measure 0=Not Assessed/NA 4=Minimal Assistance 1=Total Assistance 5=Supervision or Setup 2=Maximal Assistance 6=Modified [place] 3=Moderate Assistance 7=Complete IndependenceIRFPAI Quality Coding Scale 6 Independent with activity with or without an assistive device 5 Patient requires set up or clean up by helper. Patient completes activity by themselves 4 Supervision or touching assist (CGA). [place] provide cues , steadying assist 3 The helper provides less than half the effort to complete the activity 2 The helper provides more than half the effort to complete the activity 1 Dependent. The helper does all the effort to complete an activity 7 Patient refused to complete or attempt activity 9 The patient did not perform the activity before the current illness or injury 88 Not attempted due to Medical conditions or safety concerns Transfers (B, C, W/C) (FIM): 4 Scootin Rollin Supine to/from Sit: 5 Sit to/from Stand: 4 Bed to/from Chair: 4 min assist for stand pivot transfer, slightly retropulsive and poor balance Gait Training Gait (FIM): 1 Distance: 5'x2 Gait Level of Assist: 4 Gait Persons Needed: 1 Gait Assistive Device: FWW very unsteady, slow Wheelchair Training Wheelchair (FIM): 2 Distance: 50' Wheelchair Level of Assist: 4 Type of Wheelchair: Manual min assist, patient needs several rest breaks just to go 50' Exercises NuStep Minutes: 10 NuStep Workload: 4 Treatments bed mobility and transfers, ambulation, wheelchair mobility, functional strengthening Assessment Current Status: Fair Progress improved mobility today PT Short Term Goals Short Term Goals Time Frame: November 01, 2016 Transfers (B,C,W/C) (FIM): 6 Gait (FIM): 6 Distance (FIM): 3=150 ft Gait Distance Comment: 200' Gait Level of Assist: 6 Gait Assistive Device: FWW, Cane Single Point Stairs (FIM): 2 # of Steps: 4 Stairs Level of Assist: 5 PT Weight And Test Bar Clerk Goals Residential Goals PT Residential Goals Time Frame: Nov 15, 2016 Transfers (B,C,W/C) (FIM): 6 Sit to Lying (QC): 6 Lying-Sitting on Side/Bed(QC): 6 Sit to Stand (QC): 6 Rollin Roll Left to Right (QC): 6 Chair/Rnp-fo-Runij Xfer(QC): 6 Car Transfer (QC): 6 Does the Patient Walk: Yes Gait (FIM): 6 Gait distance (FIM): 3=150 ft Distance: >300' Walk 10 feet (QC): 6 Walk 10ft-Uneven Surface(QC): 6 Walk 50ft with 2 Turns (QC): 6 Walk 150 ft (QC): 6 Gait Level of Assist: 6 Gait Assistive Device: FWW Does the Pt use WC or Scooter?: No Stairs (FIM): 6 # of Steps: 12 1 Step (curb) (QC): 6 4 Steps (QC): 6 12 Steps (QC): 6 Stairs Level Of Assist: 6 Picking up an Object (QC): 6 PT Plan Problem List Problem List: Activity Tolerance, Functional Strength, Safety, Balance, Gait, Transfer, Bed Mobility Treatment/Plan Treatment Plan: Continue Plan of Care Treatment Plan: Bed Mobility, Education, Functional Activity Zena, Functional Strength, Group Therapy, Gait, Safety, Therapeutic Exercise, Transfers Treatment Duration: Nov 15, 2016 Visits Per Week: 10-11 Minutes/Day (M-F): 60-90 Minutes/Day (Sat/Quintanilla): PRN Safety Risks/Education Patient Education: Gait Training, Transfer Techniques, Correct Positioning, Safety Issues Teaching Recipient: Patient Teaching Methods: Demonstration, Discussion Response to Teaching: Reinforcement Needed Time/GCodes Time In: 800 Time Out: 845 Total Billed Treatment Time: 45 Total Billed Treatment 1 visit [facility] 20' GT 15' EX 10' ISRAEL CRUMP PT October 25, 2016 08:47
--- NOTE | 2016-10-25 08:49 | Occupational Ther Daily Note ---
OT Current Status-Daily Note Subjective Pt alert, eating breakfast in bed. Pt agreed to therapy. Pt c/o neck pain the next moment she said she was comfortable. Mental Status/Objective Patient Orientation: Person, Time, Situation Functional [place] Measure 0=Not Assessed/NA 4=Minimal Assistance 1=Total Assistance 5=Supervision or Setup 2=Maximal Assistance 6=Modified [place] 3=Moderate Assistance 7=Complete [place] ADL-Treatment Functional [place] Measure 0=Not Assessed/NA 4=Minimal Assistance 1=Total Assistance 5=Supervision or Setup 2=Maximal Assistance 6=Modified [place] 3=Moderate Assistance 7=Complete IndependenceIRFPAI Quality Coding Scale 6 Independent with activity with or without an assistive device 5 Patient requires set up or clean up by helper. Patient completes activity by themselves 4 Supervision or touching assist (CGA). [place] provide cues , steadying assist 3 The helper provides less than half the effort to complete the activity 2 The helper provides more than half the effort to complete the activity 1 Dependent. The helper does all the effort to complete an activity 7 Patient refused to complete or attempt activity 9 The patient did not perform the activity before the current illness or injury 88 Not attempted due to Medical conditions or safety concerns Eating (FIM): 5 (Set up required, pt able to use regular utensils to feed self. ) Bathing (FIM): 4 (Pt sitting on EOB completed sponge bath after set up. Pt was able to complete upper body, upper legs and reginald area/buttocks (standing). SBA with standing.) Bathing Location: L Arm, R Arm, L Upper Leg, R Upper Leg, Chest, Abdomen, Buttocks, Perineal Area Upper Body (FIM): 5 (After set up, pt is able to complete donning/doffing clothing.) Lower Body Dressing (FIM): 5 (After set up, pt requires assist to don over feet then is able to pull up legs and hike over hips with SBA.) Transfers (B, C, W/C) (FIM): 4 (min A for stand pivot transfers) Pt demonstrated ability to doff socks by self. Pt fatigued quickly then asked to lay back down after therapy. Pt was able to go from sit to supine with CGA. After therapy, pt lying in bed with call light/phone in reach. All needs met in room. OT Short Term Goals Short Term Goals Transfers (B,C,W/C) (FIM): 6 1=Demonstrate adherence to instructed precautions during ADL tasks. 2=Patient will verbalize/demonstrate understanding of assistive devices/ modifications for ADL. 3=Patient will improve strength/tolerance for activity to enable patient to perform ADL's. OT Metal Base Blocker Goals Penitentiary Goals Time Frame: November 08, 2016 Eating (FIM): 7 Eating (QC): 6 Groomin Oral Hygiene (QC): 6 Bathing(FIM): 6 Shower/Bathe Self (QC): 6 Upper Body Dressing(FIM): 6 Upper Body Dressing (QC): 6 Lower Body Dressing(FIM): 6 Lower Body Dressing (QC): 6 On/Off Footwear (QC): 6 Toileting(FIM): 6 Toileting Hygiene (QC): 6 Toilet/Commode Transfer(FIM): 6 Toilet/Commode Transfer (QC): 6 Shower Transfer(FIM): 6 Comprehension(FIM): 5 Expression (FIM): 5 Social Interaction(FIM): 5 Problem Solving(FIM): 4 Memory(FIM): 4 Additional Goals: 2-Verbalize Understanding, 3-ImproveStrength/Zena 1=Demonstrate adherence to instructed precautions during ADL tasks. 2=Patient will verbalize/demonstrate understanding of assistive devices/ modifications for ADL. 3=Patient will improve strength/tolerance for activity to enable patient to perform ADL's. OT Education/Plan Problem List/Assessment Pt would benefit from skilled OT to increase her independence in basic self care to allow her to return home safely to live with her Discharge Recommendations Plan/Recommendations: Continue POC Treatment Plan/Plan of Care Patient would benefit from OT for education, treatment and training to promote independence in ADL's, mobility, safety and/or upper extremity function for ADL' s. Plan of Care: ADL Retraining, Functional Mobility, Group Exercise/Act as Ind ( education, exercise, funct activities, activity tolerance, memory, problem solving), UE Funct Exercise/Act, UE Neuromus Re-Ed/Coord Treatment Duration: November 08, 2016 Visits Per Week: 10-11 Minutes/Day (M-F): 75-90 Minutes/Day (Sat/Quintanilla): PRN Agreement: Yes Rehab Potential: Guarded Time/GCodes Start Time: 07:00 Stop Time: 07:45 Total Time Billed (hr/min): 45 Billed Treatment Time 1 visit-ADL 3 (45 min) TYSON RAMOS October 25, 2016 08:49
[2016-10-25 09:45] VITALS: BP 165/72
[2016-10-25] MEDS: amLODIPine 10 MG (NORVASC) TAB PO SCH (09:57)
[2016-10-25] MEDS: POLYETHYLENE GLYCOL 17 GM (MIRALAX) PACK PO SCH ×2 (09:57→21:30)
[2016-10-25] MEDS: OXYBUTYNIN (DITROPAN) 5 MG TAB PO SCH ×2 (09:57→21:28)
[2016-10-25] MEDS: PARoxetine 20 MG (PAXIL) TAB PO SCH (09:57)
[2016-10-25] MEDS: DOCUSATE SODIUM 100 MG (COLACE) CAP PO SCH ×2 (09:57→21:29)
[2016-10-25] MEDS: PROPRANOLOL 20 MG (INDERAL) TABLET PO SCH ×2 (09:57→21:43)
[2016-10-25] MEDS: GABAPENTIN 100 MG (NEURONTIN) CAP PO SCH ×3 (09:57→21:29)
[2016-10-25] MEDS: DICLOFENAC 1% GEL 100 GM (VOLTAREN) TUBE TOP SCH ×4 (10:28→21:30)
[2016-10-25] MEDS: ASPIRIN 81 MG CHEW (CHILDREN'S ASA) PO SCH (10:53)
--- NOTE | 2016-10-25 11:12 | Speech Therapy Daily Note ---
Speech Daily Progress Note Subjective The patient was sitting upright in recliner upon entrance. The patient reported fatigue, however, stated she was feeling better than the previous day. The patient was agreeable to participation in the cognitive treatment session. Objective NATHALIE (continued): Functional tasks were reviewed and continued on this date. The results are as follows: - Telling Time: The patient was asked to read the time on an analog clock ( review from prior session). The patient demonstrated significant improvement on this date, displaying 100% accuracy. The patient's prior performance appears to be associated with her increased fatigue the day before. - Daily Math Problems: The patient demonstrated 80% accuracy on functional math problems with mild clinician verbal cueing (most often for redirection and increased alertness). Examples of problems presented included tip calculations, bill amounts, time story problems, and recipes. Orientation: The patient was oriented to month, year, and day of week with the use of the in-room white board. Assessment Assessment Current Status: Good Progress Treatment Plan Continue Plan of Care Communication Comprehension: 4 Expression: 5 Social Cognition Social Interaction: 4 Problem Solvin Memory: 3 Speech Short Term Goals Short Term Goals Short Term Goals 1. The patient will demonstrated 80% accuracy with simple orientation information using an external aid and mild clinician verbal cueing. 2. The patient will display 80% accuracy with safety problem solving with mild clinician verbal cueing. 3. The patient will recall two functional memory strategies for use at home. Time Frame-STG: Two Weeks Speech Alf Goals Alf Goals 1. The patient will display improved cognitive skills for increased safety and function with ADL's. Time Frame: Four Weeks Comprehension: 5 Expression: 5 Social Interaction: 5 Problem Solvin Memory: 4 Speech-Plan Treatment Plan Speech Therapy Treatment Plan: Continue Plan of Care Continue skilled speech pathology services to target functional problem solving. Treatment Duration: Nov 19, 2016 # of days/week Four to five. Visits Per Week: Four to Five. Minutes/Day (M-F): 30 Rehab Potential: Guarded Safety Risks/Education Teaching Recipient: Patient Teaching Methods: Demonstration, Discussion Response to Teaching: Return Demonstration Education Topics Provided: Orientation Strategies Time Speech Therapy Time In: 09:20 Speech Therapy Time Out: 09:50 Total Billed Time: 30 Billed Treatment Time AlonzoLAMAR ELIZABETH ST October 25, 2016 11:12
[2016-10-25] MEDS: lisINopril 10 MG (PRINIVIL) TAB PO SCH (11:51)
[2016-10-25] MEDS ORDERED: FUROSEMIDE 20 MG (LASIX) TAB PO NR (12:05)
--- NOTE | 2016-10-25 12:36 | Physician Query ---
PQ-Further Specificity Admission/Discharge Admission Date: October 18, 2016 at 12:05 Discharge Date: The medical record reflects the following clinical scenario: History/Risk Factors: CAD, COPD Clinical Findings: BNP 2656.2, CXR shows CHF Treatment: 20 mg IV Lasix Question: Can you further specify the acuity and type of CHF per the clinical indicators above? Please document below. 1. Please specify if acute, chronic or acute on chronic and if systolic, diastolic or both in the response below 2. CHF not able to further specify 3. Other, with explanation of the clinical findings. 4. Clinically undetermined, no explanation for the clinical findings. PHYSICIAN RESPONSE Can you specify per above: 1 (Mild acute diastolic heart failure) Please remember a lack of response to the above will prompt a phone page by CDI/ coding staff. In responding to this query, please exercise your independent professional judgment. The purpose of this communication is to more accurately reflect the complexity of your patients condition. The fact that a question is asked does not imply that any particular answer is desired or expected. Thank you for your timely response to this clarification. Requestors name: Shahzad THIS PHYSICIAN QUERY FORM IS A PERMANENT PART OF THE MEDICAL RECORD SHAHZAD CASTREJON October 25, 2016 12:36 Betzaida REYES MD October 26, 2016 11:19
--- NOTE | 2016-10-25 13:54 | Therapy Group Daily Note ---
Therapy Daily Group Note Other/Notes Pt. attended group PT OT lunch session. Pt. came by w/c and required mod assist to propel. Pt using feet to propel a little. portable O2 insitu. Pt. also wearing j collar which she doffed briefly while eating. This pt. was very social and initiated much conversation mostly about family history and local legends and maxine. This greatly interested almost every person at the lunch group and created lots of fun, laughs and involvement. 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 Pt. required min assist to TRF back to bed. call button at hand Start Time: 12:00 Stop Time: 13:15 Total Billed Treatment Time: 75 Total Billed Treatment 1,GRP UJAN CARLOS DONALD LPN MEDICAL ASSISTANT October 25, 2016 13:54
--- NOTE | 2016-10-25 14:53 | PM & R (SOAP) Progress Note ---
Subjective Subjective/Events-last exam Patient was seen in her room this AM Looking for her cell phone Let RN know so that staff could assist as needed Patient min assist for transfers Review of Systems Pulmonary: Dyspnea Objective Exam Last Set of Vital Signs Vital Signs Date Time Temp Pulse Resp B/P (MAP) Pulse Ox O2 Delivery O2 Flow Rate FiO2 10/25/16 09:45 61 20 165/72 100 4.00 10/25/16 05:00 98.7 10/24/16 05:00 Simple Mask Capillary Refill : I&O Intake and Output 10/25/16 00:00 Intake Total 800 ml Balance 800 ml Intake Oral 800 ml # Voids 5 General: Alert, Oriented X3, Cooperative, No Acute Distress HEENT: PERRLA, EOMI, Mucous Memb Moist/[place], Other ( large hematoma over rt forehead 02 by N/C in place) Neck: Supple, No JVD, Other (Cervical;collar in place) Lungs: Clear to Auscultation Heart: Regular Rate Abdomen: Normal Bowel Sounds, Soft, No Tenderness Extremities: No Edema Skin: Other (bruise hematoma as per above) Neuro: Other (generalized weakness) Results Lab Laboratory Tests 10/23/16 05:18: White Blood Count 8.0, Red Blood Count 1.97L, Hemoglobin 6.5*L, Hematocrit 21L, Mean Corpuscular Volume 107H, Mean Corpuscular Hemoglobin 33, Mean Corpuscular Hemoglobin Concent 31L, Red Cell Distribution Width 16.7H, Platelet Count 392, Mean Platelet Volume 9.3, Neutrophils (%) (Auto) 78H, Lymphocytes (%) (Auto) 11L , Monocytes (%) (Auto) 9, Eosinophils (%) (Auto) 2, Basophils (%) (Auto) 1, Neutrophils # (Auto) 6.2, Lymphocytes # (Auto) 0.9L, Monocytes # (Auto) 0.7, Eosinophils # (Auto) 0.2, Basophils # (Auto) 0.0, Sodium Level 139, Potassium Level 4.3, Chloride Level 107, Carbon Dioxide Level 23, Anion Gap 9, Blood Urea Nitrogen 29H, Creatinine 1.70H, Estimat Glomerular Filtration Rate 29, BUN/ Creatinine Ratio 17, Glucose Level 67L, Calcium Level 9.0 10/23/16 15:02: Troponin I < 0.30 10/23/16 21:30: Troponin I < 0.30 10/24/16 05:40: White Blood Count 11.6H, Red Blood Count 3.11L, Hemoglobin 9.8#L, Hematocrit 30L , Mean Corpuscular Volume 97, Mean Corpuscular Hemoglobin 32, Mean Corpuscular Hemoglobin Concent 33, Red Cell Distribution Width 22.3H, Platelet Count 399, Mean Platelet Volume 9.0, B-Type Natriuretic Peptide 2656.2H 10/24/16 05:46: Sodium Level 137, Potassium Level 4.3, Chloride Level 105, Carbon Dioxide Level 22, Anion Gap 10, Blood Urea Nitrogen 31H, Creatinine 1.64H, Estimat Glomerular Filtration Rate 31, BUN/Creatinine Ratio 19, Glucose Level 80, Calcium Level 9.4 , Troponin I < 0.30 10/25/16 03:00: Stool Occult Blood Immunoassay NEGATIVE 10/25/16 05:16: White Blood Count 9.4, Red Blood Count 3.30L, Hemoglobin 10.5L, Hematocrit 32L, Mean Corpuscular Volume 97, Mean Corpuscular Hemoglobin 32, Mean Corpuscular Hemoglobin Concent 33, Red Cell Distribution Width 21.7H, Platelet Count 395, Mean Platelet Volume 9.0, B-Type Natriuretic Peptide 1817.4H 10/25/16 05:18: Sodium Level 138, Potassium Level 4.3, Chloride Level 103, Carbon Dioxide Level 26, Anion Gap 9, Blood Urea Nitrogen 28H, Creatinine 1.67H, Estimat Glomerular Filtration Rate 30, BUN/Creatinine Ratio 17, Glucose Level 76, Calcium Level 9.8 Assessment/Plan Assessment S/P repair C spine frx and in C collar Hematoma rt forehead s/p fall CHF treated Anemia Plan ContinuePT/OT Pain management Monitor 02sats and adjust 02 and meds asneeded F/U with LOUIS Colon MD October 25, 2016 14:53
--- NOTE | 2016-10-25 15:23 | Oncology Progress Note ---
Subjective Subjective/Events-last exam Pt is comfortable sleeping. She did not wear oxygen. The hematoma of the right forehead smaller. No new issues. Hb is up to 10.5 today Data Review Labs Laboratory Tests 10/25/16 05:16 10/25/16 05:18 Laboratory Tests 10/23/16 05:18: Red Blood Count 1.97L, Hemoglobin 6.5*L, Hematocrit 21L, Mean Corpuscular Volume 107H, Mean Corpuscular Hemoglobin Concent 31L, Red Cell Distribution Width 16.7H, Neutrophils (%) (Auto) 78H, Lymphocytes (%) (Auto) 11L, Lymphocytes # (Auto) 0.9L, Blood Urea Nitrogen 29H, Creatinine 1.70H, Glucose Level 67L 10/23/16 15:02: 10/23/16 21:30: 10/24/16 05:40: Red Blood Count 3.11L, Hemoglobin 9.8#L, Hematocrit 30L, Red Cell Distribution Width 22.3H, White Blood Count 11.6H, B-Type Natriuretic Peptide 2656.2H 10/24/16 05:46: Blood Urea Nitrogen 31H, Creatinine 1.64H 10/25/16 03:00: 10/25/16 05:16: Red Blood Count 3.30L, Hemoglobin 10.5L, Hematocrit 32L, Red Cell Distribution Width 21.7H, B-Type Natriuretic Peptide 1817.4H 10/25/16 05:18: Blood Urea Nitrogen 28H, Creatinine 1.67H Physical Exam Vital Signs Vital Sign - Last 12Hours 10/19/16 10/20/16 05:00 18:00 Temp 98.4 Pulse 50 Resp 22 B/P (MAP) 145/62 Pulse Ox 92 O2 Delivery Room Air O2 Flow Rate 2.50 Capillary Refill : General Appearance: No Apparent Distress HEENT: Other (collar device. RIght forehead hematoma) Respiratory: No Accessory Muscle Use, No Respiratory Distress Impression & Plan Impression & Plan 1. Fall and cervical vertebrate fracture, s/p repair. 2. Large right forehead hematoma. 3. Anemia most likely form hematoma and recent surgery loss. Pt declined RBC transfusion yesterday when Hb 6.9 4. CAD, s/p GBAG x 3 on three BP meds and 3 heart meds and HCTZ. 5. h/o heavy alcohol abuse, stopped now. ? liver cirrohsis 6. h/o heavy tobacco abuse, stopped now. COPD 7. Acute renal failure Cr from 1.2 to 1.7 today. 8. CHF on CXR today and increasing SOB, O2 Sat 90% on 3L NC. Plan: 1. Keep Hb above 9 with transfusion due to CHF and ARF. 2. Closely monitor her Lasix dose because of ARF. 3. Closely monitor renal function. 4. Stop Lovenox due to bleeding and anemia. Use SCD. 5. Stool occult blood 6. Pt will be very challenge in terms of managing her fluid, CHF and acute renal failure. 7. We need to discuss the DNR status. 8. Protonix 40mg daily. 9. Continue PT OT Clinical Quality Measures DVT/VTE Risk/Contraindication: Risk Factor Score Per Nursin RFS Level Per Nursing on Admit: 4+=Very High TRUPTI NOLAND MD October 25, 2016 15:23
[2016-10-25 17:04] VITALS: BP 161/76
[2016-10-25] MEDS: FENOFIBRATE 134 MG (LOFIBRA) CAPSULE PO SCH (21:27)
[2016-10-25] MEDS: eZETimibe 10 MG (ZETIA) TABLET PO SCH (21:28)
[2016-10-25] MEDS: PRIMIDONE 50 MG TAB (MYSOLINE) PO SCH (21:28)
[2016-10-25] MEDS: FAMOTIDINE 20 MG (PEPCID) TABLET PO SCH (21:28)
[2016-10-25] MEDS: ATORVASTATIN 20 MG (LIPITOR) TABLET PO SCH (21:29)
[2016-10-25] MEDS: LORATADINE (CLARITIN) 10 MG TAB PO SCH (21:29)
[2016-10-26 06:00] VITALS: BP 156/63
[2016-10-26] MEDS: OMEGA 3 (FISH OIL) 1000 MG CAP PO SCH (06:58)
[2016-10-26] MEDS: hydrALAZINE (APRESOLINE) 25 MG TAB PO SCH ×3 (06:59→22:05)
[2016-10-26] MEDS: VITAMIN D3 1,000 UNITS (CHOLECALCIFEROL) TABLET PO SCH (06:59)
[2016-10-26] MEDS: THIAMINE 100 MG (VITAMIN B-1) TAB PO SCH (06:59)
[2016-10-26] MEDS: MULTIVIT W/MINERALS TAB (THERAGRAN M) PO SCH (06:59)
[2016-10-26] MEDS: FOLIC ACID 1 MG TAB PO SCH (06:59)
[2016-10-26] MEDS: PANTOPRAZOLE 40 MG (PROTONIX) TAB PO SCH (06:59)
[2016-10-26] MEDS: RT-FLUTICASONE 110 MCG (FLOVENT) PER PUFF INH SCH ×2 (07:48→19:09)
[2016-10-26] MEDS: UMECLIDINIUM BROMIDE (INCRUSE ELLIPTA) 7'S IH SCH (07:53)
--- NOTE | 2016-10-26 07:54 | Oncology Progress Note ---
Subjective Subjective/Events-last exam up to walking today. Looked much better in chair Data Review Labs Laboratory Tests 10/23/16 15:02: 10/23/16 21:30: 10/24/16 05:40: White Blood Count 11.6H, Red Blood Count 3.11L, Hemoglobin 9.8#L, Hematocrit 30L , Red Cell Distribution Width 22.3H, B-Type Natriuretic Peptide 2656.2H 10/24/16 05:46: Blood Urea Nitrogen 31H, Creatinine 1.64H 10/25/16 03:00: 10/25/16 05:16: Red Blood Count 3.30L, Hemoglobin 10.5L, Hematocrit 32L, Red Cell Distribution Width 21.7H, B-Type Natriuretic Peptide 1817.4H 10/25/16 05:18: Blood Urea Nitrogen 28H, Creatinine 1.67H Physical Exam Vital Signs Vital Sign - Last 12Hours 10/20/16 10/20/16 05:00 18:00 Temp 99.1 Pulse 50 Resp 18 B/P (MAP) 144/54 Pulse Ox 94 O2 Delivery Room Air O2 Flow Rate 2.50 Capillary Refill : General Appearance: No Apparent Distress, Other (right forehead hematoma) HEENT: PERRL/EOMI Respiratory: No Accessory Muscle Use, No Respiratory Distress Cardiovascular: Regular Rate, Rhythm Neurologic/Psychiatric: Alert, Oriented x3 Impression & Plan Impression & Plan 1. Fall and cervical vertebrate fracture, s/p repair. 2. Large right forehead hematoma. 3. Anemia most likely form hematoma and recent surgery loss. Pt declined RBC transfusion yesterday when Hb 6.9 4. CAD, s/p GBAG x 3 on three BP meds and 3 heart meds and HCTZ. 5. h/o heavy alcohol abuse, stopped now. ? liver cirrohsis 6. h/o heavy tobacco abuse, stopped now. COPD 7. Acute renal failure Cr from 1.2 to 1.7 today. 8. CHF on CXR today and increasing SOB, O2 Sat 90% on 3L NC. Plan: 1. Keep Hb above 9 with transfusion due to CHF and ARF. 2. Closely monitor her Lasix dose because of ARF. 3. Closely monitor renal function. 4. Stop Lovenox due to bleeding and anemia. Use SCD. 5. Stool occult blood 6. Pt will be very challenge in terms of managing her fluid, CHF and acute renal failure. 7. We need to discuss the DNR status. 8. Protonix 40mg daily. 9. Continue PT OT Clinical Quality Measures DVT/VTE Risk/Contraindication: Risk Factor Score Per Nursin RFS Level Per Nursing on Admit: 4+=Very High TRUPTI NOLAND MD October 26, 2016 07:54
--- NOTE | 2016-10-26 08:07 | Physical Therapy Daily Note ---
PT Daily Note-Current Subjective Agreeable to PT. No complaints. Transfers Functional [place] Measure 0=Not Assessed/NA 4=Minimal Assistance 1=Total Assistance 5=Supervision or Setup 2=Maximal Assistance 6=Modified [place] 3=Moderate Assistance 7=Complete IndependenceIRFPAI Quality Coding Scale 6 Independent with activity with or without an assistive device 5 Patient requires set up or clean up by helper. Patient completes activity by themselves 4 Supervision or touching assist (CGA). [place] provide cues , steadying assist 3 The helper provides less than half the effort to complete the activity 2 The helper provides more than half the effort to complete the activity 1 Dependent. The helper does all the effort to complete an activity 7 Patient refused to complete or attempt activity 9 The patient did not perform the activity before the current illness or injury 88 Not attempted due to Medical conditions or safety concerns Min assist with sup to sit EOB. sit to stand with CGA. Pt able to sit EOB with CGA. SPT bed to chair with FWW with CGA. Gait Training Pt ambulated 50 ft x 2 with FWW with Close CGA and skilled cues for safety with walker. Exercises Seated Therapy Exercises: Ankle pumps, Sit to stand, Long arc quads, Hip flexion, Hip abd/add Seated Reps: 10 (to increase strength for progressed gait and transfers. ) Treatments Cervical collar in place throoughout treatment. oxygen in place during and post treatment. Pt in chair after treatment with needs. met. Assessment Current Status: Good Progress Able to walk to day and did well. PT Short Term Goals Short Term Goals Time Frame: November 01, 2016 Transfers (B,C,W/C) (FIM): 6 Gait (FIM): 6 Distance (FIM): 3=150 ft Gait Distance Comment: 200' Gait Level of Assist: 6 Gait Assistive Device: FWW, Cane Single Point Wheelchair Distance: 50' Stairs (FIM): 2 # of Steps: 4 Stairs Level of Assist: 5 PT Mcfp Goals Structural Test Engineer Goals PT Mcfp Goals Time Frame: Nov 15, 2016 Transfers (B,C,W/C) (FIM): 6 Sit to Lying (QC): 6 Lying-Sitting on Side/Bed(QC): 6 Sit to Stand (QC): 6 Rollin Roll Left to Right (QC): 6 Chair/Eis-ft-Xjilf Xfer(QC): 6 Car Transfer (QC): 6 Does the Patient Walk: Yes Gait (FIM): 6 Gait distance (FIM): 3=150 ft Distance: >300' Walk 10 feet (QC): 6 Walk 10ft-Uneven Surface(QC): 6 Walk 50ft with 2 Turns (QC): 6 Walk 150 ft (QC): 6 Gait Level of Assist: 6 Gait Assistive Device: FWW Does the Pt use WC or Scooter?: No Stairs (FIM): 6 # of Steps: 12 1 Step (curb) (QC): 6 4 Steps (QC): 6 12 Steps (QC): 6 Stairs Level Of Assist: 6 Picking up an Object (QC): 6 PT Plan Problem List Problem List: Activity Tolerance, Functional Strength Treatment/Plan Treatment Plan: Continue Plan of Care Treatment Plan: Bed Mobility, Education, Functional Activity [place], Functional Strength, Group Therapy, Gait, Safety, Therapeutic Exercise, Transfers Treatment Duration: Nov 15, 2016 Visits Per Week: 10-11 Minutes/Day (M-F): 60-90 Minutes/Day (Sat/[place]): PRN Time/GCodes Time In: 705 Time Out: 730 Total Billed Treatment Time: 25 Total Billed Treatment visit EX 10 GT 15 TYSON PHILIP PT October 26, 2016 08:07
[2016-10-26] MEDS: PROPRANOLOL 20 MG (INDERAL) TABLET PO SCH ×2 (08:39→20:11)
[2016-10-26] MEDS: DOCUSATE SODIUM 100 MG (COLACE) CAP PO SCH ×2 (08:39→20:11)
[2016-10-26] MEDS: amLODIPine 10 MG (NORVASC) TAB PO SCH (08:39)
[2016-10-26] MEDS: PARoxetine 20 MG (PAXIL) TAB PO SCH (08:40)
[2016-10-26] MEDS: FUROSEMIDE 20 MG (LASIX) TAB PO SCH (08:40)
[2016-10-26] MEDS: ASPIRIN 81 MG CHEW (CHILDREN'S ASA) PO SCH (08:40)
[2016-10-26] MEDS: OXYBUTYNIN (DITROPAN) 5 MG TAB PO SCH ×2 (08:40→20:11)
[2016-10-26] MEDS: DICLOFENAC 1% GEL 100 GM (VOLTAREN) TUBE TOP SCH ×4 (08:41→20:18)
[2016-10-26] MEDS: GABAPENTIN 100 MG (NEURONTIN) CAP PO SCH ×3 (08:41→20:11)
--- NOTE | 2016-10-26 08:56 | PM & R (SOAP) Progress Note ---
Subjective Subjective/Events-last exam Patient was seen in her room this AM Still looking for her phone Patient doesnt remember her number to call to find Discussed with RN RN will f/u with Patients family re Cell phone Number Appreciate current labs and [employer] Number Patient min assist for transfers Remains on 02 Objective Exam Last Set of Vital Signs Vital Signs Date Time Temp Pulse Resp B/P (MAP) Pulse Ox O2 Delivery O2 Flow Rate FiO2 10/26/16 07:53 96 3.00 10/26/16 06:00 99.6 53 22 156/63 10/24/16 05:00 Simple Mask Capillary Refill : I&O Intake and Output 10/26/16 00:00 Intake Total 650 ml Balance 650 ml Intake Oral 650 ml # Voids 7 # Bowel Movements 1 General: Alert, Oriented X3, Cooperative, No Acute Distress HEENT: PERRLA, EOMI, Mucous Memb Moist/Newborn, Other ( large hematoma over rt forehead 02 by N/C in place) Neck: Supple, No JVD, Other (Cervical;collar in place) Lungs: Clear to Auscultation, Other (decresed breath sounds at base) Heart: Regular Rate Abdomen: Normal Bowel Sounds, Soft, No Tenderness Extremities: No Edema Skin: Other (bruise hematoma as per above) Neuro: Other (generalized weakness) Results Lab Laboratory Tests 10/23/16 15:02: Troponin I < 0.30 10/23/16 21:30: Troponin I < 0.30 10/24/16 05:40: White Blood Count 11.6H, Red Blood Count 3.11L, Hemoglobin 9.8#L, Hematocrit 30L , Mean Corpuscular Volume 97, Mean Corpuscular Hemoglobin 32, Mean Corpuscular Hemoglobin Concent 33, Red Cell Distribution Width 22.3H, Platelet Count 399, Mean Platelet Volume 9.0, B-Type Natriuretic Peptide 2656.2H 10/24/16 05:46: Troponin I < 0.30, Sodium Level 137, Potassium Level 4.3, Chloride Level 105, Carbon Dioxide Level 22, Anion Gap 10, Blood Urea Nitrogen 31H, Creatinine 1.64H , Estimat Glomerular Filtration Rate 31, BUN/Creatinine Ratio 19, Glucose Level 80, Calcium Level 9.4 10/25/16 03:00: Stool Occult Blood Immunoassay NEGATIVE 10/25/16 05:16: White Blood Count 9.4, Red Blood Count 3.30L, Hemoglobin 10.5L, Hematocrit 32L, Mean Corpuscular Volume 97, Mean Corpuscular Hemoglobin 32, Mean Corpuscular Hemoglobin Concent 33, Red Cell Distribution Width 21.7H, Platelet Count 395, Mean Platelet Volume 9.0, B-Type Natriuretic Peptide 1817.4H 10/25/16 05:18: Sodium Level 138, Potassium Level 4.3, Chloride Level 103, Carbon Dioxide Level 26, Anion Gap 9, Blood Urea Nitrogen 28H, Creatinine 1.67H, Estimat Glomerular Filtration Rate 30, BUN/Creatinine Ratio 17, Glucose Level 76, Calcium Level 9.8 Assessment/Plan Assessment S/P repair C spine frx and in C collar Hematoma rt forehead s/p fall CHF treated Anemia 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 Tobaccoism Etoh use Plan ContinuePT/OT Pain management Monitor 02sats and adjust 02 and meds as needed F/U with DR castillo and Med-onc and Cardiology LOUIS BOUDREAUX MD October 26, 2016 08:56
[2016-10-26] MEDS: POLYETHYLENE GLYCOL 17 GM (MIRALAX) PACK PO SCH ×2 (09:01→20:14)
[2016-10-26] MEDS: ALPRAZolam 0.25 MG (XANAX) TAB PO PRN ×2 (09:05→20:11)
[2016-10-26 09:08] VITALS: BP 150/72
[2016-10-26] MEDS: RT-ALBUTEROL SULF 2.5 MG/3 ML PRE-MIX VIAL IH PRN (09:24)
[2016-10-26 09:33] VITALS: BP 136/68
[2016-10-26 10:10] VITALS: BP 131/62
--- NOTE | 2016-10-26 11:17 | Cardiology Progress Note ---
Cardiology SOAP Progress Note Subjective: Complained of mild chest discomfort today. she was given nitroglycerin. Denies chest pain on my examination. Objective: I&O/Vital Signs Vital Sign - Last 12Hours 10/26/16 10/26/16 10/26/16 10/26/16 06:00 07:48 07:53 09:08 Temp 99.6 Pulse 53 55 Resp 22 20 B/P (MAP) 156/63 150/72 Pulse Ox 92 96 96 99 O2 Flow Rate 4.00 3.00 3.00 3.50 10/26/16 09:24 Pulse Ox 95 O2 Flow Rate 3.00 Intake and Output 10/26/16 00:00 Intake Total 150 ml Balance 150 ml Weight (Pounds): 115 Weight (Ounces): 0.2 Weight (Calculated Kilograms): 52.024984 Constitutional: No appears stated age, No AAO x 3, No apparent distress, No PERRL, No well-developed, No well-nourished, No other Respiratory: No accessory muscle use, No respiratory distress, No chest tender , chest expansion is symmetric, chest is bilaterally symmetric, No lungs clear to percussion, No lungs clear to auscultation, No crackles, No rhonchi, No rales , No stridor, No wheezing, No pleural rub, other (poor air entry bilaterally) Cardiovascular: regular rate-rhythm, No irregularly irregular, No extra beats, No parasternal heave is noted, No JVD, No edema, No bradycardia, No tachycardia , No point of maximal impulse, No cardiac thrills are palpable, S1 and S2, No gallop/S3, No gallop/S4, No diastolic murmur, No systolic murmur, No friction rub, No click, No other Gastrointestional: No tender, No soft, No round, No distended, No pulsatile mass, No organomegaly, No guarding, No rebound, No tenderness, No hernia, No mass, No audible bowel sounds, No abnormal bowel sounds, No abdominal bruits, No spleenomegaly, No other Extremities: No normal range of motion, No non-tender, No normal inspection, No pedal edema, No calf tenderness, No normal capillary refill, No pelvis stable , No calf tenderness, No inflammation, No pedal edema, No slow capillary refill , No swelling, No other, No abrasion, No clubbing, No cyanosis, No ecchymosis, No laceration, No no lower extremity edema bilateral, No significant edema, No tenderness, No wound Neurologic/Psychiatric: No buddhist monk II-XII nml as tested, No no motor/sensory deficits, No alert, No normal mood/affect, No oriented x 3, No abnormal cerebellar tests, No abnormal buddhist monk II-XII, No abnormal gait, No aphasia, No EOM palsy, No facial droop, No motor weakness, No sensory deficit, No depressed affect, No disoriented x 3, No other, No grossly intact, No power is 5/5 both on sides Skin: No normal color, No warm/dry, No cyanosis, No cool, No diaphoresis, No damp, No ecchymosis, No jaundice, No mottled, No pallor, No rash, No tattoos/ piercings, No ulcerations, No rash on exposed areas, No ulcerations on exposed areas, No other A/P: Assessment/Dx: spinal surgery, anemia, chest pain, shortness of breath Plan: Acute coronary syndrome ruled out with negative serial troponin and normal EKG. Could be secondary to anemia. Cannot recommend anti-platelet agents and anti- thrombin agents due to significant anemia. Will defer treatment of anemia to primary team. agree with transfusion. May need a nuclear stress test to risk stratify in the future. complains of shortness of breath, elevated BNP; was given lasix 20mg x1 previously. Echocardiogram shows normal LV function with no wall motion abnormalities. Likely mild acute diastolic heart failure; however euvolemic now. Chronic kidney disease. Echocardiogram on the subcostal view showed evidence of an abdominal mass. I have communicated with the nurse taking care of the patient today. We also called Dr. Kimble from the floor but were not able to reach him. I will attempt to call him again today to communicate this finding. Cardiology will sign off as of now. However, please let me know if further assistance is required, I'll be happy to see the patient. Thank you for your consultation. Please call me if you have any questions. Otf Joseph MD, FACP, FACC, FSCAI, FHRS, CCDS Interventional Cardiology Cardiac Electrophysiology Vascular Medicine and Endovascular Interventions Betzaida JOSEPH MD October 26, 2016 11:17 am
[2016-10-26 16:35] LABS: RED BLOOD COUNT 2.98 10^6/uL (4.35-5.85); RED CELL DISTRIBUTION WIDTH 19.7 % (10.0-14.5); WHITE BLOOD COUNT 7.6 10^3/uL (4.3-11.0)
[2016-10-26 16:41] LABS: CALCIUM 8.9 MG/DL (8.5-10.1); CREATININE SERUM 1.81 MG/DL (0.60-1.30); POTASSIUM 4.3 MMOL/L (3.6-5.0)
[2016-10-26 18:57] VITALS: BP 149/71
--- NOTE | 2016-10-26 19:37 | ECHOCARDIOGRAPHY REPORT ---
DATE OF SERVICE: 10/24/2016 PROCEDURE: ECHOCARDIOGRAM DIAGNOSIS: Chest pain. FINDINGS: 1. Sinus rhythm. 2. Left atrial dimensions are mildly enlarged. The left atrial diameter is 4.3 cm. 3. Left ventricular systolic function is normal. Left ventricular ejection fraction is 50% to 60%. 4. Mild concentric left ventricular hypertrophy is present. 5. Diastolic interventricular septal diameter is 1.2 cm. 6. There are no wall motion abnormalities. 7. Right heart dimensions are normal. 8. There is no diastolic dysfunction. 9. IVC diameter is 1.9 cm. VALVULAR STRUCTURE OF THE HEART: There is mild pulmonic regurgitation. Mild tricuspid regurgitation with RVSP of 22 mmHg. There is mild mitral annular calcification with mild MR. There is mild aortic stenosis. Incidental finding of a mass in the abdomen in the subcostal image. CONCLUSION: 1. Left ventricle and right ventricle size and function are normal. 2. Left ventricular ejection fraction is 50%-60%. 3. No significant valvular heart disease. 4. Pulmonary artery pressure is normal. 5. There is mild pericardial effusion. 6. There is an incidental finding of mass in the abdomen, seen in the subcostal image. This information was conveyed to Dr Kimble by phone on 10/26/2016 1pm. Job ID: [id number] DocumentID: [id number] Dictated Date: 10/25/2016 15:36:27 Chrome Worker Date: 10/26/2016 10:44:45 Dictated By: YESICA REYES MD [facility]
[2016-10-26] MEDS: FENOFIBRATE 134 MG (LOFIBRA) CAPSULE PO SCH (20:10)
[2016-10-26] MEDS: eZETimibe 10 MG (ZETIA) TABLET PO SCH (20:11)
[2016-10-26] MEDS: ATORVASTATIN 20 MG (LIPITOR) TABLET PO SCH (20:11)
[2016-10-26] MEDS: FAMOTIDINE 20 MG (PEPCID) TABLET PO SCH (20:11)
[2016-10-26] MEDS: PRIMIDONE 50 MG TAB (MYSOLINE) PO SCH (20:11)
[2016-10-26] MEDS: LORATADINE (CLARITIN) 10 MG TAB PO SCH (20:17)
[2016-10-27 05:42] VITALS: BP 159/65
[2016-10-27] MEDS: FOLIC ACID 1 MG TAB PO SCH (06:00)
[2016-10-27] MEDS: OMEGA 3 (FISH OIL) 1000 MG CAP PO SCH (06:00)
[2016-10-27] MEDS: MULTIVIT W/MINERALS TAB (THERAGRAN M) PO SCH (06:00)
[2016-10-27] MEDS: PANTOPRAZOLE 40 MG (PROTONIX) TAB PO SCH (06:00)
[2016-10-27] MEDS: hydrALAZINE (APRESOLINE) 25 MG TAB PO SCH ×3 (06:00→21:38)
[2016-10-27] MEDS: VITAMIN D3 1,000 UNITS (CHOLECALCIFEROL) TABLET PO SCH (06:00)
[2016-10-27] MEDS: THIAMINE 100 MG (VITAMIN B-1) TAB PO SCH (06:00)
[2016-10-27 06:20] LABS: MEAN PLATELET VOLUME 8.7 FL (7.4-10.4); RED BLOOD COUNT 2.83 10^6/uL (4.35-5.85); RED CELL DISTRIBUTION WIDTH 19.2 % (10.0-14.5); WHITE BLOOD COUNT 6.6 10^3/uL (4.3-11.0)
[2016-10-27 06:43] LABS: CALCIUM 8.9 MG/DL (8.5-10.1); CREATININE SERUM 1.75 MG/DL (0.60-1.30)
[2016-10-27] MEDS: UMECLIDINIUM BROMIDE (INCRUSE ELLIPTA) 7'S IH SCH (07:39)
[2016-10-27] MEDS: RT-FLUTICASONE 110 MCG (FLOVENT) PER PUFF INH SCH ×2 (07:39→20:13)
[2016-10-27 09:40] VITALS: BP 175/75
[2016-10-27] MEDS: FUROSEMIDE 20 MG (LASIX) TAB PO SCH (09:43)
[2016-10-27] MEDS: PROPRANOLOL 20 MG (INDERAL) TABLET PO SCH ×2 (09:43→20:40)
[2016-10-27] MEDS: amLODIPine 10 MG (NORVASC) TAB PO SCH (09:43)
[2016-10-27] MEDS: DOCUSATE SODIUM 100 MG (COLACE) CAP PO SCH ×2 (09:43→20:40)
[2016-10-27] MEDS: ASPIRIN 81 MG CHEW (CHILDREN'S ASA) PO SCH (09:43)
[2016-10-27] MEDS: GABAPENTIN 100 MG (NEURONTIN) CAP PO SCH ×3 (09:43→20:40)
[2016-10-27] MEDS: OXYBUTYNIN (DITROPAN) 5 MG TAB PO SCH ×2 (09:44→20:40)
[2016-10-27] MEDS: POLYETHYLENE GLYCOL 17 GM (MIRALAX) PACK PO SCH ×2 (09:44→20:42)
[2016-10-27] MEDS: PARoxetine 20 MG (PAXIL) TAB PO SCH (09:44)
[2016-10-27] MEDS: DICLOFENAC 1% GEL 100 GM (VOLTAREN) TUBE TOP SCH ×4 (09:45→20:42)
[2016-10-27] MEDS: lisINopril 10 MG (PRINIVIL) TAB PO SCH (12:56)
[2016-10-27 14:35] VITALS: BP 136/69
[2016-10-27 18:54] VITALS: BP 135/72
[2016-10-27] MEDS: ALPRAZolam 0.25 MG (XANAX) TAB PO PRN (20:40)
[2016-10-27] MEDS: FENOFIBRATE 134 MG (LOFIBRA) CAPSULE PO SCH (20:40)
[2016-10-27] MEDS: ATORVASTATIN 20 MG (LIPITOR) TABLET PO SCH (20:40)
[2016-10-27] MEDS: LORATADINE (CLARITIN) 10 MG TAB PO SCH (20:40)
[2016-10-27] MEDS: FAMOTIDINE 20 MG (PEPCID) TABLET PO SCH (20:40)
[2016-10-27] MEDS: PRIMIDONE 50 MG TAB (MYSOLINE) PO SCH (20:40)
[2016-10-27] MEDS: eZETimibe 10 MG (ZETIA) TABLET PO SCH (20:40)
[2016-10-28 05:22] VITALS: BP 159/87
[2016-10-28] MEDS: FOLIC ACID 1 MG TAB PO SCH (06:13)
[2016-10-28] MEDS: PANTOPRAZOLE 40 MG (PROTONIX) TAB PO SCH (06:13)
[2016-10-28] MEDS: OMEGA 3 (FISH OIL) 1000 MG CAP PO SCH (06:13)
[2016-10-28] MEDS: MULTIVIT W/MINERALS TAB (THERAGRAN M) PO SCH (06:13)
[2016-10-28] MEDS: THIAMINE 100 MG (VITAMIN B-1) TAB PO SCH (06:13)
[2016-10-28] MEDS: hydrALAZINE (APRESOLINE) 25 MG TAB PO SCH ×3 (06:13→21:17)
[2016-10-28] MEDS: VITAMIN D3 1,000 UNITS (CHOLECALCIFEROL) TABLET PO SCH (06:13)
[2016-10-28] MEDS: RT-FLUTICASONE 110 MCG (FLOVENT) PER PUFF INH SCH ×2 (06:37→19:09)
[2016-10-28] MEDS: UMECLIDINIUM BROMIDE (INCRUSE ELLIPTA) 7'S IH SCH (06:38)
--- NOTE | 2016-10-28 07:35 | Cardiology Progress Note ---
Cardiology SOAP Progress Note Subjective: no cardiac symptoms Objective: I&O/Vital Signs Vital Sign - Last 12Hours 10/27/16 10/27/16 10/28/16 10/28/16 20:13 20:43 05:22 06:37 Temp 99.6 Pulse 55 Resp 18 B/P (MAP) 159/87 Pulse Ox 93 97 95 O2 Flow Rate 3.00 3.00 3.00 3.00 Intake and Output 10/28/16 00:00 Intake Total 880 ml Balance 880 ml Weight (Pounds): 113 Weight (Ounces): 3.0 Weight (Calculated Kilograms): [id number] Constitutional: No appears stated age, No AAO x 3, No apparent distress, No PERRL, No well-developed, No well-nourished, No other Respiratory: No accessory muscle use, No respiratory distress, No chest tender , chest expansion is symmetric, chest is bilaterally symmetric, No lungs clear to percussion, No lungs clear to auscultation, No crackles, No rhonchi, No rales , No stridor, No wheezing, No pleural rub, other (poor air entry bilaterally) Cardiovascular: regular rate-rhythm, No irregularly irregular, No extra beats, No parasternal heave is noted, No JVD, No edema, No bradycardia, No tachycardia , No point of maximal impulse, No cardiac thrills are palpable, S1 and S2, No gallop/S3, No gallop/S4, No diastolic murmur, No systolic murmur, No friction rub, No click, No other Gastrointestional: No tender, No soft, No round, No distended, No pulsatile mass, No organomegaly, No guarding, No rebound, No tenderness, No hernia, No mass, No audible bowel sounds, No abnormal bowel sounds, No abdominal bruits, No spleenomegaly, No other Extremities: No normal range of motion, No non-tender, No normal inspection, No pedal edema, No calf tenderness, No normal capillary refill, No pelvis stable , No calf tenderness, No inflammation, No pedal edema, No slow capillary refill , No swelling, No other, No abrasion, No clubbing, No cyanosis, No ecchymosis, No laceration, No no lower extremity edema bilateral, No significant edema, No tenderness, No wound Neurologic/Psychiatric: No tufting supervisor II-XII nml as tested, No no motor/sensory deficits, No alert, No normal mood/affect, No oriented x 3, No abnormal cerebellar tests, No abnormal tufting supervisor II-XII, No abnormal gait, No aphasia, No EOM palsy, No facial droop, No motor weakness, No sensory deficit, No depressed affect, No disoriented x 3, No other, No grossly intact, No power is 5/5 both on sides Skin: No normal color, No warm/dry, No cyanosis, No cool, No diaphoresis, No damp, No ecchymosis, No jaundice, No mottled, No pallor, No rash, No tattoos/ piercings, No ulcerations, No rash on exposed areas, No ulcerations on exposed areas, No other A/P: Assessment/Dx: spinal surgery, anemia, chest pain, shortness of breath Plan: Acute coronary syndrome ruled out with negative serial troponin and normal EKG. No further chest discomfort. I will see her as outpatient and she will probably require an outpatient stress test. complains of shortness of breath, elevated BNP; was given lasix 20mg x1 previously. Echocardiogram shows normal LV function with no wall motion abnormalities. Likely mild acute diastolic heart failure; however euvolemic now. Chronic kidney disease. Echocardiogram on the subcostal view showed evidence of an abdominal mass. I have communicated with Dr Kimble. Cardiology will sign off as of now. However, please let me know if further assistance is required, I'll be happy to see the patient. Thank you for your consultation. Please call me if you have any questions. Otf Joseph MD, FACP, FACC, FSCAI, FHRS, CCDS Interventional Cardiology Cardiac Electrophysiology Vascular Medicine and Endovascular Interventions Betzaida JOSEPH MD October 28, 2016 7:35 am
--- NOTE | 2016-10-28 08:06 | Progress Note (SOAP) ---
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 Congestive heart failure. Renal insufficiency. Anemia. Patient feeling better and doing better Objective Exam Vital Signs Date Time Temp Pulse Resp B/P (MAP) Pulse Ox O2 Delivery O2 Flow Rate FiO2 10/28/16 06:37 95 3.00 10/28/16 05:22 99.6 55 18 159/87 97 3.00 10/27/16 20:43 3.00 10/27/16 20:13 93 3.00 10/27/16 18:54 97.9 54 16 135/72 96 3.00 10/27/16 14:35 57 18 136/69 96 3.00 10/27/16 09:40 99.0 72 18 175/75 98 3.00 10/27/16 08:23 3.00 I & O 10/28/16 07:00 Intake Total 1180 ml Balance 1180 ml Capillary Refill : General Appearance: No Apparent Distress, Thin HEENT: Normal ENT Inspection, Other ([place] forehead decreasing) Neck: Normal Inspection Respiratory: Chest Non Tender, No Accessory Muscle Use, No Respiratory Distress Cardiovascular: Regular Rate, Rhythm, No Murmur Gastrointestinal: non tender, soft Assessment/Plan Assessment/Plan Assess & Plan/Chief Complaint cervical surgery. Hematoma on the forehead. Patient worried about eating more food. . 10/22/16.. Cervical surgery. Hematoma. Anemia Patient to receive blood. Left hand no swelling. . 10/23/16. Cervical surgery. Anemia worse. Patient may get blood today. . 10/24/16.. Cervical surgery. Hematoma on forehead. Chest x-ray shows CHF. Patient anemia. Renal insufficiency. . 10/25/16. Cervical surgery. Hematoma resolving on forehead. CHF better. Patient breathing better and feeling better. Renal insufficiency area Anemia. . 10/28/16. Cervical surgery. Renal insufficiency. Anemia Hematoma on forehead improving Clinical Quality Measures DVT/VTE Risk/Contraindication: Risk Factor Score Per Nursin RFS Level Per Nursing on Admit: 4+=Very High JEANINE ORLANDO DO October 28, 2016 08:06
[2016-10-28] MEDS: amLODIPine 10 MG (NORVASC) TAB PO SCH (08:47)
[2016-10-28] MEDS: PROPRANOLOL 20 MG (INDERAL) TABLET PO SCH ×2 (08:47→20:19)
[2016-10-28] MEDS: POLYETHYLENE GLYCOL 17 GM (MIRALAX) PACK PO SCH ×2 (08:47→20:19)
--- NOTE | 2016-10-28 08:47 | Physical Therapy Daily Note ---
PT Daily Note-Current Subjective Patient in bed pre tx, has pain of 2/10 in her neck and shoulders. Patient has cream of wheat all over herself and needs to get cleaned up and dressed UE's Appearance Patient in bed post tx with nurse call, phone, tray, all needs met. Mental Status Patient Orientation: Person, Place, Situation Attachments: Oxygen 3L of O2 nasal canula, cervical collar Transfers Functional [place] Measure 0=Not Assessed/NA 4=Minimal Assistance 1=Total Assistance 5=Supervision or Setup 2=Maximal Assistance 6=Modified [place] 3=Moderate Assistance 7=Complete IndependenceIRFPAI Quality Coding Scale 6 Independent with activity with or without an assistive device 5 Patient requires set up or clean up by helper. Patient completes activity by themselves 4 Supervision or touching assist (CGA). [place] provide cues , steadying assist 3 The helper provides less than half the effort to complete the activity 2 The helper provides more than half the effort to complete the activity 1 Dependent. The helper does all the effort to complete an activity 7 Patient refused to complete or attempt activity 9 The patient did not perform the activity before the current illness or injury 88 Not attempted due to Medical conditions or safety concerns Transfers (B, C, W/C) (FIM): 4 Scootin Rollin Supine to/from Sit: 6 Sit to/from Stand: 4 Gait Training Gait (FIM): 2 Distance: 120'x2 Gait Level of Assist: 4 Gait Persons Needed: 1 Gait Assistive Device: FWW CGA, a couple of moments of unsteadiness but no LOB and patient was able to recover herself Exercises Standing: Heel/toe raises, Marching, Mini squats Standing Reps: 20 LAQ alternating for 5 min Treatments dressing, getting cleaned up, bed mobility and transfers, ambulation, functional strengthening Assessment Current Status: Fair Progress improving transfers and ambulation and endurance PT Short Term Goals Short Term Goals Time Frame: November 01, 2016 Transfers (B,C,W/C) (FIM): 6 Gait (FIM): 6 Distance (FIM): 3=150 ft Gait Distance Comment: 200' Gait Level of Assist: 6 Gait Assistive Device: FWW, Cane Single Point Wheelchair Distance: 50' Stairs (FIM): 2 # of Steps: 4 Stairs Level of Assist: 5 PT Longterm Goals Longterm Goals PT Federal Law Clerk Goals Time Frame: Nov 15, 2016 Transfers (B,C,W/C) (FIM): 6 Sit to Lying (QC): 6 Lying-Sitting on Side/Bed(QC): 6 Sit to Stand (QC): 6 Rollin Roll Left to Right (QC): 6 Chair/Sog-ln-Dzksp Xfer(QC): 6 Car Transfer (QC): 6 Does the Patient Walk: Yes Gait (FIM): 6 Gait distance (FIM): 3=150 ft Distance: >300' Walk 10 feet (QC): 6 Walk 10ft-Uneven Surface(QC): 6 Walk 50ft with 2 Turns (QC): 6 Walk 150 ft (QC): 6 Gait Level of Assist: 6 Gait Assistive Device: FWW Does the Pt use WC or Scooter?: No Stairs (FIM): 6 # of Steps: 12 1 Step (curb) (QC): 6 4 Steps (QC): 6 12 Steps (QC): 6 Stairs Level Of Assist: 6 Picking up an Object (QC): 6 PT Plan Problem List Problem List: Activity Tolerance, Functional Strength, Safety, Balance, Gait, Transfer, Bed Mobility Treatment/Plan Treatment Plan: Continue Plan of Care Treatment Plan: Bed Mobility, Education, Functional Activity Zena, Functional Strength, Group Therapy, Gait, Safety, Therapeutic Exercise, Transfers Treatment Duration: Nov 15, 2016 Visits Per Week: 10-11 Minutes/Day (M-F): 60-90 Minutes/Day (Sat/Quintanilla): PRN Safety Risks/Education Patient Education: Gait Training, Transfer Techniques, Correct Positioning, Safety Issues Teaching Recipient: Patient Teaching Methods: Demonstration, Discussion Response to Teaching: Reinforcement Needed Time/GCodes Time In: 800 Time Out: 845 Total Billed Treatment Time: 45 Total Billed Treatment 1 visit GT 15' FA 15' EX 15' ISRAEL CRUMP PT October 28, 2016 08:47
[2016-10-28] MEDS: OXYBUTYNIN (DITROPAN) 5 MG TAB PO SCH ×2 (08:48→20:19)
[2016-10-28] MEDS: GABAPENTIN 100 MG (NEURONTIN) CAP PO SCH ×3 (08:48→20:19)
[2016-10-28] MEDS: DOCUSATE SODIUM 100 MG (COLACE) CAP PO SCH ×2 (08:48→20:18)
[2016-10-28] MEDS: ASPIRIN 81 MG CHEW (CHILDREN'S ASA) PO SCH (08:48)
[2016-10-28] MEDS: PARoxetine 20 MG (PAXIL) TAB PO SCH (08:49)
[2016-10-28 09:56] LABS: CALCIUM 9.1 MG/DL (8.5-10.1); CREATININE SERUM 1.82 MG/DL (0.60-1.30)
[2016-10-28 09:57] LABS: POTASSIUM 4.7 MMOL/L (3.6-5.0)
--- NOTE | 2016-10-28 10:49 | Occupational Ther Daily Note ---
OT Current Status-Daily Note Subjective Pt sleeping in bed, woke easily to name. Pt did have difficulty staying awake initially. Pt agreed to therapy. C/o pain in neck, reported to nrsg then after therapy placed heat pack on area. Mental Status/Objective Patient Orientation: Person, Place, Time, Situation Functional [place] Measure 0=Not Assessed/NA 4=Minimal Assistance 1=Total Assistance 5=Supervision or Setup 2=Maximal Assistance 6=Modified [place] 3=Moderate Assistance 7=Complete [place] Attachments: IV ADL-Treatment Functional [place] Measure 0=Not Assessed/NA 4=Minimal Assistance 1=Total Assistance 5=Supervision or Setup 2=Maximal Assistance 6=Modified [place] 3=Moderate Assistance 7=Complete IndependenceIRFPAI Quality Coding Scale 6 Independent with activity with or without an assistive device 5 Patient requires set up or clean up by helper. Patient completes activity by themselves 4 Supervision or touching assist (CGA). [place] provide cues , steadying assist 3 The helper provides less than half the effort to complete the activity 2 The helper provides more than half the effort to complete the activity 1 Dependent. The helper does all the effort to complete an activity 7 Patient refused to complete or attempt activity 9 The patient did not perform the activity before the current illness or injury 88 Not attempted due to Medical conditions or safety concerns Eating (FIM): 6 (dentures. Pt able to complete own set up and use utensils to feed self.) Grooming (FIM): 5 (Pt able to brush own hair and set up for oral care.) Bathing (FIM): 4 (After set up, pt able to complete own bathing sitting EOB. Refused to complete shower today. Pt was able to bathe self then when standing CGA due to LOB with standing cleansing buttocks.) Bathing Location: L Arm, R Arm, L Upper Leg, R Upper Leg, L Lower Leg ( including foot), R Lower Leg (including foot), Chest, Abdomen, Buttocks, Perineal Area Upper Body (FIM): 5 (Completes by self after set up.) Lower Body Dressing (FIM): 4 (After set up, pt is able to don/doff lower body clothing though needs CGA when standing to hike pants over hips. Pt brings feet up to don/doff socks.) Transfers (B, C, W/C) (FIM): 4 (CGA for stand pivot transfers.) Pt took increased time to complete ADLs. Pt had difficulty with sitting EOB and continued to lay back down before starting ADLs. Pt then took time to process each step then was able to complete. After therapy, pt lying in bed with moist/heat pack around shldrs/neck. Call light/phone in reach. All needs met in room. OT Short Term Goals Short Term Goals Transfers (B,C,W/C) (FIM): 6 1=Demonstrate adherence to instructed precautions during ADL tasks. 2=Patient will verbalize/demonstrate understanding of assistive devices/ modifications for ADL. 3=Patient will improve strength/tolerance for activity to enable patient to perform ADL's. OT Manager Plant Goals Manager Plant Goals Time Frame: November 08, 2016 Eating (FIM): 7 Eating (QC): 6 Groomin Oral Hygiene (QC): 6 Bathing(FIM): 6 Shower/Bathe Self (QC): 6 Upper Body Dressing(FIM): 6 Upper Body Dressing (QC): 6 Lower Body Dressing(FIM): 6 Lower Body Dressing (QC): 6 On/Off Footwear (QC): 6 Toileting(FIM): 6 Toileting Hygiene (QC): 6 Toilet/Commode Transfer(FIM): 6 Toilet/Commode Transfer (QC): 6 Shower Transfer(FIM): 6 Comprehension(FIM): 5 Expression (FIM): 5 Social Interaction(FIM): 5 Problem Solving(FIM): 4 Memory(FIM): 4 Additional Goals: 2-Verbalize Understanding, 3-ImproveStrength/Zena 1=Demonstrate adherence to instructed precautions during ADL tasks. 2=Patient will verbalize/demonstrate understanding of assistive devices/ modifications for ADL. 3=Patient will improve strength/tolerance for activity to enable patient to perform ADL's. OT Education/Plan Problem List/Assessment Pt would benefit from skilled OT to increase her independence in basic self care to allow her to return home safely to live with her Discharge Recommendations Plan/Recommendations: Continue POC Treatment Plan/Plan of Care Patient would benefit from OT for education, treatment and training to promote independence in ADL's, mobility, safety and/or upper extremity function for ADL' s. Plan of Care: ADL Retraining, Functional Mobility, Group Exercise/Act as Ind ( education, exercise, funct activities, activity tolerance, memory, problem solving), UE Funct Exercise/Act, UE Neuromus Re-Ed/Coord Treatment Duration: November 08, 2016 Visits Per Week: 10-11 Minutes/Day (M-F): 75-90 Minutes/Day (Sat/Quintanilla): PRN Agreement: Yes Rehab Potential: Guarded Time/GCodes Start Time: 07:00 Stop Time: 08:00 Total Time Billed (hr/min): 60 Billed Treatment Time 1 visit-ADL 4 (60 min) TYSON RAMOS October 28, 2016 10:49
--- NOTE | 2016-10-28 11:22 | Speech Therapy Daily Note ---
Speech Daily Progress Note Subjective The patient was laying in bed upon entrance. The patient greeted the clinician appropriately and was agreeable to participation in the cognitive treatment session. Objective NATHALIE tasks were continued on this date with the following results: - Calendar Tasks: The patient was asked to complete simple calendar tasks. The patient completed tasks with 100% accuracy, independently. - Understanding Medicine Labels: The patient was asked to answer questions related to medicine labels. The patient demonstrated 90% accuracy with this task , independently. - Counting Money: The patient demonstrated 80% accuracy with coin counting and bill addition with mild clinician verbal prompting. Orientation: The patient was oriented to day of week and date with the use of the white board. The patient required maximum clinician verbal prompting for identification of location. Assessment Assessment Current Status: Good Progress Treatment Plan Continue Plan of Care Communication Comprehension: 4 Expression: 5 Social Cognition Social Interaction: 5 Problem Solvin Memory: 4 Speech Short Term Goals Short Term Goals Short Term Goals 1. The patient will demonstrated 80% accuracy with simple orientation information using an external aid and mild clinician verbal cueing. 2. The patient will display 80% accuracy with safety problem solving with mild clinician verbal cueing. 3. The patient will recall two functional memory strategies for use at home. Time Frame-STG: Two Weeks Speech Child Support Case Officer Goals Child Support Case Officer Goals 1. The patient will display improved cognitive skills for increased safety and function with ADL's. Time Frame: Four Weeks Comprehension: 5 Expression: 5 Social Interaction: 5 Problem Solvin Memory: 4 Speech-Plan Treatment Plan Speech Therapy Treatment Plan: Continue Plan of Care Continue skilled speech pathology intervention for improved functional problem solving. Treatment Duration: Nov 19, 2016 # of days/week Four to Five. Visits Per Week: Four to Five. Minutes/Day (M-F): 30 Rehab Potential: Guarded Safety Risks/Education Teaching Recipient: Patient Teaching Methods: Demonstration, Discussion Response to Teaching: Return Demonstration Education Topics Provided: Orientation Strategies Time Speech Therapy Time In: 09:15 Speech Therapy Time Out: 09:45 Total Billed Time: 30 Billed Treatment Time AlonzoBENJAMINSHARON TIERA DELGADO October 28, 2016 11:22
--- NOTE | 2016-10-28 12:26 | Occupational Ther Daily Note ---
OT Current Status-Daily Note Subjective Pt alert, lying in bed. Pt agreed to therapy. No c/o pain. Mental Status/Objective Patient Orientation: Person, Place, Time, Situation Functional [place] Measure 0=Not Assessed/NA 4=Minimal Assistance 1=Total Assistance 5=Supervision or Setup 2=Maximal Assistance 6=Modified [place] 3=Moderate Assistance 7=Complete [place] Attachments: IV ADL-Treatment Functional [place] Measure 0=Not Assessed/NA 4=Minimal Assistance 1=Total Assistance 5=Supervision or Setup 2=Maximal Assistance 6=Modified [place] 3=Moderate Assistance 7=Complete IndependenceIRFPAI Quality Coding Scale 6 Independent with activity with or without an assistive device 5 Patient requires set up or clean up by helper. Patient completes activity by themselves 4 Supervision or touching assist (CGA). [place] provide cues , steadying assist 3 The helper provides less than half the effort to complete the activity 2 The helper provides more than half the effort to complete the activity 1 Dependent. The helper does all the effort to complete an activity 7 Patient refused to complete or attempt activity 9 The patient did not perform the activity before the current illness or injury 88 Not attempted due to Medical conditions or safety concerns Other Treatment Pt completed gross grasp and pinch exercises with light resistance therapy sponge. Pt tolerated this well though unable to keep correct count. Pt then complete UE light resistance theraband exercises. Pt unable to sustain a hold onto ends of theraband with knots to operations dispatcher. Pt had difficulty with completing 10 reps then taking long break between each set. After therapy, pt lying in bed with call light/phone in reach. All needs met in room. OT Short Term Goals Short Term Goals Transfers (B,C,W/C) (FIM): 6 1=Demonstrate adherence to instructed precautions during ADL tasks. 2=Patient will verbalize/demonstrate understanding of assistive devices/ modifications for ADL. 3=Patient will improve strength/tolerance for activity to enable patient to perform ADL's. OT Project Management Professor Goals Nursing Home Goals Time Frame: November 08, 2016 Eating (FIM): 7 Eating (QC): 6 Groomin Oral Hygiene (QC): 6 Bathing(FIM): 6 Shower/Bathe Self (QC): 6 Upper Body Dressing(FIM): 6 Upper Body Dressing (QC): 6 Lower Body Dressing(FIM): 6 Lower Body Dressing (QC): 6 On/Off Footwear (QC): 6 Toileting(FIM): 6 Toileting Hygiene (QC): 6 Toilet/Commode Transfer(FIM): 6 Toilet/Commode Transfer (QC): 6 Shower Transfer(FIM): 6 Comprehension(FIM): 5 Expression (FIM): 5 Social Interaction(FIM): 5 Problem Solving(FIM): 4 Memory(FIM): 4 Additional Goals: 2-Verbalize Understanding, 3-ImproveStrength/[place] 1=Demonstrate adherence to instructed precautions during ADL tasks. 2=Patient will verbalize/demonstrate understanding of assistive devices/ modifications for ADL. 3=Patient will improve strength/tolerance for activity to enable patient to perform ADL's. OT Education/Plan Problem List/Assessment Pt would benefit from skilled OT to increase her independence in basic self care to allow her to return home safely to live with her Discharge Recommendations Plan/Recommendations: Continue POC Treatment Plan/Plan of Care Patient would benefit from OT for education, treatment and training to promote independence in ADL's, mobility, safety and/or upper extremity function for ADL' s. Plan of Care: ADL Retraining, Functional Mobility, Group Exercise/Act as Ind ( education, exercise, funct activities, activity tolerance, memory, problem solving), UE Funct Exercise/Act, UE Neuromus Re-Ed/Coord Treatment Duration: November 08, 2016 Visits Per Week: 10-11 Minutes/Day (M-F): 75-90 Minutes/Day (Sat/Quintanilla): PRN Agreement: Yes Rehab Potential: Guarded Time/GCodes Start Time: 11:35 Stop Time: 11:50 Total Time Billed (hr/min): 15 Billed Treatment Time 1 visit-EX 1 (15 min) TYSON RAMOS October 28, 2016 12:26
--- NOTE | 2016-10-28 15:05 | Physical Therapy Daily Note ---
PT Daily Note-Current Subjective Agreeable. Reports she is feeling better. Mental Status Patient Orientation: Person, Place, Time, Situation Transfers Functional [place] Measure 0=Not Assessed/NA 4=Minimal Assistance 1=Total Assistance 5=Supervision or Setup 2=Maximal Assistance 6=Modified [place] 3=Moderate Assistance 7=Complete IndependenceIRFPAI Quality Coding Scale 6 Independent with activity with or without an assistive device 5 Patient requires set up or clean up by helper. Patient completes activity by themselves 4 Supervision or touching assist (CGA). [place] provide cues , steadying assist 3 The helper provides less than half the effort to complete the activity 2 The helper provides more than half the effort to complete the activity 1 Dependent. The helper does all the effort to complete an activity 7 Patient refused to complete or attempt activity 9 The patient did not perform the activity before the current illness or injury 88 Not attempted due to Medical conditions or safety concerns Transfers (B, C, W/C) (FIM): 4 Supine to/from Sit: 5 (SBA with bed mobility) Sit to/from Stand: 4 (CGA with skilled reminders for hand placement) Gait Training Does the Patient Walk?: Yes Gait (FIM): 4 (CGA for safety; cervical collar in place) Distance (FIM): 3=150 ft Distance: 150 ft x 2 Gait Assistive Device: FWW Pt ambulated 150 ft x 2 with FWW with close CGA. Pt ambulated x 50 ft x 3 and traversed a curb step and uneven surface as well with FWW with close CGA. Assessment Current Status: Good Progress Gait and transfers are improving. Still recommend CGA with gait and transfers for safety and risk of falling. PT Short Term Goals Short Term Goals Time Frame: November 01, 2016 Transfers (B,C,W/C) (FIM): 6 Gait (FIM): 6 Distance (FIM): 3=150 ft Gait Distance Comment: 200' Gait Level of Assist: 6 Gait Assistive Device: FWW, Cane Single Point Wheelchair Distance: 50' Stairs (FIM): 2 # of Steps: 4 Stairs Level of Assist: 5 PT Ceramic Chemist Goals [facility] Goals PT Ceramic Chemist Goals Time Frame: Nov 15, 2016 Transfers (B,C,W/C) (FIM): 6 Sit to Lying (QC): 6 Lying-Sitting on Side/Bed(QC): 6 Sit to Stand (QC): 6 Rollin Roll Left to Right (QC): 6 Chair/Rzy-hg-Nztnd Xfer(QC): 6 Car Transfer (QC): 6 Does the Patient Walk: Yes Gait (FIM): 6 Gait distance (FIM): 3=150 ft Distance: >300' Walk 10 feet (QC): 6 Walk 10ft-Uneven Surface(QC): 6 Walk 50ft with 2 Turns (QC): 6 Walk 150 ft (QC): 6 Gait Level of Assist: 6 Gait Assistive Device: FWW Does the Pt use WC or Scooter?: No Stairs (FIM): 6 # of Steps: 12 1 Step (curb) (QC): 6 4 Steps (QC): 6 12 Steps (QC): 6 Stairs Level Of Assist: 6 Picking up an Object (QC): 6 PT Plan Problem List Problem List: Activity Tolerance, Functional Strength, Safety Treatment/Plan Treatment Plan: Continue Plan of Care Treatment Plan: Bed Mobility, Education, Functional Activity Z[place], Functional Strength, Group Therapy, Gait, Safety, Therapeutic Exercise, Transfers Treatment Duration: Nov 15, 2016 Visits Per Week: 10-11 Minutes/Day (M-F): 60-90 Minutes/Day (Sat/Quintanilla): PRN Safety Risks/Education Patient Education: Transfer Techniques, Safety Issues Teaching Recipient: Patient Teaching Methods: Demonstration, Discussion Response to Teaching: Reinforcement Needed Time/GCodes Time In: 1400 Time Out: 1430 Total Billed Treatment Time: 30 Total Billed Treatment visit GT 30 TYSON PHILIP PT October 28, 2016 15:05
[2016-10-28 18:27] VITALS: BP 143/62
--- NOTE | 2016-10-28 20:16 | PM & R (SOAP) Progress Note ---
Subjective Subjective/Events-last exam Patient was seen in her room earlier this evening Patient less SOB Patient min assist for transfer Appreciate PT/OT/ST notes Appreciate DR Daily note Will f/ u with DR Victor in AM re f/u study re incidental finding on echocardiogram of suggestion of Abdominal mass. Objective Exam Last Set of Vital Signs Vital Signs Date Time Temp Pulse Resp B/P (MAP) Pulse Ox O2 Delivery O2 Flow Rate FiO2 10/28/16 19:09 92 3.00 10/28/16 18:27 98.6 51 18 143/62 10/24/16 05:00 Simple Mask Capillary Refill : I&O Intake and Output 10/27/16 23:59 Intake Total 1330 ml Balance 1330 ml Intake Oral 1330 ml # Voids 8 General: Alert, Oriented X3, Cooperative, No Acute Distress HEENT: PERRLA, EOMI, Mucous Memb Moist/[place], Other ( large hematoma over rt forehead 02 by N/C in place) Neck: Supple, No JVD, Other (Cervical;collar in place) Lungs: Clear to Auscultation, Other (decresed breath sounds at base) Heart: Regular Rate Abdomen: Normal Bowel Sounds, Soft, No Tenderness Extremities: No Edema Skin: Other (bruise hematoma as per above) Neuro: Other (generalized weakness) Results Lab Laboratory Tests 10/26/16 16:00: White Blood Count 7.6, Red Blood Count 2.98L, Hemoglobin 9.5L, Hematocrit 30L, Mean Corpuscular Volume 100H, Mean Corpuscular Hemoglobin 32, Mean Corpuscular Hemoglobin Concent 32, Red Cell Distribution Width 19.7H, Platelet Count 363, Mean Platelet Volume 9.0, Sodium Level 138, Potassium Level 4.3, Chloride Level 102, Carbon Dioxide Level 26, Anion Gap 10, Blood Urea Nitrogen 27H, Creatinine 1.81H, Estimat Glomerular Filtration Rate 27, BUN/Creatinine Ratio 15, Glucose Level 99, Calcium Level 8.9 10/27/16 05:55: White Blood Count 6.6, Red Blood Count 2.83L, Hemoglobin 8.9L, Hematocrit 29L, Mean Corpuscular Volume 101H, Mean Corpuscular Hemoglobin 31, Mean Corpuscular Hemoglobin Concent 31L, Red Cell Distribution Width 19.2H, Platelet Count 329, Mean Platelet Volume 8.7, Sodium Level 141, Potassium Level 4.0, Chloride Level 105, Carbon Dioxide Level 28, Anion Gap 8, Blood Urea Nitrogen 26H, Creatinine 1.75H, Estimat Glomerular Filtration Rate 28, BUN/Creatinine Ratio 15, Glucose Level 79, Calcium Level 8.9, B-Type Natriuretic Peptide 1557.4H 10/28/16 09:33: Sodium Level 138, Potassium Level 4.7, Chloride Level 103, Carbon Dioxide Level 32, Anion Gap 3L, Blood Urea Nitrogen 26H, Creatinine 1.82H, Estimat Glomerular Filtration Rate 27, BUN/Creatinine Ratio 14, Glucose Level 143H, Calcium Level 9.1 Assessment/Plan Assessment S/P repair C spine frx and in C collar Hematoma rt forehead s/p fall CHF treated-acute systolic Anemia 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 Tobaccoism Etoh use Cognitive impairment returning to baseline Abdominal mass Plan ContinuePT/OT Pain management Monitor 02sats and adjust 02 and meds as needed F/U with DR victor and Med-onc and Cardiology PRN F/U with Dr victor tomorrow re possible abdominal mass seen on Echo and appropriate imaging study to be done LOUIS BONILLA MD October 28, 2016 20:16
[2016-10-28] MEDS: eZETimibe 10 MG (ZETIA) TABLET PO SCH (20:19)
[2016-10-28] MEDS: ATORVASTATIN 20 MG (LIPITOR) TABLET PO SCH (20:19)
[2016-10-28] MEDS: FAMOTIDINE 20 MG (PEPCID) TABLET PO SCH (20:19)
[2016-10-28] MEDS: LORATADINE (CLARITIN) 10 MG TAB PO SCH (20:19)
[2016-10-28] MEDS: FENOFIBRATE 134 MG (LOFIBRA) CAPSULE PO SCH (20:19)
[2016-10-28] MEDS: PRIMIDONE 50 MG TAB (MYSOLINE) PO SCH (20:19)
[2016-10-29 05:21] LABS: MEAN PLATELET VOLUME 8.7 FL (7.4-10.4); RED BLOOD COUNT 3.05 10^6/uL (4.35-5.85); RED CELL DISTRIBUTION WIDTH 18.3 % (10.0-14.5); WHITE BLOOD COUNT 8.1 10^3/uL (4.3-11.0)
[2016-10-29 05:32] VITALS: BP 160/84
[2016-10-29 05:36] LABS: CALCIUM 9.6 MG/DL (8.5-10.1); CREATININE SERUM 1.66 MG/DL (0.60-1.30); POTASSIUM 4.7 MMOL/L (3.6-5.0)
[2016-10-29] MEDS: FOLIC ACID 1 MG TAB PO SCH (06:10)
[2016-10-29] MEDS: VITAMIN D3 1,000 UNITS (CHOLECALCIFEROL) TABLET PO SCH (06:10)
[2016-10-29] MEDS: MULTIVIT W/MINERALS TAB (THERAGRAN M) PO SCH (06:10)
[2016-10-29] MEDS: PANTOPRAZOLE 40 MG (PROTONIX) TAB PO SCH (06:10)
[2016-10-29] MEDS: OMEGA 3 (FISH OIL) 1000 MG CAP PO SCH (06:10)
[2016-10-29] MEDS: THIAMINE 100 MG (VITAMIN B-1) TAB PO SCH (06:10)
[2016-10-29] MEDS: hydrALAZINE (APRESOLINE) 25 MG TAB PO SCH ×3 (06:10→22:22)
[2016-10-29] MEDS: UMECLIDINIUM BROMIDE (INCRUSE ELLIPTA) 7'S IH SCH (07:49)
[2016-10-29] MEDS: RT-FLUTICASONE 110 MCG (FLOVENT) PER PUFF INH SCH ×2 (07:49→18:55)
[2016-10-29] MEDS: amLODIPine 10 MG (NORVASC) TAB PO SCH (08:31)
[2016-10-29] MEDS: ASPIRIN 81 MG CHEW (CHILDREN'S ASA) PO SCH (08:31)
[2016-10-29] MEDS: DOCUSATE SODIUM 100 MG (COLACE) CAP PO SCH ×2 (08:31→20:22)
[2016-10-29] MEDS: GABAPENTIN 100 MG (NEURONTIN) CAP PO SCH ×3 (08:31→20:22)
[2016-10-29] MEDS: PROPRANOLOL 20 MG (INDERAL) TABLET PO SCH ×2 (08:31→20:22)
[2016-10-29] MEDS: POLYETHYLENE GLYCOL 17 GM (MIRALAX) PACK PO SCH ×2 (08:31→20:22)
[2016-10-29] MEDS: PARoxetine 20 MG (PAXIL) TAB PO SCH (08:32)
[2016-10-29] MEDS: OXYBUTYNIN (DITROPAN) 5 MG TAB PO SCH ×2 (08:32→20:22)
--- NOTE | 2016-10-29 08:43 | Physical Therapy Daily Note ---
PT Daily Note-Current Subjective Patient in bed pre tx, needs a lot of encouragement from therapist to participate in PT. Patient states she has 10/10 pain in her back because she tried to get up herself to go to the bathroom (did not call nurse) and fell. Nurse is aware of her pain. Appearance Patient BTB post tx with nurse call, phone, tray, all needs met. Mental Status Patient Orientation: Person, Place, Situation Attachments: Oxygen Transfers Functional [place] Measure 0=Not Assessed/NA 4=Minimal Assistance 1=Total Assistance 5=Supervision or Setup 2=Maximal Assistance 6=Modified [place] 3=Moderate Assistance 7=Complete IndependenceIRFPAI Quality Coding Scale 6 Independent with activity with or without an assistive device 5 Patient requires set up or clean up by helper. Patient completes activity by themselves 4 Supervision or touching assist (CGA). [place] provide cues , steadying assist 3 The helper provides less than half the effort to complete the activity 2 The helper provides more than half the effort to complete the activity 1 Dependent. The helper does all the effort to complete an activity 7 Patient refused to complete or attempt activity 9 The patient did not perform the activity before the current illness or injury 88 Not attempted due to Medical conditions or safety concerns Transfers (B, C, W/C) (FIM): 4 Scootin Rollin Supine to/from Sit: 6 Sit to/from Stand: 4 cues for safety and hand placement, will often try to pull up from walker Gait Training Gait (FIM): 4 Distance: 150'x2 Gait Level of Assist: 4 (CGA) Gait Persons Needed: 1 Gait Assistive Device: FWW very slow, antalgic ambulation, occasional standing rest break Exercises NuStep Minutes: 15 NuStep Workload: 4 Treatments bed mobility and transfers, ambulation, functional strengthening Assessment Current Status: Fair Progress Patient had a lot of pain this morning and performed all mobility very slowly and needed frequent rest breaks. PT Short Term Goals Short Term Goals Time Frame: November 01, 2016 Transfers (B,C,W/C) (FIM): 6 Gait (FIM): 6 Distance (FIM): 3=150 ft Gait Distance Comment: 200' Gait Level of Assist: 6 Gait Assistive Device: FWW, Cane Single Point Wheelchair Distance: 50' Stairs (FIM): 2 # of Steps: 4 Stairs Level of Assist: 5 PT Custodial Goals Custodial Goals PT Welfare Manager Goals Time Frame: Nov 15, 2016 Transfers (B,C,W/C) (FIM): 6 Sit to Lying (QC): 6 Lying-Sitting on Side/Bed(QC): 6 Sit to Stand (QC): 6 Rollin Roll Left to Right (QC): 6 Chair/Efr-ca-Uhebi Xfer(QC): 6 Car Transfer (QC): 6 Does the Patient Walk: Yes Gait (FIM): 6 Gait distance (FIM): 3=150 ft Distance: >300' Walk 10 feet (QC): 6 Walk 10ft-Uneven Surface(QC): 6 Walk 50ft with 2 Turns (QC): 6 Walk 150 ft (QC): 6 Gait Level of Assist: 6 Gait Assistive Device: FWW Does the Pt use WC or Scooter?: No Stairs (FIM): 6 # of Steps: 12 1 Step (curb) (QC): 6 4 Steps (QC): 6 12 Steps (QC): 6 Stairs Level Of Assist: 6 Picking up an Object (QC): 6 PT Plan Problem List Problem List: Activity Tolerance, Functional Strength, Safety, Balance, Gait, Transfer Treatment/Plan Treatment Plan: Continue Plan of Care Treatment Plan: Bed Mobility, Education, Functional Activity Zena, Functional Strength, Group Therapy, Gait, Safety, Therapeutic Exercise, Transfers Treatment Duration: Nov 15, 2016 Visits Per Week: 10-11 Minutes/Day (M-F): 60-90 Minutes/Day (Sat/Quintanilla): PRN Safety Risks/Education Patient Education: Gait Training, Transfer Techniques, Correct Positioning, Safety Issues Teaching Recipient: Patient Teaching Methods: Demonstration, Discussion Response to Teaching: Reinforcement Needed Time/GCodes Time In: 800 Time Out: 845 Total Billed Treatment Time: 45 Total Billed Treatment 1 visit GT 30' EX 15' ISRAEL CRUMP PT October 29, 2016 08:43
--- NOTE | 2016-10-29 08:48 | Progress Note (SOAP) ---
Subjective Subjective/Events-last exam Traumatic spinal cord dysfunction. Patient states she fell last night and hurt in thoracic region. To x-ray Objective Exam Vital Signs Date Time Temp Pulse Resp B/P (MAP) Pulse Ox O2 Delivery O2 Flow Rate FiO2 10/29/16 07:50 93 3.00 10/29/16 05:32 97.2 64 22 160/84 94 4.00 10/28/16 20:15 3.00 10/28/16 19:09 92 3.00 10/28/16 18:27 98.6 51 18 143/62 95 3.00 10/28/16 09:00 3.00 I & O 10/29/16 07:00 Intake Total 1340 ml Balance 1340 ml Capillary Refill : General Appearance: No Apparent Distress, Thin HEENT: Normal ENT Inspection Neck: Normal Inspection Respiratory: Chest Non Tender, Normal Breath Sounds, No Accessory Muscle Use Results Lab Laboratory Tests 10/28/16 09:33 10/29/16 05:05 Laboratory Tests 10/28/16 09:33: Sodium Level 138, Potassium Level 4.7, Chloride Level 103, Carbon Dioxide Level 32, Anion Gap 3L, Blood Urea Nitrogen 26H, Creatinine 1.82H, Estimat Glomerular Filtration Rate 27, BUN/Creatinine Ratio 14, Glucose Level 143H, Calcium Level 9.1 10/29/16 05:05: Sodium Level 140, Potassium Level 4.7, Chloride Level 102, Carbon Dioxide Level 31, Anion Gap 7, Blood Urea Nitrogen 29H, Creatinine 1.66H, Estimat Glomerular Filtration Rate 30, BUN/Creatinine Ratio 17, Glucose Level 91, Calcium Level 9.6 , White Blood Count 8.1, Red Blood Count 3.05L, Hemoglobin 9.8L, Hematocrit 31L , Mean Corpuscular Volume 102H, Mean Corpuscular Hemoglobin 32, Mean Corpuscular Hemoglobin Concent 32, Red Cell Distribution Width 18.3H, Platelet Count 336, Mean Platelet Volume 8.7 Assessment/Plan Assessment/Plan Assess & Plan/Chief Complaint cervical surgery. Hematoma on the forehead. Patient worried about eating more food. . 10/22/16.. Cervical surgery. Hematoma. Anemia Patient to receive blood. Left hand no swelling. . 10/23/16. Cervical surgery. Anemia worse. Patient may get blood today. . 10/24/16.. Cervical surgery. Hematoma on forehead. Chest x-ray shows CHF. Patient anemia. Renal insufficiency. . 10/25/16. Cervical surgery. Hematoma resolving on forehead. CHF better. Patient breathing better and feeling better. Renal insufficiency area Anemia. . 10/28/16. Cervical surgery. Renal insufficiency. Anemia Hematoma on forehead improving. . 10/29/16. Cervical surgery. Renal insufficiency. Anemia area Hematoma on forehead improving. GFR increased. Patient complaining of thoracic pain after for last night Clinical Quality Measures DVT/VTE Risk/Contraindication: Risk Factor Score Per Nursin RFS Level Per Nursing on Admit: 4+=Very High JEANINE ORLANDO DO October 29, 2016 08:48
--- NOTE | 2016-10-29 09:30 | PM & R (SOAP) Progress Note ---
Subjective Subjective/Events-last exam Patient was seen in her room this AM Case discussed with RN and with DR Victor Discussed Dr Daily concern re f/u possible abdominal mass seen on echo done last week -CT Abdomen and pelvis ordered. Patient also reports to therapist that she is having rib pain after a fall last night Dr Victor has ordered rib films Patienr SBA to min assist for transfers Review of Systems Musculoskeletal: other (thoracic pain) Objective Exam Last Set of Vital Signs Vital Signs Date Time Temp Pulse Resp B/P (MAP) Pulse Ox O2 Delivery O2 Flow Rate FiO2 10/29/16 07:50 93 3.00 10/29/16 05:32 97.2 64 22 160/84 10/24/16 05:00 Simple Mask Capillary Refill : I&O Intake and Output 10/29/16 00:00 Intake Total 1080 ml Balance 1080 ml Intake Oral 1080 ml # Voids 6 General: Alert, Oriented X3, Cooperative, No Acute Distress HEENT: PERRLA, EOMI, Mucous Memb Moist/[place], Other ( large hematoma over rt forehead 02 by N/C in place) Neck: Supple, No JVD, Other (Cervical;collar in place) Lungs: Clear to Auscultation, Other (decresed breath sounds at base) Heart: Regular Rate Abdomen: Normal Bowel Sounds, Soft, No Tenderness Extremities: No Edema Skin: Other (bruise hematoma as per above) Neuro: Other (generalized weakness) Results Lab Laboratory Tests 10/26/16 16:00: White Blood Count 7.6, Red Blood Count 2.98L, Hemoglobin 9.5L, Hematocrit 30L, Mean Corpuscular Volume 100H, Mean Corpuscular Hemoglobin 32, Mean Corpuscular Hemoglobin Concent 32, Red Cell Distribution Width 19.7H, Platelet Count 363, Mean Platelet Volume 9.0, Sodium Level 138, Potassium Level 4.3, Chloride Level 102, Carbon Dioxide Level 26, Anion Gap 10, Blood Urea Nitrogen 27H, Creatinine 1.81H, Estimat Glomerular Filtration Rate 27, BUN/Creatinine Ratio 15, Glucose Level 99, Calcium Level 8.9 10/27/16 05:55: White Blood Count 6.6, Red Blood Count 2.83L, Hemoglobin 8.9L, Hematocrit 29L, Mean Corpuscular Volume 101H, Mean Corpuscular Hemoglobin 31, Mean Corpuscular Hemoglobin Concent 31L, Red Cell Distribution Width 19.2H, Platelet Count 329, Mean Platelet Volume 8.7, Sodium Level 141, Potassium Level 4.0, Chloride Level 105, Carbon Dioxide Level 28, Anion Gap 8, Blood Urea Nitrogen 26H, Creatinine 1.75H, Estimat Glomerular Filtration Rate 28, BUN/Creatinine Ratio 15, Glucose Level 79, Calcium Level 8.9, B-Type Natriuretic Peptide 1557.4H 10/28/16 09:33: Sodium Level 138, Potassium Level 4.7, Chloride Level 103, Carbon Dioxide Level 32, Anion Gap 3L, Blood Urea Nitrogen 26H, Creatinine 1.82H, Estimat Glomerular Filtration Rate 27, BUN/Creatinine Ratio 14, Glucose Level 143H, Calcium Level 9.1 10/29/16 05:05: White Blood Count 8.1, Red Blood Count 3.05L, Hemoglobin 9.8L, Hematocrit 31L, Mean Corpuscular Volume 102H, Mean Corpuscular Hemoglobin 32, Mean Corpuscular Hemoglobin Concent 32, Red Cell Distribution Width 18.3H, Platelet Count 336, Mean Platelet Volume 8.7, Sodium Level 140, Potassium Level 4.7, Chloride Level 102, Carbon Dioxide Level 31, Anion Gap 7, Blood Urea Nitrogen 29H, Creatinine 1.66H, Estimat Glomerular Filtration Rate 30, BUN/Creatinine Ratio 17, Glucose Level 91, Calcium Level 9.6 Assessment/Plan Assessment S/P repair C spine frx and in C collar Hematoma rt forehead s/p fall CHF treated-acute systolic Anemia 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 Tobaccoism Etoh use Cognitive impairment returning to baseline Abdominal mass Thoracic pain/rib pain s/p fall? Plan ContinuePT/OT Pain management Monitor 02sats and adjust 02 and meds as needed F/U with DR victor and Med-onc and Cardiology PRN Abd and pelvis CT scan to f/u repossible aabdominal mas Rib films to f/u re possible fractures s/p fall Team Conference tomorrow LOUIS BONILLA MD October 29, 2016 09:30
--- NOTE | 2016-10-29 10:31 | Speech Therapy Daily Note ---
Speech Daily Progress Note Subjective The patient was laying in bed upon entrance. The patient greeted the clinician and was agreeable to participation in the cognitive treatment session. Per patient, she experienced a fall on this date as she attempted to use the restroom without the assistance of staff. Updated radiology assessments are pending at this time. Objective NATHALIE (functional tasks) were continued on this date with the below results: - Reading Instructions: The patient demonstrated 80% accuracy with reading functional instructions, independently. - Writing a Phone Message: The patient demonstrated 83% accuracy with recalling important information from a phone message, independently. Orientation: The patient was oriented to month, year, day of week, location, and city (independently). The patient used the in-room white board for accurate identification of date. Assessment Assessment Current Status: Good Progress Treatment Plan Continue Plan of Care Communication Comprehension: 4 Expression: 5 Social Cognition Social Interaction: 5 Problem Solvin Memory: 4 Speech Short Term Goals Short Term Goals Short Term Goals 1. The patient will demonstrated 80% accuracy with simple orientation information using an external aid and mild clinician verbal cueing. 2. The patient will display 80% accuracy with safety problem solving with mild clinician verbal cueing. 3. The patient will recall two functional memory strategies for use at home. Time Frame-STG: Two Weeks Speech Intermediate Goals Intermediate Goals 1. The patient will display improved cognitive skills for increased safety and function with ADL's. Time Frame: Four Weeks Comprehension: 5 Expression: 5 Social Interaction: 5 Problem Solvin Memory: 4 Speech-Plan Treatment Plan Speech Therapy Treatment Plan: Continue Plan of Care Continue skilled speech pathology to target functional problem solving ( cognition). Treatment Duration: Nov 19, 2016 # of days/week Four to Five. Visits Per Week: Four to Five. Minutes/Day (M-F): 30 Rehab Potential: Guarded Safety Risks/Education Teaching Recipient: Patient Teaching Methods: Demonstration, Discussion Response to Teaching: Return Demonstration Education Topics Provided: Orientation Strategies Time Speech Therapy Time In: 08:45 Speech Therapy Time Out: 09:15 Total Billed Time: 30 Billed Treatment Time LAMAR Rosado ELIZABETH October 29, 2016 10:31
--- NOTE | 2016-10-29 10:32 | Diagnostic Imaging Report ---
INDICATION: Back pain. Thoracic spine. AP and lateral views of the thoracic spine show normal vertebral body height and alignment. There are no appreciable compression fractures. IMPRESSION: Negative thoracic spine. Dictated by: Dictated on workstation # [id number]
--- NOTE | 2016-10-29 11:50 | Occupational Ther Daily Note ---
OT Current Status-Daily Note Subjective Pt. states that her back hurts. Reports that she fell last night. Does not state a pain level. Nursing is notified about pain and also knows about the fall. New x-rays have been taken. No new fractures noted. Nursing states that it is not time for a pain pill yet. Appearance Pt. in bed. States that she will work with OT. Declines showering but does agree to spongebathe. Mental Status/Objective Patient Orientation: Unable to Assess Functional [place] Measure 0=Not Assessed/NA 4=Minimal Assistance 1=Total Assistance 5=Supervision or Setup 2=Maximal Assistance 6=Modified [place] 3=Moderate Assistance 7=Complete [place] ADL-Treatment Functional [place] Measure 0=Not Assessed/NA 4=Minimal Assistance 1=Total Assistance 5=Supervision or Setup 2=Maximal Assistance 6=Modified [place] 3=Moderate Assistance 7=Complete IndependenceIRFPAI Quality Coding Scale 6 Independent with activity with or without an assistive device 5 Patient requires set up or clean up by helper. Patient completes activity by themselves 4 Supervision or touching assist (CGA). [place] provide cues , steadying assist 3 The helper provides less than half the effort to complete the activity 2 The helper provides more than half the effort to complete the activity 1 Dependent. The helper does all the effort to complete an activity 7 Patient refused to complete or attempt activity 9 The patient did not perform the activity before the current illness or injury 88 Not attempted due to Medical conditions or safety concerns Grooming (FIM): 4 (Pt. is able to brush teeth with min assist needed.) Oral Hygiene (QC): 4 Bathing (FIM): 4 (Pt. requires CGA in stance during ADL tasks due to low endurance and pain. Requires min assist to doff underwear. Able to don underwear and pants at supine level.) Upper Body (FIM): 4 (Pt. able to doff/don shirt with SBA, and don neck brace with min assist.) Lower Body Dressing (FIM): 4 (Min assist to don socks at bed level.) Transfers (B, C, W/C) (FIM): 4 (CGA in stance.) Other Treatment Pt. requires multiple rest breaks throughout treatment. After ADL tasks, pt. states that she does not feel like getting up and leaving room. Pt. agreed to cognitive task. Pt. completed naming task, categorization task, and naming things in common. Pt. does relatively well with categorization and naming. Has more difficulty with naming something that items have in common. Pt. states that she is tired. Requests to rest. All needs met in room. Pt. positioned in bed. Education OT Patient Education: Correct positioning, Modified ADL techniques, Progress toward Goal/Update tx plan, Purpose of tx/functional activities, Reviewed precautions, Rehab process, Transfer techniques Teaching Recipient: Patient Teaching Methods: Demonstration, Discussion Response to Teaching: Verbalize Understanding, Return Demonstration OT Short Term Goals Short Term Goals Transfers (B,C,W/C) (FIM): 6 1=Demonstrate adherence to instructed precautions during ADL tasks. 2=Patient will verbalize/demonstrate understanding of assistive devices/ modifications for ADL. 3=Patient will improve strength/tolerance for activity to enable patient to perform ADL's. OT Mcc Goals Concert Singer Goals Time Frame: November 08, 2016 Eating (FIM): 7 Eating (QC): 6 Groomin Oral Hygiene (QC): 6 Bathing(FIM): 6 Shower/Bathe Self (QC): 6 Upper Body Dressing(FIM): 6 Upper Body Dressing (QC): 6 Lower Body Dressing(FIM): 6 Lower Body Dressing (QC): 6 On/Off Footwear (QC): 6 Toileting(FIM): 6 Toileting Hygiene (QC): 6 Toilet/Commode Transfer(FIM): 6 Toilet/Commode Transfer (QC): 6 Shower Transfer(FIM): 6 Comprehension(FIM): 5 Expression (FIM): 5 Social Interaction(FIM): 5 Problem Solving(FIM): 4 Memory(FIM): 4 Additional Goals: 2-Verbalize Understanding, 3-ImproveStrength/[place] 1=Demonstrate adherence to instructed precautions during ADL tasks. 2=Patient will verbalize/demonstrate understanding of assistive devices/ modifications for ADL. 3=Patient will improve strength/tolerance for activity to enable patient to perform ADL's. OT Education/Plan Problem List/Assessment Assessment: Decreased Activ Tolerance, Decreased UE Strength, Impaired Bed Mobility, Impaired Cognition, Impaired Funct Balance, Impaired I ADL's, Impaired Self-Care Skills, Restricted Funct UE ROM Pt would benefit from skilled OT to increase her independence in basic self care to allow her to return home safely to live with her Discharge Recommendations Plan/Recommendations: Continue POC Therapy D/C Recommendations: 24 hr Supervision Treatment Plan/Plan of Care Treatment,Training & Education: Yes Patient would benefit from OT for education, treatment and training to promote independence in ADL's, mobility, safety and/or upper extremity function for ADL' s. Plan of Care: ADL Retraining, Functional Mobility, Group Exercise/Act as Ind ( education, exercise, funct activities, activity tolerance, memory, problem solving), UE Funct Exercise/Act, UE Neuromus Re-Ed/Coord Treatment Duration: November 08, 2016 Visits Per Week: 10-11 Minutes/Day (M-F): 75-90 Minutes/Day (Sat/Quintanilla): PRN Agreement: Yes Rehab Potential: Guarded Time/GCodes Start Time: 10:30 Stop Time: 11:45 Total Time Billed (hr/min): 75 Billed Treatment Time 1, ADL x 45minutes, FA x 30minutes EDMOND BARCENAS OT October 29, 2016 11:50
--- NOTE | 2016-10-29 13:59 | Physical Therapy Daily Note ---
PT Daily Note-Current Subjective Patient in bed pre tx, reluctantly agrees to PT, has pain of 10/10 in her neck. Patient is very non-compliant with her cervical collar and nasal canula. She pretty much seems to take them off whenever she wants to. Appearance Patient in bed post tx with nurse call, phone, tray, all needs met. Mental Status Patient Orientation: Person, Place, Situation Attachments: Oxygen Transfers Functional [place] Measure 0=Not Assessed/NA 4=Minimal Assistance 1=Total Assistance 5=Supervision or Setup 2=Maximal Assistance 6=Modified [place] 3=Moderate Assistance 7=Complete IndependenceIRFPAI Quality Coding Scale 6 Independent with activity with or without an assistive device 5 Patient requires set up or clean up by helper. Patient completes activity by themselves 4 Supervision or touching assist (CGA). Brandon provide cues , steadying assist 3 The helper provides less than half the effort to complete the activity 2 The helper provides more than half the effort to complete the activity 1 Dependent. The helper does all the effort to complete an activity 7 Patient refused to complete or attempt activity 9 The patient did not perform the activity before the current illness or injury 88 Not attempted due to Medical conditions or safety concerns Transfers (B, C, W/C) (FIM): 4 Scootin Rollin Supine to/from Sit: 5 Sit to/from Stand: 4 cues for safety and hand placement, patient will often try to pull up from the walker Gait Training Gait (FIM): 1 Distance: 10' Gait Level of Assist: 4 Gait Persons Needed: 1 Gait Assistive Device: FWW Patient ambulated around to the other side of the bed and states that she can't go anymore and sits on the bed, refuses to ambulate to the therapy gym. She does agree to some bed exercises. Exercises Supine Ex: Ankle pumps, Quad Set, Glut sets, Heel Slides, Short Arc Quads, Straight leg raise, Hip abd/add Supine Reps: 20 Patient needs cues to work on doing exercises completely and focus Treatments bed mobility and transfers, ambulation, functional strengthening Assessment Current Status: Poor Progress no change in mobility, patient is poorly motivated PT Short Term Goals Short Term Goals Time Frame: November 01, 2016 Transfers (B,C,W/C) (FIM): 6 Gait (FIM): 6 Distance (FIM): 3=150 ft Gait Distance Comment: 200' Gait Level of Assist: 6 Gait Assistive Device: FWW, Cane Single Point Wheelchair Distance: 50' Stairs (FIM): 2 # of Steps: 4 Stairs Level of Assist: 5 PT Half-Way Goals Half-Way Goals PT Nursing Specialist Goals Time Frame: Nov 15, 2016 Transfers (B,C,W/C) (FIM): 6 Sit to Lying (QC): 6 Lying-Sitting on Side/Bed(QC): 6 Sit to Stand (QC): 6 Rollin Roll Left to Right (QC): 6 Chair/Rec-yh-Xkkqe Xfer(QC): 6 Car Transfer (QC): 6 Does the Patient Walk: Yes Gait (FIM): 6 Gait distance (FIM): 3=150 ft Distance: >300' Walk 10 feet (QC): 6 Walk 10ft-Uneven Surface(QC): 6 Walk 50ft with 2 Turns (QC): 6 Walk 150 ft (QC): 6 Gait Level of Assist: 6 Gait Assistive Device: FWW Does the Pt use WC or Scooter?: No Stairs (FIM): 6 # of Steps: 12 1 Step (curb) (QC): 6 4 Steps (QC): 6 12 Steps (QC): 6 Stairs Level Of Assist: 6 Picking up an Object (QC): 6 PT Plan Problem List Problem List: Activity Tolerance, Functional Strength, Safety, Balance, Gait, Transfer, Bed Mobility, ROM Treatment/Plan Treatment Plan: Continue Plan of Care Treatment Plan: Bed Mobility, Education, Functional Activity Zena, Functional Strength, Group Therapy, Gait, Safety, Therapeutic Exercise, Transfers Treatment Duration: Nov 15, 2016 Visits Per Week: 10-11 Minutes/Day (M-F): 60-90 Minutes/Day (Sat/Quintanilla): PRN Safety Risks/Education Patient Education: Gait Training, Transfer Techniques, Correct Positioning, Safety Issues Teaching Recipient: Patient Teaching Methods: Demonstration, Discussion Response to Teaching: Reinforcement Needed Time/GCodes Time In: 1330 Time Out: 1400 Total Billed Treatment Time: 30 Total Billed Treatment 1 visit GT 10' EX 20' ISRAEL CRUMP PT October 29, 2016 13:59
--- NOTE | 2016-10-29 14:17 | Oncology Progress Note ---
Subjective Subjective/Events-last exam Pt had a fall last night and hurt her back last night. The pain is better now. "I fell because of my leg gave up when I was trying to the bathroom. I am taking too much medications and I am walking pharmacy." Dr Echeverria hold off her lisinopril and Lasix today Data Review Labs Laboratory Tests 10/29/16 05:05 Laboratory Tests 10/26/16 16:00: Red Blood Count 2.98L, Hemoglobin 9.5L, Hematocrit 30L, Mean Corpuscular Volume 100H, Red Cell Distribution Width 19.7H, Blood Urea Nitrogen 27H, Creatinine 1.81H 10/27/16 05:55: Red Blood Count 2.83L, Hemoglobin 8.9L, Hematocrit 29L, Mean Corpuscular Volume 101H, Red Cell Distribution Width 19.2H, Blood Urea Nitrogen 26H, Creatinine 1.75H, Mean Corpuscular Hemoglobin Concent 31L, B-Type Natriuretic Peptide 1557.4H 10/28/16 09:33: Blood Urea Nitrogen 26H, Creatinine 1.82H, Anion Gap 3L, Glucose Level 143H 10/29/16 05:05: Red Blood Count 3.05L, Hemoglobin 9.8L, Hematocrit 31L, Mean Corpuscular Volume 102H, Red Cell Distribution Width 18.3H, Blood Urea Nitrogen 29H, Creatinine 1.66H Physical Exam Vital Signs Vital Sign - Last 12Hours 10/23/16 06:07 Temp 99.1 Pulse 56 Resp 16 B/P (MAP) 145/76 Pulse Ox 88 O2 Delivery Nasal Cannula O2 Flow Rate 3.00 Capillary Refill : General Appearance: No Apparent Distress, Thin Neck: Other (collar device off now) Cardiovascular: Bradycardia, Other (HR 50/min) Extremity: No Pedal Edema Neurologic/Psychiatric: Alert, Oriented x3 Impression & Plan Impression & Plan 1. Fall and cervical vertebrate fracture, s/p repair. 2. Large right forehead hematoma. 3. Anemia most likely form hematoma and recent surgery loss. 4. CAD, s/p GBAG x 3 on three BP meds and 3 heart meds and HCTZ. 5. h/o heavy alcohol abuse, stopped now. ? liver cirrohsis 6. h/o heavy tobacco abuse, stopped now. COPD 7. Acute renal failure Cr from 1.2 to 1.7 last week. 8. CHF on CXR today and increasing SOB, O2 Sat 90% on 3L NC. Plan: 1. Keep Hb above 9 with transfusion due to CHF and ARF. 2. Agree to hold off her Lasix because of ARF and fall. 3. Closely monitor renal function. 4. Stop Lovenox due to bleeding and anemia. . 5. Stool occult blood negative. No indication for GI work up at this point. 6. Pt will be very challenge in terms of managing her fluid, CHF and acute renal failure. 7. We need to discuss the DNR status. 8. Protonix 40mg daily. 9. Continue PT OT 10. Using bed site commode. Clinical Quality Measures DVT/VTE Risk/Contraindication: Risk Factor Score Per Nursin RFS Level Per Nursing on Admit: 4+=Very High TRUPTI NOLAND MD October 29, 2016 14:17
--- NOTE | 2016-10-29 15:50 | Diagnostic Imaging Report ---
PROCEDURE: CT abdomen and pelvis without contrast. TECHNIQUE: Multiple contiguous axial images were obtained through the abdomen and pelvis without the use of intravenous contrast. INDICATION: Back pain. Possible mass. COMPARISON: None. FINDINGS: Included views of the lung bases show severe cardiomegaly. There are also large bilateral effusions and associated atelectasis. CT ABDOMEN: Multiple large hypodense renal cysts are identified, left more than right. Note is made that one of the large cysts on the left has a somewhat heterogeneous and relative hyperdense appearance on this noncontrast exam. It measures approximately 7.4 x 9.3 cm. Small rounded hyperdensity is also noted associated with the renal pelvis on the right. It measures approximately 1.6 x 1 cm. These relative hyperdense foci could be on the basis of hemorrhagic cysts, although they are incompletely characterized on this noncontrast exam. Nonobstructive left renal calculi are also noted. There is cholelithiasis. The liver, spleen, and pancreas have an unremarkable noncontrast CT appearance. Adrenal glands are not well visualized, but show no gross abnormalities. There is aneurysmal dilatation of the infrarenal abdominal aorta, as it measures 5 x 4.6 cm. Note is made of dual calcification along the right anterolateral wall of the aneurysm. Findings are suggestive of underlying chronic dissection. There is moderate air and stool scattered throughout the colon. Normal appendix cannot be adequately identified, but there is no pericecal inflammation. Small bowel loops are nondistended. There is colonic diverticulosis, but no CT evidence of acute diverticulitis. There is no loculated fluid collection, free fluid, nor free air within the abdomen. No abnormal mesenteric or retroperitoneal adenopathy is seen. Bony structures show no acute abnormalities. CT PELVIS: Urinary bladder is unopacified. No calculi are seen within the urinary bladder. There is no loculated fluid collection, free fluid or free air within the pelvis. No abnormal lymph nodes are seen. There is diffuse advanced calcified arteriosclerosis. Bony structures show no acute abnormalities. IMPRESSION: 1. Multiple large bilateral renal cysts. Note is made that there is a dominant, relatively hyperdense and heterogeneous cyst on the left and a smaller hyperdense area on the right. These could be on the basis of hemorrhagic cysts, although are incompletely characterized on this exam. Further characterization with postcontrast CT is recommended. If contrast is contraindicated, further evaluation with abdominal sonogram could be performed. 2. Nonobstructive left renal calculi. 3. Significant aneurysmal dilatation of the infrarenal abdominal aorta with findings suggestive of chronic dissection. 4. Cholelithiasis. 5. Cardiomegaly with moderate bilateral effusions. 6. Moderate colonic air and stool. Please correlate for constipation. 7. Colonic diverticulosis, but no CT evidence of acute diverticulitis. Report given to patient's nurse (Natalie) at 3:49 p.m. 10/29/2016/cb Dictated by: Dictated on workstation # [id number]
[2016-10-29 18:18] VITALS: BP 152/72
[2016-10-29] MEDS: FENOFIBRATE 134 MG (LOFIBRA) CAPSULE PO SCH (20:22)
[2016-10-29] MEDS: PRIMIDONE 50 MG TAB (MYSOLINE) PO SCH (20:22)
[2016-10-29] MEDS: LORATADINE (CLARITIN) 10 MG TAB PO SCH (20:22)
[2016-10-29] MEDS: eZETimibe 10 MG (ZETIA) TABLET PO SCH (20:22)
[2016-10-29] MEDS: ATORVASTATIN 20 MG (LIPITOR) TABLET PO SCH (20:22)
[2016-10-29] MEDS: FAMOTIDINE 20 MG (PEPCID) TABLET PO SCH (20:22)
[2016-10-30 05:49] VITALS: BP 165/70
[2016-10-30 05:55] LABS: CALCIUM 9.4 MG/DL (8.5-10.1); CREATININE SERUM 1.57 MG/DL (0.60-1.30); POTASSIUM 4.2 MMOL/L (3.6-5.0)
[2016-10-30] MEDS: PANTOPRAZOLE 40 MG (PROTONIX) TAB PO SCH (06:09)
[2016-10-30] MEDS: VITAMIN D3 1,000 UNITS (CHOLECALCIFEROL) TABLET PO SCH (06:09)
[2016-10-30] MEDS: OMEGA 3 (FISH OIL) 1000 MG CAP PO SCH (06:09)
[2016-10-30] MEDS: MULTIVIT W/MINERALS TAB (THERAGRAN M) PO SCH (06:09)
[2016-10-30] MEDS: FOLIC ACID 1 MG TAB PO SCH (06:09)
[2016-10-30] MEDS: THIAMINE 100 MG (VITAMIN B-1) TAB PO SCH (06:09)
[2016-10-30] MEDS: hydrALAZINE (APRESOLINE) 25 MG TAB PO SCH ×3 (06:09→21:26)
[2016-10-30] MEDS: RT-FLUTICASONE 110 MCG (FLOVENT) PER PUFF INH SCH ×2 (07:23→20:11)
[2016-10-30] MEDS: UMECLIDINIUM BROMIDE (INCRUSE ELLIPTA) 7'S IH SCH (07:23)
[2016-10-30] MEDS: ASPIRIN 81 MG CHEW (CHILDREN'S ASA) PO SCH (08:25)
[2016-10-30] MEDS: PARoxetine 20 MG (PAXIL) TAB PO SCH (08:25)
[2016-10-30] MEDS: GABAPENTIN 100 MG (NEURONTIN) CAP PO SCH ×3 (08:26→20:03)
[2016-10-30] MEDS: DOCUSATE SODIUM 100 MG (COLACE) CAP PO SCH ×2 (08:26→20:03)
[2016-10-30] MEDS: PROPRANOLOL 20 MG (INDERAL) TABLET PO SCH (08:28)
[2016-10-30] MEDS: amLODIPine 10 MG (NORVASC) TAB PO SCH (08:29)
[2016-10-30] MEDS: OXYBUTYNIN (DITROPAN) 5 MG TAB PO SCH ×2 (08:31→20:03)
[2016-10-30] MEDS: POLYETHYLENE GLYCOL 17 GM (MIRALAX) PACK PO SCH ×2 (08:31→20:02)
--- NOTE | 2016-10-30 08:32 | Progress Note (SOAP) ---
Subjective Subjective/Events-last exam Patient feeling better today. CAT scan went over with patient. Patient should knows about aortic aneurysm doesn't want surgery. Patient spoke is helped with Dr. Driver surgeon in [place]. CAT scan of kidney needs further evaluation with ultrasound. Patient has renal insufficiency. Objective Exam Vital Signs Date Time Temp Pulse Resp B/P (MAP) Pulse Ox O2 Delivery O2 Flow Rate FiO2 10/30/16 07:23 98 4.00 10/30/16 05:49 99.0 68 18 165/70 100 3.00 10/29/16 20:15 4.00 10/29/16 18:55 93 4.00 10/29/16 18:18 98.6 67 16 152/72 97 10/29/16 09:00 3.00 I & O 10/30/16 07:00 Intake Total 810 ml Balance 810 ml Capillary Refill : General Appearance: No Apparent Distress, Thin HEENT: Normal ENT Inspection Neck: Normal Inspection Respiratory: No Accessory Muscle Use, No Respiratory Distress Cardiovascular: Regular Rate, Rhythm, No Murmur Gastrointestinal: non tender, soft Results Lab Laboratory Tests 10/30/16 05:20 Laboratory Tests 10/30/16 05:20: Sodium Level 138, Potassium Level 4.2, Chloride Level 100, Carbon Dioxide Level 30, Anion Gap 8, Blood Urea Nitrogen 24H, Creatinine 1.57H, Estimat Glomerular Filtration Rate 32, BUN/Creatinine Ratio 15, Glucose Level 90, Calcium Level 9.4 Assessment/Plan Assessment/Plan Assess & Plan/Chief Complaint cervical surgery. Hematoma on the forehead. Patient worried about eating more food. . 10/22/16.. Cervical surgery. Hematoma. Anemia Patient to receive blood. Left hand no swelling. . 10/23/16. Cervical surgery. Anemia worse. Patient may get blood today. . 10/24/16.. Cervical surgery. Hematoma on forehead. Chest x-ray shows CHF. Patient anemia. Renal insufficiency. . 10/25/16. Cervical surgery. Hematoma resolving on forehead. CHF better. Patient breathing better and feeling better. Renal insufficiency area Anemia. . 10/28/16. Cervical surgery. Renal insufficiency. Anemia Hematoma on forehead improving. . 10/29/16. Cervical surgery. Renal insufficiency. Anemia area Hematoma on forehead improving. GFR increased. Patient complaining of thoracic pain after for last night. . 10/30/16. Cervical surgery. Renal insufficiency. Aortic aneurysm. Anemia. Hematoma. Renal problem with ultrasound ordered Clinical Quality Measures DVT/VTE Risk/Contraindication: Risk Factor Score Per Nursin RFS Level Per Nursing on Admit: 4+=Very High JEANINE ORLANDO DO October 30, 2016 08:32
--- NOTE | 2016-10-30 10:03 | Physical Therapy Daily Note ---
PT Daily Note-Current Subjective Pt. in bed with O2, eyes drifting closed, unable to maintain concentration and confused when asked some questions. Myoclonus and uncontrolled jerking movements when asked to hold her arm up in the air ans keep it there . unable to do this Pain Numeric Pain Scale: 3 Location: Medial Location Body Site: Neck Pain Description: Pressure Appearance myoclonus movements, in bed, during TRF and during gait, requiring assist to maintain balance etc Mental Status Patient Orientation: Confused Attachments: Oxygen, Other-See Comments (j collar) Transfers Functional [place] Measure 0=Not Assessed/NA 4=Minimal Assistance 1=Total Assistance 5=Supervision or Setup 2=Maximal Assistance 6=Modified [place] 3=Moderate Assistance 7=Complete IndependenceIRFPAI Quality Coding Scale 6 Independent with activity with or without an assistive device 5 Patient requires set up or clean up by helper. Patient completes activity by themselves 4 Supervision or touching assist (CGA). [place] provide cues , steadying assist 3 The helper provides less than half the effort to complete the activity 2 The helper provides more than half the effort to complete the activity 1 Dependent. The helper does all the effort to complete an activity 7 Patient refused to complete or attempt activity 9 The patient did not perform the activity before the current illness or injury 88 Not attempted due to Medical conditions or safety concerns Transfers (B, C, W/C) (FIM): 4 Scootin Rollin Supine to/from Sit: 4 Sit to/from Stand: 4 Bed to/from Chair: 4 Gait Training Does the Patient Walk?: Yes Gait (FIM): 2 Distance (FIM): 5=468-75 ft (100x2) Gait Level of Assist: 4 Gait Persons Needed: 1 Gait Assistive Device: FWW pt. during gait with sudden loss of control, jerks and has near LOB x 3, short bout of gait secondary to this. Exercises Supine Ex: Ankle pumps, Rolling, Heel Slides, Short Arc Quads, Straight leg raise, Hip abd/add Supine Reps: 12 Seated Therapy Exercises: Ankle pumps, Sit to stand, Long arc quads, Hip flexion Seated Reps: 10 Assessment Current Status: Fair Progress unable to maintain alertness, eyes drift closed, jerking uncontrolled movement during exercise and gait or upright, BP185/74, HR55, O2sats with O2 insitu 95% PT Short Term Goals Short Term Goals Time Frame: November 01, 2016 Transfers (B,C,W/C) (FIM): 6 Gait (FIM): 6 Distance (FIM): 3=150 ft Gait Distance Comment: 200' Gait Level of Assist: 6 Gait Assistive Device: FWW, Cane Single Point Wheelchair Distance: 50' Stairs (FIM): 2 # of Steps: 4 Stairs Level of Assist: 5 PT Match Up Worker Goals Half-Way Goals PT Match Up Worker Goals Time Frame: Nov 15, 2016 Transfers (B,C,W/C) (FIM): 6 Sit to Lying (QC): 6 Lying-Sitting on Side/Bed(QC): 6 Sit to Stand (QC): 6 Rollin Roll Left to Right (QC): 6 Chair/Djv-pk-Gnzwb Xfer(QC): 6 Car Transfer (QC): 6 Does the Patient Walk: Yes Gait (FIM): 6 Gait distance (FIM): 3=150 ft Distance: >300' Walk 10 feet (QC): 6 Walk 10ft-Uneven Surface(QC): 6 Walk 50ft with 2 Turns (QC): 6 Walk 150 ft (QC): 6 Gait Level of Assist: 6 Gait Assistive Device: FWW Does the Pt use WC or Scooter?: No Stairs (FIM): 6 # of Steps: 12 1 Step (curb) (QC): 6 4 Steps (QC): 6 12 Steps (QC): 6 Stairs Level Of Assist: 6 Picking up an Object (QC): 6 PT Plan Treatment/Plan Treatment Plan: Continue Plan of Care Treatment Plan: Bed Mobility, Education, Functional Activity Zena, Functional Strength, Group Therapy, Gait, Safety, Therapeutic Exercise, Transfers Treatment Duration: Nov 15, 2016 Visits Per Week: 10-11 Minutes/Day (M-F): 60-90 Minutes/Day (Sat/Quintanilla): PRN Safety Risks/Education Patient Education: Gait Training, Transfer Techniques, Correct Positioning, Reviewed Don/Doff Brace, Safety Issues Teaching Recipient: Patient Teaching Methods: Demonstration, Discussion Response to Teaching: Verbalize Understanding, Unable to Comprehend, Reinforcement Needed unable to follow all commands today, communicated with GRAPHIC ARTS TECHNICIAN who experienced same issues Time/GCodes Time In: 900 Time Out: 1000 Total Billed Treatment Time: 60 Total Billed Treatment 1,EX15m,FA30m,GT15m G Codes Necessary: No LUEBBER, JUAN CARLOS A WAGE CONCILIATOR October 30, 2016 10:03
--- NOTE | 2016-10-30 10:23 | Diagnostic Imaging Report ---
EXAMINATION: Bilateral renal ultrasound. INDICATION: Renal lesions seen on an unenhanced CT scan. Decrease in renal function. FINDINGS: The right kidney is 13.3 and the left kidney is 16.3 cm in length. The left kidney appears to be largely replaced with large cysts with no significant normal parenchyma identified. The largest cyst measures 9.4 x 8 x 10 cm along the inferior aspect of the left kidney with a lobulated hypoechoic lesion within it. No internal vascularity is noted. This could be related to internal debris with no definite solid mass. The right kidney also demonstrates multiple cysts measuring up to 6.7 cm in the upper pole and up to 4.8 cm in the inferior pole which are generally simple in appearance. Minimal septation in the cysts within the inferior pole of the right kidney is seen. There is an abdominal aortic aneurysm measuring 4.7 cm in greatest diameter. Blood flow with some intramural thrombus is seen within the aneurysm. The bladder is not seen, presumably because it is empty. IMPRESSION: 1. 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 Inferiorly, there is a 10 cm cystic mass with internal complexity and a hypoechoic lesion without internal blood flow which may represent a complicated cyst with internal debris or clot rather than a solid mass component. If this patient cannot get an enhanced CT scan due to poor renal function, then an MRI without contrast may help in this evaluation. A followup study in 3 months is also recommended. 2. There is a 4.7 cm AAA. Dictated by: Dictated on workstation # [id number]
--- NOTE | 2016-10-30 10:30 | Speech Therapy Daily Note ---
Speech Daily Progress Note Subjective The patient was sleeping in bed upon entrance. Per chart review, the patient appears to have experienced increased confusion throughout the night. The patient was moderately difficult to rouse with verbal prompting, however, was agreeable to participation in the cognitive treatment session. To note: Frequent verbal prompting was required for continued participation and cooperation with treatment tasks. Objective Due to the progress meeting scheduled for this date, the clinician attempted to reassess the patient's cognition. The full evaluation was not completed due to the patient's consistent fatigue and necessity for redirection. The below results were displayed: - Executive Functioning: The patient demonstrated moderate to severe executive functioning deficits, as she was unable to complete trail-making or cube copying. The patient was able to draw an accurate contour to a clock face, however, was unable to number the clock correctly or following directions to place the time. - Naming: The patient demonstrated high accuracy on naming of black and white photographs. - Orientation: The patient was oriented to month, year, and city. The patient was unable to state the date, day of week, or place regardless of verbal prompting to use the present external aid (white-board). Assessment Assessment Current Status: Fair Progress Treatment Plan Continue Plan of Care Communication Comprehension: 4 Expression: 5 Social Cognition Social Interaction: 5 Problem Solvin Memory: 4 Speech Short Term Goals Short Term Goals Short Term Goals 1. The patient will demonstrated 80% accuracy with simple orientation information using an external aid and mild clinician verbal cueing. 2. The patient will display 80% accuracy with safety problem solving with mild clinician verbal cueing. 3. The patient will recall two functional memory strategies for use at home. Time Frame-STG: Two Weeks Speech Halfway Goals Halfway Goals 1. The patient will display improved cognitive skills for increased safety and function with ADL's. Time Frame: Four Weeks Comprehension: 5 Expression: 5 Social Interaction: 5 Problem Solvin Memory: 4 Speech-Plan Treatment Plan Speech Therapy Treatment Plan: Continue Plan of Care Continue skilled speech pathology to target functional cognitive skills. Treatment Duration: Nov 19, 2016 # of days/week Four to five. Visits Per Week: Four to Five. Minutes/Day (M-F): 30 Rehab Potential: Guarded Safety Risks/Education Teaching Recipient: Patient Teaching Methods: Discussion Response to Teaching: Verbalize Understanding Education Topics Provided: Plan, Results, Recommendations Time Speech Therapy Time In: 08:15 Speech Therapy Time Out: 08:45 Total Billed Time: 30 Billed Treatment Time 1, TIERA SON October 30, 2016 10:30
--- NOTE | 2016-10-30 11:18 | Occupational Ther Daily Note ---
OT Current Status-Daily Note Subjective Does not report pain, but states that she is "tired." Appearance Pt. is in bed. Agrees to work with OT. Mental Status/Objective Patient Orientation: Person, Unable to Assess Functional [place] Measure 0=Not Assessed/NA 4=Minimal Assistance 1=Total Assistance 5=Supervision or Setup 2=Maximal Assistance 6=Modified [place] 3=Moderate Assistance 7=Complete [place] Attachments: IV, Oxygen Pt. does seem confused at times. States that she had a shower last night. However, she did not and is in same clothing that OT assisted her with yesterday morning. States also that she walked all the way down to the gym by a Dr. PT states that pt. only made it to the doorway of her room and back to bed. ADL-Treatment Functional [place] Measure 0=Not Assessed/NA 4=Minimal Assistance 1=Total Assistance 5=Supervision or Setup 2=Maximal Assistance 6=Modified [place] 3=Moderate Assistance 7=Complete IndependenceIRFPAI Quality Coding Scale 6 Independent with activity with or without an assistive device 5 Patient requires set up or clean up by helper. Patient completes activity by themselves 4 Supervision or touching assist (CGA). [place] provide cues , steadying assist 3 The helper provides less than half the effort to complete the activity 2 The helper provides more than half the effort to complete the activity 1 Dependent. The helper does all the effort to complete an activity 7 Patient refused to complete or attempt activity 9 The patient did not perform the activity before the current illness or injury 88 Not attempted due to Medical conditions or safety concerns Grooming (FIM): 5 (With brushing hair.) Bathing (FIM): 4 (Pt. requires constant CGA/min assist in stance due to poor balance.) Upper Body (FIM): 3 (Pt. max assist with neck brace, and mod assist to pull down undershirt, and to button long sleeve shirt.) Lower Body Dressing (FIM): 4 (Min assist in stance to pull up pants due to decreased balance.) Toileting (FIM): 4 (CGA in stance.) Toileting Hygiene (QC): 4 Transfers (B, C, W/C) (FIM): 4 Toilet/Commode Transfer (FIM): 4 Toilet Transfer (QC): 4 Other Treatment Pt. is lethargic. Requires cues and constant CGA during all movement. Pt. states that she does not know why she "jerks." States that she is tired. Pt. states that she is "not going to a fci." At this time, pt. is unsafe to return home without constant supervision. Worked on fine motor strengthening with sponge after ADLs. Pt. states, "this wears me out." Education OT Patient Education: Correct positioning, Exercise program, Modified ADL techniques, Progress toward Goal/Update tx plan, Purpose of tx/functional activities, Reviewed precautions, Rehab process, Safety issues, Transfer techniques Teaching Recipient: Patient Teaching Methods: Demonstration, Discussion Response to Teaching: Verbalize Understanding, Return Demonstration OT Short Term Goals Short Term Goals Transfers (B,C,W/C) (FIM): 6 1=Demonstrate adherence to instructed precautions during ADL tasks. 2=Patient will verbalize/demonstrate understanding of assistive devices/ modifications for ADL. 3=Patient will improve strength/tolerance for activity to enable patient to perform ADL's. OT Sound Truck Operator Goals [facility] Goals Time Frame: November 08, 2016 Eating (FIM): 7 Eating (QC): 6 Groomin Oral Hygiene (QC): 6 Bathing(FIM): 6 Shower/Bathe Self (QC): 6 Upper Body Dressing(FIM): 6 Upper Body Dressing (QC): 6 Lower Body Dressing(FIM): 6 Lower Body Dressing (QC): 6 On/Off Footwear (QC): 6 Toileting(FIM): 6 Toileting Hygiene (QC): 6 Toilet/Commode Transfer(FIM): 6 Toilet/Commode Transfer (QC): 6 Shower Transfer(FIM): 6 Comprehension(FIM): 5 Expression (FIM): 5 Social Interaction(FIM): 5 Problem Solving(FIM): 4 Memory(FIM): 4 Additional Goals: 2-Verbalize Understanding, 3-ImproveStrength/[place] 1=Demonstrate adherence to instructed precautions during ADL tasks. 2=Patient will verbalize/demonstrate understanding of assistive devices/ modifications for ADL. 3=Patient will improve strength/tolerance for activity to enable patient to perform ADL's. OT Education/Plan Problem List/Assessment Assessment: Decreased Activ Tolerance, Decreased Safety Aware, Decreased UE Strength, Dependent Transfers, Impaired Bed Mobility, Impaired Cognition, Impaired Coordination, Impaired Funct Balance, Impaired I ADL's, Impaired Self- Care Skills, Restricted Funct UE ROM Pt would benefit from skilled OT to increase her independence in basic self care to allow her to return home safely to live with her Discharge Recommendations Plan/Recommendations: Continue POC Therapy D/C Recommendations: 24 hr Supervision Treatment Plan/Plan of Care Treatment,Training & Education: Yes Patient would benefit from OT for education, treatment and training to promote independence in ADL's, mobility, safety and/or upper extremity function for ADL' s. Plan of Care: ADL Retraining, Functional Mobility, Group Exercise/Act as Ind ( education, exercise, funct activities, activity tolerance, memory, problem solving), UE Funct Exercise/Act, UE Neuromus Re-Ed/Coord Treatment Duration: November 08, 2016 Visits Per Week: 10-11 Minutes/Day (M-F): 75-90 Minutes/Day (Sat/Quintanilla): PRN Agreement: Yes Rehab Potential: Guarded Time/GCodes Start Time: 10:00 Stop Time: 11:15 Total Time Billed (hr/min): 75 Billed Treatment Time 1, ADL x 60minutes, Ex x 15minutes EDMOND BARCENAS OT October 30, 2016 11:18
--- NOTE | 2016-10-30 13:48 | Physical Therapy Daily Note ---
PT Daily Note-Current Subjective Pt. states she is so very uncomfortable in her neck and shoulders and upper back. pt. reaching around to try to rub/touch her back and shoulders occas. Cant find a comfortable position. Pain Numeric Pain Scale: 6 Location: Medial Location Body Site: Back Pain Description: Pressure Transfers Functional [place] Measure 0=Not Assessed/NA 4=Minimal Assistance 1=Total Assistance 5=Supervision or Setup 2=Maximal Assistance 6=Modified [place] 3=Moderate Assistance 7=Complete IndependenceIRFPAI Quality Coding Scale 6 Independent with activity with or without an assistive device 5 Patient requires set up or clean up by helper. Patient completes activity by themselves 4 Supervision or touching assist (CGA). [place] provide cues , steadying assist 3 The helper provides less than half the effort to complete the activity 2 The helper provides more than half the effort to complete the activity 1 Dependent. The helper does all the effort to complete an activity 7 Patient refused to complete or attempt activity 9 The patient did not perform the activity before the current illness or injury 88 Not attempted due to Medical conditions or safety concerns rolling left and right incomplete but no relief from pain Exercises Supine Ex: Ankle pumps, Quad Set, Rolling, Glut sets, Heel Slides, Short Arc Quads, Straight leg raise, Hip abd/add Supine Reps: 12 Assessment Current Status: Fair Progress pain and discomfort as well as myoclonus limit pts. function and safety PT Short Term Goals Short Term Goals Time Frame: November 01, 2016 Transfers (B,C,W/C) (FIM): 6 Gait (FIM): 6 Distance (FIM): 3=150 ft Gait Distance Comment: 200' Gait Level of Assist: 6 Gait Assistive Device: FWW, Cane Single Point Wheelchair Distance: 50' Stairs (FIM): 2 # of Steps: 4 Stairs Level of Assist: 5 PT Estate Planning Director Goals Estate Planning Director Goals PT Prison Goals Time Frame: Nov 15, 2016 Transfers (B,C,W/C) (FIM): 6 Sit to Lying (QC): 6 Lying-Sitting on Side/Bed(QC): 6 Sit to Stand (QC): 6 Rollin Roll Left to Right (QC): 6 Chair/Rnv-ps-Fmddj Xfer(QC): 6 Car Transfer (QC): 6 Does the Patient Walk: Yes Gait (FIM): 6 Gait distance (FIM): 3=150 ft Distance: >300' Walk 10 feet (QC): 6 Walk 10ft-Uneven Surface(QC): 6 Walk 50ft with 2 Turns (QC): 6 Walk 150 ft (QC): 6 Gait Level of Assist: 6 Gait Assistive Device: FWW Does the Pt use WC or Scooter?: No Stairs (FIM): 6 # of Steps: 12 1 Step (curb) (QC): 6 4 Steps (QC): 6 12 Steps (QC): 6 Stairs Level Of Assist: 6 Picking up an Object (QC): 6 PT Plan Treatment/Plan Treatment Plan: Continue Plan of Care Treatment Plan: Bed Mobility, Education, Functional Activity Zena, Functional Strength, Group Therapy, Gait, Safety, Therapeutic Exercise, Transfers Treatment Duration: Nov 15, 2016 Visits Per Week: 10-11 Minutes/Day (M-F): 60-90 Minutes/Day (Sat/Quintanilla): PRN Time/GCodes Time In: 1320 Time Out: 1340 Total Billed Treatment Time: 20 Total Billed Treatment 1,EX20 G Codes Necessary: JUAN CARLOS [place] INSPECTOR BOILER October 30, 2016 13:48
--- NOTE | 2016-10-30 17:09 | PM & R (SOAP) Progress Note ---
Subjective Subjective/Events-last exam Patient was seen in her room this AM Team Conference held earlier today,ST notes increased confusion -will d/c Oxycodone=patient still has tramadol for pain Discussed case with Dr castillo CT abdomen and U/S kidney reveals mass/ cyst left kidney-DR Valencia consulted re possible renal biopsy or another imaging study Contrast limited due to renal function Patient min assist for transfers. Review of Systems Musculoskeletal: neck pain, shoulder pain Objective Exam Last Set of Vital Signs Vital Signs Date Time Temp Pulse Resp B/P (MAP) Pulse Ox O2 Delivery O2 Flow Rate FiO2 10/30/16 09:00 3.00 10/30/16 07:23 98 10/30/16 05:49 99.0 68 18 165/70 10/24/16 05:00 Simple Mask Capillary Refill : I&O Intake and Output 10/30/16 00:00 Intake Total 1110 ml Balance 1110 ml Intake Oral 1110 ml # Voids 4 # Bowel Movements 1 General: Alert, Oriented X3, Cooperative, No Acute Distress HEENT: PERRLA, EOMI, Mucous Memb Moist/[place], Other ( large hematoma over rt forehead 02 by N/C in place) Neck: Supple, No JVD, Other (Cervical;collar in place) Lungs: Clear to Auscultation, Other (decresed breath sounds at base) Heart: Regular Rate Abdomen: Normal Bowel Sounds, Soft, No Tenderness Extremities: No Edema Skin: Other (bruise hematoma as per above) Neuro: Other (generalized weakness) Results Lab Laboratory Tests 10/28/16 09:33: Sodium Level 138, Potassium Level 4.7, Chloride Level 103, Carbon Dioxide Level 32, Anion Gap 3L, Blood Urea Nitrogen 26H, Creatinine 1.82H, Estimat Glomerular Filtration Rate 27, BUN/Creatinine Ratio 14, Glucose Level 143H, Calcium Level 9.1 10/29/16 05:05: Sodium Level 140, Potassium Level 4.7, Chloride Level 102, Carbon Dioxide Level 31, Anion Gap 7, Blood Urea Nitrogen 29H, Creatinine 1.66H, Estimat Glomerular Filtration Rate 30, BUN/Creatinine Ratio 17, Glucose Level 91, Calcium Level 9.6 , White Blood Count 8.1, Red Blood Count 3.05L, Hemoglobin 9.8L, Hematocrit 31L , Mean Corpuscular Volume 102H, Mean Corpuscular Hemoglobin 32, Mean Corpuscular Hemoglobin Concent 32, Red Cell Distribution Width 18.3H, Platelet Count 336, Mean Platelet Volume 8.7 10/30/16 05:20: Sodium Level 138, Potassium Level 4.2, Chloride Level 100, Carbon Dioxide Level 30, Anion Gap 8, Blood Urea Nitrogen 24H, Creatinine 1.57H, Estimat Glomerular Filtration Rate 32, BUN/Creatinine Ratio 15, Glucose Level 90, Calcium Level 9.4 Assessment/Plan Assessment S/P repair C spine frx and in C collar Hematoma rt forehead s/p fall CHF treated-acute systolic Anemia 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 Tobaccoism Etoh use Cognitive impairment returning to baseline Abdominal mass Thoracic pain/rib pain s/p fall?-Tspine films negative AAA 5 cm known to patient and family-Dr Huan Mustafa following Renal cysts Large left renal cyst Have asked DR Valencia to review HTN meds adjusted to obtain better control CKD-limiting use of contrast for imaging studies Increased confusion -will d/c oxyir Plan ContinuePT/OT/ST Pain management Monitor 02sats and adjust 02 and meds as needed F/U with DR castillo and Med-onc and Cardiology PRN Possible renal biopsy-Have asked to see Rib films to f/u re possible fractures s/p fall if needed Team Conference held earlier today-See report for full functional update and POC Discharge set tentatively for Friday11/01/16 D/C Oxyir Se orders LOUIS BONILLA MD October 30, 2016 17:09
[2016-10-30 18:44] VITALS: BP 159/69
[2016-10-30] MEDS: PRIMIDONE 50 MG TAB (MYSOLINE) PO SCH (20:03)
[2016-10-30] MEDS: FENOFIBRATE 134 MG (LOFIBRA) CAPSULE PO SCH (20:03)
[2016-10-30] MEDS: ATORVASTATIN 20 MG (LIPITOR) TABLET PO SCH (20:03)
[2016-10-30] MEDS: LORATADINE (CLARITIN) 10 MG TAB PO SCH (20:03)
[2016-10-30] MEDS: eZETimibe 10 MG (ZETIA) TABLET PO SCH (20:03)
[2016-10-30] MEDS: FAMOTIDINE 20 MG (PEPCID) TABLET PO SCH (20:03)
[2016-10-31 05:48] LABS: MEAN PLATELET VOLUME 9.2 FL (7.4-10.4); RED BLOOD COUNT 2.32 10^6/uL (4.35-5.85); RED CELL DISTRIBUTION WIDTH 17.4 % (10.0-14.5); WHITE BLOOD COUNT 5.5 10^3/uL (4.3-11.0)
[2016-10-31 06:04] LABS: CALCIUM 9.2 MG/DL (8.5-10.1); CREATININE SERUM 1.54 MG/DL (0.60-1.30)
[2016-10-31 06:15] VITALS: BP 154/61
[2016-10-31] MEDS: THIAMINE 100 MG (VITAMIN B-1) TAB PO SCH (06:28)
[2016-10-31] MEDS: VITAMIN D3 1,000 UNITS (CHOLECALCIFEROL) TABLET PO SCH (06:28)
[2016-10-31] MEDS: MULTIVIT W/MINERALS TAB (THERAGRAN M) PO SCH (06:28)
[2016-10-31] MEDS: FOLIC ACID 1 MG TAB PO SCH (06:28)
[2016-10-31] MEDS: OMEGA 3 (FISH OIL) 1000 MG CAP PO SCH (06:28)
[2016-10-31] MEDS: hydrALAZINE (APRESOLINE) 25 MG TAB PO SCH ×3 (06:28→21:35)
[2016-10-31] MEDS: PANTOPRAZOLE 40 MG (PROTONIX) TAB PO SCH (06:28)
[2016-10-31] MEDS: RT-FLUTICASONE 110 MCG (FLOVENT) PER PUFF INH SCH ×2 (06:37→19:10)
[2016-10-31] MEDS: UMECLIDINIUM BROMIDE (INCRUSE ELLIPTA) 7'S IH SCH (06:37)
[2016-10-31 08:02] VITALS: BP 167/66
[2016-10-31] MEDS: POLYETHYLENE GLYCOL 17 GM (MIRALAX) PACK PO SCH ×2 (08:12→21:36)
[2016-10-31] MEDS: ASPIRIN 81 MG CHEW (CHILDREN'S ASA) PO SCH (08:12)
[2016-10-31] MEDS: DOCUSATE SODIUM 100 MG (COLACE) CAP PO SCH ×2 (08:12→21:35)
[2016-10-31] MEDS: GABAPENTIN 100 MG (NEURONTIN) CAP PO SCH ×3 (08:12→21:35)
[2016-10-31] MEDS: amLODIPine 10 MG (NORVASC) TAB PO SCH (08:12)
[2016-10-31] MEDS: OXYBUTYNIN (DITROPAN) 5 MG TAB PO SCH ×2 (08:12→21:38)
[2016-10-31] MEDS: PARoxetine 20 MG (PAXIL) TAB PO SCH (08:14)
--- NOTE | 2016-10-31 08:42 | Progress Note (SOAP) ---
Subjective Subjective/Events-last exam patient hemoglobin 7.4. Patient hemoglobin yesterday in the 9. Patient has some confusion. We'll recheck hemoglobin today. Traumatic spinal cord. Renal insufficiency. GFR in the 30s Objective Exam Vital Signs Date Time Temp Pulse Resp B/P (MAP) Pulse Ox O2 Delivery O2 Flow Rate FiO2 10/31/16 08:02 99.1 56 18 167/66 99 3.00 10/31/16 06:40 93 3.00 10/31/16 06:38 93 3.00 10/31/16 06:15 98.5 57 18 154/61 100 3.00 10/30/16 20:12 95 3.00 10/30/16 20:10 3.00 10/30/16 18:44 96.9 56 20 159/69 99 3.00 10/30/16 09:00 3.00 I & O 10/31/16 07:00 Intake Total 846 ml Balance 846 ml Capillary Refill : General Appearance: No Apparent Distress, Thin HEENT: Normal ENT Inspection Neck: Normal Inspection Respiratory: Chest Non Tender, No Accessory Muscle Use, No Respiratory Distress Cardiovascular: Regular Rate, Rhythm Results Lab Laboratory Tests 10/31/16 05:20 Laboratory Tests 10/31/16 05:20: White Blood Count 5.5, Red Blood Count 2.32L, Hemoglobin 7.4#L, Hematocrit 24L, Mean Corpuscular Volume 101H, Mean Corpuscular Hemoglobin 32, Mean Corpuscular Hemoglobin Concent 32, Red Cell Distribution Width 17.4H, Platelet Count 233, Mean Platelet Volume 9.2, Sodium Level 134L, Potassium Level 4.0, Chloride Level 98, Carbon Dioxide Level 31, Anion Gap 5, Blood Urea Nitrogen 29H, Creatinine 1.54H, Estimat Glomerular Filtration Rate 33, BUN/Creatinine Ratio 19 , Glucose Level 91, Calcium Level 9.2 Assessment/Plan Assessment/Plan Assess & Plan/Chief Complaint cervical surgery. Hematoma on the forehead. Patient worried about eating more food. . 10/22/16.. Cervical surgery. Hematoma. Anemia Patient to receive blood. Left hand no swelling. . 10/23/16. Cervical surgery. Anemia worse. Patient may get blood today. . 10/24/16.. Cervical surgery. Hematoma on forehead. Chest x-ray shows CHF. Patient anemia. Renal insufficiency. . 10/25/16. Cervical surgery. Hematoma resolving on forehead. CHF better. Patient breathing better and feeling better. Renal insufficiency area Anemia. . 10/28/16. Cervical surgery. Renal insufficiency. Anemia Hematoma on forehead improving. . 10/29/16. Cervical surgery. Renal insufficiency. Anemia area Hematoma on forehead improving. GFR increased. Patient complaining of thoracic pain after for last night. . 10/30/16. Cervical surgery. Renal insufficiency. Aortic aneurysm. Anemia. Hematoma. Renal problem with ultrasound ordered. . . Cervical surgery. Anemia worse to recheck. 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 Patient knows the year Clinical Quality Measures DVT/VTE Risk/Contraindication: Risk Factor Score Per Nursin RFS Level Per Nursing on Admit: 4+=Very High JEANINE ORLANDO DO October 31, 2016 08:42
--- NOTE | 2016-10-31 08:45 | Physical Therapy Daily Note ---
PT Daily Note-Current Subjective Patient just coming back to bed with nursing from commode pre tx, states she has pain of 4/10 in her neck. Appearance Patient BTB post tx with nurse call, phone, tray, bed alarm on. Mental Status Patient Orientation: Person, Place, Situation Attachments: Oxygen 3L of O2 nasal canula Transfers Functional [place] Measure 0=Not Assessed/NA 4=Minimal Assistance 1=Total Assistance 5=Supervision or Setup 2=Maximal Assistance 6=Modified [place] 3=Moderate Assistance 7=Complete IndependenceIRFPAI Quality Coding Scale 6 Independent with activity with or without an assistive device 5 Patient requires set up or clean up by helper. Patient completes activity by themselves 4 Supervision or touching assist (CGA). [place] provide cues , steadying assist 3 The helper provides less than half the effort to complete the activity 2 The helper provides more than half the effort to complete the activity 1 Dependent. The helper does all the effort to complete an activity 7 Patient refused to complete or attempt activity 9 The patient did not perform the activity before the current illness or injury 88 Not attempted due to Medical conditions or safety concerns Transfers (B, C, W/C) (FIM): 4 Scootin Rollin Roll Left to Right (QC): 4 Supine to/from Sit: 5 Sit to/from Stand: 4 Sit to Lying (QC): 4 Sit to Stand (QC): 4 Patient performs bed mobility with SBA, sit to stand and stand pivot transfer is CGA. Patient needs cues for safety and positioning with every transfer, she does not retain the information. Gait Training Gait (FIM): 4 Distance: 150'x2 Walk 10 feet (QC): 3 Walk 50 ft with 2 Turns(QC): 3 Walk 150 ft (QC): 3 Walking 10ft/uneven surface-QC: 3 Gait Level of Assist: 4 Gait Persons Needed: 1 Gait Assistive Device: FWW Patient can ambulate 150' with min assist using a rolling walker (including 50' with at least 2 turns of 90 degrees and 10' over an uneven surface). She needs min assist to help correct balance, she is very unsteady. Stair Training Stairs (FIM): 2 #of Steps: 4 1 Step (curb) (QC): 4 4 Steps (QC): 4 12 Steps (QC): 88 Stairs: Pattern: Step to Level of Assist: 4 Patient can go up and down 4 steps using 2 handrails with CGA and cues for foot placement and safety. She attempted to go for 8 steps but her legs gave out and had a near fall with therapist assist. Balance Picking up an Object (QC): 88 Exercises Seated Therapy Exercises: Ankle pumps, Hip flexion Seated Reps: 20 LAQ alternating for 5 min Treatments bed mobility and transfers, ambulation, stair training, functional strengthening Assessment Current Status: Poor Progress Patient had a near fall on the stairs, she fatigues quickly, is very unsteady during ambulation PT Short Term Goals Short Term Goals Time Frame: November 01, 2016 Transfers (B,C,W/C) (FIM): 6 Gait (FIM): 6 Distance (FIM): 3=150 ft Gait Distance Comment: 200' Gait Level of Assist: 6 Gait Assistive Device: FWW, Cane Single Point Wheelchair Distance: 50' Stairs (FIM): 2 # of Steps: 4 Stairs Level of Assist: 5 PT Shelter Goals Art Objects Repairer Goals PT Shelter Goals Time Frame: Nov 15, 2016 Transfers (B,C,W/C) (FIM): 6 Sit to Lying (QC): 6 Lying-Sitting on Side/Bed(QC): 6 Sit to Stand (QC): 6 Rollin Roll Left to Right (QC): 6 Chair/Shu-tv-Akvea Xfer(QC): 6 Car Transfer (QC): 6 Does the Patient Walk: Yes Gait (FIM): 6 Gait distance (FIM): 3=150 ft Distance: >300' Walk 10 feet (QC): 6 Walk 10ft-Uneven Surface(QC): 6 Walk 50ft with 2 Turns (QC): 6 Walk 150 ft (QC): 6 Gait Level of Assist: 6 Gait Assistive Device: FWW Does the Pt use WC or Scooter?: No Stairs (FIM): 6 # of Steps: 12 1 Step (curb) (QC): 6 4 Steps (QC): 6 12 Steps (QC): 6 Stairs Level Of Assist: 6 Picking up an Object (QC): 6 PT Plan Problem List Problem List: Activity Tolerance, Functional Strength, Safety, Balance, Gait, Transfer, Bed Mobility Treatment/Plan Treatment Plan: Continue Plan of Care Treatment Plan: Bed Mobility, Education, Functional Activity Zena, Functional Strength, Group Therapy, Gait, Safety, Therapeutic Exercise, Transfers Treatment Duration: Nov 15, 2016 Visits Per Week: 10-11 Minutes/Day (M-F): 60-90 Minutes/Day (Sat/Quintanilla): PRN Safety Risks/Education Patient Education: Gait Training, Transfer Techniques, Steps, Correct Positioning, Safety Issues Teaching Recipient: Patient Teaching Methods: Demonstration, Discussion Response to Teaching: Reinforcement Needed Time/GCodes Time In: 800 Time Out: 845 Total Billed Treatment Time: 45 Total Billed Treatment 1 visit EX 15' GT 30' ISRAEL CRUMP PT October 31, 2016 08:45
--- NOTE | 2016-10-31 08:52 | PM & R (SOAP) Progress Note ---
Subjective Subjective/Events-last exam Patient was seen in her room this AM Discussed case with RN and DR Vitcor Patient min assist for transfers and gait with WW and C Collar.Discussed case with DR Valencia by phone He will see re renal cyst Patient not a good historian and uncertain if this is a new finding.Will see if we can obtain records from [facility] ([facility]) re this where she sees Carl Hong IMPREGN[employer] HGB low again 7.[address] victor Will repeat H&H to confirm see orders.Thoracic pain better Objective Exam Last Set of Vital Signs Vital Signs Date Time Temp Pulse Resp B/P (MAP) Pulse Ox O2 Delivery O2 Flow Rate FiO2 10/31/16 08:02 99.1 56 18 167/66 99 3.00 Capillary Refill : I&O Intake and Output 10/31/16 00:00 Intake Total 760 ml Balance 760 ml Intake Oral 760 ml # Voids 6 General: Alert, Oriented X3, Cooperative, No Acute Distress HEENT: PERRLA, EOMI, Mucous Memb Moist/[place], Other ( large hematoma over rt forehead 02 by N/C in place) Neck: Supple, No JVD, Other (Cervical;collar in place) Lungs: Clear to Auscultation, Other (decresed breath sounds at base) Heart: Regular Rate Abdomen: Normal Bowel Sounds, Soft, No Tenderness Extremities: No Edema Skin: Other (bruise hematoma as per above) Neuro: Other (generalized weakness) Results Lab Laboratory Tests 10/28/16 09:33: Sodium Level 138, Potassium Level 4.7, Chloride Level 103, Carbon Dioxide Level 32, Anion Gap 3L, Blood Urea Nitrogen 26H, Creatinine 1.82H, Estimat Glomerular Filtration Rate 27, BUN/Creatinine Ratio 14, Glucose Level 143H, Calcium Level 9.1 10/29/16 05:05: Sodium Level 140, Potassium Level 4.7, Chloride Level 102, Carbon Dioxide Level 31, Anion Gap 7, Blood Urea Nitrogen 29H, Creatinine 1.66H, Estimat Glomerular Filtration Rate 30, BUN/Creatinine Ratio 17, Glucose Level 91, Calcium Level 9.6 , White Blood Count 8.1, Red Blood Count 3.05L, Hemoglobin 9.8L, Hematocrit 31L , Mean Corpuscular Volume 102H, Mean Corpuscular Hemoglobin 32, Mean Corpuscular Hemoglobin Concent 32, Red Cell Distribution Width 18.3H, Platelet Count 336, Mean Platelet Volume 8.7 10/30/16 05:20: Sodium Level 138, Potassium Level 4.2, Chloride Level 100, Carbon Dioxide Level 30, Anion Gap 8, Blood Urea Nitrogen 24H, Creatinine 1.57H, Estimat Glomerular Filtration Rate 32, BUN/Creatinine Ratio 15, Glucose Level 90, Calcium Level 9.4 10/31/16 05:20: Sodium Level 134L, Potassium Level 4.0, Chloride Level 98, Carbon Dioxide Level 31, Anion Gap 5, Blood Urea Nitrogen 29H, Creatinine 1.54H, Estimat Glomerular Filtration Rate 33, BUN/Creatinine Ratio 19, Glucose Level 91, Calcium Level 9.2 , White Blood Count 5.5, Red Blood Count 2.32L, Hemoglobin 7.4#L, Hematocrit 24L , Mean Corpuscular Volume 101H, Mean Corpuscular Hemoglobin 32, Mean Corpuscular Hemoglobin Concent 32, Red Cell Distribution Width 17.4H, Platelet Count 233, Mean Platelet Volume 9.2 Assessment/Plan Assessment S/P repair C spine frx and in C collar Hematoma rt forehead s/p fall CHF treated-acute systolic Anemia-will repeat H&H see orders 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 Tobaccoism Etoh use Cognitive impairment returning to baseline Abdominal mass Thoracic pain/rib pain s/p fall?-Tspine films negative AAA 5 cm known to patient and family-Dr Huan Mustafa following Renal cysts Large left renal cyst Have asked DR Valencia to review-Spoke with him today-He mitch see HTN meds adjusted to obtain better control CKD-limiting use of contrast for imaging studies Increased confusion -will d/c oxyir-done improving Plan ContinuePT/OT/ST Pain management Monitor 02sats and adjust 02 and meds as needed F/U with DR victor and Med-onc and Cardiology PRN Possible renal biopsy-Have asked to see Rib films to f/u re possible fractures s/p fall if needed Team Conference held yesterday-See report for full functional update and POC Discharge set tentatively for Friday11/01/16 D/Cd Oxyir repeat H&H F/U with DR White recs See if we can obtain [facility] records LOUIS BONILLA MD October 31, 2016 08:51
--- NOTE | 2016-10-31 10:14 | Occupational Ther Daily Note ---
OT Current Status-Daily Note Subjective Pt. reports pain in her neck in shower. Does not state a pain level. Nursing aware. Appearance Pt. in bed. Agrees to shower. Mental Status/Objective Patient Orientation: Person Functional [place] Measure 0=Not Assessed/NA 4=Minimal Assistance 1=Total Assistance 5=Supervision or Setup 2=Maximal Assistance 6=Modified [place] 3=Moderate Assistance 7=Complete [place] Attachments: Oxygen ADL-Treatment Functional [place] Measure 0=Not Assessed/NA 4=Minimal Assistance 1=Total Assistance 5=Supervision or Setup 2=Maximal Assistance 6=Modified [place] 3=Moderate Assistance 7=Complete IndependenceIRFPAI Quality Coding Scale 6 Independent with activity with or without an assistive device 5 Patient requires set up or clean up by helper. Patient completes activity by themselves 4 Supervision or touching assist (CGA). [place] provide cues , steadying assist 3 The helper provides less than half the effort to complete the activity 2 The helper provides more than half the effort to complete the activity 1 Dependent. The helper does all the effort to complete an activity 7 Patient refused to complete or attempt activity 9 The patient did not perform the activity before the current illness or injury 88 Not attempted due to Medical conditions or safety concerns Eating (FIM): 5 Eating (QC): 5 Grooming (FIM): 5 (SBA with brushing hair.) Bathing (FIM): 4 (Pt. requires CGA/Min assist in stance to wash reginald areas.) Shower/Bathe Self (QC): 4 Upper Body (FIM): 4 (Pt. requires min assist to doff shirt, sba to don shirt. Pt. requires min assist to don neck brace.) Upper Body Dressing (QC): 4 Lower Body Dressing (FIM): 4 (CGA in stance.) Lower Body Dressing (QC): 4 On/Off Footwear (QC): 4 Transfers (B, C, W/C) (FIM): 4 Shower Transfer(FIM): 4 (CGA to ambulate into shower.) Pt. had one loss of balance in shower in stance. Fell backward and bench braced her legs. Pt. is not safe to be up on her own. Legs seem to give out easily. Does not adhere to back and spine precautions. Pt. requires 24 hour supervision for safety. Education OT Patient Education: Correct positioning, Modified ADL techniques, Progress toward Goal/Update tx plan, Purpose of tx/functional activities, Reviewed precautions, Rehab process, Transfer techniques Teaching Recipient: Patient Teaching Methods: Demonstration, Discussion Response to Teaching: Verbalize Understanding, Return Demonstration OT Short Term Goals Short Term Goals Transfers (B,C,W/C) (FIM): 6 1=Demonstrate adherence to instructed precautions during ADL tasks. 2=Patient will verbalize/demonstrate understanding of assistive devices/ modifications for ADL. 3=Patient will improve strength/tolerance for activity to enable patient to perform ADL's. OT Halfway Goals Processing Mgr Goals Time Frame: November 08, 2016 Eating (FIM): 7 Eating (QC): 6 Groomin Oral Hygiene (QC): 6 Bathing(FIM): 6 Shower/Bathe Self (QC): 6 Upper Body Dressing(FIM): 6 Upper Body Dressing (QC): 6 Lower Body Dressing(FIM): 6 Lower Body Dressing (QC): 6 On/Off Footwear (QC): 6 Toileting(FIM): 6 Toileting Hygiene (QC): 6 Toilet/Commode Transfer(FIM): 6 Toilet/Commode Transfer (QC): 6 Shower Transfer(FIM): 6 Comprehension(FIM): 5 Expression (FIM): 5 Social Interaction(FIM): 5 Problem Solving(FIM): 4 Memory(FIM): 4 Additional Goals: 2-Verbalize Understanding, 3-ImproveStrength/Zena 1=Demonstrate adherence to instructed precautions during ADL tasks. 2=Patient will verbalize/demonstrate understanding of assistive devices/ modifications for ADL. 3=Patient will improve strength/tolerance for activity to enable patient to perform ADL's. OT Education/Plan Problem List/Assessment Assessment: Decreased Activ Tolerance, Decreased Safety Aware, Dependent Transfers, Impaired Cognition, Impaired Funct Balance, Impaired I ADL's, Impaired Self-Care Skills Pt would benefit from skilled OT to increase her independence in basic self care to allow her to return home safely to live with her Discharge Recommendations Plan/Recommendations: Continue POC Therapy D/C Recommendations: 24 hr Supervision Treatment Plan/Plan of Care Treatment,Training & Education: Yes Patient would benefit from OT for education, treatment and training to promote independence in ADL's, mobility, safety and/or upper extremity function for ADL' s. Plan of Care: ADL Retraining, Functional Mobility, Group Exercise/Act as Ind ( education, exercise, funct activities, activity tolerance, memory, problem solving), UE Funct Exercise/Act, UE Neuromus Re-Ed/Coord Treatment Duration: November 08, 2016 Visits Per Week: 10-11 Minutes/Day (M-F): 75-90 Minutes/Day (Sat/Quintanilla): PRN Agreement: Yes Rehab Potential: Guarded Time/GCodes Start Time: 09:15 Stop Time: 10:15 Total Time Billed (hr/min): 60 Billed Treatment Time 1, ADL x 4 EDMOND BARCENAS OT October 31, 2016 10:14
--- NOTE | 2016-10-31 10:43 | Speech Therapy Daily Note ---
Speech Daily Progress Note Subjective The patient was seated upright in bed upon entrance. The patient greeted the clinician appropriately and was agreeable to participation in the cognitive treatment session. To note: The patient appeared more alert and appropriate for treatment on this date. The clinician believes the possibility of increased confusion may be a result of the recently increased pain medication (which she was not provided on this date). Objective Due to the patient's increased appropriateness and plans to discharge tomorrow, 11/01/2016, the clinician completed a full reassessment of her cognition with the below results: - Executive Functioning: The patient was unable to accurately complete trail- making or cube copying. The patient was able to draw an accurate contour of a clock with the numbers, however, was unable to place the clock hands in the correct position. - Naming: The patient was able to name three of three black and white photographs. - Attention: The patient was able to recall five single digits forward, however , was unable to provide three single digits in reverse order. The patient accurately identified a specific letter in a string of letters and demonstrated +3/5 accuracy with serial seven subtraction. - Language: The patient was able to repeat short phrases and find similarities between two words. - Memory: The patient was able to recall four of five single words following a five minute interval. - Orientation: The patient was oriented to year, day of week, location, and city. The patient required direction to use external aid to state month and date. On this date, the patient demonstrated +20/30 on the MoCA correlating to a mild cognitive impairment and an overall improvement with initial goals. Assessment Assessment Current Status: Good Progress Treatment Plan Continue Plan of Care Communication Comprehension: 4 Expression: 5 Social Cognition Social Interaction: 4 Problem Solvin Memory: 3 Speech Short Term Goals Short Term Goals Short Term Goals 1. The patient will demonstrated 80% accuracy with simple orientation information using an external aid and mild clinician verbal cueing. 2. The patient will display 80% accuracy with safety problem solving with mild clinician verbal cueing. 3. The patient will recall two functional memory strategies for use at home. Time Frame-STG: Two Weeks Speech Longterm Goals Longterm Goals 1. The patient will display improved cognitive skills for increased safety and function with ADL's. Time Frame: Four Weeks Comprehension: 5 Expression: 5 Social Interaction: 5 Problem Solvin Memory: 4 Speech-Plan Treatment Plan Speech Therapy Treatment Plan: Continue Plan of Care Continue skilled speech pathology to target functional problem solving and memory (cognition). Treatment Duration: Nov 19, 2016 # of days/week Four to five. Visits Per Week: Four to Five. Minutes/Day (M-F): 30 Rehab Potential: Guarded Safety Risks/Education Teaching Recipient: Patient Teaching Methods: Demonstration, Discussion Response to Teaching: Verbalize Understanding, Return Demonstration Education Topics Provided: Use of External Memory Aid Time Speech Therapy Time In: 08:45 Speech Therapy Time Out: 09:15 Total Billed Time: 30 Billed Treatment Time 1LAMAR ELIZ[address] ST October 31, 2016 10:43
--- NOTE | 2016-10-31 12:42 | Occupational Ther Daily Note ---
OT Current Status-Daily Note Subjective Pt alert, lying in bed. present in room. Pt agreed to therapy. Pt c/ o fatigue. Nrsg in room discussing prior history with pt and . Mental Status/Objective Patient Orientation: Person, Place, Time, Situation Functional [place] Measure 0=Not Assessed/NA 4=Minimal Assistance 1=Total Assistance 5=Supervision or Setup 2=Maximal Assistance 6=Modified [place] 3=Moderate Assistance 7=Complete [place] ADL-Treatment Functional [place] Measure 0=Not Assessed/NA 4=Minimal Assistance 1=Total Assistance 5=Supervision or Setup 2=Maximal Assistance 6=Modified [place] 3=Moderate Assistance 7=Complete IndependenceIRFPAI Quality Coding Scale 6 Independent with activity with or without an assistive device 5 Patient requires set up or clean up by helper. Patient completes activity by themselves 4 Supervision or touching assist (CGA). [place] provide cues , steadying assist 3 The helper provides less than half the effort to complete the activity 2 The helper provides more than half the effort to complete the activity 1 Dependent. The helper does all the effort to complete an activity 7 Patient refused to complete or attempt activity 9 The patient did not perform the activity before the current illness or injury 88 Not attempted due to Medical conditions or safety concerns Other Treatment Pt completed tasks lying in bed. Pt was able to complete functional activity with UE's against gravity without fatigue. Pt had difficulty with choices that were presented and required cues and suggestions to complete activity. After choosing, pt did not want to finish activity on own, SMYTH assisted pt. Pt did demonstrate functional UE ROM and fair strength though did have jerky movements with UE's throughout treatment. After therapy, pt lying in bed with call light/ phone in reach. All needs met in room, present. OT Short Term Goals Short Term Goals Transfers (B,C,W/C) (FIM): 6 1=Demonstrate adherence to instructed precautions during ADL tasks. 2=Patient will verbalize/demonstrate understanding of assistive devices/ modifications for ADL. 3=Patient will improve strength/tolerance for activity to enable patient to perform ADL's. OT Management Psychologist Goals Management Psychologist Goals Time Frame: November 08, 2016 Eating (FIM): 7 Eating (QC): 6 Groomin Oral Hygiene (QC): 6 Bathing(FIM): 6 Shower/Bathe Self (QC): 6 Upper Body Dressing(FIM): 6 Upper Body Dressing (QC): 6 Lower Body Dressing(FIM): 6 Lower Body Dressing (QC): 6 On/Off Footwear (QC): 6 Toileting(FIM): 6 Toileting Hygiene (QC): 6 Toilet/Commode Transfer(FIM): 6 Toilet/Commode Transfer (QC): 6 Shower Transfer(FIM): 6 Comprehension(FIM): 5 Expression (FIM): 5 Social Interaction(FIM): 5 Problem Solving(FIM): 4 Memory(FIM): 4 Additional Goals: 2-Verbalize Understanding, 3-ImproveStrength/Zena 1=Demonstrate adherence to instructed precautions during ADL tasks. 2=Patient will verbalize/demonstrate understanding of assistive devices/ modifications for ADL. 3=Patient will improve strength/tolerance for activity to enable patient to perform ADL's. OT Education/Plan Problem List/Assessment Pt would benefit from skilled OT to increase her independence in basic self care to allow her to return home safely to live with her Discharge Recommendations Plan/Recommendations: Continue POC Treatment Plan/Plan of Care Patient would benefit from OT for education, treatment and training to promote independence in ADL's, mobility, safety and/or upper extremity function for ADL' s. Plan of Care: ADL Retraining, Functional Mobility, Group Exercise/Act as Ind ( education, exercise, funct activities, activity tolerance, memory, problem solving), UE Funct Exercise/Act, UE Neuromus Re-Ed/Coord Treatment Duration: November 08, 2016 Visits Per Week: 10-11 Minutes/Day (M-F): 75-90 Minutes/Day (Sat/Quintanilla): PRN Agreement: Yes Rehab Potential: Guarded Time/GCodes Start Time: 11:30 Stop Time: 11:45 Total Time Billed (hr/min): 15 Billed Treatment Time 1 visit-FA 1 (15 min) TYSON RAMOS October 31, 2016 12:42
--- NOTE | 2016-10-31 12:54 | CONSULTATION REPORT ---
DATE OF SERVICE: 10/31/[address] Kimble. SUMMARY After reviewing the patient's records, interviewing her and examining her, being not a great historian, most of the information was obtained from the chart and Dr. Kimble. This is a 75-year-old white lady who is rehabilitating from a cervical surgery related to a fall and admitted to us from [facility]. She was found before to have an aneurysm, which is followed by Dr. Escobar in [place] and apparently has been stable. She was never told she had any renal issues. 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 Renal ultrasound was confirmative of the above. She apparently has been asymptomatic from this. She is ALLERGIC to PLAVIX, CODEINE, WARFARIN and TRAZONE. She is on amlodipine, aspirin, calcium, vitamin D3, Coreg, fexofenadine, Lasix, hydroxyzine, Montelukast, iron, vitamins, nitroglycerin p.r.n., fish oil, Zocor, spironolactone, dose and frequency per chart. She has significant history medically speaking with COPD, coronary artery disease, above-mentioned abdominal aortic aneurysm, previous open heart surgery, previous appendectomy, hyperlipidemia, hypertension, anemia, followed by Dr. Medley. PHYSICAL EXAMINATION: GENERAL: Well-nourished, well-developed in no active distress. HEAD: Normocephalic. EARS, NOSE AND THROAT: Unremarkable with cervical collar on. EYES: No pallor or icterus. CHEST: Clear. HEART: Regular rate and rhythm. ABDOMEN: Soft. IMPRESSION: 1. 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 2. Left renal cyst with a suspicious small one. 3. Bilateral renal cysts. 4. Multiple medical problems per history. PLAN: I will go ahead and obtain an MRI of the abdomen to check on both kidneys. We take into consideration the age of the patient, the multiple medical issues she has and the aggressiveness of treatment in her case. Later on we will obtain an ultrasound every 3 months and manage accordingly unless the MRI has clearly cut suspicion. I reviewed all of her x-rays. Job ID: [id number] DocumentID: [id number] Dictated Date: 10/31/2016 10:04:58 [employer] Date: 10/31/2016 12:53:34 Dictated By: MARGE CASAS MD
[2016-10-31 13:20] VITALS: BP 143/57
--- NOTE | 2016-10-31 13:20 | Physical Therapy Daily Note ---
PT Daily Note-Current Subjective Agreeable to PT. No complaints. Mental Status Patient Orientation: Person, Place, Time, Situation Transfers Functional [place] Measure 0=Not Assessed/NA 4=Minimal Assistance 1=Total Assistance 5=Supervision or Setup 2=Maximal Assistance 6=Modified [place] 3=Moderate Assistance 7=Complete IndependenceIRFPAI Quality Coding Scale 6 Independent with activity with or without an assistive device 5 Patient requires set up or clean up by helper. Patient completes activity by themselves 4 Supervision or touching assist (CGA). [place] provide cues , steadying assist 3 The helper provides less than half the effort to complete the activity 2 The helper provides more than half the effort to complete the activity 1 Dependent. The helper does all the effort to complete an activity 7 Patient refused to complete or attempt activity 9 The patient did not perform the activity before the current illness or injury 88 Not attempted due to Medical conditions or safety concerns Treatments Worked on functional LE strengthening with bed exercises to include AP, QS, HS, SAQ, SLR, hip abduct, GS and bridging. Functional transfers for bed mobility to transition sup to from sit x 2 and then sat EOB. Sit to from stand x 10 reps. Transfers and bed mobility performed with skilled cuing for safety and task segmentation. Pt in bed post treatment with bed alarm activated and needs met. Assessment Current Status: Good Progress Tolerated treatment well. Pt pleasant and cooperateiv.e PT Short Term Goals Short Term Goals Time Frame: November 01, 2016 Transfers (B,C,W/C) (FIM): 6 Gait (FIM): 6 Distance (FIM): 3=150 ft Gait Distance Comment: 200' Gait Level of Assist: 6 Gait Assistive Device: FWW, Cane Single Point Wheelchair Distance: 50' Stairs (FIM): 2 # of Steps: 4 Stairs Level of Assist: 5 PT Long-Term Goals Convertible Sofa Bedspring Tester Goals PT Convertible Sofa Bedspring Tester Goals Time Frame: Nov 15, 2016 Transfers (B,C,W/C) (FIM): 6 Sit to Lying (QC): 6 Lying-Sitting on Side/Bed(QC): 6 Sit to Stand (QC): 6 Rollin Roll Left to Right (QC): 6 Chair/Szl-yd-Ozlse Xfer(QC): 6 Car Transfer (QC): 6 Does the Patient Walk: Yes Gait (FIM): 6 Gait distance (FIM): 3=150 ft Distance: >300' Walk 10 feet (QC): 6 Walk 10ft-Uneven Surface(QC): 6 Walk 50ft with 2 Turns (QC): 6 Walk 150 ft (QC): 6 Gait Level of Assist: 6 Gait Assistive Device: FWW Does the Pt use WC or Scooter?: No Stairs (FIM): 6 # of Steps: 12 1 Step (curb) (QC): 6 4 Steps (QC): 6 12 Steps (QC): 6 Stairs Level Of Assist: 6 Picking up an Object (QC): 6 PT Plan Problem List Problem List: Activity Tolerance, Functional Strength, Safety Treatment/Plan Treatment Plan: Continue Plan of Care Treatment Plan: Bed Mobility, Education, Functional Activity Zena, Functional Strength, Group Therapy, Gait, Safety, Therapeutic Exercise, Transfers Treatment Duration: Nov 15, 2016 Visits Per Week: 10-11 Minutes/Day (M-F): 60-90 Minutes/Day (Sat/Quintanilla): PRN Safety Risks/Education Patient Education: Transfer Techniques, Safety Issues Teaching Recipient: Patient Teaching Methods: Demonstration, Discussion Response to Teaching: Reinforcement Needed Time/GCodes Time In: 1245 Time Out: 1415 Total Billed Treatment Time: 30 Total Billed Treatment visit EX 15 FA 15 TYSON PHILIP PT October 31, 2016 13:20
--- NOTE | 2016-10-31 14:44 | Oncology Progress Note ---
Subjective Subjective/Events-last exam Hb down to 7.4 Cr better but still high at 1.54 tired and confusion Data Review Labs Laboratory Tests 10/31/16 05:20 10/31/16 12:40 Laboratory Tests 10/29/16 05:05: Red Blood Count 3.05L, Hemoglobin 9.8L, Hematocrit 31L, Mean Corpuscular Volume 102H, Red Cell Distribution Width 18.3H, Blood Urea Nitrogen 29H, Creatinine 1.66H 10/30/16 05:20: Blood Urea Nitrogen 24H, Creatinine 1.57H 10/31/16 05:20: Red Blood Count 2.32L, Hemoglobin 7.4#L, Hematocrit 24L, Mean Corpuscular Volume 101H, Red Cell Distribution Width 17.4H, Blood Urea Nitrogen 29H, Creatinine 1.54H, Sodium Level 134L 10/31/16 12:40: Hemoglobin 8.4L, Hematocrit 27L Physical Exam Vital Signs Vital Sign - Last 12Hours 10/25/16 05:00 Temp 98.7 Pulse 54 Resp 18 B/P (MAP) 65/67 Pulse Ox 97 O2 Flow Rate 4.00 Capillary Refill : General Appearance: No Apparent Distress Impression & Plan Impression & Plan 1. Fall and cervical vertebrate fracture, s/p repair. 2. Large right forehead hematoma. 3. Anemia most likely form hematoma and recent surgery loss. 4. CAD, s/p GBAG x 3 on three BP meds and 3 heart meds and HCTZ. 5. h/o heavy alcohol abuse, stopped now. ? liver cirrohsis 6. h/o heavy tobacco abuse, stopped now. COPD 7. Acute renal failure Cr from 1.2 to 1.7 last week. 8. CHF on CXR today and increasing SOB, O2 Sat 90% on 3L NC. Plan: 1. Keep Hb above 9 with transfusion due to CHF and ARF. Will transfuse RBC today. Also start EPO (Aranesp) 40mcg q 2wks. 2. Agree to hold off her Lasix because of ARF and fall. 3. Closely monitor renal function. 4. Stop Lovenox due to bleeding and anemia. . 5. Stool occult blood negative. No indication for GI work up at this point. 6. Pt will be very challenge in terms of managing her fluid, CHF and acute renal failure. 7. We need to discuss the DNR status. 8. Protonix 40mg daily. 9. Continue PT OT 10. Using bed site commode. Clinical Quality Measures DVT/VTE Risk/Contraindication: Risk Factor Score Per Nursin RFS Level Per Nursing on Admit: 4+=Very High TRUPTI NOLAND MD October 31, 2016 14:44
[2016-10-31] MEDS ORDERED: DARBEPOETIN 40 MCG/ML (ARANESP) 1 ML VIAL SC SCH (14:45)
--- NOTE | 2016-10-31 17:24 | Diagnostic Imaging Report ---
CLINICAL INDICATION: Patient had recent sono, cystic lesion seen. Patient has COPD. EXAM: MRI of the abdomen performed without IV contrast. Sequences include axial 2-D FIESTA fat-sat, coronal 2-D FIESTA fat-sat, coronal T2 fat-sat, axial T1 fat-sat, coronal T2 fat-sat, axial T1 FSPGR fat-sat, axial T2, axial T2 fat-sat, coronal 2-D FIESTA, and in and [id number]. COMPARISON: Bilateral renal ultrasound dated 10/30/2016. CT scan of the abdomen and pelvis without contrast dated 10/29/2016. FINDINGS: Again seen abdominal aortic aneurysm measuring 5.1 cm x 5.2 cm in greatest axial dimension. The visualized portions of the liver and spleen are unremarkable. There is a 9 mm high T2 signal circumscribed lesion involving the body of the pancreas best seen on series 4, image 25. This is retrospectively seen on the prior CT scan. Otherwise, pancreas is unremarkable. There are multiple small stones within the gallbladder. The gallbladder is partially fluid filled, otherwise unremarkable. There is no pericholecystic fluid. Gallbladder wall measures 2-3 mm. There are multiple bilateral renal cysts with most of the cysts totally replacing the left renal parenchyma. There is a 6 mm low T2 signal area involving the midportion of the right kidney seen on series 4, image 20. There is a 9.4 cm x 7.5 cm cystic structure with low T2 signal complexity seen within it. The complexity has a rounded appearance and there are other curvilinear low signal areas seen within the cystic lesion. The rounded complex area measures at least 5.1 cm in craniocaudal dimension. Remainder of the visualized cystic structures appear either simple or have thin septations. There is no evidence of hydronephrosis. There is no significant retroperitoneal lymphadenopathy. There is no intra-abdominal free fluid. The extra-abdominal structures show no significant abnormality. Bony structures show no significant abnormality. IMPRESSION: 1: There is multicystic appearance of both kidneys which could be related to polycystic kidney disease. There is a complex cyst in the right kidney and left kidney. Otherwise, the remainder of the bilateral renal cysts are either simple or have thin septations. 2: There is a roughly 9.4 cm complex cyst involving the inferior portion of the left kidney which has a 5.1 cm low signal complex area within it and other low signal complex areas. It is unknown if this represents solid tissue and neoplasm cannot be completely excluded. Other consideration may represent sequelae of prior hemorrhagic changes. Followup MRI in 3 months is suggested to evaluate for stability. 3: There is a 6 mm low signal area within the mid right kidney which is nonspecific. This does not represent calcification. This may just represent a complicated cyst. This also should be followed on subsequent imaging. 4: There is no hydronephrosis. 5: Abdominal aortic aneurysm. 6: Cholelithiasis. Dictated by: Dictated on workstation # [id number]
[2016-10-31 17:31] VITALS: BP 145/55
[2016-10-31] MEDS ORDERED: ACETAMINOPHEN 500 MG TAB (TYLENOL) PO NR (18:15)
[2016-10-31] MEDS ORDERED: Multivitamins/Minerals Therap PO (18:34)
[2016-10-31] MEDS ORDERED: HYDR-3923 PO (18:34)
[2016-10-31] MEDS ORDERED: THIA100T7 PO (18:34)
[2016-10-31] MEDS ORDERED: DARB40VI SC (18:34)
[2016-10-31] MEDS ORDERED: TRAM50TA2 PO (18:34)
[2016-10-31] MEDS ORDERED: FOLI1TAB24 PO (18:34)
[2016-10-31] MEDS ORDERED: ASPI-999 PO (18:34)
[2016-10-31] MEDS: ATORVASTATIN 20 MG (LIPITOR) TABLET PO SCH (21:35)
[2016-10-31] MEDS: eZETimibe 10 MG (ZETIA) TABLET PO SCH (21:35)
[2016-10-31] MEDS: FENOFIBRATE 134 MG (LOFIBRA) CAPSULE PO SCH (21:35)
[2016-10-31] MEDS: LORATADINE (CLARITIN) 10 MG TAB PO SCH (21:36)
[2016-10-31] MEDS: FAMOTIDINE 20 MG (PEPCID) TABLET PO SCH (21:38)
[2016-10-31] MEDS: PRIMIDONE 50 MG TAB (MYSOLINE) PO SCH (21:38)
[2016-10-31] MEDS ORDERED: NS IV 500 ML 500 ML ONE (22:24)
[2016-10-31 22:55] VITALS: BP 146/69
[2016-10-31 23:10] VITALS: BP 127/53
[2016-11-01 02:40] VITALS: BP 145/65
[2016-11-01 05:00] VITALS: BP 119/74
[2016-11-01] MEDS: PANTOPRAZOLE 40 MG (PROTONIX) TAB PO SCH (05:46)
[2016-11-01 06:02] LABS: BASOPHILS % (AUTO) 1 % (0-10); EOSINOPHILS # (AUTO) 0.2 10^3/uL (0.0-0.3); EOSINOPHILS % (AUTO) 3 % (0-10); LYMPHOCYTES # (AUTO) 0.6 X 10^3 (1.0-4.0); LYMPHOCYTES % (AUTO) 11 % (12-44); MEAN CORPUSCULAR HEMOGLOBIN 32 PG (25-34); MEAN CORPUSCULAR HGB CONC 32 G/DL (32-36); MEAN CORPUSCULAR VOLUME 99 FL (80-99); MEAN PLATELET VOLUME 9.2 FL (7.4-10.4); MONOCYTES # (AUTO) 0.7 X 10^3 (0.0-1.0); MONOCYTES % (AUTO) 12 % (0-12); NEUTROPHILS # (AUTO) 4.5 X 10^3 (1.8-7.8); NEUTROPHILS % (AUTO) 75 % (42-75); PLATELET COUNT 243 10^3/uL (130-400); RED BLOOD COUNT 2.83 10^6/uL (4.35-5.85); RED CELL DISTRIBUTION WIDTH 18.7 % (10.0-14.5)
[2016-11-01 06:30] LABS: CALCIUM 9.2 MG/DL (8.5-10.1); CREATININE SERUM 1.64 MG/DL (0.60-1.30); POTASSIUM 4.8 MMOL/L (3.6-5.0)
[2016-11-01] MEDS: MULTIVIT W/MINERALS TAB (THERAGRAN M) PO SCH (06:58)
[2016-11-01] MEDS: FOLIC ACID 1 MG TAB PO SCH (06:58)
[2016-11-01] MEDS: THIAMINE 100 MG (VITAMIN B-1) TAB PO SCH (06:58)
[2016-11-01] MEDS: VITAMIN D3 1,000 UNITS (CHOLECALCIFEROL) TABLET PO SCH (06:58)
[2016-11-01] MEDS: OMEGA 3 (FISH OIL) 1000 MG CAP PO SCH (06:58)
[2016-11-01] MEDS: hydrALAZINE (APRESOLINE) 25 MG TAB PO SCH ×2 (06:59→13:03)
[2016-11-01] MEDS: UMECLIDINIUM BROMIDE (INCRUSE ELLIPTA) 7'S IH SCH (07:19)
[2016-11-01] MEDS: RT-FLUTICASONE 110 MCG (FLOVENT) PER PUFF INH SCH (07:19)
[2016-11-01] MEDS: OXYBUTYNIN (DITROPAN) 5 MG TAB PO SCH (07:49)
[2016-11-01] MEDS: DOCUSATE SODIUM 100 MG (COLACE) CAP PO SCH (07:49)
[2016-11-01] MEDS: amLODIPine 10 MG (NORVASC) TAB PO SCH (07:50)
[2016-11-01] MEDS: PARoxetine 20 MG (PAXIL) TAB PO SCH (07:50)
[2016-11-01] MEDS: ASPIRIN 81 MG CHEW (CHILDREN'S ASA) PO SCH (07:50)
[2016-11-01] MEDS: GABAPENTIN 100 MG (NEURONTIN) CAP PO SCH ×2 (07:50→13:03)
--- NOTE | 2016-11-01 07:56 | PM & R (SOAP) Progress Note ---
Subjective Subjective/Events-last exam Patient was seen in her room this AM Discussed case with SW yesterday afternoon A local SNU has accepted patient today for ongoing care and therapies Patient is followed by Isidro Mustafa Nephrology re Renal insufficiency with polycystic D. Appreciate [facility] note Patient tolerated Blood transfusion and HGB now 9.Patient is min assist for transfers and gait and return to home in [place] isnt practical at this time, Objective Exam Last Set of Vital Signs Vital Signs Date Time Temp Pulse Resp B/P (MAP) Pulse Ox O2 Delivery O2 Flow Rate FiO2 11/01/16 07:24 97 2.00 11/01/16 05:00 98.7 64 22 119/74 Capillary Refill : I&O Intake and Output 11/01/16 00:00 Intake Total 1276 ml Balance 1276 ml Intake Oral 1276 ml # Voids 5 # Bowel Movements 2 General: Alert, Oriented X3, Cooperative, No Acute Distress HEENT: PERRLA, EOMI, Mucous Memb Moist/[place], Other ( large hematoma over rt forehead 02 by N/C in place) Neck: Supple, No JVD, Other (Cervical;collar in place) Lungs: Clear to Auscultation, Other (decresed breath sounds at base) Heart: Regular Rate Abdomen: Normal Bowel Sounds, Soft, No Tenderness Extremities: No Edema Skin: Other (bruise hematoma as per above) Neuro: Other (generalized weakness) Results Lab Laboratory Tests 10/30/16 05:20: Sodium Level 138, Potassium Level 4.2, Chloride Level 100, Carbon Dioxide Level 30, Anion Gap 8, Blood Urea Nitrogen 24H, Creatinine 1.57H, Estimat Glomerular Filtration Rate 32, BUN/Creatinine Ratio 15, Glucose Level 90, Calcium Level 9.4 10/31/16 05:20: Sodium Level 134L, Potassium Level 4.0, Chloride Level 98, Carbon Dioxide Level 31, Anion Gap 5, Blood Urea Nitrogen 29H, Creatinine 1.54H, Estimat Glomerular Filtration Rate 33, BUN/Creatinine Ratio 19, Glucose Level 91, Calcium Level 9.2 , White Blood Count 5.5, Red Blood Count 2.32L, Hemoglobin 7.4#L, Hematocrit 24L , Mean Corpuscular Volume 101H, Mean Corpuscular Hemoglobin 32, Mean Corpuscular Hemoglobin Concent 32, Red Cell Distribution Width 17.4H, Platelet Count 233, Mean Platelet Volume 9.2 10/31/16 12:40: Hemoglobin 8.4L, Hematocrit 27L 11/01/16 05:44: Sodium Level 135, Potassium Level 4.8, Chloride Level 99, Carbon Dioxide Level 29, Anion Gap 7, Blood Urea Nitrogen 36H, Creatinine 1.64H, Estimat Glomerular Filtration Rate 31, BUN/Creatinine Ratio 22, Glucose Level 93, Calcium Level 9.2 , White Blood Count 6.0, Red Blood Count 2.83L, Hemoglobin 9.0L, Hematocrit 28L , Mean Corpuscular Volume 99, Mean Corpuscular Hemoglobin 32, Mean Corpuscular Hemoglobin Concent 32, Red Cell Distribution Width 18.7H, Platelet Count 243, Mean Platelet Volume 9.2, Neutrophils (%) (Auto) 75, Lymphocytes (%) (Auto) 11L , Monocytes (%) (Auto) 12, Eosinophils (%) (Auto) 3, Basophils (%) (Auto) 1, Neutrophils # (Auto) 4.5, Lymphocytes # (Auto) 0.6L, Monocytes # (Auto) 0.7, Eosinophils # (Auto) 0.2, Basophils # (Auto) 0.0, B-Type Natriuretic Peptide 1242.5H Assessment/Plan Assessment S/P repair C spine frx and in C collar Hematoma rt forehead s/p fall CHF treated-acute systolic Anemia-will repeat H&H see orders-done improved s/p transfusion as per above 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 Tobaccoism Etoh use Cognitive impairment returning to baseline Abdominal mass Thoracic pain/rib pain s/p fall?-Tspine films negative AAA 5 cm known to patient and family-Dr Huan Mustafa following Renal cysts Large left renal cyst Have asked DR Valencia to review-Spoke with him today-He has seen-Patient followed by isidro Mustafa nephrology as well HTN meds adjusted to obtain better control CKD Polycystic-limiting use of contrast for imaging studies-with large cyst noted on U/S Increased confusion -will d/c oxyir-done improving with that and blood transfusion Fall earlier this week in room with thoracic pain improved with negative T spine films for frx Plan Discharge today to local SNU for ongoing care F/U with PCP or NH Physician F/U with Isidro Mustafa Spine surgery and DR Huan Bassett [facility] [place] and Isidro Mustafa Nephrology as well as DR Annie AYERS as needed See orders RX for Tramadol provided LOUIS BONILLA MD November 01, 2016 07:56
--- NOTE | 2016-11-01 08:51 | Therapy Team Discharge Summary ---
Therapy Discharge Summary Discharge Recommendations Date of Discharge Therapy D/C Recommendations: 24 hr Supervision Physical Therapy Patient came to rehab following a fall at home and subluxation of C5-6. Upon admission patient performed bed mobility and transfers with SBA, ambulated 75' with a rolling walker with CGA, and went up and down 1 step using a rolling walker with CGA/Juvenal. Patient has been performing bed mobility and transfer training, balance and endurance training, functional strengthening, stair training, gait training, and education. Patient has not made good progress and has actually declined in several areas. She has not met any of her skilled nursing goals. Now, patient performs bed mobility with SBA, and sit to stand and stand pivot with CGA, she ambulates 150' with a rolling walker with min assist ( including 50' with at least 2 turns of 90 degrees and 10' over an uneven surface ), and can go up and down 4 steps using 2 handrails with CGA/Juvenal. Patient is being discharged from this facility today and will be discharged from PT at this time. PT Coil Machine Supervisor Goals Coil Machine Supervisor Goals PT Coil Machine Supervisor Goals Time Frame: Nov 15, 2016 Transfers (B,C,W/C) (FIM): 6 Roll Left to Right (QC): 6 Sit to Lying (QC): 6 Lying-Sitting on Side/Bed(QC): 6 Sit to Stand (QC): 6 Chair/Sjl-qr-Ndmzb Xfer(QC): 6 Car Transfer (QC): 6 Does the Patient Walk: Yes Gait (FIM): 6 Gait distance (FIM): 3=150 ft Distance: >300' Walk 10 feet (QC): 6 Walk 10ft-Uneven Surface(QC): 6 Walk 50ft with 2 Turns (QC): 6 Walk 150 ft (QC): 6 Gait Level of Assist: 6 Gait Assistive Device: FWW Does the Pt use WC or Scooter?: No Stairs (FIM): 6 # of Steps: 12 1 Step (curb) (QC): 6 4 Steps (QC): 6 12 Steps (QC): 6 Stairs Level Of Assist: 6 Picking up an Object (QC): 6 OT Coil Machine Supervisor Goals Senior Living Goals Time Frame: November 08, 2016 Eating (FIM): 7 Eating (QC): 6 Oral Hygiene (QC): 6 Grooming(FIM): 6 Bathing(FIM): 6 Shower/Bathe Self (QC): 6 Upper Body Dressing(FIM): 6 Upper Body Dressing (QC): 6 Lower Body Dressing(FIM): 6 Lower Body Dressing (QC): 6 On/Off Footwear (QC): 6 Toileting(FIM): 6 Toileting Hygiene (QC): 6 Toilet/Commode Transfer(FIM): 6 Toilet/Commode Transfer (QC): 6 Shower Transfer(FIM): 6 Comprehension(FIM): 5 Expression (FIM): 5 Social Interaction(FIM): 5 Problem Solving(FIM): 4 Memory(FIM): 4 Additional Goals: 2-Verbalize Understanding, 3-ImproveStrength/Zena 1=Demonstrate adherence to instructed precautions during ADL tasks. 2=Patient will verbalize/demonstrate understanding of assistive devices/ modifications for ADL. 3=Patient will improve strength/tolerance for activity to enable patient to perform ADL's. Speech Coil Machine Supervisor Goals Coil Machine Supervisor Goals 1. The patient will display improved cognitive skills for increased safety and function with ADL's. Time Frame: Four Weeks Comprehension: 5 Expression: 5 Social Interaction: 5 Problem Solvin Memory: 4 ISRAEL CRUMP PT November 01, 2016 08:51
--- NOTE | 2016-11-01 08:57 | Progress Note (SOAP) ---
Subjective Subjective/Events-last exam patient feeling good today. Patient to be discharged today. Kidney been evaluated by urology. Traumatic spinal cord. Patient has renal insufficiency stabilizing Objective Exam Vital Signs Date Time Temp Pulse Resp B/P (MAP) Pulse Ox O2 Delivery O2 Flow Rate FiO2 11/01/16 07:24 97 2.00 11/01/16 07:20 98 3.00 11/01/16 05:00 98.7 64 22 119/74 93 3.00 11/01/16 02:40 99.5 55 16 145/65 98 3.00 10/31/16 23:10 99.8 58 16 127/53 98 3.00 10/31/16 23:10 99.8 58 18 127/53 98 3.00 10/31/16 22:55 100.0 79 18 146/69 99 3.00 10/31/16 21:00 3.00 10/31/16 19:10 94 3.00 10/31/16 17:31 99.3 59 20 145/55 99 3.00 10/31/16 13:20 99.3 56 20 143/57 100 3.00 I & O 11/01/16 07:00 Intake Total 1130 ml Balance 1130 ml Capillary Refill : General Appearance: No Apparent Distress, Thin Respiratory: No Accessory Muscle Use, No Respiratory Distress Results Lab Laboratory Tests 10/31/16 12:40: Hemoglobin 8.4L, Hematocrit 27L 11/01/16 05:44: Hemoglobin 9.0L, Hematocrit 28L, White Blood Count 6.0, Red Blood Count 2.83L, Mean Corpuscular Volume 99, Mean Corpuscular Hemoglobin 32, Mean Corpuscular Hemoglobin Concent 32, Red Cell Distribution Width 18.7H, Platelet Count 243, Mean Platelet Volume 9.2, Neutrophils (%) (Auto) 75, Lymphocytes (%) (Auto) 11L , Monocytes (%) (Auto) 12, Eosinophils (%) (Auto) 3, Basophils (%) (Auto) 1, Neutrophils # (Auto) 4.5, Lymphocytes # (Auto) 0.6L, Monocytes # (Auto) 0.7, Eosinophils # (Auto) 0.2, Basophils # (Auto) 0.0, Sodium Level 135, Potassium Level 4.8, Chloride Level 99, Carbon Dioxide Level 29, Anion Gap 7, Blood Urea Nitrogen 36H, Creatinine 1.64H, Estimat Glomerular Filtration Rate 31, BUN/ Creatinine Ratio 22, Glucose Level 93, Calcium Level 9.2, B-Type Natriuretic Peptide 1242.5H Assessment/Plan Assessment/Plan Assess & Plan/Chief Complaint cervical surgery. Hematoma on the forehead. Patient worried about eating more food. . 10/22/16.. Cervical surgery. Hematoma. Anemia Patient to receive blood. Left hand no swelling. . 10/23/16. Cervical surgery. Anemia worse. Patient may get blood today. . 10/24/16.. Cervical surgery. Hematoma on forehead. Chest x-ray shows CHF. Patient anemia. Renal insufficiency. . 10/25/16. Cervical surgery. Hematoma resolving on forehead. CHF better. Patient breathing better and feeling better. Renal insufficiency area Anemia. . 10/28/16. Cervical surgery. Renal insufficiency. Anemia Hematoma on forehead improving. . 10/29/16. Cervical surgery. Renal insufficiency. Anemia area Hematoma on forehead improving. GFR increased. Patient complaining of thoracic pain after for last night. . 10/30/16. Cervical surgery. Renal insufficiency. Aortic aneurysm. Anemia. Hematoma. Renal problem with ultrasound ordered. . . Cervical surgery. Anemia worse to recheck. Patient doesn't know the heel coverer. Patient knows the year. . 11/01/16. Cervical surgery. Anemia. Patient received a unit of blood patient to be discharged today. Kidney problems seen by urology Clinical Quality Measures DVT/VTE Risk/Contraindication: Risk Factor Score Per Nursin RFS Level Per Nursing on Admit: 4+=Very High JEANINE ORLANDO DO November 01, 2016 08:57
[2016-11-01] MEDS: POLYETHYLENE GLYCOL 17 GM (MIRALAX) PACK PO SCH (09:00)
--- NOTE | 2016-11-01 09:48 | Progress Note-Urology ---
Progress Note-Urology Progress Notes/Assess & Plan Progress/Assessment & Plan MRI REVIEWED. RECOMMEND REPEAT RENAL US IN 3 MONTHS. WE WILL SEE PRN Final Diagnosis BILATERAL RENAL CYSTIC MASSES MARGE CASAS MD November 01, 2016 09:48
--- NOTE | 2016-11-01 10:16 | Therapy Team Discharge Summary ---
Therapy Discharge Summary Discharge Recommendations Date of Discharge Therapy D/C Recommendations: 24 hr Supervision Speech-Language Pathology The patient was recently admitted to [facility] following a fall resulting in a back injury. Upon arrival, the patient demonstrated a mild cognitive impairment in the areas of memory and problem solving. The patient's skilled speech pathology intervention focused on functional tasks, functional memory strategies, and orientation. The patient's confusion level waxed and weaned throughout her stay which may have been secondary to administration of different pain medication. Due to the patient's fluctuating confusion, she did not consistently meet the goals placed initially by the clinician. At this time , the patient will be discharged from skilled speech pathology services. PT Assisted Goals Medical Assistant Secretary Goals PT Medical Assistant Secretary Goals Time Frame: Nov 15, 2016 Transfers (B,C,W/C) (FIM): 6 Roll Left to Right (QC): 6 Sit to Lying (QC): 6 Lying-Sitting on Side/Bed(QC): 6 Sit to Stand (QC): 6 Chair/Wax-fk-Dyajy Xfer(QC): 6 Car Transfer (QC): 6 Does the Patient Walk: Yes Gait (FIM): 6 Gait distance (FIM): 3=150 ft Distance: >300' Walk 10 feet (QC): 6 Walk 10ft-Uneven Surface(QC): 6 Walk 50ft with 2 Turns (QC): 6 Walk 150 ft (QC): 6 Gait Level of Assist: 6 Gait Assistive Device: FWW Does the Pt use WC or Scooter?: No Stairs (FIM): 6 # of Steps: 12 1 Step (curb) (QC): 6 4 Steps (QC): 6 12 Steps (QC): 6 Stairs Level Of Assist: 6 Picking up an Object (QC): 6 OT Medical Assistant Secretary Goals Medical Assistant Secretary Goals Time Frame: November 08, 2016 Eating (FIM): 7 Eating (QC): 6 Oral Hygiene (QC): 6 Grooming(FIM): 6 Bathing(FIM): 6 Shower/Bathe Self (QC): 6 Upper Body Dressing(FIM): 6 Upper Body Dressing (QC): 6 Lower Body Dressing(FIM): 6 Lower Body Dressing (QC): 6 On/Off Footwear (QC): 6 Toileting(FIM): 6 Toileting Hygiene (QC): 6 Toilet/Commode Transfer(FIM): 6 Toilet/Commode Transfer (QC): 6 Shower Transfer(FIM): 6 Comprehension(FIM): 5 Expression (FIM): 5 Social Interaction(FIM): 5 Problem Solving(FIM): 4 Memory(FIM): 4 Additional Goals: 2-Verbalize Understanding, 3-ImproveStrength/Zena 1=Demonstrate adherence to instructed precautions during ADL tasks. 2=Patient will verbalize/demonstrate understanding of assistive devices/ modifications for ADL. 3=Patient will improve strength/tolerance for activity to enable patient to perform ADL's. Speech Assisted Goals Medical Assistant Secretary Goals 1. The patient will display improved cognitive skills for increased safety and function with ADL's. Time Frame: Four Weeks Comprehension: 5 (NOT MET) Expression: 5 (NOT MET) Social Interaction: 5 (NOT MET) Problem Solvin (NOT MET) Memory: 4 (NOT MET) TIERA DELGADO November 01, 2016 10:16
[2016-11-01 15:02] VITALS: BP 119/74
== END 2016-11-01 15:00 | DRG 559 ==
LOC: ENPENDDIS 11-01 12:00
PROVIDERS: ADMIT Family Medicine; ATTEND Physical Medicine & Rehabilitation
DX: S12.400D Unspecified displaced fracture of fifth cervical vertebra, subsequent encounter for fracture with routine healing (principal); S00.83XD Contusion of other part of head, subsequent encounter; R53.1 Weakness; I13.0 Hypertensive heart and chronic kidney disease with heart failure and stage 1 through stage 4 chronic kidney disease, or unspecified chronic kidney disease; I50.31 Acute diastolic (congestive) heart failure; N17.9 Acute kidney failure, unspecified; N18.9 Chronic kidney disease, unspecified; Q61.4 Renal dysplasia; J44.9 Chronic obstructive pulmonary disease, unspecified; R41.0 Disorientation, unspecified; I25.10 Atherosclerotic heart disease of native coronary artery without angina pectoris; D64.9 Anemia, unspecified; Z95.1 Presence of aortocoronary bypass graft; Z87.891 Personal history of nicotine dependence; W19.XXXD Unspecified fall, subsequent encounter; Y92.009 Unspecified place in unspecified non-institutional (private) residence as the place of occurrence of the external cause; Z99.81 Dependence on supplemental oxygen; I71.4 Abdominal aortic aneurysm, without rupture
CPT/HCPCS: 36415; 71010; 71020; 72040; 72070; 74176; 74181; 76770; 80048; 80053; 82274; 83880; 84484; 85014; 85018; 85025; 85027; 86850; 86900; 86901; 86920; 93005; 93306; 94640; 94664; 94760

== ENCOUNTER 2016-11-02 01:00 | Emergency (ER) | payer MEDICARE, MEDICAID ==
[~2016-11-02] VITALS: Ht 152.4 cm; Wt 45.4 kg
[~2016-11-02 01:00] MED LIST changes: +ALBU2.5V4 IH; +AMLO10TA2 PO; +ASPI-999 PO; +CETI10TA20 PO; +CHOL20003 PO; +DARB40VI SC; +EZET10TA5 PO; +FENO145T2 PO; +FERR324T11 PO; +FLT11013 IH; +FOLI1TAB24 PO; +GABA-486 PO; +HYDR-3923 PO; +HYDR25TA4 PO; +IPRA4AER IH; +LISI10TA2 PO; +LOSA100T28 PO; +MAG30ORA2 PO; +METO-270 PO; +Multivitamins/Minerals Therap PO; +NITR0.4T39 SL; +OMEG-141 PO; +OXYB5TAB9 PO; +PARI1CAP PO; +PARO30TA3 PO; +PARO40TA3 PO; +POLY17PO6 PO; +PRAV80TA2 PO; +PRIM50TA PO; +PROP20TA5 PO; +RANI150T90 PO; +RANO500T3 PO; +RT-ALBUINH IH; +THIA100T7 PO; +TRAM50TA2 PO; +UMEC62.5 IH
--- NOTE | 2016-11-02 01:19 | ED Fall/Injury ---
General Chief Complaint: Trauma-Non Activation Stated Complaint: FALL-L HIP PAIN Source: patient Exam Limitations: no limitations History of Present Illness Time seen by provider: 01:05 Initial Comments Here by EMS from [facility] with report of unwitnessed fall. Complains of pain to the posterior aspect of her head and her left hip. No report of loss of consciousness. She was just discharged from the hospital yesterday. Has contusion to the right frontal area as well but this is from previous fall. Occurred: this morning Injuries/Pain Location: head, pelvis Context: unknown Loss of Consciousness: no loss of consciousness Associated Symptoms (Fall): No Abdominal Pain, No Chest Pain, Headache, No Neck Pain, No Shortness of Air Allergies and Home Medications Allergies Coded Allergies: clopidogrel (Unverified Adverse Reaction, Severe, EXCESSIVE BLEEDING, 30/03) codeine (Unverified Adverse Reaction, Mild, NAUSEA, 03/30/10) warfarin (Unverified Adverse Reaction, Unknown, "REAL BAD SICK", 01/02/16) Uncoded Allergies: TRAZADONE (Adverse Reaction, Unknown, "CAN'T FUNCTION", 01/02/16) Home Medications Albuterol Sulfate 1 Puff Puff, 2 PUFF IH Q4H PRN for SHORTNESS OF BREATH, ( Reported) 1 PUFF = 90 MCG Amlodipine Besylate 10 Mg Tablet, 10 MG PO DAILY, (Reported) Aspirin 81 Mg Tab.chew, 81 MG PO DAILY for 30 Days, #30 Prescribed by: LOUIS BONILLA on 10/31/161833 Cetirizine HCl 10 Mg Tablet, 10 MG PO DAILY, (Reported) Cholecalciferol (Vitamin D3) 2,000 Unit Capsule, 2,000 UNIT PO DAILY, (Reported) Darbepoetin [place] in Polysorbat 40 Mcg/1 Ml Vial, 40 MCG SC Q14D for 28 Days, #2 Prescribed by: LOUIS BONILLA on 10/31/161833 Ezetimibe 10 Mg Tablet, 10 MG PO DAILY, (Reported) Fenofibrate Nanocrystallized 145 Mg Tablet, 145 MG PO DAILY, (Reported) Ferrous Fumarate 324 Mg Tablet, 325 MG PO BID, (Reported) Fluticasone Propionate 1 Ea Aero, 1 PUFF IH BID, (Reported) Folic Acid 1 Mg Tablet, 1 MG PO DAILY@0700 for 30 Days, #30 Prescribed by: LOUIS BONILLA on 10/31/161833 Gabapentin 100 Mg Capsule, 100 MG PO TID, (Reported) Hydralazine HCl 25 Mg Tablet, 50 MG PO Q8HR for 30 Days, #90 Prescribed by: LOUIS BONILLA on 10/31/161833 Metoprolol Succinate 25 Mg Tab.er.24h, 25 MG PO DAILY, (Reported) Nitroglycerin 0.4 Mg Tab.subl, 0.4 MG SL UD PRN for CHEST PAIN, (Reported) [place]-3/Dha/Epa/Fish Oil 1 Each Capsule, 1,500 MG PO DAILY, (Reported) Oxybutynin Chloride 5 Mg Tablet, 5 MG PO BID, (Reported) Paricalcitol 1 Mcg Capsule, 1 MCG PO Q48H, (Reported) Paroxetine HCl 40 Mg Tablet, 40 MG PO DAILY, (Reported) Polyethylene Glycol 3350 17 Gm Powd.pack, 17 GM PO DAILY, (Reported) Pravastatin Sodium 80 Mg Tablet, 80 MG PO HS, (Reported) Primidone 50 Mg Tablet, 25 MG PO HS, (Reported) Ranitidine HCl 150 Mg Tablet, 150 MG PO BID, (Reported) Thiamine HCl 100 Mg Tablet, 100 MG PO DAILY@0700 for 30 Days, #30 Prescribed by: LOUIS BONILLA on 10/31/161833 Tramadol HCl 50 Mg Tablet, 100 MG PO Q6H PRN for PAIN-MODERATE for 30 Days, #90 Prescribed by: LOUIS BONILLA on 10/31/161833 Umeclidinium Mona 62.5 Mcg Blst.w.dev, 1 PUFF IH DAILY, (Reported) [Multivitamins/Minerals Therap] 1 EA TABLET, 1 EA PO DAILY@0700 for 30 Days, #30 Prescribed by: LOUIS BONILLA on 10/31/161833 Constitutional: see HPI, No chills, No fever Eyes: No Symptoms Reported Ears, Nose, Mouth, Throat: no symptoms reported Respiratory: no symptoms reported Cardiovascular: no symptoms reported Gastrointestinal: No abdominal pain, No nausea, No vomiting Genitourinary: no symptoms reported Musculoskeletal: see HPI, joint pain, muscle pain Skin: see HPI, change in color Psychiatric/Neurological: Headache, Denies Weakness Past Jymdlsc-Udntfq-Etuogf Hx Patient Social History Alcohol Use: Denies Use Recreational Drug Use: No Smoking Status: Former Smoker Type Used: Cigarettes Recent Foreign Travel: No Contact w/Someone Who Travel: No Recent Hopitalizations: Yes Immunizations Up To Date Date of Pneumonia Vaccine: Feb 19, 2016 Seasonal Allergies Seasonal Allergies: Yes Surgeries HX Surgeries: Yes Surgeries: Coronary Stent, Orthopedic Respiratory Respiratory Disorders: COPD Cardiovascular Hx Cardiac Disorders: Yes Cardiac Disorders: Aneurysm, Coronary Artery Disease Reproductive System Sexually Transmitted Disease: No HIV/AIDS: No Female Reproductive Disorders: Denies Genitourinary Genitourinary Disorders: Renal Failure Gastrointestinal Gastrointestinal Disorders: Gastroesophageal Reflux HEENT Loss of Vision: Denies Hearing Impairment: Denies Psychosocial Behavioral Health Disorders: Anxiety, Depression Blood Transfusions Adverse Reaction to a Blood Tr: No Reviewed Nursing Assessment Reviewed/Agree w Nursing PMH: Yes Family Medical History Family Medial History: Patient reports no known family medical history. Physical Exam Vital Signs Vital Sign - Last 12Hours 11/02/16 01:00 Temp 96.8 Pulse 51 Resp 18 B/P (MAP) 186/82 Pulse Ox 97 O2 Delivery Room Air Capillary Refill : General Appearance: WD/WN, no apparent distress HEENT: PERRL/EOMI, pharynx normal, other (recent surgical wound to the posterior neck that is clean, dry and intact. Posterior scalp on the left has small hematoma. Hematoma noted to the right frontal forehead area. This is apparently from previous injury.) Neck: full range of motion, supple Cardiovascular: regular rate, rhythm, no murmur Respiratory: lungs clear, normal breath sounds Gastrointestinal: non tender, soft Back: normal inspection, no CVA tenderness, no vertebral tenderness Extremities: normal range of motion, pelvis stable, other (pain to the left hip area where there is moderate bruising from previous injury. She is able to move the leg without difficulty.) Neurologic/Psychiatric: alert, oriented x 3 Skin: warm/dry, ecchymosis (as described above to the head and left hip.) Maricarmen Coma Score Best Eye Response: (4) Open Spontaneously Best Verbal Response: (5) Oriented Best Motor Response: (6) Obeys Commands Progress/Results/Core Measures Results/Orders My Orders Orders - VIKI HAN MD Ct Head/Cervical Spine Wo (11/02/16 01:06) Pelvis (11/02/16 01:10) Hip, Left, 2 Views (11/02/16 01:10) Tramadol Tablet (Ultram Tablet) (11/02/16 03:23) Vital Signs/I&O Vital Sign - Last 12Hours 11/02/16 01:00 Temp 96.8 Pulse 51 Resp 18 B/P (MAP) 186/82 Pulse Ox 97 O2 Delivery Room Air Progress Note : Progress Note Seen and evaluated. CT head and neck ordered. X-ray left hip and pelvis ordered. Monitor patient. 0320: I discussed the findings of the CT scan with the radiologist. I have discussed the same findings with the patient. She reports that she did have 4 cervical fractures and believes that she knew about the T1 compression fracture. Fractures all appear stable. Patient states neck pain is notable but is not worse than normal and there is no new pain related to today's fall with respect to her neck. She was given 2 tramadol for neck pain and headache. Patient to be discharged back to [facility] with follow- up with her primary care physician and surgeon as indicated. Patient agrees to plan. Pending transport back to [facility]. Diagnostic Imaging Diagonstic Imaging: Xray Plain Films/CT/US/NM/MRI: pelvis Comments No acute findings Reviewed: Reviewed by Me Diagonstic Imaging: Xray Plain Films/CT/US/NM/MRI: hip Comments No acute findings of left hip. Diagonstic Imaging: CT Plain Films/CT/US/NM/MRI: c-spine, head Comments CT head shows no acute intracranial abnormalities. Multiple large scalp hematomas. No definite evidence of skull fracture. CT neck shows postsurgical changes of C4 through C7 posterior cervical fusion by means of wrestle fixation rods and screws with metallic artifact emanating from fixation hardware. There is also bony fusion material along the posterior elements bilaterally. C5/C6 anterior cervical fusion with fixation screws and disc space or device. Mild C4 to C5 and C5 to C6 and C6 to C7 anterior listhesis of approximately 2 mm. Cervical vertebral body height and alignment are otherwise within normal limits. There is mild acute appearing T1 vertebral compression fracture involving superior endplate and anterior superior aspect of T1 vertebral body with cortical disruptions suggesting acute fracture. There is nondisplaced fractures involving the left C6 and C7 facets. No other definitive acute cervical fracture or dislocation identified. See dictated report. Reviewed: Reviewed Night Hawk Study, Reviewed by Me, Discussed w/Radiologist Departure Impression Impression: Primary Impression: Scalp hematoma Qualified Codes: S00.03XA - Contusion of scalp, initial encounter Additional Impressions: Fracture, thoracic vertebra, compression Qualified Codes: S22.000A - Wedge compression fracture of unspecified thoracic vertebra, initial encounter for closed fracture C6 and C7 facet fracture Disposition: 01 HOME, SELF-CARE Condition: Stable Departure-Patient Inst. Decision time for Depature: 03:30 Referrals: RICHARD RODRIGUEZ DO (PCP) Primary Care Physician SONI PICKETT (Family) Primary Care Physician Patient Instructions: Closed Head Injury (DC), Vertebral Compression Fracture ( DC) Add. Discharge Instructions: All discharge instructions reviewed with patient and/or family. Voiced understanding. You do have mild thoracic vertebra compression fracture which may be partially new. This is a stable type fracture. Continue home medications as directed. It is very important that you do not ambulate without assistance. Please utilize staff at [facility] for assistance when getting out of bed or chair. Return for worse pain, swelling, weakness, breathing problems, vision or balance problems or other concerns as needed. VIKI HAN MD November 02, 2016 01:19
[2016-11-02 05:28] VITALS: BP 160/75
--- NOTE | 2016-11-02 07:20 | Diagnostic Imaging Report ---
INDICATION: Status post fall, left hip pain, hematoma. TECHNIQUE: 2 views of the left hip, 1:59 AM. CORRELATION STUDY: None FINDINGS: Images of the hip demonstrate no evidence for acute fracture. Alignment is anatomic. Mild joint space narrowing. The femoral head acetabular relationship is otherwise unremarkable. The bony trabecular pattern is intact. Dense vascular calcifications. Extensive surgical clips over the of inguinal and proximal thigh. Additional stents and clips over the soft tissues of proximal medial right thigh. IMPRESSION: 1. Negative for acute bony abnormality of the left hip. Dictated by: Dictated on workstation # [id number]
--- NOTE | 2016-11-02 07:22 | Diagnostic Imaging Report ---
INDICATION: Status post fall with hematoma. TECHNIQUE: AP pelvis at 01:58 a.m. CORRELATION STUDY: None. FINDINGS: Moderate amount of overlying bowel gas and stool is present. There is a xmdajxwd-da-kwzdby vascular calcification. Extensive surgical clips as well as vascular stents are present. The pelvis is intact. Pectineal lines and hydro operator rings maintained. SI joints and pubic symphyses are fairly well preserved. There is moderate joint space narrowing of bilateral hips. IMPRESSION: 1. Negative for acute displaced pelvic fracture. Moderate joint space narrowing of bilateral hips. Dictated by: Dictated on workstation # [id number]
--- NOTE | 2016-11-02 07:35 | Diagnostic Imaging Report ---
PROCEDURE: CT head and CT cervical spine without contrast. TECHNIQUE: Multiple contiguous axial images were obtained through the brain and cervical spine without the use of intravenous contrast. Sagittal and coronal reformations through the cervical spine were then performed. INDICATION: Status post fall, hematoma. Additional older hematomas are noted in the frontal region as well on clinical examination. CORRELATION STUDY: None FINDINGS: CT HEAD: Examination somewhat limited by motion. There are multifocal large areas of scalp hematoma involving the right superior parietal scalp, right frontal scalp and left parietal scalp. The left parietal scalp hematomas of hyperdense blood and fairly sizable. The bony calvarium is intact. Intracranially, there is generalized atrophic changes with prominence of the ventricles and sulci. Scattered areas of decreased attenuation likely owing to chronic small vessel ischemic disease. No midline shift or mass effect. No definitive evidence for acute intracranial hemorrhage. CT CERVICAL SPINE: Extensive prior surgical changes of the cervical spine is present. This includes posterior fusion hardware at C4-C7 with screws and rods. Metallic artifact is present from this hardware. There is also anterior fusion at C5-C6 level with fixation screws and disc spacer device. There is a bony fusion along the posterior elements bilaterally as well. Overall alignment demonstrates trace anterolisthesis C4 on C5, C5 on C6, and C6 on C7. There is presence of an acute appearing compression deformity of the superior T1 vertebral body involving the superior endplate with slight cortical disruption. Nondisplaced fracture involving the left C6 and C7 facets. IMPRESSION: CT HEAD: 1. Extensive multifocal areas of scalp hematoma. Largest more hyperdense area involving the left parietal region. Negative for calvarial fracture or definitive acute traumatic intracranial abnormality. CT CERVICAL SPINE: 1. There is acute appearing compression deformity of the superior T1 vertebral body endplate. Mild loss of height present. Also appears to be nondisplaced fracture involving the left C6-C7 facet. 2. Extensive prior cervical spine fusion hardware present. Dictated by: Dictated on workstation # [id number]
== END 2016-11-02 05:29 | disposition home or self-care (01) ==
LOC: EDUNIT# 01:00 → ER 01:02
DX: S00.03XA Contusion of scalp, initial encounter (principal); S22.010A Wedge compression fracture of first thoracic vertebra, initial encounter for closed fracture; S12.501A Unspecified nondisplaced fracture of sixth cervical vertebra, initial encounter for closed fracture; S12.601A Unspecified nondisplaced fracture of seventh cervical vertebra, initial encounter for closed fracture; S79.912A Unspecified injury of left hip, initial encounter; R29.6 Repeated falls; J44.9 Chronic obstructive pulmonary disease, unspecified; I25.10 Atherosclerotic heart disease of native coronary artery without angina pectoris; Z79.82 Long term (current) use of aspirin; Z79.899 Other long term (current) drug therapy; Z98.1 Arthrodesis status; Z95.5 Presence of coronary angioplasty implant and graft; Z87.891 Personal history of nicotine dependence; W01.0XXA Fall on same level from slipping, tripping and stumbling without subsequent striking against object, initial encounter; Y92.129 Unspecified place in nursing home as the place of occurrence of the external cause; Y99.8 Other external cause status
CPT/HCPCS: 70450; 72125; 72170; 73502; 99283

== ENCOUNTER 2016-11-05 17:50 | Observation (INO) | payer MEDICARE, MEDICAID ==
[~2016-11-05] VITALS: Ht 152.4 cm; Wt 45.8 kg
[2016-11-05 18:30] LABS: BASOPHILS % (AUTO) 0 % (0-10); EOSINOPHILS # (AUTO) 0.3 10^3/uL (0.0-0.3); EOSINOPHILS % (AUTO) 3 % (0-10); LYMPHOCYTES # (AUTO) 0.7 X 10^3 (1.0-4.0); LYMPHOCYTES % (AUTO) 7 % (12-44); MEAN CORPUSCULAR HEMOGLOBIN 32 PG (25-34); MEAN CORPUSCULAR HGB CONC 33 G/DL (32-36); MEAN CORPUSCULAR VOLUME 99 FL (80-99); MEAN PLATELET VOLUME 7.9 FL (7.4-10.4); MONOCYTES # (AUTO) 0.8 X 10^3 (0.0-1.0); MONOCYTES % (AUTO) 8 % (0-12); NEUTROPHILS # (AUTO) 8.6 X 10^3 (1.8-7.8); NEUTROPHILS % (AUTO) 82 % (42-75); PLATELET COUNT 341 10^3/uL (130-400); RED BLOOD COUNT 2.83 10^6/uL (4.35-5.85); RED CELL DISTRIBUTION WIDTH 18.7 % (10.0-14.5); WHITE BLOOD COUNT 10.5 10^3/uL (4.3-11.0)
--- NOTE | 2016-11-05 18:58 | Diagnostic Imaging Report ---
PROCEDURE: CT head and CT cervical spine without contrast. TECHNIQUE: Multiple contiguous axial images were obtained through the brain and cervical spine without the use of intravenous contrast. Sagittal and coronal reformations through the cervical spine were then performed. INDICATION: Head and neck pain after fall last night. COMPARISON: 11/02/2016. DISCUSSION: Head: Multiple scalp hematomas are again noted, unchanged. The largest overlies the left parietal region. Diffuse brain volume loss is stable, likely age related. No acute intracranial abnormality identified. No intracranial hemorrhage, mass, midline shift or hydrocephalus. White matter hypoattenuation is nonspecific though not greater than expected for age-related chronic small vessel ischemic disease. The visualized orbits, paranasal sinuses, mastoid air cells and calvarium are unremarkable. Cervical spine: Extensive postoperative changes are again noted within the cervical spine with posterior decompression and stabilization from C4 through C7. There is additional anterior cervical discectomy and fusion at C5-C6. Mild acute compression fracture involving the superior endplate of the T1 vertebral body is stable. Nondisplaced fractures are again noted involving the left C6 and C7 facets. The visualized lung apices are unremarkable. The paraspinal soft tissues are unremarkable. No new acute osseous abnormality identified. IMPRESSION: 1. Stable appearance of the head including multiple scalp hematomas. No acute intracranial abnormality identified. 2. Acute fractures involving the superior endplate of the T1 vertebral body and the left C6 and C7 facets appear stable and nondisplaced. No new fracture identified within the cervical spine. Dictated by: Dictated on workstation # [id number]
[2016-11-05 19:05] LABS: ALANINE AMINOTRANSFERASE 19 U/L (0-55); ALBUMIN 3.3 G/DL (3.2-4.5); ALCOHOL < 10 MG/DL (<10); ANION GAP 10 MMOL/L (5-14); ASPARTATE AMINO TRANSFERASE 42 U/L (5-34); BILIRUBIN,TOTAL 1.3 MG/DL (0.1-1.0); BLOOD UREA NITROGEN 23 MG/DL (7-18); BUN/CREATININE RATIO 16; CALCIUM 9.8 MG/DL (8.5-10.1); CARBON DIOXIDE 26 MMOL/L (21-32); CHLORIDE 99 MMOL/L (98-107); CREATININE SERUM 1.44 MG/DL (0.60-1.30); GFR ESTIMATED 36; GLUCOSE 126 MG/DL (70-105); POTASSIUM 3.8 MMOL/L (3.6-5.0); SODIUM 135 MMOL/L (135-145); TOTAL PROTEIN 6.2 G/DL (6.4-8.2)
--- NOTE | 2016-11-05 19:08 | ED Fall/Injury ---
General Chief Complaint: Trauma-Non Activation Stated Complaint: CONFUSION/R ARM PAIN/FALL Nursing Triage Note: pt reports falling at [facility] last night, although medical lod staff denies any knowledge of a fall. pt c/o of left shoulder pain and has abrasion to right elbow/forearm. SNF reports increased confusion. pt brought in by [facility] Source: patient, EMS, old records Exam Limitations: other (Patient poor historian) History of Present Illness Time seen by provider: 18:05 Initial Comments This 75-year-old woman presents to the emergency room via EMS from [facility] in [place], [place] after having a fall last night. EMS states [facility] staff was unaware of a fall the patient has been complaining of right shoulder pain. Patient denies any other injury. Patient is in a postoperative cervical collar. She had cervical spine fusion a few weeks ago after sustaining cervical spine fractures from a fall. She was admitted to [facility] for rehabilitation where she was dismissed on November 01. She was seen again November 02 in this ER for a fall and had hematomas of the posterior scalp and forehead. She was dismissed back to the [facility] at that time. Patient reports she is unable to move her right arm off of the bed. She retains sensation and movement in the hand as well as radial pulse. She has an abrasion on the right elbow with a Tegaderm dressing which she states is not from the most recent fall. EMS states staff report increased confusion lately. Patient is alert to person, age, and month but not location. She remains in her postoperative collar. Allergies and Home Medications Allergies Coded Allergies: clopidogrel (Unverified Adverse Reaction, Severe, EXCESSIVE BLEEDING, 30/03) codeine (Unverified Adverse Reaction, Mild, NAUSEA, 03/30/10) warfarin (Unverified Adverse Reaction, Unknown, "REAL BAD SICK", 01/02/16) Uncoded Allergies: TRAZADONE (Adverse Reaction, Unknown, "CAN'T FUNCTION", 01/02/16) Home Medications Albuterol Sulfate 1 Puff Puff, 2 PUFF IH Q4H PRN for SHORTNESS OF BREATH, ( Reported) 1 PUFF = 90 MCG Amlodipine Besylate 10 Mg Tablet, 10 MG PO DAILY, (Reported) Aspirin 81 Mg Tab.chew, 81 MG PO DAILY for 30 Days, #30 Prescribed by: LUOIS BONILLA on 10/31/161833 Cetirizine HCl 10 Mg Tablet, 10 MG PO DAILY, (Reported) Cholecalciferol (Vitamin D3) 2,000 Unit Capsule, 2,000 UNIT PO DAILY, (Reported) Darbepoetin [place] in Polysorbat 40 Mcg/1 Ml Vial, 40 MCG SC Q14D for 28 Days, #2 Prescribed by: LOUIS BONILLA on 10/31/161833 Ezetimibe 10 Mg Tablet, 10 MG PO DAILY, (Reported) Fenofibrate Nanocrystallized 145 Mg Tablet, 145 MG PO DAILY, (Reported) Ferrous Fumarate 324 Mg Tablet, 325 MG PO BID, (Reported) Fluticasone Propionate 1 Ea Aero, 1 PUFF IH BID, (Reported) Folic Acid 1 Mg Tablet, 1 MG PO DAILY@0700 for 30 Days, #30 Prescribed by: LOUIS BONILLA on 10/31/161833 Gabapentin 100 Mg Capsule, 100 MG PO TID, (Reported) Hydralazine HCl 25 Mg Tablet, 50 MG PO Q8HR for 30 Days, #90 Prescribed by: LOUIS BONILLA on 10/31/161833 Metoprolol Succinate 25 Mg Tab.er.24h, 25 MG PO DAILY, (Reported) Nitroglycerin 0.4 Mg Tab.subl, 0.4 MG SL UD PRN for CHEST PAIN, (Reported) [place]-3/Dha/Epa/Fish Oil 1 Each Capsule, 1,500 MG PO DAILY, (Reported) Oxybutynin Chloride 5 Mg Tablet, 5 MG PO BID, (Reported) Paricalcitol 1 Mcg Capsule, 1 MCG PO Q48H, (Reported) Paroxetine HCl 40 Mg Tablet, 40 MG PO DAILY, (Reported) Polyethylene Glycol 3350 17 Gm Powd.pack, 17 GM PO DAILY, (Reported) Pravastatin Sodium 80 Mg Tablet, 80 MG PO HS, (Reported) Primidone 50 Mg Tablet, 25 MG PO HS, (Reported) Ranitidine HCl 150 Mg Tablet, 150 MG PO BID, (Reported) Thiamine HCl 100 Mg Tablet, 100 MG PO DAILY@0700 for 30 Days, #30 Prescribed by: LOUIS BONILLA on 10/31/161833 Tramadol HCl 50 Mg Tablet, 100 MG PO Q6H PRN for PAIN-MODERATE for 30 Days, #90 Prescribed by: LOUIS BONILLA on 10/31/161833 Umeclidinium [place] 62.5 Mcg Blst.w.dev, 1 PUFF IH DAILY, (Reported) [Multivitamins/Minerals Therap] 1 EA TABLET, 1 EA PO DAILY@0700 for 30 Days, #30 Prescribed by: LOUIS BONILLA on 10/31/161833 Constitutional: no symptoms reported Eyes: No Symptoms Reported Ears, Nose, Mouth, Throat: no symptoms reported Respiratory: no symptoms reported Cardiovascular: no symptoms reported Gastrointestinal: no symptoms reported Genitourinary: no symptoms reported Musculoskeletal: see HPI Skin: see HPI Psychiatric/Neurological: See HPI Past Obibifu-Rtyaac-Jjwfjc Hx Patient Social History Alcohol Use: Past History Type Used: Cigarettes Recent Foreign Travel: No Contact w/Someone Who Travel: No Recent Infectious Disease Expo: No Recent Hopitalizations: Yes Immunizations Up To Date Date of Pneumonia Vaccine: Feb 19, 2016 Seasonal Allergies Seasonal Allergies: Yes Surgeries HX Surgeries: Yes Surgeries: CABG, Coronary Stent, Orthopedic (cervical spine fusion with rods) Respiratory Hx Respiratory Disorders: Yes Respiratory Disorders: COPD Cardiovascular Hx Cardiac Disorders: Yes (heart failure) Cardiac Disorders: Aneurysm (aortic), Coronary Artery Disease, High Cholesterol Neurological Hx Neurological Disorders: Yes Neurological Disorders: Neuropathy Reproductive System : No Sexually Transmitted Disease: No HIV/AIDS: No Female Reproductive Disorders: Denies Genitourinary Hx Genitourinary Disorders: Yes Genitourinary Disorders: Renal Failure (chronic kidney disease) Gastrointestinal Hx Gastrointestinal Disorders: Yes Gastrointestinal Disorders: Gastroesophageal Reflux, Chronic Constipation Musculoskeletal Hx Musculoskeletal Disorders: Yes (history of cervical spine fractures with fusion with hardware rods) Endocrine Hx Endocrine Disorders: No HEENT HX ENT Disorders: No Loss of Vision: Denies Hearing Impairment: Denies Cancer Hx Cancer: No Psychosocial Hx Psychiatric Problems: Yes Behavioral Health Disorders: Anxiety, Depression Integumentary HX Skin/Integumentary Disorder: No Blood Transfusions Adverse Reaction to a Blood Tr: No Family Medical History Family Medial History: Patient reports no known family medical history. Physical Exam Vital Signs Vital Sign - Last 12Hours 11/05/16 17:54 Temp 99.6 Pulse 71 Resp 20 B/P (MAP) 150/91 Pulse Ox 94 O2 Delivery Room Air Capillary Refill : Less Than 3 Seconds General Appearance: WD/WN, mild distress (with pain and right shoulder), thin HEENT: PERRL/EOMI, normal ENT inspection, pharynx normal Neck: normal inspection, other (postoperative cervical collar in place) Cardiovascular: regular rate, rhythm, no edema, no murmur Respiratory: no respiratory distress, no accessory muscle use, crackles (few scattered coarse crackles bilaterally) Gastrointestinal: normal bowel sounds, non tender, soft Extremities: no pedal edema, other (pain and tenderness throughout the right upper arm and shoulder. Patient is unable to move the right arm off of the bed. Distal sensation, radial pulses, capillary refill, and movement intact. Pelvis stable. No tenderness over the hips. No pain with external rotation of the hips) Neurologic/Psychiatric: client analyst II-XII nml as tested, no motor/sensory deficits, alert, normal mood/affect, other (see history of present illness) Skin: normal color, warm/dry, other (Tegaderm dressing over abrasion on the right elbow) [place] Coma Score Best Eye Response: (4) Open Spontaneously Best Verbal Response: (5) Oriented Best Motor Response: (6) Obeys Commands Mar[place]armen Total: 15 Progress/Results/Core Measures Results/Orders Lab Results Laboratory Tests Test 11/05/16 18:24 11/05/16 20:27 Range/Units White Blood Count 10.5 4.3-11.0 10^3/uL Red Blood Count 2.83 L 4.35-5.85 10^6/uL Hemoglobin 9.1 L 11.5-16.0 G/DL Hematocrit 28 L 35-52 % Mean Corpuscular Volume 99 80-99 FL Mean Corpuscular Hemoglobin 32 25-34 PG Mean Corpuscular Hemoglobin Concent 33 32-36 G/DL Red Cell Distribution Width 18.7 H 10.0-14.5 % Platelet Count 341 130-400 10^3/uL Mean Platelet Volume 7.9 7.4-10.4 FL Neutrophils (%) (Auto) 82 H 42-75 % Lymphocytes (%) (Auto) 7 L 12-44 % Monocytes (%) (Auto) 8 0-12 % Eosinophils (%) (Auto) 3 0-10 % Basophils (%) (Auto) 0 0-10 % Neutrophils # (Auto) 8.6 H 1.8-7.8 X 10^3 Lymphocytes # (Auto) 0.7 L 1.0-4.0 X 10^3 Monocytes # (Auto) 0.8 0.0-1.0 X 10^3 Eosinophils # (Auto) 0.3 0.0-0.3 10^3/uL Basophils # (Auto) 0.0 0.0-0.1 10^3/uL Neutrophils % (Manual) 88 % Lymphocytes % (Manual) 11 % Monocytes % (Manual) 1 % Eosinophils % (Manual) 0 % Basophils % (Manual) 0 % Band Neutrophils 0 % Hypochromasia SLIGHT Sodium Level 135 135-145 MMOL/L Potassium Level 3.8 3.6-5.0 MMOL/L Chloride Level 99 98-107 MMOL/L Carbon Dioxide Level 26 21-32 MMOL/L Anion Gap 10 5-14 MMOL/L Blood Urea Nitrogen 23 H 7-18 MG/DL Creatinine 1.44 H 0.60-1.30 MG/DL Estimat Glomerular Filtration Rate 36 BUN/Creatinine Ratio 16 Glucose Level 126 H 70-105 MG/DL Calcium Level 9.8 8.5-10.1 MG/DL Total Bilirubin 1.3 H 0.1-1.0 MG/DL Aspartate Amino Transf (AST/SGOT) 42 H 5-34 U/L Alanine Aminotransferase (ALT/SGPT) 19 0-55 U/L Alkaline Phosphatase 49 40-136 U/L Total Protein 6.2 L 6.4-8.2 G/DL Albumin 3.3 3.2-4.5 G/DL Serum Alcohol < 10 <10 MG/DL Urine Color YELLOW Urine Clarity CLEAR Urine pH 8 5-9 Urine Specific [place] 1.010 L 1.016-1.022 Urine Protein 3+ H NEGATIVE Urine Glucose (UA) NEGATIVE NEGATIVE Urine Ketones NEGATIVE NEGATIVE Urine Nitrite NEGATIVE NEGATIVE Urine Bilirubin NEGATIVE NEGATIVE Urine Urobilinogen NORMAL NORMAL MG/DL Urine Leukocyte Esterase NEGATIVE NEGATIVE Urine RBC (Auto) NEGATIVE NEGATIVE Urine RBC NONE /HPF Urine WBC 0-2 /HPF Urine Crystals NONE /LPF Urine Bacteria NEGATIVE /HPF Urine Casts NONE /LPF Urine Mucus NEGATIVE /LPF Urine Culture Indicated NO My Orders Orders - SONIA MULLINS MD Ct Head/Cervical Spine Wo (11/05/16 18:21) Saline Lock/Iv-Start (11/05/16 18:21) Alcohol (11/05/16 18:21) Cbc With Automated Diff (11/05/16 18:21) Comprehensive Metabolic Panel (11/05/16 18:21) Ua Culture If Indicated (11/05/16 18:21) Chest 1 View, Ap/Pa Only (11/05/16 18:21) Shoulder, Right, 3 Views (11/05/16 18:21) Humerus, Right, 2 Views (11/05/16 18:21) Pelvis (11/05/16 18:21) Manual Differential (11/05/16 18:24) Fentanyl Injection (Sublimaze Injection (11/05/16 19:45) Medications Given in ED Current Medications Medications Dose Ordered Sig/Emeka Route Start Time Stop Time Status Last Admin Dose Admin Fentanyl Citrate 25 mcg ONCE ONCE IVP 11/05/16 19:45 11/05/16 19:46 DC 11/05/16 19:40 25 MCG Vital Signs/I&O Vital Sign - Last 12Hours 11/05/16 17:54 Temp 99.6 Pulse 71 Resp 20 B/P (MAP) 150/91 Pulse Ox 94 O2 Delivery Room Air Blood Pressure Mean: 110 Progress Note : Progress Note Workup was pursued related to her fall including CT of the head and C-spine, labs, x-rays of the chest, pelvis, and right shoulder. A proximal humerus fracture was discovered. No other acute injuries were identified. Fentanyl was administered for pain. Right arm was placed in a sling. Patient stated she was refusing to return to the [facility] [place]. Other options were discussed including admission. I do have significant concerns about her ability to function given the necessity of postoperative c-collar and right shoulder fracture. Acute nursing care would be helpful at this time. Diagnostic Imaging Diagonstic Imaging: CT Plain Films/CT/US/NM/MRI: c-spine, head Comments CT head and C-spine viewed by me and report reviewed. See report below: NAME: PEGGY MANUEL [facility] REC#: [id number] PT STATUS: REG ER : 1940 PHYSICIAN: SONIA MULLINS MD ADMIT DATE: 11/05/16/ER Draft Date of Exam:11/05/16 CT HEAD/CERVICAL SPINE WO PROCEDURE: CT head and CT cervical spine without contrast. TECHNIQUE: Multiple contiguous axial images were obtained through the brain and cervical spine without the use of intravenous contrast. Sagittal and coronal reformations through the cervical spine were then performed. INDICATION: Head and neck pain after fall last night. COMPARISON: 11/02/2016. DISCUSSION: Head: Multiple scalp hematomas are again noted, unchanged. The largest overlies the left parietal region. Diffuse brain volume loss is stable, likely age related. No acute intracranial abnormality identified. No intracranial hemorrhage, mass, midline shift or hydrocephalus. White matter hypoattenuation is nonspecific though not greater than expected for age-related chronic small vessel ischemic disease. The visualized orbits, paranasal sinuses, mastoid air cells and calvarium are unremarkable. Cervical spine: Extensive postoperative changes are again noted within the cervical spine with posterior decompression and stabilization from C4 through C7. There is additional anterior cervical discectomy and fusion at C5-C6. Mild acute compression fracture involving the superior endplate of the T1 vertebral body is stable. Nondisplaced fractures are again noted involving the left C6 and C7 facets. The visualized lung apices are unremarkable. The paraspinal soft tissues are unremarkable. No new acute osseous abnormality identified. IMPRESSION: 1. Stable appearance of the head including multiple scalp hematomas. No acute intracranial abnormality identified. 2. Acute fractures involving the superior endplate of the T1 vertebral body and the left C6 and C7 facets appear stable and nondisplaced. No new fracture identified within the cervical spine. Dictated on workstation # [id number] Dict: 11/05/161849 Trans: 11/05/161857 [id number] Interpreted by: LIZ WHITE MD Diagonstic Imaging: Xray Plain Films/CT/US/NM/MRI: other (Right shoulder) Comments Right shoulder x-ray viewed by me and report reviewed. See report below: NAME: PEGGY MANUEL [facility] REC#: [id number] PT STATUS: REG ER : 1940 PHYSICIAN: SONIA MULLINS MD ADMIT DATE: 11/05/16/ER Draft Date of Exam:11/05/16 SHOULDER, RIGHT, 3 VIEWS INDICATION: Fall with right shoulder pain. DISCUSSION: Three views of the right shoulder were obtained, no comparison. There is a nondisplaced fracture involving the proximal right humeral neck. No dislocation. Mild degenerative changes are present within the acromioclavicular joint. Soft tissues are unremarkable. IMPRESSION: 1. Nondisplaced proximal right humeral neck fracture. Dictated on workstation # [id number] Dict: 11/05/161906 Trans: 11/05/161908 DENNIS [id number] Interpreted by: LIZ WHITE MD Diagonstic Imaging: Xray Plain Films/CT/US/NM/MRI: other (Right humerus) Comments right humerus x-ray viewed by me and report reviewed. See report below: NAME: PEGGY MANUEL [facility] REC#: [id number] PT STATUS: REG ER : 1940 PHYSICIAN: SONIA MULLINS MD ADMIT DATE: 11/05/16/ER Draft Date of Exam:11/05/16 HUMERUS, RIGHT, 2 VIEWS INDICATION: Right shoulder pain after fall last night. DISCUSSION: Two views of the right humerus were obtained, no comparison. There is a nondisplaced proximal right humeral neck fracture. No dislocation. No other osseous abnormality. Soft tissues are unremarkable. IMPRESSION: 1. Nondisplaced proximal right humeral neck fracture. Dictated on workstation # [id number] Dict: 11/05/161907 Trans: 11/05/161909 AS6 [id number] Interpreted by: LIZ WHITE MD Diagonstic Imaging: Xray Plain Films/CT/US/NM/MRI: chest Comments Chest x-ray viewed by me and report reviewed. See report below: NAME: [facility] MAN[facility] REC#: [id number] PT STATUS: REG ER : 1940 PHYSICIAN: SONIA MULLINS MD ADMIT DATE: 11/05/16/ER Draft Date of Exam:11/05/16 CHEST 1 VIEW, AP/PA ONLY INDICATION: Chest pain after fall last night. DISCUSSION: Single upright view of the chest was obtained, comparison 10/24/2016. Cardiomegaly is stable. Enlargement of the ascending aorta is stable. Median sternotomy and postoperative changes within the cervical spine are stable. Antecedent granulomatous disease is again noted. Improved aeration of the bilateral lung bases with no residual pleural fluid identified. Interstitial thickening is present bilaterally, likely due to chronic lung disease. IMPRESSION: 1. Cardiomegaly without failure. Interval resolution of previous pleural effusions. Dictated on workstation # [id number] Dict: 11/05/161904 Trans: 11/05/161907 AS6 [id number] Interpreted by: LIZ WHITE MD Diagonstic Imaging: Xray Plain Films/CT/US/NM/MRI: pelvis Comments Pelvis x-ray viewed by me and report reviewed. See report below: NAME: PEGGY MAN[facility] REC#: [id number] PT STATUS: REG ER : 1940 PHYSICIAN: SONIA MULLINS MD ADMIT DATE: 11/05/16/ER Draft Date of Exam:11/05/16 PELVIS INDICATION: Pelvic pain after fall last night. DISCUSSION: Single AP view of the pelvis was obtained, comparison 11/02/2016. Vascular calcifications and postoperative changes are again noted. Moderate degenerative disease is noted within the bilateral sacroiliac joints. Moderate degenerative changes within the bilateral hip joints. No acute fracture or dislocation identified. IMPRESSION: 1. No acute fracture identified within the pelvis. Dictated on workstation # [id number] Dict: 11/05/161908 Trans: 11/05/161911 AS6 [id number] Interpreted by: LIZ WHITE MD Departure Communication Time/Spoke to Admitting Phy: 20:55 Communication Case was reviewed with Dr. Russo who agrees to admission. Patient is refusing to return to [facility] in [place], and I have concerns that patient will not manage well at home or in a [facility] with her current level of debility. She is still in a postoperative cervical collar and now has the right humerus fracture. She has had frequent falls even and [facility] care. Higher level of nursing care with observation admission, swing bed, or acute rehabilitation is felt appropriate. Since approval will be required for rehabilitation or swing bed, admission for observation will be pursued tonight. Dr. Gagnon was contacted for orthopedic consultation. Time/Spoke to Consulting Physi: 21:05 Communication/Consulting Dr. Gagnon. Impression Impression: Primary Impression: Right humeral fracture Qualified Codes: S42.201A - Unspecified fracture of upper end of right humerus , initial encounter for closed fracture Additional Impressions: Frequent falls recent cervical spine fusion Debility Confusion Chronic kidney disease Qualified Codes: N18.9 - Chronic kidney disease, unspecified Disposition: 09 ADMITTED INPATIENT Condition: Improved Decision to Admit Reason: Admit from ER (General) Decision to Admit/Date: November 05, 2016 Time/Decision to Admit Time: 20:55 Departure-Patient Inst. Referrals: RICHARD RODRIGUEZ DO (PCP) Primary Care Physician SONI PICKETT (Family) Primary Care Physician SONIA MULLINS MD November 05, 2016 19:08
--- NOTE | 2016-11-05 19:12 | Diagnostic Imaging Report ---
INDICATION: Pelvic pain after fall last night. DISCUSSION: Single AP view of the pelvis was obtained, comparison 11/02/2016. Vascular calcifications and postoperative changes are again noted. Moderate degenerative disease is noted within the bilateral sacroiliac joints. Moderate degenerative changes within the bilateral hip joints. No acute fracture or dislocation identified. IMPRESSION: 1. No acute fracture identified within the pelvis. Dictated by: Dictated on workstation # [id number]
[2016-11-05] MEDS ORDERED: fentaNYL INJECTION 100 MCG/2 ML AMP IVP ONE (19:45)
[2016-11-05 20:15] LABS: BAND NEUTROPHILS 0 %; BASOPHILS % (MANUAL) 0 %; EOSINOPHILS % (MANUAL) 0 %; LYMPHOCYTES % (MANUAL) 11 %; NEUTROPHILS % (MANUAL) 88 %
[2016-11-05 20:16] LABS: HYPOCHROMASIA SLIGHT
[2016-11-05 20:34] LABS: BILIRUBIN,URINE NEGATIVE (NEGATIVE); KETONES,URINE NEGATIVE (NEGATIVE); LEUKOCYTE ESTERASE ,URINE NEGATIVE (NEGATIVE); NITRITE,URINE NEGATIVE (NEGATIVE); PH,URINE 8 (5-9); PROTEIN,URINE 3+ (NEGATIVE); UROBILINOGEN,URINE NORMAL (NORMAL)
[2016-11-05 20:42] LABS: WBC,URINE 0-2 /HPF
[2016-11-05 22:15] VITALS: BP 186/82
[2016-11-05] MEDS: HYDROcodone/APAP 5 MG/325 MG (LORTAB) TAB PO PRN (23:36)
[2016-11-06 00:40] VITALS: BP 131/71
[2016-11-06 04:20] VITALS: BP 149/79
[2016-11-06] MEDS: HYDROcodone/APAP 5 MG/325 MG (LORTAB) TAB PO PRN ×3 (05:43→14:53)
[2016-11-06 08:00] VITALS: BP 106/63
[2016-11-06] MEDS ORDERED: ASPI-999 PO (08:02)
[2016-11-06] MEDS ORDERED: FOLI1TAB24 PO (08:02)
[2016-11-06] MEDS ORDERED: MULT-35 PO (08:12)
[2016-11-06] MEDS ORDERED: FERR-65 PO (08:27)
[2016-11-06] MEDS ORDERED: THIA100T12 PO (08:27)
[2016-11-06] MEDS ORDERED: HYDR-3924 PO (08:27)
[2016-11-06] MEDS ORDERED: TRAM50TA2 PO (08:27)
[2016-11-06 12:00] VITALS: BP 170/91
--- NOTE | 2016-11-06 12:37 | Consultation ---
History of Present Illness History of Present Illness Patient Consulted On(syed/time) 11/06/16 12:32 Date of Admission 11/05/2016 Reason for Visit: [facility] of [facility], presents with acute right shoulder pain per EMS. Ortho consulted for fracture. Allergies and Home Medications Allergies Coded Allergies: clopidogrel (Unverified Adverse Reaction, Severe, EXCESSIVE BLEEDING, 30/03) codeine (Unverified Adverse Reaction, Mild, NAUSEA, 03/30/10) warfarin (Unverified Adverse Reaction, Unknown, "REAL BAD SICK", 01/02/16) Uncoded Allergies: TRAZADONE (Adverse Reaction, Unknown, "CAN'T FUNCTION", 01/02/16) Home Medications Albuterol Sulfate 1 Puff Puff, 2 PUFF IH Q4H PRN for SHORTNESS OF BREATH, ( Reported) 1 PUFF = 90 MCG Amlodipine Besylate 10 Mg Tablet, 10 MG PO DAILY, (Reported) Aspirin 81 Mg Tab.chew, 81 MG PO DAILY, (Reported) Cetirizine HCl 10 Mg Tablet, 10 MG PO DAILY, (Reported) Cholecalciferol (Vitamin D3) 2,000 Unit Capsule, 2,000 UNIT PO DAILY, (Reported) Darbepoetin [place] in Polysorbat 40 Mcg/1 Ml Vial, 40 MCG SC Q14D for 28 Days, #2 Prescribed by: LOUIS BONILLA on 10/31/16 1834 Ezetimibe 10 Mg Tablet, 10 MG PO DAILY, (Reported) Fenofibrate Nanocrystallized 145 Mg Tablet, 145 MG PO DAILY, (Reported) Ferrous Sulfate 325 Mg Tablet, 325 MG PO BID, (Reported) Fluticasone Propionate 1 Ea Aero, 1 PUFF IH BID, (Reported) Folic Acid 1 Mg Tablet, 1 MG PO DAILY, (Reported) Gabapentin 100 Mg Capsule, 100 MG PO TID, (Reported) Hydralazine HCl 50 Mg Tablet, 50 MG PO Q8H, (Reported) Metoprolol Succinate 25 Mg Tab.er.24h, 25 MG PO DAILY, (Reported) Multivitamin 1 Each Tablet, 1 TAB PO DAILY, (Reported) Nitroglycerin 0.4 Mg Tab.subl, 0.4 MG SL UD PRN for CHEST PAIN, (Reported) [place]-3/Dha/Epa/Fish Oil 1 Each Capsule, 1,500 MG PO DAILY, (Reported) Oxybutynin Chloride 5 Mg Tablet, 5 MG PO BID, (Reported) Paricalcitol 1 Mcg Capsule, 1 MCG PO Q48H, (Reported) Paroxetine HCl 40 Mg Tablet, 40 MG PO DAILY, (Reported) Polyethylene Glycol 3350 17 Gm Powd.pack, 17 GM PO DAILY, (Reported) Pravastatin Sodium 80 Mg Tablet, 80 MG PO HS, (Reported) Primidone 50 Mg Tablet, 25 MG PO HS, (Reported) Ranitidine HCl 150 Mg Tablet, 150 MG PO BID, (Reported) Thiamine HCl 100 Mg Tablet, 100 MG PO DAILY, (Reported) Tramadol HCl 50 Mg Tablet, 100 MG PO Q6H PRN for PAIN-MODERATE, (Reported) Umeclidinium [place] 62.5 Mcg Blst.w.dev, 1 PUFF IH DAILY, (Reported) Past Craxgra-Tdijkj-Gafnwo Hx Patient Social History Alcohol Use: Past History Recreational Drug Use: No Smoking Status: Former Smoker Type Used: Cigarettes Recent Foreign Travel: No Contact w/Someone Who Travel: No Recent Infectious Disease Expo: No Recent Hopitalizations: Yes Physical Abuse Screen: No Sexual Abuse: No Immunizations Up To Date Tetanus Booster (TDap): Unknown Date of Pneumonia Vaccine: Feb 19, 2016 Seasonal Allergies Seasonal Allergies: Yes Surgeries HX Surgeries: Yes Surgeries: CABG, Coronary Stent, Orthopedic (cervical spine fusion with rods) Respiratory Hx Respiratory Disorders: Yes Respiratory Disorders: COPD Cardiovascular Hx Cardiac Disorders: Yes (heart failure) Cardiac Disorders: Aneurysm (aortic), Coronary Artery Disease, High Cholesterol Neurological Hx Neurological Disorders: Yes Neurological Disorders: Neuropathy Reproductive System : No Sexually Transmitted Disease: No HIV/AIDS: No Female Reproductive Disorders: Denies Genitourinary Hx Genitourinary Disorders: Yes Genitourinary Disorders: Renal Failure Gastrointestinal Hx Gastrointestinal Disorders: Yes Gastrointestinal Disorders: Gastroesophageal Reflux, Chronic Constipation Musculoskeletal Hx Musculoskeletal Disorders: Yes (history of cervical spine fractures with fusion with hardware rods) Endocrine Hx Endocrine Disorders: No HEENT HX ENT Disorders: No Loss of Vision: Denies Hearing Impairment: Denies Cancer Hx Cancer: No Psychosocial Hx Psychiatric Problems: Yes Behavioral Health Disorders: Anxiety, Depression Integumentary HX Skin/Integumentary Disorder: No Blood Transfusions Adverse Reaction to a Blood Tr: No Family Medical History Family Medial History: Patient reports no known family medical history. Review of Systems-General Constitutional: no symptoms reported Musculoskeletal: joint pain, joint swelling, muscle pain, neck pain Skin: no symptoms reported Physical Exam-General Problems Physical Exam Vital Signs Vital Sign - Last 12Hours 11/05/16 11/05/16 17:54 23:00 Temp 99.6 Pulse 71 Resp 20 B/P (MAP) 150/91 Pulse Ox 94 O2 Delivery Room Air O2 Flow Rate 2.00 Capillary Refill : Less Than 3 SecondsLess Than 3 Seconds General Appearance: no apparent distress Respiratory: no respiratory distress Cardiovascular: regular rate, rhythm Gastrointestinal: non tender, soft Extremities: normal inspection, no pedal edema, no calf tenderness, normal capillary refill, other (Tenderness and swelling to right shoulder and proximal arm) Neurologic/Psychiatric: oriented x 3 Skin: warm/dry Assessment/Plan Assessment/Plan Admission Diagnosis/Plan A: Acute traumatic nondisplaced fracture of the proximal humeral neck, debility , frequent falls P: Sling, ICE PRN, may remove sling TID for gentle elbow wrist and hand ROM. No shoulder ROM. f/u in office in 2-3 weeks. Will most likely need skilled or swing bed when discharged. Clinical Quality Measures DVT/VTE Risk/Contraindication: Risk Factor Score Per Nursin RFS Level Per Nursing on Admit: 4+=Very High EDVIN JORDAN APRN November 06, 2016 12:37 pm
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
--- NOTE | 2016-11-06 12:58 | Discharge Instructions ---
Discharge [facility] Discharge Medications Continued Medications: Albuterol Sulfate (Ventolin Hfa) 1 Puff Puff 2 PUFF IH Q4H PRN for SHORTNESS OF BREATH, PUFF 1 PUFF = 90 MCG Amlodipine Besylate (Amlodipine Besylate) 10 Mg Tablet 10 MG PO DAILY, TAB Aspirin (Aspirin) 81 Mg Tab.chew 81 MG PO DAILY, TAB Cetirizine HCl (Zyrtec) 10 Mg Tablet 10 MG PO DAILY, TAB Cholecalciferol (Vitamin D3) (Vitamin D3) 2,000 Unit Capsule 2000 UNIT PO DAILY, CAP Darbepoetin [place] in Polysorbat (Aranesp) 40 Mcg/1 Ml Vial 40 MCG SC Q14D for 28 Days, #2 VIAL Ezetimibe (Zetia) 10 Mg Tablet 10 MG PO DAILY, TAB Fenofibrate Nanocrystallized (Tricor) 145 Mg Tablet 145 MG PO DAILY, TAB Ferrous Sulfate (Feosol) 325 Mg Tablet 325 MG PO BID, TAB Fluticasone Propionate (Flovent Hfa 110 mcg) 1 Ea Aero 1 PUFF IH BID, EA Folic Acid (Folic Acid) 1 Mg Tablet 1 MG PO DAILY, TAB Gabapentin (Gabapentin) 100 Mg Capsule 100 MG PO TID, CAP Hydralazine HCl (Hydralazine HCl) 50 Mg Tablet 50 MG PO Q8H, TAB Metoprolol Succinate (Metoprolol Succinate) 25 Mg Tab.er.24h 25 MG PO DAILY, TAB Multivitamin (Daily Multiple Vitamin) 1 Each Tablet 1 TAB PO DAILY, TAB Nitroglycerin (Nitroglycerin) 0.4 Mg Tab.subl 0.4 MG SL UD PRN for CHEST PAIN, TAB [place]-3/Dha/Epa/Fish Oil ([place] 3 500 Softgel) 1 Each Capsule 1500 MG PO DAILY, CAP Oxybutynin Chloride (Oxybutynin Chloride) 5 Mg Tablet 5 MG PO BID, TAB Paricalcitol (Zemplar) 1 Mcg Capsule 1 MCG PO Q48H, CAP Paroxetine HCl (Paroxetine HCl) 40 Mg Tablet 40 MG PO DAILY, TAB Polyethylene Glycol 3350 (Miralax) 17 Gm Powd.pack 17 GM PO DAILY, EACH Pravastatin Sodium (Pravastatin Sodium) 80 Mg Tablet 80 MG PO HS, TAB Primidone (Primidone) 50 Mg Tablet 25 MG PO HS, TAB Ranitidine HCl (Acid Mail Carrier Technician (RANITIDINE)) 150 Mg Tablet 150 MG PO BID, TAB Thiamine HCl (Thiamine HCl) 100 Mg Tablet 100 MG PO DAILY, TAB Tramadol HCl (Tramadol HCl) 50 Mg Tablet 100 MG PO Q6H PRN for PAIN-MODERATE, TAB Umeclidinium [place] (Incruse Ellipta) 62.5 Mcg Blst.w.dev 1 PUFF IH DAILY, INHALER Patient Instructions Goal/Follow Up Appt: Follow up with Dr. Gagnon in 2-3 weeks. [facility] For: Chest pain, confusion, uncontrolled pain Activity & Diet Discharge Diet: Regular Diet Activity as Tolerated: No (Sling to right arm, may remove sling TID for gentle elbow wrist and hand ROM. No shoulder ROM.) KRISTEN BLAKE MD November 06, 2016 12:58
[2016-11-06 14:50] VITALS: BP 170/91
== END 2016-11-06 12:54 ==
LOC: EDUNIT# 17:50 → ER 17:51 → UNDOADMOB 21:12 → 4TH 21:12
PROVIDERS: ADMIT Family Medicine; ATTEND Family Medicine
DX: S42.294A Other nondisplaced fracture of upper end of right humerus, initial encounter for closed fracture (principal); R29.6 Repeated falls; R41.0 Disorientation, unspecified; N18.9 Chronic kidney disease, unspecified; J44.9 Chronic obstructive pulmonary disease, unspecified; I25.10 Atherosclerotic heart disease of native coronary artery without angina pectoris; K21.9 Gastro-esophageal reflux disease without esophagitis; E78.00 Pure hypercholesterolemia, unspecified; Z98.1 Arthrodesis status; Z95.1 Presence of aortocoronary bypass graft; Z95.5 Presence of coronary angioplasty implant and graft; W18.09XA Striking against other object with subsequent fall, initial encounter; Y92.129 Unspecified place in nursing home as the place of occurrence of the external cause
CPT/HCPCS: 36415; 70450; 71010; 72125; 72170; 73030; 73060; 80053; 80320; 81000; 85007; 85027; 96374; G0378

== ENCOUNTER 2016-11-08 08:15 | Emergency (ER) | payer MEDICARE, MEDICAID ==
[~2016-11-08] VITALS: Ht 157.5 cm; Wt 54.4 kg
[~2016-11-08 08:15] MED LIST changes: +FERR-65 PO; +HYDR-3924 PO; +MULT-35 PO; +THIA100T12 PO
--- NOTE | 2016-11-08 08:44 | ED Trauma-Multisystem ---
General Chief Complaint: Trauma-Non Activation Stated Complaint: FALL Nursing Triage Note: Pt fell again at the [place]. Hx of several recent falls. Hx of cervical fractures and right humeral fractures from separate falls. New skin tear noted left arm and abrasion/hematoma noted to forehead.Pt awake but mildly confused. C-collar on from previous fall and cervical fracture. Source of Information: Patient Exam Limitations: No Limitations History of Present Illness Time Seen by Provider: 08:40 Initial Comments The patient is a 75-year-old white female brought here by ambulance from [facility]. This is her fourth recent contact at this facility. She was hospitalized on her inpatient rehabilitation facility from October 18 following a fall at her home which led to cervical spine surgery at [facility] in [place] in transfer here for rehabilitation. She apparently suffered a cervical vertebral fracture plus subluxation at C5 and 6 and underwent a multilevel anterior and posterior fixation at level CIII 4 through C7. She continues to wear a soft collar following that. She was discharged from inpatient rehabilitation on 11/01 and returned here on 11/02 after a fall at this facility and suffering a scalp contusion. She again returned after a fall on 11/05 and suffered a fracture of her right humerus. She again suffered a fall this morning and complains of pain both in the right arm but also the left arm. She also exhibits what appears to be a new hematoma on the head. Location Injury Occurred: [facility] Occurred: This Morning Pain/Injury Location: Face, Upper Extremity Method of Injury: Fall Allergies and Home Medications Allergies Coded Allergies: clopidogrel (Unverified Adverse Reaction, Severe, EXCESSIVE BLEEDING, 30/03) codeine (Unverified Adverse Reaction, Mild, NAUSEA, 03/30/10) warfarin (Unverified Adverse Reaction, Unknown, "REAL BAD SICK", 01/02/16) Uncoded Allergies: TRAZADONE (Adverse Reaction, Unknown, "CAN'T FUNCTION", 01/02/16) Home Medications Albuterol Sulfate 1 Puff Puff, 2 PUFF IH Q4H PRN for SHORTNESS OF BREATH, ( Reported) 1 PUFF = 90 MCG Amlodipine Besylate 10 Mg Tablet, 10 MG PO DAILY, (Reported) Aspirin 81 Mg Tab.chew, 81 MG PO DAILY, (Reported) Cetirizine HCl 10 Mg Tablet, 10 MG PO DAILY, (Reported) Cholecalciferol (Vitamin D3) 2,000 Unit Capsule, 2,000 UNIT PO DAILY, (Reported) Darbepoetin [place] in Polysorbat 40 Mcg/1 Ml Vial, 40 MCG SC Q14D for 28 Days, #2 Prescribed by: LOUIS BONILLA on 10/31/161833 Ezetimibe 10 Mg Tablet, 10 MG PO DAILY, (Reported) Fenofibrate Nanocrystallized 145 Mg Tablet, 145 MG PO DAILY, (Reported) Ferrous Sulfate 325 Mg Tablet, 325 MG PO BID, (Reported) Fluticasone Propionate 1 Ea Aero, 1 PUFF IH BID, (Reported) Folic Acid 1 Mg Tablet, 1 MG PO DAILY, (Reported) Gabapentin 100 Mg Capsule, 100 MG PO TID, (Reported) Hydralazine HCl 50 Mg Tablet, 50 MG PO Q8H, (Reported) Metoprolol Succinate 25 Mg Tab.er.24h, 25 MG PO DAILY, (Reported) Multivitamin 1 Each Tablet, 1 TAB PO DAILY, (Reported) Nitroglycerin 0.4 Mg Tab.subl, 0.4 MG SL UD PRN for CHEST PAIN, (Reported) [place]-3/Dha/Epa/Fish Oil 1 Each Capsule, 1,500 MG PO DAILY, (Reported) Oxybutynin Chloride 5 Mg Tablet, 5 MG PO BID, (Reported) Paricalcitol 1 Mcg Capsule, 1 MCG PO Q48H, (Reported) Paroxetine HCl 40 Mg Tablet, 40 MG PO DAILY, (Reported) Polyethylene Glycol 3350 17 Gm Powd.pack, 17 GM PO DAILY, (Reported) Pravastatin Sodium 80 Mg Tablet, 80 MG PO HS, (Reported) Primidone 50 Mg Tablet, 25 MG PO HS, (Reported) Ranitidine HCl 150 Mg Tablet, 150 MG PO BID, (Reported) Thiamine HCl 100 Mg Tablet, 100 MG PO DAILY, (Reported) Tramadol HCl 50 Mg Tablet, 100 MG PO Q6H PRN for PAIN-MODERATE, (Reported) Umeclidinium [place] 62.5 Mcg Blst.w.dev, 1 PUFF IH DAILY, (Reported) Constitutional: see HPI Eyes: No Symptoms Reported Nose: No Symptoms Reported Mouth: No Symptoms Reported Throat: No Symptoms to Report Respiratory: no symptoms reported Cardiovascular: No Symptoms Reported Gastrointestinal: no symptoms reported Musculoskeletal: other Skin: other Psychiatric/Neurological: Anxiety, Depressed, Other (confusion) Past Hhzbiwm-Whqfrm-Jdukzw Hx Patient Social History Type Used: Cigarettes Recent Foreign Travel: No Contact w/Someone Who Travel: No Recent Infectious Disease Expo: No Recent Hopitalizations: Yes Immunizations Up To Date Tetanus Booster (TDap): Unknown Date of Pneumonia Vaccine: Feb 19, 2016 Seasonal Allergies Seasonal Allergies: Yes Surgeries HX Surgeries: Yes Surgeries: CABG, Coronary Stent, Orthopedic Respiratory Hx Respiratory Disorders: Yes Respiratory Disorders: COPD Cardiovascular Hx Cardiac Disorders: Yes (heart failure) Cardiac Disorders: Aneurysm, Coronary Artery Disease, High Cholesterol Neurological Hx Neurological Disorders: Yes Neurological Disorders: Neuropathy Reproductive System Sexually Transmitted Disease: No HIV/AIDS: No Female Reproductive Disorders: Denies Genitourinary Hx Genitourinary Disorders: Yes Genitourinary Disorders: Renal Failure Gastrointestinal Hx Gastrointestinal Disorders: Yes Gastrointestinal Disorders: Gastroesophageal Reflux, Chronic Constipation Musculoskeletal Hx Musculoskeletal Disorders: Yes (history of cervical spine fractures with fusion with hardware rods) Endocrine Hx Endocrine Disorders: No HEENT HX ENT Disorders: No Loss of Vision: Denies Hearing Impairment: Denies Cancer Hx Cancer: No Psychosocial Hx Psychiatric Problems: Yes Behavioral Health Disorders: Anxiety, Depression Integumentary HX Skin/Integumentary Disorder: No Blood Transfusions Adverse Reaction to a Blood Tr: No Family Medical History Significant Family History: No Pertinent Family Hx Family Medial History: Patient reports no known family medical history. Physical Exam Vital Signs Vital Sign - Last 12Hours 11/08/16 08:25 Temp 97.2 Pulse 72 Resp 16 B/P (MAP) 182/95 Pulse Ox 98 O2 Delivery Room Air Temperature (Fahrenheit): 97.2 General Appearance: Other Head: Other Eyes: Bilateral Eye Normal Inspection Ears, Nose, Throat: No Evidence of ENT Injury Neck: Normal Inspection Cardiovascular: Regular Rate, Rhythm, No Edema, No Gallop, No JVD, No Murmur, Normal Peripheral Pulses Respiratory: Chest Non Tender, Lungs Clear, Normal Breath Sounds, No Accessory Muscle Use, No Respiratory Distress Gastrointestinal: Normal Bowel Sounds, No Organomegaly, No Pulsatile Mass, Non Tender, Soft Back: Normal Inspection, No CVA Tenderness, No Vertebral Tenderness Extremity: Other (right arm sling relative to humeral fracture) Neurologic/Psychiatric: Depressed Affect, Disoriented x3 Skin: Other Osprey Coma Score Best Eye Response (Osprey): (4) Open Spontaneously Best Verbal Response (Osprey): (4) Confused Conversation Best Motor Response (Osprey): (6) Obeys Commands Progress/Results/Core Measures Results/Orders My Orders Orders - URBAN MCWILLIAMS MD Ct Head Wo (11/08/16 08:51) Humerus, Right, 2 Views (11/08/16 08:51) Pelvis (11/08/16 10:10) Hip, Right, 2 Views (11/08/16 10:10) Vital Signs/I&O Vital Sign - Last 12Hours 11/08/16 11/08/16 08:25 08:30 Temp 97.2 97.2 Pulse 72 72 Resp 16 16 B/P (MAP) 182/95 182/95 (124) Pulse Ox 98 98 O2 Delivery Room Air Room Air Blood Pressure Mean: 124 Departure Communication Progress Notes 0951. CT of head has returned. No evidence of acute changes is noted. Previously noted large left scalp hematoma is unchanged. Chronic changes of infarction and degenerative disease are noted. The humerus shows an impacted fracture at the humeral neck without distraction. The [place] [facility] informed our social service that they would wish her to be referred to [facility]. This will be pursued. 12 00 patient has been evaluated and approved for transfer to the [facility] unit Impression Impression: Primary Impression: fall with abrasion and hematoma mid frontal face area Additional Impression: recent history fall with fracture and subluxation cervical spine Disposition: 65 XFER TO PSYCH HOSP/UNIT Condition: Stable/Unchanged Departure-Patient Inst. Decision time for Depature: 09:52 Referrals: RICHARD RODRIGUEZ DO (PCP/Family) Primary Care Physician Patient Instructions: Minor Head Injury (DC) URBAN MCWILLIAMS MD November 08, 2016 08:44
--- NOTE | 2016-11-08 09:23 | Diagnostic Imaging Report ---
INDICATION: Right humerus injury from a fall. FINDINGS: 2 views of right humerus show an impacted fracture of the right humeral neck. IMPRESSION: Impacted fracture right humeral neck. CRITICAL FINDING. Report was called and faxed to Dr. Delacruz in ER @ [facility], [place] @ 9:20 AM/wade. Dictated by: Dictated on workstation # [id number]
--- NOTE | 2016-11-08 09:33 | Diagnostic Imaging Report ---
PROCEDURE: CT head without contrast. TECHNIQUE: Multiple contiguous axial images were obtained through the brain without the use of intravenous contrast. INDICATION: Fall. Head injury. COMPARISON: CT head without contrast 11/05/2016. MRI brain without contrast 09/06/2016. FINDINGS: No intracranial hemorrhage, mass effect, extra-axial fluid collections or hydrocephalus. 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 No CT evidence of acute infarction. Moderate generalized cerebral and cerebellar parenchymal volume loss. Moderate leukoaraiosis. Osseous structures are intact. Large scalp hematoma overlying the left parietal bone is not substantially changed. Stable smaller scalp contusions overlying the right convexity. IMPRESSION: Stable head CT. This includes multiple scalp hematoma/contusions. No fractures or evidence of intracranial hemorrhage. Dictated by: Dictated on workstation # [id number]
--- NOTE | 2016-11-08 10:27 | Diagnostic Imaging Report ---
INDICATION: Right hip pain. 2 views of the right hip show no fracture or dislocation. IMPRESSION: Negative right hip. Dictated by: Dictated on workstation # [id number]
--- NOTE | 2016-11-08 10:27 | Diagnostic Imaging Report ---
INDICATION: Injury from a fall. AP view pelvis does not show any evidence of fracture or dislocation. Patient has had surgery in both inguinal regions with multiple ruchi present. IMPRESSION: No acute pelvic fracture seen. Dictated by: Dictated on workstation # [id number]
[2016-11-08 12:12] VITALS: BP 172/70
== END 2016-11-08 12:12 ==
LOC: EDUNIT# 08:15 → ER 08:19
DX: S42.292A Other displaced fracture of upper end of left humerus, initial encounter for closed fracture (principal); S00.03XA Contusion of scalp, initial encounter; S41.112A Laceration without foreign body of left upper arm, initial encounter; S00.81XA Abrasion of other part of head, initial encounter; R29.6 Repeated falls; Z79.82 Long term (current) use of aspirin; Z79.899 Other long term (current) drug therapy; Z95.1 Presence of aortocoronary bypass graft; Z95.5 Presence of coronary angioplasty implant and graft; Z98.1 Arthrodesis status; W01.0XXA Fall on same level from slipping, tripping and stumbling without subsequent striking against object, initial encounter; Y92.009 Unspecified place in unspecified non-institutional (private) residence as the place of occurrence of the external cause; Y99.8 Other external cause status
CPT/HCPCS: 70450; 72170; 73060; 73502; 99283

== ENCOUNTER 2016-11-25 02:40 | Emergency (ER) | payer MEDICARE, MEDICAID ==
[~2016-11-25] VITALS: Ht 152.4 cm; Wt 45.4 kg
--- NOTE | 2016-11-25 02:55 | ED Integumentary General ---
General Chief Complaint: Skin/Wound Problems Stated Complaint: BLEEDING FROM HEAD Source: patient Exam Limitations: no limitations History of Present Illness Time seen by provider: 02:40 Initial Comments Here with report of bleeding from her head. She has had multiple falls and recent surgery for neck fracture. She had large hematoma anterior and posterior on her head. Tonight she did not have a fall but was found in bed with a lot of blood to the back of her head. She may have been picking at the back of her head over the site of the large hematoma but she is not sure. Bleeding is controlled currently. Sent from the custodial for evaluation. Timing/Duration: this morning Severity: moderate Location: scalp Allergies and Home Medications Allergies Coded Allergies: clopidogrel (Unverified Adverse Reaction, Severe, EXCESSIVE BLEEDING, 30/03) codeine (Unverified Adverse Reaction, Mild, NAUSEA, 03/30/10) warfarin (Unverified Adverse Reaction, Unknown, "REAL BAD SICK", 01/02/16) Uncoded Allergies: TRAZADONE (Adverse Reaction, Unknown, "CAN'T FUNCTION", 01/02/16) Home Medications Albuterol Sulfate 1 Puff Puff, 2 PUFF IH Q4H PRN for SHORTNESS OF BREATH, ( Reported) 1 PUFF = 90 MCG Amlodipine Besylate 10 Mg Tablet, 10 MG PO DAILY, (Reported) Aspirin 81 Mg Tab.chew, 81 MG PO DAILY, (Reported) Cetirizine HCl 10 Mg Tablet, 10 MG PO DAILY, (Reported) Cholecalciferol (Vitamin D3) 2,000 Unit Capsule, 2,000 UNIT PO DAILY, (Reported) Darbepoetin [place] in Polysorbat 40 Mcg/1 Ml Vial, 40 MCG [place] Q14D for 28 Days, #2 Prescribed by: LOUIS BONILLA on 10/31/16 4297 Ezetimibe 10 Mg Tablet, 10 MG PO DAILY, (Reported) Fenofibrate Nanocrystallized 145 Mg Tablet, 145 MG PO DAILY, (Reported) Ferrous Sulfate 325 Mg Tablet, 325 MG PO BID, (Reported) Fluticasone Propionate 1 Ea Aero, 1 PUFF IH BID, (Reported) Folic Acid 1 Mg Tablet, 1 MG PO DAILY, (Reported) Gabapentin 100 Mg Capsule, 100 MG PO TID, (Reported) Hydralazine HCl 50 Mg Tablet, 50 MG PO Q8H, (Reported) Metoprolol Succinate 25 Mg Tab.er.24h, 25 MG PO DAILY, (Reported) Multivitamin 1 Each Tablet, 1 TAB PO DAILY, (Reported) Nitroglycerin 0.4 Mg Tab.subl, 0.4 MG SL UD PRN for CHEST PAIN, (Reported) [place]-3/Dha/Epa/Fish Oil 1 Each Capsule, 1,500 MG PO DAILY, (Reported) Oxybutynin Chloride 5 Mg Tablet, 5 MG PO BID, (Reported) Paricalcitol 1 Mcg Capsule, 1 MCG PO Q48H, (Reported) Paroxetine HCl 40 Mg Tablet, 40 MG PO DAILY, (Reported) Polyethylene Glycol 3350 17 Gm Powd.pack, 17 GM PO DAILY, (Reported) Pravastatin Sodium 80 Mg Tablet, 80 MG PO HS, (Reported) Primidone 50 Mg Tablet, 25 MG PO HS, (Reported) Ranitidine HCl 150 Mg Tablet, 150 MG PO BID, (Reported) Thiamine HCl 100 Mg Tablet, 100 MG PO DAILY, (Reported) Tramadol HCl 50 Mg Tablet, 100 MG PO Q6H PRN for PAIN-MODERATE, (Reported) Umeclidinium [place] 62.5 Mcg Blst.w.dev, 1 PUFF IH DAILY, (Reported) Constitutional: see HPI Respiratory: no symptoms reported Cardiovascular: no symptoms reported Skin: see HPI, lesions Past Ydoyamw-Mkifms-Nglrot Hx Patient Social History Alcohol Use: Denies Use Recreational Drug Use: No Smoking Status: Former Smoker Type Used: Cigarettes Recent Hopitalizations: Yes Immunizations Up To Date Tetanus Booster (TDap): Unknown Date of Pneumonia Vaccine: Feb 19, 2016 Seasonal Allergies Seasonal Allergies: Yes Surgeries HX Surgeries: Yes Surgeries: CABG, Coronary Stent, Orthopedic Respiratory Hx Respiratory Disorders: Yes Respiratory Disorders: COPD Cardiovascular Hx Cardiac Disorders: Yes (heart failure) Cardiac Disorders: Aneurysm, Coronary Artery Disease, High Cholesterol Neurological Hx Neurological Disorders: Yes Neurological Disorders: Neuropathy Reproductive System Sexually Transmitted Disease: No HIV/AIDS: No Female Reproductive Disorders: Denies Genitourinary Hx Genitourinary Disorders: Yes Genitourinary Disorders: Renal Failure Gastrointestinal Hx Gastrointestinal Disorders: Yes Gastrointestinal Disorders: Gastroesophageal Reflux, Chronic Constipation Musculoskeletal Hx Musculoskeletal Disorders: Yes (history of cervical spine fractures with fusion with hardware rods) Endocrine Hx Endocrine Disorders: No HEENT HX ENT Disorders: No Loss of Vision: Denies Hearing Impairment: Denies Cancer Hx Cancer: No Psychosocial Hx Psychiatric Problems: Yes Behavioral Health Disorders: Anxiety, Depression Integumentary HX Skin/Integumentary Disorder: No Blood Transfusions Adverse Reaction to a Blood Tr: No Reviewed Nursing Assessment Reviewed/Agree w Nursing PMH: Yes Family Medical History Significant Family History: No Pertinent Family Hx Family Medial History: Patient reports no known family medical history. Physical Exam Vital Signs Vital Sign - Last 12Hours 11/25/16 02:49 Temp 97.6 Pulse 50 Resp 16 B/P (MAP) 113/62 Pulse Ox 96 O2 Delivery Room Air Capillary Refill : General Appearance: WD/WN, no apparent distress HEENT: PERRL/EOMI, pharynx normal Cardiovascular: regular rate, rhythm, no murmur Respiratory: lungs clear, normal breath sounds Skin: other (large hematoma present to the posterior scalp with no active bleeding noted. Patient does have blood throughout her hair and on her clothing on her back as well as on her c-collar. There is a previous puncture site that does appear to have leaked liquefied hematoma.) Progress/Results/Core Measures Results/Orders Lab Results Laboratory Tests Test 11/25/16 03:49 Range/Units White Blood Count 7.3 4.3-11.0 10^3/uL Red Blood Count 2.45 L 4.35-5.85 10^6/uL Hemoglobin 8.2 L 11.5-16.0 G/DL Hematocrit 26 L 35-52 % Mean Corpuscular Volume 106 H 80-99 FL Mean Corpuscular Hemoglobin 34 25-34 PG Mean Corpuscular Hemoglobin Concent 32 32-36 G/DL Red Cell Distribution Width 17.8 H 10.0-14.5 % Platelet Count 313 130-400 10^3/uL Mean Platelet Volume 8.7 7.4-10.4 FL Neutrophils (%) (Auto) 78 H 42-75 % Lymphocytes (%) (Auto) 13 12-44 % Monocytes (%) (Auto) 6 0-12 % Eosinophils (%) (Auto) 3 0-10 % Basophils (%) (Auto) 0 0-10 % Neutrophils # (Auto) 5.7 1.8-7.8 X 10^3 Lymphocytes # (Auto) 0.9 L 1.0-4.0 X 10^3 Monocytes # (Auto) 0.4 0.0-1.0 X 10^3 Eosinophils # (Auto) 0.2 0.0-0.3 10^3/uL Basophils # (Auto) 0.0 0.0-0.1 10^3/uL My Orders Orders - VIKI HAN MD Cbc With Automated Diff (11/25/16 02:50) Vital Signs/I&O Vital Sign - Last 12Hours 11/25/16 02:49 Temp 97.6 Pulse 50 Resp 16 B/P (MAP) 113/62 Pulse Ox 96 O2 Delivery Room Air Progress Note : Progress Note Seen and evaluated. Scalp cleaned. Small puncture wounds noted. No active bleeding. Collar cleaned. CBC ordered. Monitor patient. Area to the back of the head cleaned. Hematoma noted to be liquefying and draining from scalp wound. Wound expressed and moderate amount of liquefied hematoma escaped from wound hole. Hemoglobin noted to be 8.2. This is in patient's normal range which is typically low. No chest pain or breathing problems currently so transfusion not indicated. Discharge back to custodial with return precautions. Patient verbalize understanding instructions and agreement with plan. Departure Impression Impression: Primary Impression: Scalp hematoma Qualified Codes: S00.03XD - Contusion of scalp, subsequent encounter Additional Impressions: liquefying hematoma Chronic anemia Disposition: 01 HOME, SELF-CARE Condition: Stable Departure-Patient Inst. Decision time for Depature: 04:14 Referrals: [facility] (PCP) Primary Care Physician RICHARD RODRIGUEZ DO (Family) Primary Care Physician Patient Instructions: Anemia of Chronic Disease (DC), HEMATOMA Add. Discharge Instructions: All discharge instructions reviewed with patient and/or family. Voiced understanding. The large hematoma to your scalp is liquids fine and draining from wound. You may use simple packing over top of wound to collect drainage. This should resolve on its own. Do not pick at wound. Follow-up with your doctor this week for recheck and further evaluation. You should have your hemoglobin rechecked this week to ensure that it stays in safe range. Copy Copies To 1: JEANINE ORLANDO TIMOTHY D MD Nov 25, 2016 02:55
[2016-11-25 03:54] LABS: BASOPHILS % (AUTO) 0 % (0-10); EOSINOPHILS # (AUTO) 0.2 10^3/uL (0.0-0.3); EOSINOPHILS % (AUTO) 3 % (0-10); LYMPHOCYTES # (AUTO) 0.9 X 10^3 (1.0-4.0); LYMPHOCYTES % (AUTO) 13 % (12-44); MEAN CORPUSCULAR HEMOGLOBIN 34 PG (25-34); MEAN CORPUSCULAR HGB CONC 32 G/DL (32-36); MEAN CORPUSCULAR VOLUME 106 FL (80-99); MEAN PLATELET VOLUME 8.7 FL (7.4-10.4); MONOCYTES # (AUTO) 0.4 X 10^3 (0.0-1.0); MONOCYTES % (AUTO) 6 % (0-12); NEUTROPHILS # (AUTO) 5.7 X 10^3 (1.8-7.8); NEUTROPHILS % (AUTO) 78 % (42-75); PLATELET COUNT 313 10^3/uL (130-400); RED BLOOD COUNT 2.45 10^6/uL (4.35-5.85); RED CELL DISTRIBUTION WIDTH 17.8 % (10.0-14.5); WHITE BLOOD COUNT 7.3 10^3/uL (4.3-11.0)
[2016-11-25 04:55] VITALS: BP 116/59
== END 2016-11-25 04:52 | disposition home or self-care (01) ==
LOC: EDUNIT# 02:40 → ER 02:41
DX: M79.81 Nontraumatic hematoma of soft tissue (principal); D64.9 Anemia, unspecified; I25.10 Atherosclerotic heart disease of native coronary artery without angina pectoris; E78.00 Pure hypercholesterolemia, unspecified; Z79.82 Long term (current) use of aspirin; Z87.891 Personal history of nicotine dependence; Z95.5 Presence of coronary angioplasty implant and graft
CPT/HCPCS: 36415; 85025

== ENCOUNTER 2016-11-26 19:12 | Emergency (ER) | payer MEDICARE, MEDICAID ==
[~2016-11-26] VITALS: Ht 152.4 cm; Wt 45.4 kg
--- NOTE | 2016-11-26 20:27 | ED Integumentary General ---
General Chief Complaint: Skin/Wound Problems Stated Complaint: HEAD TRAUMA,RECENT FALL Nursing Triage Note: PATIENT SLEEPING. HEMATOMA SCABBED. BEGAN BLEEDING. EMS APPROXIMATES 100CC BLOOD LOSS. PATIENT HYPOTENSIVE-80s/50s, HR-55. NO LOSS OF CONSCIOUSNES. PATIENT ALERT AND ORIENTED. Source: patient Exam Limitations: no limitations History of Present Illness Time seen by provider: 19:25 Allergies and Home Medications Allergies Coded Allergies: clopidogrel (Unverified Adverse Reaction, Severe, EXCESSIVE BLEEDING, 30/03) codeine (Unverified Adverse Reaction, Mild, NAUSEA, 03/30/10) warfarin (Unverified Adverse Reaction, Unknown, "REAL BAD SICK", 01/02/16) Uncoded Allergies: TRAZADONE (Adverse Reaction, Unknown, "CAN'T FUNCTION", 01/02/16) Home Medications Albuterol Sulfate 1 Puff Puff, 2 PUFF IH Q4H PRN for SHORTNESS OF BREATH, ( Reported) 1 PUFF = 90 MCG Amlodipine Besylate 10 Mg Tablet, 10 MG PO DAILY, (Reported) Aspirin 81 Mg Tab.chew, 81 MG PO DAILY, (Reported) Cetirizine HCl 10 Mg Tablet, 10 MG PO DAILY, (Reported) Cholecalciferol (Vitamin D3) 2,000 Unit Capsule, 2,000 UNIT PO DAILY, (Reported) Darbepoetin [place] in Polysorbat 40 Mcg/1 Ml Vial, 40 MCG SC Q14D for 28 Days, #2 Prescribed by: LOUIS BONILLA on 10/31/16 1834 Ezetimibe 10 Mg Tablet, 10 MG PO DAILY, (Reported) Fenofibrate Nanocrystallized 145 Mg Tablet, 145 MG PO DAILY, (Reported) Ferrous Sulfate 325 Mg Tablet, 325 MG PO BID, (Reported) Fluticasone Propionate 1 Ea Aero, 1 PUFF IH BID, (Reported) Folic Acid 1 Mg Tablet, 1 MG PO DAILY, (Reported) Gabapentin 100 Mg Capsule, 100 MG PO TID, (Reported) Hydralazine HCl 50 Mg Tablet, 50 MG PO Q8H, (Reported) Metoprolol Succinate 25 Mg Tab.er.24h, 25 MG PO DAILY, (Reported) Multivitamin 1 Each Tablet, 1 TAB PO DAILY, (Reported) Nitroglycerin 0.4 Mg Tab.subl, 0.4 MG SL UD PRN for CHEST PAIN, (Reported) [place]-3/Dha/Epa/Fish Oil 1 Each Capsule, 1,500 MG PO DAILY, (Reported) Oxybutynin Chloride 5 Mg Tablet, 5 MG PO BID, (Reported) Paricalcitol 1 Mcg Capsule, 1 MCG PO Q48H, (Reported) Paroxetine HCl 40 Mg Tablet, 40 MG PO DAILY, (Reported) Polyethylene Glycol 3350 17 Gm Powd.pack, 17 GM PO DAILY, (Reported) Pravastatin Sodium 80 Mg Tablet, 80 MG PO HS, (Reported) Primidone 50 Mg Tablet, 25 MG PO HS, (Reported) Ranitidine HCl 150 Mg Tablet, 150 MG PO BID, (Reported) Thiamine HCl 100 Mg Tablet, 100 MG PO DAILY, (Reported) Tramadol HCl 50 Mg Tablet, 100 MG PO Q6H PRN for PAIN-MODERATE, (Reported) Umeclidinium [place] 62.5 Mcg Blst.w.dev, 1 PUFF IH DAILY, (Reported) Past Pssupic-Fsrzik-Fxutyl Hx Patient Social History Alcohol Use: Denies Use Recreational Drug Use: No Type Used: Cigarettes 2nd Hand Smoke Exposure: No Recent Foreign Travel: No Contact w/Someone Who Travel: No Recent Infectious Disease Expo: No Recent Hopitalizations: Yes Immunizations Up To Date Tetanus Booster (TDap): Unknown Date of Pneumonia Vaccine: Feb 19, 2016 Seasonal Allergies Seasonal Allergies: Yes Surgeries HX Surgeries: Yes Surgeries: CABG, Coronary Stent, Orthopedic Respiratory Hx Respiratory Disorders: Yes Respiratory Disorders: COPD Cardiovascular Hx Cardiac Disorders: Yes (heart failure) Cardiac Disorders: Aneurysm, Coronary Artery Disease, High Cholesterol Neurological Hx Neurological Disorders: Yes Neurological Disorders: Neuropathy Reproductive System : No Sexually Transmitted Disease: No HIV/AIDS: No Female Reproductive Disorders: Denies [employer] History: Menopausal Genitourinary Hx Genitourinary Disorders: Yes Genitourinary Disorders: Renal Failure Gastrointestinal Hx Gastrointestinal Disorders: Yes Gastrointestinal Disorders: Gastroesophageal Reflux, Chronic Constipation Musculoskeletal Hx Musculoskeletal Disorders: Yes (history of cervical spine fractures with fusion with hardware rods) Endocrine Hx Endocrine Disorders: No HEENT HX ENT Disorders: No Loss of Vision: Denies Hearing Impairment: Denies Cancer Hx Cancer: No Psychosocial Hx Psychiatric Problems: Yes Behavioral Health Disorders: Anxiety, Depression Integumentary HX Skin/Integumentary Disorder: No Blood Transfusions Adverse Reaction to a Blood Tr: No Family Medical History Significant Family History: No Pertinent Family Hx Family Medial History: Patient reports no known family medical history. Physical Exam Vital Signs Vital Sign - Last 12Hours 11/26/16 19:19 Temp 97.7 Pulse 52 Resp 16 B/P (MAP) 133/59 Pulse Ox 97 O2 Delivery Room Air Capillary Refill : Less Than 3 Seconds Progress/Results/Core Measures Results/Orders Vital Signs/I&O Vital Sign - Last 12Hours 11/26/16 19:19 Temp 97.7 Pulse 52 Resp 16 B/P (MAP) 133/59 Pulse Ox 97 O2 Delivery Room Air Blood Pressure Mean: 83 Departure Impression Impression: Primary Impression: Scalp hematoma Qualified Codes: S00.03XD - Contusion of scalp, subsequent encounter Disposition: SNF Condition: Stable Departure-Patient Inst. Decision time for Depature: 20:42 Referrals: [facility] (PCP) Primary Care Physician RICHARD RODRIGUEZ DO (Family) Primary Care Physician Patient Instructions: HEMATOMA Add. Discharge Instructions: All discharge instructions reviewed with patient and/or family. Voiced understanding. Continue usual home medications. If rebleeding occurs, hold pressure and apply an ice pack for 10-20 minutes. Continue wound care as instructed previously. Follow-up with your family practitioner for recheck this week, call for appointment time. Return to the emergency department for worsened symptoms or any other concerns. TOÑO HOWELL Nov 26, 2016 20:27
[2016-11-26 21:20] VITALS: BP 133/59
== END 2016-11-26 21:20 ==
LOC: EDUNIT# 19:12 → ER 19:14
DX: S00.03XA Contusion of scalp, initial encounter (principal); J44.9 Chronic obstructive pulmonary disease, unspecified; I25.10 Atherosclerotic heart disease of native coronary artery without angina pectoris; Z95.1 Presence of aortocoronary bypass graft; Z79.82 Long term (current) use of aspirin; W19.XXXA Unspecified fall, initial encounter

== ENCOUNTER 2016-12-02 12:19 | Emergency (ER) | payer MEDICARE, MEDICAID ==
[~2016-12-02] VITALS: Ht 134.6 cm; Wt 40.8 kg
[2016-12-02] MEDS ORDERED: NS IV 1000 ML 1,000 ML ONE (12:22)
[2016-12-02] MEDS ORDERED: ONDANSETRON 4 MG/2 ML (SDV) Z0FRAN ONE ×2 (12:30→14:01)
[2016-12-02] MEDS ORDERED: TRANEXAMIC ACID 100 MG/ML 10 ML INJECTION IV ONE ×3 (12:30→12:43)
[2016-12-02] MEDS ORDERED: NS (IVPB) 50 ML ONE (12:30)
[2016-12-02] MEDS ORDERED: NS (IVPB) 250 ML ONE (12:44)
--- NOTE | 2016-12-02 12:54 | ED General ---
General Chief Complaint: Head/Cervical Problems Stated Complaint: HEMOTOMA Source of Information: Patient, EMS Exam Limitations: No Limitations (URBAN MCWILLIAMS MD) History of Present Illness Time Seen by Provider: 12:33 Initial Comments The patient is a 75-year-old white female brought to the emergency room by EMS from [facility]. She is on her seventh contact since October 18. She has had multiple falls including a previous scalp laceration with excessive bleeding. She was previously seen by Dr. NOLAND on her initial contact for bleeding from the scalp wound. She has subsequently had other falls and a fracture of the right humerus. She apparently began leading spontaneously from the scalp. The EMS has a Kerlix gauze roll applied to her scalp which is wet through with blood. This was placed freshly by them at the facility. The patient has no usable peripheral veins. An access was placed in the right tibial plateau. She was administered TXA. We were able to determine that she has previously been a DO NOT RESUSCITATE. She states repeatedly that she is ready to go. Timing/Duration: 1-3 Hours (URBAN MCWILLIAMS MD) Allergies and Home Medications Allergies Coded Allergies: clopidogrel (Unverified Adverse Reaction, Severe, EXCESSIVE BLEEDING, 30/03) codeine (Unverified Adverse Reaction, Mild, NAUSEA, 03/30/10) warfarin (Unverified Adverse Reaction, Unknown, "REAL BAD SICK", 01/02/16) Uncoded Allergies: TRAZADONE (Adverse Reaction, Unknown, "CAN'T FUNCTION", 01/02/16) Home Medications Albuterol Sulfate 1 Puff Puff, 2 PUFF IH Q4H PRN for SHORTNESS OF BREATH, ( Reported) 1 PUFF = 90 MCG Amlodipine Besylate 10 Mg Tablet, 10 MG PO DAILY, (Reported) Aspirin 81 Mg Tab.chew, 81 MG PO DAILY, (Reported) Cetirizine HCl 10 Mg Tablet, 10 MG PO DAILY, (Reported) Cholecalciferol (Vitamin D3) 2,000 Unit Capsule, 2,000 UNIT PO DAILY, (Reported) Darbepoetin [place] in Polysorbat 40 Mcg/1 Ml Vial, 40 MCG SC Q14D for 28 Days, #2 Prescribed by: LOUIS BONILLA on 10/31/16 1828 Ezetimibe 10 Mg Tablet, 10 MG PO DAILY, (Reported) Fenofibrate Nanocrystallized 145 Mg Tablet, 145 MG PO DAILY, (Reported) Ferrous Sulfate 325 Mg Tablet, 325 MG PO BID, (Reported) Fluticasone Propionate 1 Ea Aero, 1 PUFF IH BID, (Reported) Folic Acid 1 Mg Tablet, 1 MG PO DAILY, (Reported) Gabapentin 100 Mg Capsule, 100 MG PO TID, (Reported) Hydralazine HCl 50 Mg Tablet, 50 MG PO Q8H, (Reported) Lorazepam 1 Mg Tablet, 1 MG PO Q4H, #15 Prescribed by: VIKI HAN on 12/02/16 1544 Metoprolol Succinate 25 Mg Tab.er.24h, 25 MG PO DAILY, (Reported) Morphine Sulfate 100 Mg/5 Ml Solution, 4 MG PO Q1HR PRN for PAIN-MODERATE, #5 Ref 0 Prescribed by: VIKI HAN on 12/02/161543 Multivitamin 1 Each Tablet, 1 TAB PO DAILY, (Reported) Nitroglycerin 0.4 Mg Tab.subl, 0.4 MG SL UD PRN for CHEST PAIN, (Reported) [place]-3/Dha/Epa/Fish Oil 1 Each Capsule, 1,500 MG PO DAILY, (Reported) Oxybutynin Chloride 5 Mg Tablet, 5 MG PO BID, (Reported) Paricalcitol 1 Mcg Capsule, 1 MCG PO Q48H, (Reported) Paroxetine HCl 40 Mg Tablet, 40 MG PO DAILY, (Reported) Polyethylene Glycol 3350 17 Gm Powd.pack, 17 GM PO DAILY, (Reported) Pravastatin Sodium 80 Mg Tablet, 80 MG PO HS, (Reported) Primidone 50 Mg Tablet, 25 MG PO HS, (Reported) Ranitidine HCl 150 Mg Tablet, 150 MG PO BID, (Reported) Thiamine HCl 100 Mg Tablet, 100 MG PO DAILY, (Reported) Tramadol HCl 50 Mg Tablet, 100 MG PO Q6H PRN for PAIN-MODERATE, (Reported) Umeclidinium [place] 62.5 Mcg Blst.w.dev, 1 PUFF IH DAILY, (Reported) Constitutional: see HPI EENTM: other (bleeding from posterior scalp) Respiratory: short of breath Cardiovascular: no symptoms reported Gastrointestinal: no symptoms reported Musculoskeletal: no symptoms reported Skin: no symptoms reported Psychiatric/Neurological: No Symptoms Reported Hematologic/Lymphatic: See HPI Immunological/Allergic: no symptoms reported (URBAN MCWILLIAMS MD) Past Whiidra-Rhedbw-Zhwors Hx Patient Social History Type Used: Cigarettes 2nd Hand Smoke Exposure: No Recent Hopitalizations: Yes (URBAN MCWILLIAMS MD) Immunizations Up To Date Tetanus Booster (TDap): Unknown Date of Pneumonia Vaccine: Feb 19, 2016 (URBAN MCWILLIAMS MD) Seasonal Allergies Seasonal Allergies: Yes (URBAN MCWILLIAMS MD) Surgeries HX Surgeries: Yes Surgeries: CABG, Coronary Stent, Orthopedic (URBAN MCWILLIAMS MD) Respiratory Hx Respiratory Disorders: Yes Respiratory Disorders: COPD (URBAN MCWILLIAMS MD) Cardiovascular Hx Cardiac Disorders: Yes (heart failure) Cardiac Disorders: Aneurysm, Coronary Artery Disease, High Cholesterol (URBAN MCWILLIAMS MD) Neurological Hx Neurological Disorders: Yes Neurological Disorders: Neuropathy (URBAN MCWILLIAMS MD) Reproductive System Sexually Transmitted Disease: No HIV/AIDS: No Female 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 (URBAN MCWILLIAMS MD) Genitourinary Hx Genitourinary Disorders: Yes Genitourinary Disorders: Renal Failure (URBAN MCWILLIAMS MD) Gastrointestinal Hx Gastrointestinal Disorders: Yes Gastrointestinal Disorders: Gastroesophageal Reflux, Chronic Constipation (URBAN MCWILLIAMS MD) Musculoskeletal Hx Musculoskeletal Disorders: Yes (history of cervical spine fractures with fusion with hardware rods) (URBAN MCWILLIAMS MD) Endocrine Hx Endocrine Disorders: No (URBAN MCWILLIAMS MD) HEENT HX ENT Disorders: No Loss of Vision: Denies Hearing Impairment: Denies (URBAN MCWILLIAMS MD) Cancer Hx Cancer: No (URBAN MCWILLIAMS MD) Psychosocial Hx Psychiatric Problems: Yes Behavioral Health Disorders: Anxiety, Depression (URBAN MCWILLIAMS MD) Integumentary HX Skin/Integumentary Disorder: No (URBAN MCWILLIAMS MD) Blood Transfusions Adverse Reaction to a Blood Tr: No (URBAN MCWILLIAMS MD) Family Medical History Significant Family History: No Pertinent Family Hx Family Medial History: Patient reports no known family medical history. (URBAN MCWILLIAMS MD) Family Medial History: Patient reports no known family medical history. (VIKI HAN MD) Physical Exam Vital Signs Vital Sign - Last 12Hours 12/02/16 12:19 Temp 96.8 Pulse 58 Resp 20 B/P (MAP) 71/46 Pulse Ox 100 O2 Delivery Room Air (VIKI HAN MD) Vital Signs Capillary Refill : (URBAN MCWILLIAMS MD) General Appearance: Moderate Distress, Other (she is Gaunt and appears terminal ) Eyes: Bilateral Eye Normal Inspection HEENT: Normal ENT Inspection Neck: Normal Inspection Respiratory: Decreased Breath Sounds Cardiovascular: Regular Rate, Rhythm, No Edema, No Gallop, No JVD, No Murmur, Normal Peripheral Pulses Gastrointestinal: Normal Bowel Sounds, No Organomegaly, No Pulsatile Mass, Non Tender, Soft Neurologic/Psychiatric: Alert (URBAN MCWILLIAMS MD) Progress/Results/Core Measures Results/Orders Lab Results Laboratory Tests Test 12/02/16 12:27 12/02/16 12:40 Range/Units Sodium Level 142 135-145 MMOL/L Potassium Level 5.4 H 3.6-5.0 MMOL/L Chloride Level 111 H 98-107 MMOL/L Carbon Dioxide Level 16 L 21-32 MMOL/L Anion Gap 15 H 5-14 MMOL/L Blood Urea Nitrogen 43 H 7-18 MG/DL Creatinine 2.08 H 0.60-1.30 MG/DL Estimat Glomerular Filtration Rate 23 BUN/Creatinine Ratio 21 H 0-20 Glucose Level 125 H 70-105 MG/DL Calcium Level 9.6 8.5-10.1 MG/DL Total Bilirubin 0.5 0.1-1.0 MG/DL Aspartate Amino Transf (AST/SGOT) 45 H 5-34 U/L Alanine Aminotransferase (ALT/SGPT) 12 0-55 U/L Alkaline Phosphatase 46 40-136 U/L Total Protein 5.0 L 6.4-8.2 GM/DL Albumin 2.9 L 3.2-4.5 GM/DL White Blood Count 7.2 4.3-11.0 10^3/uL Red Blood Count 1.45 L 4.35-5.85 10^6/uL Hemoglobin 5.0 *L 11.5-16.0 G/DL Hematocrit 16 *L 35-52 % Mean Corpuscular Volume 112 H 80-99 FL Mean Corpuscular Hemoglobin 34 25-34 PG Mean Corpuscular Hemoglobin Concent 31 L 32-36 G/DL Red Cell Distribution Width 18.7 H 10.0-14.5 % Platelet Count 432 H 130-400 10^3/uL Mean Platelet Volume 9.1 7.4-10.4 FL (VIKI HAN MD) My Orders Orders - VIKI HAN MD Ns Iv 1000 Ml (Sodium Chloride 0.9%) (12/02/16 12:22) Ondansetron Injection (Zofran Injectio (12/02/16 12:30) Tranexamic Acid Injection (Cyklokapron I (12/02/16 12:30) Ns (Ivpb) (Sodium Chloride 0.9% Ivpb Bag (12/02/16 12:30) Tranexamic Acid Injection (Cyklokapron I (12/02/16 12:31) Tranexamic Acid Injection (Cyklokapron I (12/02/16 12:43) Comprehensive Metabolic Panel (12/02/16 12:49) Ns (Ivpb) (Sodium Chloride 0.9%) (12/02/16 12:44) Fentanyl Injection (Sublimaze Injection (12/02/16 14:00) Ondansetron Injection (Zofran Injectio (12/02/16 14:01) Lidocaine 2% Bolus Syringe (Xylocaine Edvin (12/02/16 14:16) Ondansetron Injection (Zofran Injectio (12/02/16 14:45) Morphine Injection (Morphine Injection (12/02/16 15:29) Lorazepam Injection (Ativan Injection) (12/02/16 16:00) Morphine Injection (Morphine Injection (12/02/16 16:00) (VIKI HAN MD) Medications Given in ED Current Medications Medications Dose Ordered Sig/Emeka Route Start Time Stop Time Status Last Admin Dose Admin Fentanyl Citrate 25 mcg ONCE PRN IVP 12/02/16 15:00 12/02/16 13:14 25 MCG Fentanyl Citrate 25 mcg Q1H PRN IVP 12/02/16 13:15 12/02/16 13:31 25 MCG Lorazepam 0.5 mg ONCE ONCE IVP 12/02/16 16:00 12/02/16 16:01 DC 12/02/16 16:02 0.5 MG Morphine Sulfate 4 mg ONCE ONCE IVP 12/02/16 16:00 12/02/16 16:01 DC 12/02/16 16:01 4 MG Ondansetron HCl 4 mg ONCE ONCE IVP 12/02/16 14:45 12/02/16 14:46 DC 12/02/16 14:06 4 MG Ondansetron HCl 4 mg ONCE ONCE IVP 12/02/16 14:45 12/02/16 14:47 DC 12/02/16 12:34 4 MG Sodium Chloride 1,000 ml @ 0 mls/hr Q0M ONCE IV 12/02/16 14:38 12/02/16 14:45 DC 12/02/16 12:35 1,000 MLS/HR Tranexamic Acid 1000 mg/Sodium Chloride 60 ml @ 360 mls/hr ONCE ONCE IV 12/02/16 14:45 12/02/16 14:54 DC 12/02/16 12:46 360 MLS/HR (VIKI HAN MD) Vital Signs/I&O Vital Sign - Last 12Hours 12/02/16 12:19 Temp 96.8 Pulse 58 Resp 20 B/P (MAP) 71/46 Pulse Ox 100 O2 Delivery Room Air (VIKI HAN MD) Progress Note : Progress Note 1330: I assumed care of the patient from Dr. MCWILLIAMS. Patient was noted to have critical low hemoglobin. Patient has very poor IV access. She does have IO in place as well as 2 small peripheral IVs that are suspicious for being very tenuous and will likely not work for very long. I did speak with the patient regarding the need for transfusion. She is stating that she would like to go meaning she would like to just . We did talk about central line placement and she is not interested at this time although it is very difficult to understand her. I did have the surgeon, Dr. Valverde evaluate wound with me to the posterior scalp. He was able to express old clot from the wound but was not actively bleeding at the time of evaluation. I have seen patient before for similar bleeding on her scalp and the wound now is a 2 x 2 centimeter hole in the scalp versus the previous linear wound from old laceration. Patient previously had liquefied hematoma draining from the scalp. It does appear that today that she has had actual bleeding from the wound and may have new clot within the wound. Patient is very uncomfortable and hypotensive. 1430: I did discuss the case with the patient's who is almost to the ER now. 1455: I did discuss with the and the patient concerns for the severe anemia. Patient is still stating that she wishes to just go and does not want further care. I have consulted the hospitalist nurse to assist and possible hospice placement. states that she has expressed in the past that she does not want any resuscitative measures. Patient will without more aggressive treatment and she and the both indicated they understand. Patient would be a good candidate for hospice given her significant underlying debility including recent neck fractures, multiple falls and generalized decline. Patient has received 1 L of normal saline IV as well as TXA. Patient has been given several small aliquots of fentanyl for pain and seems to be a little bit more comfortable now but her blood pressure 71/32 with heart rate of 65. Again patient states that she does not want further management. 1540: Patient has been evaluated by hospice nurse and patient is very clear and her wish to have nothing further done except for comfort. Patient will go back to long-term and have [facility] consult. We will write prescription for initial pain and anxiety medications until hospice can be completed. Patient's blood pressure 61/27. She did receive morphine 4 mg IV and is somewhat more comfortable currently. Discharged to long-term on hospice. 1610: Patient having increased pain. Ativan 0.5 mg IV and morphine 4 mg IV ordered. 1630: Patient is more comfortable but very somnolent and unable to sit up safely. She will go back to long-term via EMS due to bedridden state secondary to pain medicines and underlying generalized debility. Current blood pressure 72/ 38. Bleeding has currently stopped. (VIKI HAN MD) Departure Communication Progress Notes 133 we have now been able to establish 2 peripheral IVs in addition to the intraosseous initially placed. Her hemoglobin appears to be 5. It is expected to fall with her hydration. She has received TXA. I have discussed the problem with that. Dr. Villafana from the blood bank. She will require a type and cross in order to get 2 units of packed red cells for immediate transfusion. There continues to be an O- shortage. The long-term reports that she is a DO NOT RESUSCITATE status. She continues to state that she wishes to and be done with all of this. I have discussed this with Dr. Han who returns from his meeting. In addition I have paged Dr. Valverde who has just arrived to assess whether he is having the assistance relative to the scalp wound. (URBAN MCWILLIAMS MD) Impression Impression: Primary Impression: Profound anemia Qualified Codes: D64.9 - Anemia, unspecified Additional Impressions: Chronic renal failure Qualified Codes: N18.9 - Chronic kidney disease, unspecified multiple scalp hematomas Open scalp wound Qualified Codes: S01.01XD - Laceration without foreign body of scalp, subsequent encounter generalized debility Disposition: HOME, SELF-CARE Condition: Unchanged Departure-Patient Inst. Decision time for Depature: 15:32 (VIKI HAN MD) Referrals: JEANINE ORLANDO DO (PCP/Family) Primary Care Physician Patient Instructions: Anemia of Chronic Disease (DC), Wound Care (DC), Wound Dehiscence (DC) Add. Discharge Instructions: All discharge instructions reviewed with patient and/or family. Voiced understanding. Return to long-term with hospice consult. [facility] to evaluate. Scripts Lorazepam (Ativan) 1 Mg Tablet 1 MG PO Q4H, #15 TAB Prov: VIKI HAN MD 12/02/16 Morphine Sulfate (Morphine Sulfate Concentrate 20mg/ml) 100 Mg/5 Ml Solution 4 MG PO Q1HR Y for PAIN-MODERATE, #5 ML 0 Refills Prov: VIKI HAN MD 12/02/16 URBAN MCWILLIAMS MD Dec 02, 2016 12:54 VIKI HAN MD Dec 02, 2016 14:59
[2016-12-02] MEDS ORDERED: fentaNYL INJECTION 100 MCG/2 ML AMP ONE (13:09)
[2016-12-02 13:10] LABS: MEAN PLATELET VOLUME 9.1 FL (7.4-10.4); RED BLOOD COUNT 1.45 10^6/uL (4.35-5.85); RED CELL DISTRIBUTION WIDTH 18.7 % (10.0-14.5); WHITE BLOOD COUNT 7.2 10^3/uL (4.3-11.0)
[2016-12-02 13:10] LABS: ALBUMIN 2.9 GM/DL (3.2-4.5); BILIRUBIN,TOTAL 0.5 MG/DL (0.1-1.0); CALCIUM 9.6 MG/DL (8.5-10.1); CREATININE SERUM 2.08 MG/DL (0.60-1.30); ICTERUS 0.3 (-100-1.9); POTASSIUM 5.4 MMOL/L (3.6-5.0)
[2016-12-02] MEDS ORDERED: fentaNYL INJECTION 100 MCG/2 ML AMP IVP PRN ×3 (13:15→15:00)
--- NOTE | 2016-12-02 13:53 | Consultation ---
History of Present Illness History of Present Illness Patient Consulted On(syed/time) 12/02/16 13:53 Date of Admission History of Present Illness Surgery asked to consult regarding scalp laceration, bleeding, anemia HPI: The patient is a 75-year-old white female brought to the emergency room by EMS from [facility]. This her seventh visit to the ED since October 18. She has had multiple falls including a previous scalp laceration with excessive bleeding. She was previously seen by Dr. NOLAND on her initial contact for bleeding from the scalp wound. She has subsequently had other falls and a fracture of the right humerus. She apparently began bledding spontaneously from the scalp. The EMS has a Kerlix gauze roll applied to her scalp which is wet through with blood. This was placed freshly by them at the facility. The patient has no usable peripheral veins. An access was placed in the right tibial plateau. She was administered TXA. We were able to determine that she has previously been a DO NOT RESUSCITATE. She states repeatedly that she is ready to go. Timing/Duration: 1-3 Hours Pt is able to open eyes to voice command, complains of pain. But she also over and over says just let me go. Pt not really answering questions at this time. Allergies and Home Medications Allergies Coded Allergies: clopidogrel (Unverified Adverse Reaction, Severe, EXCESSIVE BLEEDING, 30/03) codeine (Unverified Adverse Reaction, Mild, NAUSEA, 03/30/10) warfarin (Unverified Adverse Reaction, Unknown, "REAL BAD SICK", 01/02/16) Uncoded Allergies: TRAZADONE (Adverse Reaction, Unknown, "CAN'T FUNCTION", 01/02/16) Home Medications Albuterol Sulfate 1 Puff Puff, 2 PUFF IH Q4H PRN for SHORTNESS OF BREATH, ( Reported) 1 PUFF = 90 MCG Amlodipine Besylate 10 Mg Tablet, 10 MG PO DAILY, (Reported) Aspirin 81 Mg Tab.chew, 81 MG PO DAILY, (Reported) Cetirizine HCl 10 Mg Tablet, 10 MG PO DAILY, (Reported) Cholecalciferol (Vitamin D3) 2,000 Unit Capsule, 2,000 UNIT PO DAILY, (Reported) Darbepoetin [place] in Polysorbat 40 Mcg/1 Ml Vial, 40 MCG SC Q14D for 28 Days, #2 Prescribed by: LOUIS BONILLA on 10/31/16 1834 Ezetimibe 10 Mg Tablet, 10 MG PO DAILY, (Reported) Fenofibrate Nanocrystallized 145 Mg Tablet, 145 MG PO DAILY, (Reported) Ferrous Sulfate 325 Mg Tablet, 325 MG PO BID, (Reported) Fluticasone Propionate 1 Ea Aero, 1 PUFF IH BID, (Reported) Folic Acid 1 Mg Tablet, 1 MG PO DAILY, (Reported) Gabapentin 100 Mg Capsule, 100 MG PO TID, (Reported) Hydralazine HCl 50 Mg Tablet, 50 MG PO Q8H, (Reported) Metoprolol Succinate 25 Mg Tab.er.24h, 25 MG PO DAILY, (Reported) Multivitamin 1 Each Tablet, 1 TAB PO DAILY, (Reported) Nitroglycerin 0.4 Mg Tab.subl, 0.4 MG SL UD PRN for CHEST PAIN, (Reported) [place]-3/Dha/Epa/Fish Oil 1 Each Capsule, 1,500 MG PO DAILY, (Reported) Oxybutynin Chloride 5 Mg Tablet, 5 MG PO BID, (Reported) Paricalcitol 1 Mcg Capsule, 1 MCG PO Q48H, (Reported) Paroxetine HCl 40 Mg Tablet, 40 MG PO DAILY, (Reported) Polyethylene Glycol 3350 17 Gm Powd.pack, 17 GM PO DAILY, (Reported) Pravastatin Sodium 80 Mg Tablet, 80 MG PO HS, (Reported) Primidone 50 Mg Tablet, 25 MG PO HS, (Reported) Ranitidine HCl 150 Mg Tablet, 150 MG PO BID, (Reported) Thiamine HCl 100 Mg Tablet, 100 MG PO DAILY, (Reported) Tramadol HCl 50 Mg Tablet, 100 MG PO Q6H PRN for PAIN-MODERATE, (Reported) Umeclidinium [place] 62.5 Mcg Blst.w.dev, 1 PUFF IH DAILY, (Reported) Past Rbbelrz-Zqzddz-Pdfftf Hx Patient Social History Type Used: Cigarettes 2nd Hand Smoke Exposure: No Recent Hopitalizations: Yes Immunizations Up To Date Tetanus Booster (TDap): Unknown Date of Pneumonia Vaccine: Feb 19, 2016 Seasonal Allergies Seasonal Allergies: Yes Surgeries HX Surgeries: Yes Surgeries: CABG, Coronary Stent, Orthopedic Respiratory Hx Respiratory Disorders: Yes Respiratory Disorders: COPD Cardiovascular Hx Cardiac Disorders: Yes (heart failure) Cardiac Disorders: Aneurysm, Coronary Artery Disease, High Cholesterol Neurological Hx Neurological Disorders: Yes Neurological Disorders: Neuropathy Reproductive System Sexually Transmitted Disease: No HIV/AIDS: No 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 Genitourinary Hx Genitourinary Disorders: Yes Genitourinary Disorders: Renal Failure Gastrointestinal Hx Gastrointestinal Disorders: Yes Gastrointestinal Disorders: Gastroesophageal Reflux, Chronic Constipation Musculoskeletal Hx Musculoskeletal Disorders: Yes (history of cervical spine fractures with fusion with hardware rods) Endocrine Hx Endocrine Disorders: No HEENT HX ENT Disorders: No Loss of Vision: Denies Hearing Impairment: Denies Cancer Hx Cancer: Yes (Multiple Myeloma) Psychosocial Hx Psychiatric Problems: Yes Behavioral Health Disorders: Anxiety, Depression Integumentary HX Skin/Integumentary Disorder: No Blood Transfusions Adverse Reaction to a Blood Tr: No Family Medical History Significant Family History: No Pertinent Family Hx (unable to obtain from pt) Family Medial History: Patient reports no known family medical history. Review of Systems-General Time Seen by Provider: 13:41 ROS-Unable to Obtain: Unable to obtain Physical Exam-General Problems Physical Exam Vital Signs Capillary Refill : General Appearance: cachetic, moderate distress Eyes: Bilateral Eye EOMI, Bilateral Eye PERRL HEENT: pharynx normal, other (pt has an opening in skin about quarter size, that goes to skull, no active bleeding at this time, expressed old blood and necrotic tissue) Neck: other (C-Collar in place secondary to recent fusion) Respiratory: lungs clear, no respiratory distress Cardiovascular: regular rate, rhythm, no edema Gastrointestinal: soft, no organomegaly, no pulsatile mass Extremities: no pedal edema, no calf tenderness Skin: cool, pallor Lymphatic: no adenopathy (neck, axilla or groin) Data Review Labs Laboratory Tests 12/02/16 12:27: Sodium Level 142, Potassium Level 5.4H, Chloride Level 111H, Carbon Dioxide Level 16L, Anion Gap 15H, Blood Urea Nitrogen 43H, Creatinine 2.08H, Estimat Glomerular Filtration Rate 23, BUN/Creatinine Ratio 21H, Glucose Level 125H, Calcium Level 9.6, Total Bilirubin 0.5, Aspartate Amino Transf (AST/SGOT) 45H, Alanine Aminotransferase (ALT/SGPT) 12, Alkaline Phosphatase 46, Total Protein 5.0L, Albumin 2.9L 12/02/16 12:40: White Blood Count 7.2, Red Blood Count 1.45L, Hemoglobin 5.0*L, Hematocrit 16*L , Mean Corpuscular Volume 112H, Mean Corpuscular Hemoglobin 34, Mean Corpuscular Hemoglobin Concent 31L, Red Cell Distribution Width 18.7H, Platelet Count 432H, Mean Platelet Volume 9.1 Assessment/Plan Assessment/Plan Assessment/Plan Anemia secondary to chronic blood loss (mostly from lacerations and continued bleeding from these lacerations) today has bleeding from scalp wound Scalp wound appx quarter size Multiple medical problems Venous Insufficiency Hypotension Recommend packing wound and then wrapping head with bandage, no surgical intervention at this time. I was asked to place a central line for IV access ( for blood transfusion, blood draws and medications); however, pt will not respond with a yes answer to allow placement. Actually keeps saying just let me go. I will sign off and reconsult if necessary. At this point it is my recommendation to just keep pt comfortable, she is already a DNR. LOUIS DONG DO Dec 02, 2016 13:53
[2016-12-02] MEDS ORDERED: LIDOCAINE BOLUS 100 MG/5 ML (IMS) SYR IV ONE (14:16)
[2016-12-02] MEDS ORDERED: NS IV 1000 ML 1,000 ML IV ONE (14:38)
[2016-12-02] MEDS ORDERED: ONDANSETRON 4 MG/2 ML (SDV) Z0FRAN IVP ONE ×2 (14:45)
[2016-12-02] MEDS ORDERED: TRANEXAMIC ACID INJECTION 1,000 MG in NS (IVPB) 50 ML IV ONE (14:45)
[2016-12-02] MEDS ORDERED: TRANEXAMIC ACID INJECTION 1,000 MG in NS (IVPB) 250 ML IV SCH (14:45)
[2016-12-02] MEDS ORDERED: morphine INJ 10 MG/ML 1ML (SYR OR VIAL) IVP STA (15:29)
[2016-12-02] MEDS ORDERED: LORA-405 PO (15:44)
[2016-12-02] MEDS ORDERED: MORP100S3 PO (15:44)
[2016-12-02] MEDS ORDERED: morphine INJ 10 MG/ML 1ML (SYR OR VIAL) IVP ONE (16:00)
[2016-12-02] MEDS ORDERED: LORazepam INJ 2 MG/ML (ATIVAN) VIAL IVP ONE (16:00)
[2016-12-02 16:51] VITALS: BP 72/38
--- OUTSIDE RECORDS SUMMARY | 2016-12-05 11:19 | XMS REPORT | Continuity of Care Document ---
Author Author [facility] of [facility] of [facility] Address Unknown Phone Unavailable Allergies Active Description Code Type Severity Reaction Onset Reported/Identified Relationship to Patient Clinical Status Yes codeine Drug Allergy N/A N/A 03/21/2009 Yes codeine Drug Allergy 03/21/2009 Yes Coumadin Drug Allergy N/A N/A 04/14/2009 Yes Coumadin Drug Allergy 04/14/2009 Yes Plavix Drug Allergy N/A N/A 11/15/2009 Yes Plavix Drug Allergy 11/15/2009 Yes isosorbide dinitrate Drug Allergy N/A N/A 11/21/2009 Yes Nexium Drug Allergy N/A N/A 11/21/2009 Yes isosorbide dinitrate Drug Allergy 11/21/2009 Yes Nexium Drug Allergy 11/21/2009 Yes Chantix Drug Allergy N/A N/A 05/29/2010 Yes Chantix Drug Allergy 05/29/2010 Yes traZODONE Drug Allergy N/A N/A 08/24/2010 Yes traZODONE Drug Allergy 08/24/2010 Yes Amoxicillin Drug Allergy N/A N/A 02/11/2014 Medications Problems Date Dx Coded Attending Type Code Diagnosis Diagnosed By 03/21/2009 TERESSA RAI MD 272.4 HYPERLIPIDEMIA UNSPECIFIED 03/21/2009 TERESSA RAI MD 401.1 ESSENTIAL HYPERTENSION BENIGN 03/21/2009 TERESSA RAI MD 414.01 CORONARY ARTERY STENOSIS MULTI-VESSEL 03/21/2009 TERESSA RAI MD 443.9 PERIPHERAL VASCULAR DISEASE UNSPECIFIED 03/21/2009 TERESSA RAI MD 496 CHRONIC OBSTRUCTIVE PULMONARY DISEASE 03/21/2009 TERESSA RAI MD 530.81 GERD 03/21/2009 TERESSA RAI MD 780.52 INSOMNIA UNSPECIFIED 03/21/2009 TERESSA RAI MD 272.4 HYPERLIPIDEMIA UNSPECIFIED 03/21/2009 TERESSA RAI MD 401.1 ESSENTIAL HYPERTENSION BENIGN 03/21/2009 TERESSA RAI MD 414.01 CORONARY ARTERY STENOSIS MULTI-VESSEL 03/21/2009 TERESSA RAI MD 443.9 PERIPHERAL VASCULAR DISEASE UNSPECIFIED 03/21/2009 TERESSA RAI MD 496 CHRONIC OBSTRUCTIVE PULMONARY DISEASE 03/21/2009 TERESSA RAI MD 530.81 GERD 03/21/2009 TERESSA RAI MD 780.52 INSOMNIA UNSPECIFIED 03/21/2009 TERESSA RAI MD 272.4 HYPERLIPIDEMIA UNSPECIFIED 03/21/2009 TERESSA RAI MD 401.1 ESSENTIAL HYPERTENSION BENIGN 03/21/2009 TERESSA RAI MD 414.01 CORONARY ARTERY STENOSIS MULTI-VESSEL 03/21/2009 TERESSA RAI MD 443.9 PERIPHERAL VASCULAR DISEASE UNSPECIFIED 03/21/2009 TERESSA RAI MD 496 CHRONIC OBSTRUCTIVE PULMONARY DISEASE 03/21/2009 TERESSA RAI MD 530.81 GERD 03/21/2009 TERESSA RAI MD 780.52 INSOMNIA UNSPECIFIED 03/21/2009 TERESSA RAI MD 272.4 HYPERLIPIDEMIA UNSPECIFIED 03/21/2009 TERESSA RAI MD 401.1 ESSENTIAL HYPERTENSION BENIGN 03/21/2009 TERESSA RAI MD 414.01 CORONARY ARTERY STENOSIS MULTI-VESSEL 03/21/2009 TERESSA RAI MD 443.9 PERIPHERAL VASCULAR DISEASE UNSPECIFIED 03/21/2009 TERESSA RAI MD 49Bruce CHRONIC OBSTRUCTIVE PULMONARY DISEASE 03/21/2009 TERESSA RAI MD 530.81 GERD 03/21/2009 TERESSA RAI MD 780.52 INSOMNIA UNSPECIFIED 03/21/2009 TERESSA RAI MD 272.4 HYPERLIPIDEMIA UNSPECIFIED 03/21/2009 TERESSA RAI MD 401.1 ESSENTIAL HYPERTENSION BENIGN 03/21/2009 TERESSA RAI MD 414.01 CORONARY ARTERY STENOSIS MULTI-VESSEL 03/21/2009 TERESSA RAI MD 443.9 PERIPHERAL VASCULAR DISEASE UNSPECIFIED 03/21/2009 TERESSA RAI MD 496 CHRONIC OBSTRUCTIVE PULMONARY DISEASE 03/21/2009 TERESSA RAI MD 530.81 GERD 03/21/2009 TERESSA RAI MD 780.52 INSOMNIA UNSPECIFIED 03/21/2009 272.4 HYPERLIPIDEMIA UNSPECIFIED 03/21/2009 401.1 ESSENTIAL HYPERTENSION BENIGN 03/21/2009 414.01 CORONARY ARTERY STENOSIS MULTI-VESSEL 03/21/2009 443.9 PERIPHERAL VASCULAR DISEASE UNSPECIFIED 03/21/2009 496 CHRONIC OBSTRUCTIVE PULMONARY DISEASE 03/21/2009 530.81 GERD 03/21/2009 780.52 INSOMNIA UNSPECIFIED 03/21/2009 272.4 HYPERLIPIDEMIA UNSPECIFIED 03/21/2009 401.1 ESSENTIAL HYPERTENSION BENIGN 03/21/2009 414.01 CORONARY ARTERY STENOSIS MULTI-VESSEL 03/21/2009 443.9 PERIPHERAL VASCULAR DISEASE UNSPECIFIED 03/21/2009 496 CHRONIC OBSTRUCTIVE PULMONARY DISEASE 03/21/2009 530.81 GERD 03/21/2009 780.52 INSOMNIA UNSPECIFIED 03/21/2009 272.4 HYPERLIPIDEMIA UNSPECIFIED 03/21/2009 401.1 ESSENTIAL HYPERTENSION BENIGN 03/21/2009 414.01 CORONARY ARTERY STENOSIS MULTI-VESSEL 03/21/2009 443.9 PERIPHERAL VASCULAR DISEASE UNSPECIFIED 03/21/2009 496 CHRONIC OBSTRUCTIVE PULMONARY DISEASE 03/21/2009 530.81 GERD 03/21/2009 780.52 INSOMNIA UNSPECIFIED 03/21/2009 272.4 HYPERLIPIDEMIA UNSPECIFIED 03/21/2009 401.1 ESSENTIAL HYPERTENSION BENIGN 03/21/2009 414.01 CORONARY ARTERY STENOSIS MULTI-VESSEL 03/21/2009 443.9 PERIPHERAL VASCULAR DISEASE UNSPECIFIED 03/21/2009 496 CHRONIC OBSTRUCTIVE PULMONARY DISEASE 03/21/2009 530.81 GERD 03/21/2009 780.52 INSOMNIA UNSPECIFIED 03/21/2009 TERESSA RAI MD 272.4 HYPERLIPIDEMIA UNSPECIFIED 03/21/2009 TERESSA RAI MD 401.1 ESSENTIAL HYPERTENSION BENIGN 03/21/2009 TERESSA RAI MD 414.01 CORONARY ARTERY STENOSIS MULTI-VESSEL 03/21/2009 TERESSA RAI MD 443.9 PERIPHERAL VASCULAR DISEASE UNSPECIFIED 03/21/2009 TERESSA RAI MD 496 CHRONIC OBSTRUCTIVE PULMONARY DISEASE 03/21/2009 TERESSA RAI MD 530.81 GERD 03/21/2009 TERESSA RAI MD 780.52 INSOMNIA UNSPECIFIED 03/21/2009 272.4 HYPERLIPIDEMIA UNSPECIFIED 03/21/2009 401.1 ESSENTIAL HYPERTENSION BENIGN 03/21/2009 414.01 CORONARY ARTERY STENOSIS MULTI-VESSEL 03/21/2009 443.9 PERIPHERAL VASCULAR DISEASE UNSPECIFIED 03/21/2009 496 CHRONIC OBSTRUCTIVE PULMONARY DISEASE 03/21/2009 530.81 GERD 03/21/2009 780.52 INSOMNIA UNSPECIFIED 03/21/2009 272.4 HYPERLIPIDEMIA UNSPECIFIED 03/21/2009 401.1 ESSENTIAL HYPERTENSION BENIGN 03/21/2009 414.01 CORONARY ARTERY STENOSIS MULTI-VESSEL 03/21/2009 443.9 PERIPHERAL VASCULAR DISEASE UNSPECIFIED 03/21/2009 496 CHRONIC OBSTRUCTIVE PULMONARY DISEASE 03/21/2009 530.81 GERD 03/21/2009 780.52 INSOMNIA UNSPECIFIED 03/21/2009 NIEVES SALVADOR, SONI R 272.4 HYPERLIPIDEMIA UNSPECIFIED 03/21/2009 NIEVES SALVADORSONI R 401.1 ESSENTIAL HYPERTENSION BENIGN 03/21/2009 NIEVES SALVADOR, SONI R 414.01 CORONARY ARTERY STENOSIS MULTI-VESSEL 03/21/2009 NIEVES SALVADOR, SONI R 443.9 PERIPHERAL VASCULAR DISEASE UNSPECIFIED 03/21/2009 PICKETT MADELEINE, SONI R 496 CHRONIC OBSTRUCTIVE PULMONARY DISEASE 03/21/2009 PICKETT MADELEINE, SONI R 530.81 GERD 03/21/2009 PICKETT MADELEINE, SONI R 780.52 INSOMNIA UNSPECIFIED 03/21/2009 PICKETT MADELEINESONI R 272.4 HYPERLIPIDEMIA UNSPECIFIED 03/21/2009 PICKETT MADELEINE, SONI R 401.1 ESSENTIAL HYPERTENSION BENIGN 03/21/2009 NIEVES SALVADOR, SONI R 414.01 CORONARY ARTERY STENOSIS MULTI-VESSEL 03/21/2009 NIEVES SALVADORSONI 443.9 PERIPHERAL VASCULAR DISEASE UNSPECIFIED 03/21/2009 NIEVES SALVADORSONI R 496 CHRONIC OBSTRUCTIVE PULMONARY DISEASE 03/21/2009 PICKETT MADELEINE, SONI R 530.81 GERD 03/21/2009 PICKETT MADELEINE, SONI R 780.52 INSOMNIA UNSPECIFIED 03/21/2009 RODRIGUEZ DO, RICHARD K 272.4 HYPERLIPIDEMIA UNSPECIFIED 03/21/2009 RODRIGUEZ DO, RICHARD K 401.1 ESSENTIAL HYPERTENSION BENIGN 03/21/2009 RODRIGUEZ DO, RICHARD K 414.01 CORONARY ARTERY STENOSIS MULTI-VESSEL 03/21/2009 RODRIGUEZ DO, RICHARD K 443.9 PERIPHERAL VASCULAR DISEASE UNSPECIFIED 03/21/2009 RODRIGUEZ DO, RICHARD K 496 CHRONIC OBSTRUCTIVE PULMONARY DISEASE 03/21/2009 RODRIGUEZ DO, RICHARD K 530.81 GERD 03/21/2009 RODRIGUEZ DO, RICHARD K 780.52 INSOMNIA UNSPECIFIED 03/21/2009 RODRIGUEZ DO, RICHARD K 272.4 HYPERLIPIDEMIA UNSPECIFIED 03/21/2009 RODRIGUEZ DO, RICHARD K 401.1 ESSENTIAL HYPERTENSION BENIGN 03/21/2009 RODRIGUEZ DO, RICHARD K 414.01 CORONARY ARTERY STENOSIS MULTI-VESSEL 03/21/2009 RODRIGUEZ DO, RICHARD K 443.9 PERIPHERAL VASCULAR DISEASE UNSPECIFIED 03/21/2009 RODRIGUEZ DO, RICHARD K 496 CHRONIC OBSTRUCTIVE PULMONARY DISEASE 03/21/2009 RODRIGUEZ DO, RICHARD K 530.81 GERD 03/21/2009 RODRIGUEZ DO, RICHARD K 780.52 INSOMNIA UNSPECIFIED 03/21/2009 RODRIGUEZ DO, RICHARD K 272.4 HYPERLIPIDEMIA UNSPECIFIED 03/21/2009 RODRIGUEZ DO, RICHARD K 401.1 ESSENTIAL HYPERTENSION BENIGN 03/21/2009 RODRIGUEZ DO, RICHARD K 414.01 CORONARY ARTERY STENOSIS MULTI-VESSEL 03/21/2009 RODRIGUEZ DO, RICHARD K 443.9 PERIPHERAL VASCULAR DISEASE UNSPECIFIED 03/21/2009 RODRIGUEZ DO, RICHARD K 496 CHRONIC OBSTRUCTIVE PULMONARY DISEASE 03/21/2009 RODRIGUEZ DO, RICHARD K 530.81 GERD 03/21/2009 RODRIGUEZ DO, RICHARD K 780.52 INSOMNIA UNSPECIFIED 03/21/2009 SONI PICKETT APRN 272.4 HYPERLIPIDEMIA UNSPECIFIED 03/21/2009 SONI PICKETT APRN R 401.1 ESSENTIAL HYPERTENSION BENIGN 03/21/2009 SONI PICKETT APRN 414.01 CORONARY ARTERY STENOSIS MULTI-VESSEL 03/21/2009 SONI PICKETT APRN 443.9 PERIPHERAL VASCULAR DISEASE UNSPECIFIED 03/21/2009 PICKETT SONI SALVADOR 496 CHRONIC OBSTRUCTIVE PULMONARY DISEASE 03/21/2009 PICKETT SONI SALVADOR 530.81 GERD 03/21/2009 PICKETT SONI SALVADOR 780.52 INSOMNIA UNSPECIFIED 03/21/2009 RODRIGUEZ DO, RICHARD K 272.4 HYPERLIPIDEMIA UNSPECIFIED 03/21/2009 RODRIGUEZ DO, RICHARD K 401.1 ESSENTIAL HYPERTENSION BENIGN 03/21/2009 RODRIGUEZ DO, RICHARD K 414.01 CORONARY ARTERY STENOSIS MULTI-VESSEL 03/21/2009 RODRIGUEZ DO, RICHARD K 443.9 PERIPHERAL VASCULAR DISEASE UNSPECIFIED 03/21/2009 RODRIGUEZ DO, RICHARD K 496 CHRONIC OBSTRUCTIVE PULMONARY DISEASE 03/21/2009 RODRIGUEZ DO, RICHARD K 530.81 GERD 03/21/2009 RODRIGUEZ DO, RICHARD K 780.52 INSOMNIA UNSPECIFIED 03/21/2009 PICKETT SONI SALVADOR R 272.4 HYPERLIPIDEMIA UNSPECIFIED 03/21/2009 PICKETT SONI SALVADOR R 401.1 ESSENTIAL HYPERTENSION BENIGN 03/21/2009 PICKETT SONI SALVADOR R 414.01 CORONARY ARTERY STENOSIS MULTI-VESSEL 03/21/2009 PICKETT SONI SALVADOR 443.9 PERIPHERAL VASCULAR DISEASE UNSPECIFIED 03/21/2009 PICKETT HYDROELECTRIC 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 HELPER, SONI R 496 CHRONIC OBSTRUCTIVE PULMONARY DISEASE 03/21/2009 PICKETT HYDROELECTRIC 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 HELPER, SONI R 530.81 GERD 03/21/2009 PICKETT HYDROELECTRIC 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 HELPER, SONI R 780.52 INSOMNIA UNSPECIFIED 03/21/2009 PICKETT HYDROELECTRIC 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 HELPER, SONI R 272.4 HYPERLIPIDEMIA UNSPECIFIED 03/21/2009 PICKETT HYDROELECTRIC 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 HELPER, SONI R 401.1 ESSENTIAL HYPERTENSION BENIGN 03/21/2009 PICKETT HYDROELECTRIC 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 HELPER, SONI R 414.01 CORONARY ARTERY STENOSIS MULTI-VESSEL 03/21/2009 PICKETT HYDROELECTRIC 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 HELPER, SONI Ayoub 443.9 PERIPHERAL VASCULAR DISEASE UNSPECIFIED 03/21/2009 PICKETT HYDROELECTRIC 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 HELPER, SONI R 496 CHRONIC OBSTRUCTIVE PULMONARY DISEASE 03/21/2009 PICKETT HYDROELECTRIC 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 HELPER, SONI R 530.81 GERD 03/21/2009 PICKETT HYDROELECTRIC 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 HELPER, SONI R 780.52 INSOMNIA UNSPECIFIED 03/21/2009 RODRIGUEZ DO, RICHARD K 272.4 HYPERLIPIDEMIA UNSPECIFIED 03/21/2009 RODRIGUEZ DO, RICHARD K 401.1 ESSENTIAL HYPERTENSION BENIGN 03/21/2009 RODRIGUEZ DO, RICHARD K 414.01 CORONARY ARTERY STENOSIS MULTI-VESSEL 03/21/2009 RODRIGUEZ DO, RICHARD K 443.9 PERIPHERAL VASCULAR DISEASE UNSPECIFIED 03/21/2009 RODRIGUEZ DO, RICHARD K 496 CHRONIC OBSTRUCTIVE PULMONARY DISEASE 03/21/2009 RODRIGUEZ DO, RICHARD K 530.81 GERD 03/21/2009 RODRIGUEZ DO, RICHARD K 780.52 INSOMNIA UNSPECIFIED 03/21/2009 RODRIGUEZ DO, RICHARD K 272.4 HYPERLIPIDEMIA UNSPECIFIED 03/21/2009 RODRIGUEZ DO, RICHARD K 401.1 ESSENTIAL HYPERTENSION BENIGN 03/21/2009 RODRIGUEZ DO, RICHARD K 414.01 CORONARY ARTERY STENOSIS MULTI-VESSEL 03/21/2009 RODRIGUEZ DO, RICHARD K 443.9 PERIPHERAL VASCULAR DISEASE UNSPECIFIED 03/21/2009 RODRIGUEZ DO, RICHARD K 496 CHRONIC OBSTRUCTIVE PULMONARY DISEASE 03/21/2009 RODRIGUEZ DO, RICHARD K 530.81 GERD 03/21/2009 RODRIGUEZ DO, RICHARD K 780.52 INSOMNIA UNSPECIFIED 03/21/2009 PICKETT HYDROELECTRIC 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 HELPER, SONI R 272.4 HYPERLIPIDEMIA UNSPECIFIED 03/21/2009 PICKETT HYDROELECTRIC 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 HELPER, SONI R 401.1 ESSENTIAL HYPERTENSION BENIGN 03/21/2009 PICKETT HYDROELECTRIC 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 HELPER, SONI R 414.01 CORONARY ARTERY STENOSIS MULTI-VESSEL 03/21/2009 PICKETT HYDROELECTRIC 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 HELPER, SONI R 443.9 PERIPHERAL VASCULAR DISEASE UNSPECIFIED 03/21/2009 PICKETT HYDROELECTRIC 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 HELPERSONI R 496 CHRONIC OBSTRUCTIVE PULMONARY DISEASE 03/21/2009 PICKETT HYDROELECTRIC 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 HELPER, SONI R 530.81 GERD 03/21/2009 PICKETT HYDROELECTRIC 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 HELPER, SONI R 780.52 INSOMNIA UNSPECIFIED 03/21/2009 PICKETT HYDROELECTRIC 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 HELPER, SONI R 272.4 HYPERLIPIDEMIA UNSPECIFIED 03/21/2009 PICKETT HYDROELECTRIC 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 HELPERSONI R 401.1 ESSENTIAL HYPERTENSION BENIGN 03/21/2009 PICKETT HYDROELECTRIC 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 HELPER, SONI R 414.01 CORONARY ARTERY STENOSIS MULTI-VESSEL 03/21/2009 PICKETT HYDROELECTRIC 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 HELPER, SONI R 443.9 PERIPHERAL VASCULAR DISEASE UNSPECIFIED 03/21/2009 PICKETT HYDROELECTRIC 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 HELPERSONI R 496 CHRONIC OBSTRUCTIVE PULMONARY DISEASE 03/21/2009 PICKETT HYDROELECTRIC 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 HELPER, SONI R 530.81 GERD 03/21/2009 PICKETT HYDROELECTRIC 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 HELPER, SONI R 780.52 INSOMNIA UNSPECIFIED 03/21/2009 RODRIGUEZ DO, RICHARD K 272.4 HYPERLIPIDEMIA UNSPECIFIED 03/21/2009 RODRIGUEZ DO, RICHARD K 401.1 ESSENTIAL HYPERTENSION BENIGN 03/21/2009 RODRIGUEZ DO, RICHARD K 414.01 CORONARY ARTERY STENOSIS MULTI-VESSEL 03/21/2009 RODRIGUEZ DO, RICHARD K 443.9 PERIPHERAL VASCULAR DISEASE UNSPECIFIED 03/21/2009 RODRIGUEZ DO, RICHARD K 496 CHRONIC OBSTRUCTIVE PULMONARY DISEASE 03/21/2009 RODRIGUEZ DO, RICHARD K 530.81 GERD 03/21/2009 RODRIGUEZ DO, RICHARD K 780.52 INSOMNIA UNSPECIFIED 03/21/2009 PICKETT HYDROELECTRIC 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 HELPERSONI Dimas R 272.4 HYPERLIPIDEMIA UNSPECIFIED 03/21/2009 PICKETT HYDROELECTRIC 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 HELPERSONI R 401.1 ESSENTIAL HYPERTENSION BENIGN 03/21/2009 PICKETT HYDROELECTRIC 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 HELPER, SONI R 414.01 CORONARY ARTERY STENOSIS MULTI-VESSEL 03/21/2009 PICKETT HYDROELECTRIC 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 HELPERSONI R 443.9 PERIPHERAL VASCULAR DISEASE UNSPECIFIED 03/21/2009 PICKETT HYDROELECTRIC 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 HELPERSONI R 496 CHRONIC OBSTRUCTIVE PULMONARY DISEASE 03/21/2009 PICKETT HYDROELECTRIC 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 HELPER, SONI R 530.81 GERD 03/21/2009 PICKETT HYDROELECTRIC 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 HELPER, SONI R 780.52 INSOMNIA UNSPECIFIED 03/21/2009 RODRIGUEZ DO, RICHARD K 272.4 HYPERLIPIDEMIA UNSPECIFIED 03/21/2009 RODRIGUEZ DO, RICHARD K 401.1 ESSENTIAL HYPERTENSION BENIGN 03/21/2009 RODRIGUEZ DO, RICHARD K 414.01 CORONARY ARTERY STENOSIS MULTI-VESSEL 03/21/2009 RODRIGUEZ DO, RICHARD K 443.9 PERIPHERAL VASCULAR DISEASE UNSPECIFIED 03/21/2009 RODRIGUEZ DO, RICHARD K 496 CHRONIC OBSTRUCTIVE PULMONARY DISEASE 03/21/2009 RODRIGUEZ DO, RICHARD K 530.81 GERD 03/21/2009 RODRIGUEZ DO, RICHARD K 780.52 INSOMNIA UNSPECIFIED 03/21/2009 RODRIGUEZ DO, RICHARD K 272.4 HYPERLIPIDEMIA UNSPECIFIED 03/21/2009 RODRIGUEZ DO, RICHARD K 401.1 ESSENTIAL HYPERTENSION BENIGN 03/21/2009 RODRIGUEZ DO, RICHARD K 414.01 CORONARY ARTERY STENOSIS MULTI-VESSEL 03/21/2009 RODRIGUEZ DO, RICHARD K 443.9 PERIPHERAL VASCULAR DISEASE UNSPECIFIED 03/21/2009 RODRIGUEZ DO, RICHARD K 496 CHRONIC OBSTRUCTIVE PULMONARY DISEASE 03/21/2009 RODRIGUEZ DO, RICHARD K 530.81 GERD 03/21/2009 RODRIGUEZ DO, RICHARD K 780.52 INSOMNIA UNSPECIFIED 03/21/2009 SONI PICKETT APRN 272.4 HYPERLIPIDEMIA UNSPECIFIED 03/21/2009 SONI PICKETT APRN 401.1 ESSENTIAL HYPERTENSION BENIGN 03/21/2009 SONI PICKETT APRN 414.01 CORONARY ARTERY STENOSIS MULTI-VESSEL 03/21/2009 SONI PICKETT APRN 443.9 PERIPHERAL VASCULAR DISEASE UNSPECIFIED 03/21/2009 SONI PICKETT APRN 496 CHRONIC OBSTRUCTIVE PULMONARY DISEASE 03/21/2009 SONI PICKETT APRN 530.81 GERD 03/21/2009 SONI PICKETT APRN 780.52 INSOMNIA UNSPECIFIED 03/21/2009 RODRIGUEZ DO, RICHARD K 272.4 HYPERLIPIDEMIA UNSPECIFIED 03/21/2009 RODRIGUEZ DO, RICHARD K 401.1 ESSENTIAL HYPERTENSION BENIGN 03/21/2009 RODRIGUEZ DO, RICHARD K 414.01 CORONARY ARTERY STENOSIS MULTI-VESSEL 03/21/2009 RODRIGUEZ DO, RICHARD K 443.9 PERIPHERAL VASCULAR DISEASE UNSPECIFIED 03/21/2009 RODRIGUEZ DO, RICHARD K 496 CHRONIC OBSTRUCTIVE PULMONARY DISEASE 03/21/2009 RODRIGUEZ DO, RICHARD K 530.81 GERD 03/21/2009 RODRIGUEZ DO, RICHARD K 780.52 INSOMNIA UNSPECIFIED 03/21/2009 SONI PICKETT APRN 272.4 HYPERLIPIDEMIA UNSPECIFIED 03/21/2009 PICKETT SONI SALVADOR R 401.1 ESSENTIAL HYPERTENSION BENIGN 03/21/2009 PICKETT HYDROELECTRIC 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 HELPERSONI Dimas R 414.01 CORONARY ARTERY STENOSIS MULTI-VESSEL 03/21/2009 PICKETT SONI SALVADOR R 443.9 PERIPHERAL VASCULAR DISEASE UNSPECIFIED 03/21/2009 PICKETT SONI SALVADOR R 496 CHRONIC OBSTRUCTIVE PULMONARY DISEASE 03/21/2009 PICKETT SONI SALVADOR R 530.81 GERD 03/21/2009 PICKETT HYDROELECTRIC 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 HELPERSONI Dimas R 780.52 INSOMNIA UNSPECIFIED 03/21/2009 RODRIGUEZ DO, RICHARD K 272.4 HYPERLIPIDEMIA UNSPECIFIED 03/21/2009 RODRIGUEZ DO, RICHARD K 401.1 ESSENTIAL HYPERTENSION BENIGN 03/21/2009 RODRIGUEZ DO, RICHARD K 414.01 CORONARY ARTERY STENOSIS MULTI-VESSEL 03/21/2009 RODRIGUEZ DO, RICHARD K 443.9 PERIPHERAL VASCULAR DISEASE UNSPECIFIED 03/21/2009 RODRIGUEZ DO, RICHARD K 496 CHRONIC OBSTRUCTIVE PULMONARY DISEASE 03/21/2009 RODRIGUEZ DO, RICHARD K 530.81 GERD 03/21/2009 RODRIGUEZ DO, RICHARD K 780.52 INSOMNIA UNSPECIFIED 03/21/2009 PICKETT HYDROELECTRIC 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 HELPERSONI Dimas R 272.4 HYPERLIPIDEMIA UNSPECIFIED 03/21/2009 PICKETT HYDROELECTRIC 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 HELPERSONI Dimas R 401.1 ESSENTIAL HYPERTENSION BENIGN 03/21/2009 PICKETT HYDROELECTRIC 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 HELPERSONI Dmias R 414.01 CORONARY ARTERY STENOSIS MULTI-VESSEL 03/21/2009 PICKETT HYDROELECTRIC 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 HELPERSONI Dimas R 443.9 PERIPHERAL VASCULAR DISEASE UNSPECIFIED 03/21/2009 PICKETT SONI SALVADOR R 496 CHRONIC OBSTRUCTIVE PULMONARY DISEASE 03/21/2009 PICKETT HYDROELECTRIC 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 HELPERSONI Dimas R 530.81 GERD 03/21/2009 PICKETT HYDROELECTRIC 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 HELPERSONI Dimas R 780.52 INSOMNIA UNSPECIFIED 03/21/2009 PICKETT HYDROELECTRIC 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 HELPERSONI Dimas R 272.4 HYPERLIPIDEMIA UNSPECIFIED 03/21/2009 PICKETT HYDROELECTRIC 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 HELPERSONI Dimas R 401.1 ESSENTIAL HYPERTENSION BENIGN 03/21/2009 PICKETT HYDROELECTRIC 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 HELPERSONI Dimas R 414.01 CORONARY ARTERY STENOSIS MULTI-VESSEL 03/21/2009 PICKETT HYDROELECTRIC 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 HELPERSONI Dimas R 443.9 PERIPHERAL VASCULAR DISEASE UNSPECIFIED 03/21/2009 PICKETT SONI SALVADOR R 496 CHRONIC OBSTRUCTIVE PULMONARY DISEASE 03/21/2009 PICKETT SONI SALVADOR R 530.81 GERD 03/21/2009 SONI PICKETT APRN 780.52 INSOMNIA UNSPECIFIED 03/21/2009 RODRIGUEZ DO, RICHARD K 272.4 HYPERLIPIDEMIA UNSPECIFIED 03/21/2009 RODRIGUEZ DO, RICHARD K 401.1 ESSENTIAL HYPERTENSION BENIGN 03/21/2009 RODRIGUEZ DO, RICHARD K 414.01 CORONARY ARTERY STENOSIS MULTI-VESSEL 03/21/2009 RODRIGUEZ DO, RICHARD K 443.9 PERIPHERAL VASCULAR DISEASE UNSPECIFIED 03/21/2009 RODRIGUEZ DO, RICHARD K 496 CHRONIC OBSTRUCTIVE PULMONARY DISEASE 03/21/2009 RODRIGUEZ DO, RICHARD K 530.81 GERD 03/21/2009 RODRIGUEZ DO, RICHARD K 780.52 INSOMNIA UNSPECIFIED 03/21/2009 RODRIGUEZ DO, RICHARD K 272.4 HYPERLIPIDEMIA UNSPECIFIED 03/21/2009 RODRIGUEZ DO, RICHARD K 401.1 ESSENTIAL HYPERTENSION BENIGN 03/21/2009 RODRIGUEZ DO, RICHARD K 414.01 CORONARY ARTERY STENOSIS MULTI-VESSEL 03/21/2009 RODRIGUEZ DO, RICHARD K 443.9 PERIPHERAL VASCULAR DISEASE UNSPECIFIED 03/21/2009 RODRIGUEZ DO, RICHARD K 496 CHRONIC OBSTRUCTIVE PULMONARY DISEASE 03/21/2009 RODRIGUEZ DO, RICHARD K 530.81 GERD 03/21/2009 RODRIGUEZ DO, RICHARD K 780.52 INSOMNIA UNSPECIFIED 03/21/2009 SONI PICKETT APRN 272.4 HYPERLIPIDEMIA UNSPECIFIED 03/21/2009 SONI PICKETT APRN 401.1 ESSENTIAL HYPERTENSION BENIGN 03/21/2009 SONI PICKETT APRN 414.01 CORONARY ARTERY STENOSIS MULTI-VESSEL 03/21/2009 SONI PICKETT APRN 443.9 PERIPHERAL VASCULAR DISEASE UNSPECIFIED 03/21/2009 SONI PICKETT APRN 496 CHRONIC OBSTRUCTIVE PULMONARY DISEASE 03/21/2009 SONI PICKETT APRN 530.81 GERD 03/21/2009 SONI PICKETT APRN 780.52 INSOMNIA UNSPECIFIED 04/04/2009 TERESSA RAI MD 780.52 insomnia 04/04/2009 TERESSA RAI MD 780.52 insomnia 04/04/2009 TERESSA RAI MD 780.52 insomnia 04/04/2009 TERESSA RAI MD 780.52 insomnia 04/04/2009 TERESSA RAI MD 780.52 insomnia 04/04/2009 780.52 insomnia 04/04/2009 780.52 insomnia 04/04/2009 780.52 insomnia 04/04/2009 780.52 insomnia 04/04/2009 TERESSA RAI MD 780.52 insomnia 04/04/2009 780.52 insomnia 04/04/2009 780.52 insomnia 04/04/2009 PICKETT HYDROELECTRIC 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 HELPERSONI R 780.52 insomnia 04/04/2009 PICKETT HYDROELECTRIC 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 HELPER, SONI R 780.52 insomnia 04/04/2009 RODRIGUEZ DO, RICHARD K 780.52 insomnia 04/04/2009 RODRIGUEZ DO, RICHARD K 780.52 insomnia 04/04/2009 RODRIGUEZ DO, RICHARD K 780.52 insomnia 04/04/2009 PICKETT HYDROELECTRIC 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 HELPERSONI R 780.52 insomnia 04/04/2009 RODRIGUEZ DO, RICHARD K 780.52 insomnia 04/04/2009 PICKETT HYDROELECTRIC 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 HELPERSONI R 780.52 insomnia 04/04/2009 PICKETT HYDROELECTRIC 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 HELPER, SONI R 780.52 insomnia 04/04/2009 RODRIGUEZ DO, RICHARD K 780.52 insomnia 04/04/2009 RODRIGUEZ DO, RICHARD K 780.52 insomnia 04/04/2009 PICKETT HYDROELECTRIC 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 HELPERSONI R 780.52 insomnia 04/04/2009 PICKETT HYDROELECTRIC 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 HELPERSONI R 780.52 insomnia 04/04/2009 RODRIGUEZ DO, RICHARD K 780.52 insomnia 04/04/2009 PICKETT HYDROELECTRIC 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 HELPERSONI R 780.52 insomnia 04/04/2009 RODRIGUEZ DO, RICHARD K 780.52 insomnia 04/04/2009 RODRIGUEZ DO, RICHARD K 780.52 insomnia 04/04/2009 PICKETT HYDROELECTRIC 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 HELPERSONI R 780.52 insomnia 04/04/2009 RODRIGUEZ DO, RICHARD K 780.52 insomnia 04/04/2009 PICKETT HYDROELECTRIC 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 HELPERSONI R 780.52 insomnia 04/04/2009 RODRIGUEZ DO, RICHARD K 780.52 insomnia 04/04/2009 PICKETT HYDROELECTRIC 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 HELPER SONI R 780.52 insomnia 04/04/2009 PICKETT HYDROELECTRIC 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 HELPERSONI R 780.52 insomnia 04/04/2009 RODRIGUEZ DO, RICHARD K 780.52 insomnia 04/04/2009 RODRIGUEZ DO, RICHARD K 780.52 insomnia 04/04/2009 PICKETT HYDROELECTRIC 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 HELPERSONI R 780.52 insomnia 05/03/2009 TERESSA RAI MD 272.4 HYPERLIPIDEMIA 05/03/2009 TERESSA RAI MD 272.4 HYPERLIPIDEMIA 05/03/2009 TERESSA RAI MD 272.4 HYPERLIPIDEMIA 05/03/2009 TERESSA RAI MD 272.4 DYSLIPIDEMIA 05/03/2009 TERESSA RAI MD 272.4 DYSLIPIDEMIA 05/03/2009 272.4 DYSLIPIDEMIA 05/03/2009 272.4 DYSLIPIDEMIA 05/03/2009 272.4 DYSLIPIDEMIA 05/03/2009 272.4 DYSLIPIDEMIA 05/03/2009 TERESSA RAI MD 272.4 HYPERLIPIDEMIA 05/03/2009 272.4 DYSLIPIDEMIA 05/03/2009 272.4 DYSLIPIDEMIA 05/03/2009 PICKETT HYDROELECTRIC 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 HELPER, SONI R 272.4 DYSLIPIDEMIA 05/03/2009 PICKETT HYDROELECTRIC 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 HELPER, SONI R 272.4 DYSLIPIDEMIA 05/03/2009 RODRIGUEZ DO, RICHARD K 272.4 DYSLIPIDEMIA 05/03/2009 RODRIGUEZ DO, RICHARD K 272.4 DYSLIPIDEMIA 05/03/2009 RODRIGUEZ DO, RICHARD K 272.4 DYSLIPIDEMIA 05/03/2009 PICKETT HYDROELECTRIC 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 HELPER, SONI R 272.4 DYSLIPIDEMIA 05/03/2009 RODRIGUEZ DO, RICHARD K 272.4 DYSLIPIDEMIA 05/03/2009 PICKETT HYDROELECTRIC 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 HELPER, SONI R 272.4 DYSLIPIDEMIA 05/03/2009 PICKETT HYDROELECTRIC 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 HELPER, SONI R 272.4 DYSLIPIDEMIA 05/03/2009 RODRIGUEZ DO, RICHARD K 272.4 DYSLIPIDEMIA 05/03/2009 RODRIGUEZ DO, RICHARD K 272.4 DYSLIPIDEMIA 05/03/2009 PICKETT HYDROELECTRIC 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 HELPER, SONI R 272.4 DYSLIPIDEMIA 05/03/2009 PICKETT HYDROELECTRIC 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 HELPER, SONI R 272.4 DYSLIPIDEMIA 05/03/2009 RODRIGUEZ DO, RICHARD K 272.4 DYSLIPIDEMIA 05/03/2009 PICKETT HYDROELECTRIC 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 HELPER, SONI R 272.4 DYSLIPIDEMIA 05/03/2009 RODRIGUEZ DO, RICHARD K 272.4 DYSLIPIDEMIA 05/03/2009 RODRIGUEZ DO, RICHARD K 272.4 DYSLIPIDEMIA 05/03/2009 PICKETT HYDROELECTRIC 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 HELPER, SONI R 272.4 DYSLIPIDEMIA 05/03/2009 RODRIGUEZ DO, RICHARD K 272.4 DYSLIPIDEMIA 05/03/2009 PICKETT HYDROELECTRIC 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 HELPER, SONI R 272.4 DYSLIPIDEMIA 05/03/2009 RODRIGUEZ DO, RICHARD K 272.4 DYSLIPIDEMIA 05/03/2009 PICKETT HYDROELECTRIC 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 HELPER, SONI R 272.4 DYSLIPIDEMIA 05/03/2009 PICKETT HYDROELECTRIC 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 HELPER, SONI R 272.4 DYSLIPIDEMIA 05/03/2009 RODRIGUEZ DO, RICHARD K 272.4 DYSLIPIDEMIA 05/03/2009 RODRIGUEZ DO, RICHARD K 272.4 DYSLIPIDEMIA 05/03/2009 PICKETT HYDROELECTRIC 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 HELPER, SONI R 272.4 DYSLIPIDEMIA 05/17/2009 TERESSA RAI MD 401.9 ESSENTIAL HYPERTENSION 05/17/2009 TERESSA RAI MD 440.1 RENAL ARTERY STENOSIS 05/17/2009 TERESSA RAI MD 585.4 CHRONIC KIDNEY DISEASE STAGE 4 05/17/2009 TERESSA RAI MD 401.9 ESSENTIAL HYPERTENSION 05/17/2009 TERESSA RAI MD 440.1 RENAL ARTERY STENOSIS 05/17/2009 TERESSA RAI MD 585.4 CHRONIC KIDNEY DISEASE STAGE 4 05/17/2009 TERESSA RAI MD 401.9 ESSENTIAL HYPERTENSION 05/17/2009 TERESSA RAI MD 440.1 RENAL ARTERY STENOSIS 05/17/2009 TERESSA RAI MD 585.4 CHRONIC KIDNEY DISEASE STAGE 4 05/17/2009 TERESSA RAI MD 401.9 ESSENTIAL HYPERTENSION 05/17/2009 TERESSA RAI MD 440.1 RENAL ARTERY STENOSIS 05/17/2009 TERESSA RAI MD 585.4 CHRONIC KIDNEY DISEASE STAGE 4 05/17/2009 TERESSA RAI MD 401.9 ESSENTIAL HYPERTENSION 05/17/2009 TERESSA RAI MD 440.1 RENAL ARTERY STENOSIS 05/17/2009 TERESSA RAI MD 585.4 CHRONIC KIDNEY DISEASE STAGE 4 05/17/2009 401.9 ESSENTIAL HYPERTENSION 05/17/2009 440.1 RENAL ARTERY STENOSIS 05/17/2009 585.4 CHRONIC KIDNEY DISEASE STAGE 4 05/17/2009 401.9 ESSENTIAL HYPERTENSION 05/17/2009 440.1 RENAL ARTERY STENOSIS 05/17/2009 585.4 CHRONIC KIDNEY DISEASE STAGE 4 05/17/2009 401.9 ESSENTIAL HYPERTENSION 05/17/2009 440.1 RENAL ARTERY STENOSIS 05/17/2009 585.4 CHRONIC KIDNEY DISEASE STAGE 4 05/17/2009 401.9 ESSENTIAL HYPERTENSION 05/17/2009 440.1 RENAL ARTERY STENOSIS 05/17/2009 585.4 CHRONIC KIDNEY DISEASE STAGE 4 05/17/2009 TERESSA RAI MD 401.9 ESSENTIAL HYPERTENSION 05/17/2009 TERESSA RAI MD 440.1 RENAL ARTERY STENOSIS 05/17/2009 TERESSA RAI MD 585.4 CHRONIC KIDNEY DISEASE STAGE 4 05/17/2009 401.9 ESSENTIAL HYPERTENSION 05/17/2009 440.1 RENAL ARTERY STENOSIS 05/17/2009 585.4 CHRONIC KIDNEY DISEASE STAGE 4 05/17/2009 401.9 ESSENTIAL HYPERTENSION 05/17/2009 440.1 RENAL ARTERY STENOSIS 05/17/2009 585.4 CHRONIC KIDNEY DISEASE STAGE 4 05/17/2009 PICKETT MADELEINE, SONI R 401.9 ESSENTIAL HYPERTENSION 05/17/2009 PICKETT HYDROELECTRIC 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 HELPER, SONI R 440.1 RENAL ARTERY STENOSIS 05/17/2009 PICKETT HYDROELECTRIC 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 HELPER, SONI R 585.4 CHRONIC KIDNEY DISEASE STAGE 4 05/17/2009 PICKETT MADELEINE SONI R 401.9 ESSENTIAL HYPERTENSION 05/17/2009 PICKETT HYDROELECTRIC 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 HELPER, SONI R 440.1 RENAL ARTERY STENOSIS 05/17/2009 PICKETT HYDROELECTRIC 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 HELPER, SONI R 585.4 CHRONIC KIDNEY DISEASE STAGE 4 05/17/2009 RODRIGUEZ DO, RICHARD K 401.9 ESSENTIAL HYPERTENSION 05/17/2009 RODRIGUEZ DO, RICHARD K 440.1 RENAL ARTERY STENOSIS 05/17/2009 RODRIGUEZ DO, RICHARD K 585.4 CHRONIC KIDNEY DISEASE STAGE 4 05/17/2009 RODRIGUEZ DO, RICHARD K 401.9 ESSENTIAL HYPERTENSION 05/17/2009 RODRIGUEZ DO, RICHARD K 440.1 RENAL ARTERY STENOSIS 05/17/2009 RODRIGUEZ DO, RICHARD K 585.4 CHRONIC KIDNEY DISEASE STAGE 4 05/17/2009 RODRIGUEZ DO, RICHARD K 401.9 ESSENTIAL HYPERTENSION 05/17/2009 RODRIGUEZ DO, RICHARD K 440.1 RENAL ARTERY STENOSIS 05/17/2009 RODRIGUEZ DO, RICHARD K 585.4 CHRONIC KIDNEY DISEASE STAGE 4 05/17/2009 PICKETT MADELEINE SONI R 401.9 ESSENTIAL HYPERTENSION 05/17/2009 PICKETT MADELEINE SONI R 440.1 RENAL ARTERY STENOSIS 05/17/2009 PICKETTTUCKER SALVADOR SONI R 585.4 CHRONIC KIDNEY DISEASE STAGE 4 05/17/2009 RODRIGUEZ DO, RICHARD K 401.9 ESSENTIAL HYPERTENSION 05/17/2009 RODRIGUEZ DO, RICHARD K 440.1 RENAL ARTERY STENOSIS 05/17/2009 RODRIGUEZ DO, RICHARD K 585.4 CHRONIC KIDNEY DISEASE STAGE 4 05/17/2009 PICKETT MADELEINE SONI R 401.9 ESSENTIAL HYPERTENSION 05/17/2009 PICKETT MADELEINE, SONI R 440.1 RENAL ARTERY STENOSIS 05/17/2009 PICKETT MADELEINE SONI R 585.4 CHRONIC KIDNEY DISEASE STAGE 4 05/17/2009 PICKETT MADELEINE SONI R 401.9 ESSENTIAL HYPERTENSION 05/17/2009 PICKETT MADELEINE SONI R 440.1 RENAL ARTERY STENOSIS 05/17/2009 PICKETT HYDROELECTRIC 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 HELPER, SONI R 585.4 CHRONIC KIDNEY DISEASE STAGE 4 05/17/2009 RODRIGUEZ DO, RICHARD K 401.9 ESSENTIAL HYPERTENSION 05/17/2009 RODRIGUEZ DO, RICHARD K 440.1 RENAL ARTERY STENOSIS 05/17/2009 RODRIGUEZ DO, RICHARD K 585.4 CHRONIC KIDNEY DISEASE STAGE 4 05/17/2009 RODRIGUEZ DO, RICHARD K 401.9 ESSENTIAL HYPERTENSION 05/17/2009 RODRIGUEZ DO, RICHARD K 440.1 RENAL ARTERY STENOSIS 05/17/2009 RODRIGUEZ DO, RICHARD K 585.4 CHRONIC KIDNEY DISEASE STAGE 4 05/17/2009 PICKETT HYDROELECTRIC 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 HELPER SONI R 401.9 ESSENTIAL HYPERTENSION 05/17/2009 PICKETT HYDROELECTRIC 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 HELPER, SONI R 440.1 RENAL ARTERY STENOSIS 05/17/2009 PICKETT HYDROELECTRIC 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 HELPER, SONI R 585.4 CHRONIC KIDNEY DISEASE STAGE 4 05/17/2009 PICKETT HYDROELECTRIC 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 HELPER, SONI R 401.9 ESSENTIAL HYPERTENSION 05/17/2009 PICKETT HYDROELECTRIC 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 HELPER, SONI R 440.1 RENAL ARTERY STENOSIS 05/17/2009 PICKETT HYDROELECTRIC 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 HELPER, SONI R 585.4 CHRONIC KIDNEY DISEASE STAGE 4 05/17/2009 RODRIGUEZ DO, RICHARD K 401.9 ESSENTIAL HYPERTENSION 05/17/2009 RODRIGUEZ DO, RICHARD K 440.1 RENAL ARTERY STENOSIS 05/17/2009 RODRIGUEZ DO, RICHARD K 585.4 CHRONIC KIDNEY DISEASE STAGE 4 05/17/2009 PICKETT HYDROELECTRIC 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 HELPER, SONI R 401.9 ESSENTIAL HYPERTENSION 05/17/2009 PICKETT HYDROELECTRIC 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 HELPER, SONI R 440.1 RENAL ARTERY STENOSIS 05/17/2009 PICKETT HYDROELECTRIC 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 HELPER, SONI R 585.4 CHRONIC KIDNEY DISEASE STAGE 4 05/17/2009 RODRIGUEZ DO, RICHARD K 401.9 ESSENTIAL HYPERTENSION 05/17/2009 RODRIGUEZ DO, RICHARD K 440.1 RENAL ARTERY STENOSIS 05/17/2009 RODRIGUEZ DO, RICHARD K 585.4 CHRONIC KIDNEY DISEASE STAGE 4 05/17/2009 RODRIGUEZ DO, RICHARD K 401.9 ESSENTIAL HYPERTENSION 05/17/2009 RODRIGUEZ DO, RICHARD K 440.1 RENAL ARTERY STENOSIS 05/17/2009 RODRIGUEZ DO, RICHARD K 585.4 CHRONIC KIDNEY DISEASE STAGE 4 05/17/2009 PICKETT MADELEINE SONI R 401.9 ESSENTIAL HYPERTENSION 05/17/2009 PICKETT HYDROELECTRIC 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 HELPER, SONI R 440.1 RENAL ARTERY STENOSIS 05/17/2009 PICKETT MADELEINE SONI R 585.4 CHRONIC KIDNEY DISEASE STAGE 4 05/17/2009 RODRIGUEZ DO, RICHARD K 401.9 ESSENTIAL HYPERTENSION 05/17/2009 RODRIGUEZ DO, RICHARD K 440.1 RENAL ARTERY STENOSIS 05/17/2009 RODRIGUEZ DO, RICHARD K 585.4 CHRONIC KIDNEY DISEASE STAGE 4 05/17/2009 PICKETT MADELEINE SONI R 401.9 ESSENTIAL HYPERTENSION 05/17/2009 PICKETT MADELEINE SONI R 440.1 RENAL ARTERY STENOSIS 05/17/2009 PICKETT HYDROELECTRIC 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 HELPER SONI R 585.4 CHRONIC KIDNEY DISEASE STAGE 4 05/17/2009 RODRIGUEZ DO, RICHARD K 401.9 ESSENTIAL HYPERTENSION 05/17/2009 RODRIGEUZ DO, RICHARD K 440.1 RENAL ARTERY STENOSIS 05/17/2009 RODRIGUEZ DO, RICHARD K 585.4 CHRONIC KIDNEY DISEASE STAGE 4 05/17/2009 PICKETT MADELEINE SONI R 401.9 ESSENTIAL HYPERTENSION 05/17/2009 PICKETT SONI SALVADOR R 440.1 RENAL ARTERY STENOSIS 05/17/2009 PICKETT SONI SALVADOR R 585.4 CHRONIC KIDNEY DISEASE STAGE 4 05/17/2009 PICKETT MADELEINE SONI R 401.9 ESSENTIAL HYPERTENSION 05/17/2009 PICKETT MADELEINE SONI R 440.1 RENAL ARTERY STENOSIS 05/17/2009 PICKETT HYDROELECTRIC 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 HELPER, SONI R 585.4 CHRONIC KIDNEY DISEASE STAGE 4 05/17/2009 RODRIGUEZ DO, RICHARD K 401.9 ESSENTIAL HYPERTENSION 05/17/2009 RODRIGUEZ DO, RICHARD K 440.1 RENAL ARTERY STENOSIS 05/17/2009 RODRIGUEZ DO, RICHARD K 585.4 CHRONIC KIDNEY DISEASE STAGE 4 05/17/2009 RODRIGUEZ DO, RICHARD K 401.9 ESSENTIAL HYPERTENSION 05/17/2009 RODRIGUEZ DO, RICHARD K 440.1 RENAL ARTERY STENOSIS 05/17/2009 RODRIGUEZ DO, RICHARD K 585.4 CHRONIC KIDNEY DISEASE STAGE 4 05/17/2009 PICKETT MADELEINE SONI R 401.9 ESSENTIAL HYPERTENSION 05/17/2009 PICKETT MADELEINE, SONI R 440.1 RENAL ARTERY STENOSIS 05/17/2009 PICKETTSONI CEBALLOS APRN R 585.4 CHRONIC KIDNEY DISEASE STAGE 4 06/14/2009 TERESSA RAI MD 599.0 URINARY TRACT INFECTION 06/14/2009 TERESSA RAI MD 728.85 MUSCLE SPASM 06/14/2009 TERESSA RAI MD 786.50 CHEST PAIN, UNSPECIFIED 06/14/2009 FREDI RAO, TERESSA 599.0 URINARY TRACT INFECTION 06/14/2009 FREDI RAO, TERESSA 728.85 MUSCLE SPASM 06/14/2009 FREDI RAO, TERESSA 786.50 CHEST PAIN, UNSPECIFIED 06/14/2009 FREDI RAO, TERESSA 599.0 URINARY TRACT INFECTION 06/14/2009 FREDI RAO, TERESSA 728.85 MUSCLE SPASM 06/14/2009 TERESSA RAI MD 786.50 CHEST PAIN, UNSPECIFIED 06/14/2009 TERESSA RAI MD 599.0 URINARY TRACT INFECTION 06/14/2009 FREDI RAO, TERESSA 728.85 MUSCLE SPASM 06/14/2009 TERESSA RAI MD 786.50 CHEST PAIN, UNSPECIFIED 06/14/2009 TERESSA RAI MD 599.0 URINARY TRACT INFECTION 06/14/2009 TERESSA RAI MD 728.85 MUSCLE SPASM 06/14/2009 TERESSA RAI MD 786.50 CHEST PAIN, UNSPECIFIED 06/14/2009 599.0 URINARY TRACT INFECTION 06/14/2009 728.85 MUSCLE SPASM 06/14/2009 786.50 CHEST PAIN, UNSPECIFIED 06/14/2009 599.0 URINARY TRACT INFECTION 06/14/2009 728.85 MUSCLE SPASM 06/14/2009 786.50 CHEST PAIN, UNSPECIFIED 06/14/2009 599.0 URINARY TRACT INFECTION 06/14/2009 728.85 MUSCLE SPASM 06/14/2009 786.50 CHEST PAIN, UNSPECIFIED 06/14/2009 599.0 URINARY TRACT INFECTION 06/14/2009 728.85 MUSCLE SPASM 06/14/2009 786.50 CHEST PAIN, UNSPECIFIED 06/14/2009 TERESSA RAI MD 599.0 URINARY TRACT INFECTION 06/14/2009 TERESSA RAI MD 728.85 MUSCLE SPASM 06/14/2009 TERESSA RAI MD 786.50 CHEST PAIN, UNSPECIFIED 06/14/2009 599.0 URINARY TRACT INFECTION 06/14/2009 728.85 MUSCLE SPASM 06/14/2009 786.50 CHEST PAIN, UNSPECIFIED 06/14/2009 599.0 URINARY TRACT INFECTION 06/14/2009 728.85 MUSCLE SPASM 06/14/2009 786.50 CHEST PAIN, UNSPECIFIED 06/14/2009 PICKETT HYDROELECTRIC 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 HELPER, SONI R 599.0 URINARY TRACT INFECTION 06/14/2009 PICKETT HYDROELECTRIC 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 HELPER, SONI R 728.85 MUSCLE SPASM 06/14/2009 PICKETT HYDROELECTRIC 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 HELPER, SONI R 786.50 CHEST PAIN, UNSPECIFIED 06/14/2009 PICKETT HYDROELECTRIC 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 HELPER, SONI R 599.0 URINARY TRACT INFECTION 06/14/2009 PICKETT HYDROELECTRIC 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 HELPER, SONI R 728.85 MUSCLE SPASM 06/14/2009 PICKETT HYDROELECTRIC 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 HELPER, SONI R 786.50 CHEST PAIN, UNSPECIFIED 06/14/2009 RODRIGUEZ DO, RICHARD K 599.0 URINARY TRACT INFECTION 06/14/2009 RODRIGUEZ DO, RICHARD K 728.85 MUSCLE SPASM 06/14/2009 RODRIGUEZ DO, RICHARD K 786.50 CHEST PAIN, UNSPECIFIED 06/14/2009 RODRIGUEZ DO, RICHARD K 599.0 URINARY TRACT INFECTION 06/14/2009 RODRIGUEZ DO, RICHARD K 728.85 MUSCLE SPASM 06/14/2009 RODRIGUEZ DO, RICHARD K 786.50 CHEST PAIN, UNSPECIFIED 06/14/2009 RODRIGUEZ DO, RICHARD K 599.0 URINARY TRACT INFECTION 06/14/2009 RODRIGUEZ DO, RICHARD K 728.85 MUSCLE SPASM 06/14/2009 RODRIGUEZ DO, RICHARD K 786.50 CHEST PAIN, UNSPECIFIED 06/14/2009 PICKETT HYDROELECTRIC 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 HELPER, SONI R 599.0 URINARY TRACT INFECTION 06/14/2009 PICKETT HYDROELECTRIC 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 HELPER, SONI R 728.85 MUSCLE SPASM 06/14/2009 PICKETT HYDROELECTRIC 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 HELPER, SONI R 786.50 CHEST PAIN, UNSPECIFIED 06/14/2009 RODRIGUEZ DO, RICHARD K 599.0 URINARY TRACT INFECTION 06/14/2009 RODRIGUEZ DO, RICHARD K 728.85 MUSCLE SPASM 06/14/2009 RODRIGUEZ DO, RICHARD K 786.50 CHEST PAIN, UNSPECIFIED 06/14/2009 PICKETT HYDROELECTRIC 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 HELPER, SONI R 599.0 URINARY TRACT INFECTION 06/14/2009 PICKETT HYDROELECTRIC 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 HELPER, SONI R 728.85 MUSCLE SPASM 06/14/2009 PICKETT HYDROELECTRIC 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 HELPER, SONI R 786.50 CHEST PAIN, UNSPECIFIED 06/14/2009 PICKETT HYDROELECTRIC 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 HELPER, SONI R 599.0 URINARY TRACT INFECTION 06/14/2009 PICKETT HYDROELECTRIC 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 HELPER, SONI R 728.85 MUSCLE SPASM 06/14/2009 PICKETT HYDROELECTRIC 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 HELPER, SONI R 786.50 CHEST PAIN, UNSPECIFIED 06/14/2009 RODRIGUEZ DO, RICHARD K 599.0 URINARY TRACT INFECTION 06/14/2009 RODRIGUEZ DO, RICHARD K 728.85 MUSCLE SPASM 06/14/2009 RODRIGUEZ DO, RICHARD K 786.50 CHEST PAIN, UNSPECIFIED 06/14/2009 RODRIGUEZ DO, RICHARD K 599.0 URINARY TRACT INFECTION 06/14/2009 RODRIGUEZ DO, RICHARD K 728.85 MUSCLE SPASM 06/14/2009 RODRIGUEZ DO, RICHARD K 786.50 CHEST PAIN, UNSPECIFIED 06/14/2009 PICKETT HYDROELECTRIC 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 HELPER, SONI R 599.0 URINARY TRACT INFECTION 06/14/2009 PICKETT HYDROELECTRIC 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 HELPER, SONI R 728.85 MUSCLE SPASM 06/14/2009 PICKETT HYDROELECTRIC 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 HELPER, SONI R 786.50 CHEST PAIN, UNSPECIFIED 06/14/2009 PICKETT HYDROELECTRIC 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 HELPER, SONI R 599.0 URINARY TRACT INFECTION 06/14/2009 IPCKETT HYDROELECTRIC 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 HELPER, SONI R 728.85 MUSCLE SPASM 06/14/2009 PICKETT HYDROELECTRIC 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 HELPER, SONI R 786.50 CHEST PAIN, UNSPECIFIED 06/14/2009 RODRIGUEZ DO, RICHARD K 599.0 URINARY TRACT INFECTION 06/14/2009 RODRIGUEZ DO, RICHARD K 728.85 MUSCLE SPASM 06/14/2009 RODRIGUEZ DO, RICHARD K 786.50 CHEST PAIN, UNSPECIFIED 06/14/2009 PICKETT HYDROELECTRIC 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 HELPER, SONI R 599.0 URINARY TRACT INFECTION 06/14/2009 PICKETT HYDROELECTRIC 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 HELPER, SONI R 728.85 MUSCLE SPASM 06/14/2009 PICKETT HYDROELECTRIC 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 HELPER, SONI R 786.50 CHEST PAIN, UNSPECIFIED 06/14/2009 RODRIGUEZ DO, RICHARD K 599.0 URINARY TRACT INFECTION 06/14/2009 RODRIGUEZ DO, RICHARD K 728.85 MUSCLE SPASM 06/14/2009 RODRIGUEZ DO, RICHARD K 786.50 CHEST PAIN, UNSPECIFIED 06/14/2009 RODRIGUEZ DO, RICHARD K 599.0 URINARY TRACT INFECTION 06/14/2009 RODRIGUEZ DO, RICHARD K 728.85 MUSCLE SPASM 06/14/2009 RODRIGUEZ DO, RICHARD K 786.50 CHEST PAIN, UNSPECIFIED 06/14/2009 PICKETT HYDROELECTRIC 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 HELPER, SONI R 599.0 URINARY TRACT INFECTION 06/14/2009 PICKETT HYDROELECTRIC 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 HELPER, SONI R 728.85 MUSCLE SPASM 06/14/2009 PICKETT HYDROELECTRIC 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 HELPER, SONI R 786.50 CHEST PAIN, UNSPECIFIED 06/14/2009 RODRIGUEZ DO, RICHARD K 599.0 URINARY TRACT INFECTION 06/14/2009 RODRIGUEZ DO, RICHARD K 728.85 MUSCLE SPASM 06/14/2009 RODRIGUEZ DO, RICHARD K 786.50 CHEST PAIN, UNSPECIFIED 06/14/2009 PICKETT HYDROELECTRIC 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 HELPER, SONI R 599.0 URINARY TRACT INFECTION 06/14/2009 PICKETT HYDROELECTRIC 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 HELPER, SONI R 728.85 MUSCLE SPASM 06/14/2009 PICKETT HYDROELECTRIC 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 HELPER, SONI R 786.50 CHEST PAIN, UNSPECIFIED 06/14/2009 RODRIGUEZ DO, RICHARD K 599.0 URINARY TRACT INFECTION 06/14/2009 RODRIGUEZ DO, RICHARD K 728.85 MUSCLE SPASM 06/14/2009 RODRIGUEZ DO, RICHARD K 786.50 CHEST PAIN, UNSPECIFIED 06/14/2009 PICKETT HYDROELECTRIC 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 HELPER, SONI R 599.0 URINARY TRACT INFECTION 06/14/2009 PICKETT HYDROELECTRIC 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 HELPER, SONI R 728.85 MUSCLE SPASM 06/14/2009 PICKETT HYDROELECTRIC 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 HELPER, SONI R 786.50 CHEST PAIN, UNSPECIFIED 06/14/2009 PICKETT HYDROELECTRIC 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 HELPER, SONI R 599.0 URINARY TRACT INFECTION 06/14/2009 PICKETT HYDROELECTRIC 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 HELPER, SONI R 728.85 MUSCLE SPASM 06/14/2009 PICKETT HYDROELECTRIC 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 HELPER, SONI R 786.50 CHEST PAIN, UNSPECIFIED 06/14/2009 RODRIGUEZ DO, RICHARD K 599.0 URINARY TRACT INFECTION 06/14/2009 RODRIGUEZ DO, RICHARD K 728.85 MUSCLE SPASM 06/14/2009 RODRIGUEZ DO, RICHARD K 786.50 CHEST PAIN, UNSPECIFIED 06/14/2009 RODRIGUEZ DO, RICHARD K 599.0 URINARY TRACT INFECTION 06/14/2009 RODRIGUEZ DO, RICHARD K 728.85 MUSCLE SPASM 06/14/2009 RODRIGUEZ DO, RICHARD K 786.50 CHEST PAIN, UNSPECIFIED 06/14/2009 PICKETT HYDROELECTRIC 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 HELPER, SONI R 599.0 URINARY TRACT INFECTION 06/14/2009 PICKETT HYDROELECTRIC 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 HELPER, SONI R 728.85 MUSCLE SPASM 06/14/2009 PICKETT HYDROELECTRIC 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 HELPER, SONI R 786.50 CHEST PAIN, UNSPECIFIED 07/05/2009 TERESSA RAI MD 305.1 NICOTINE DEPENDENCE 07/05/2009 TERESSA RAI MD 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 07/05/2009 TERESSA RAI MD 530.81 ESOPHAGEAL REFLUX 07/05/2009 TERESSA RAI MD 305.1 NICOTINE DEPENDENCE 07/05/2009 TERESSA RAI MD 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 07/05/2009 TERESSA RAI MD 530.81 ESOPHAGEAL REFLUX 07/05/2009 TERESSA RAI MD 305.1 NICOTINE DEPENDENCE 07/05/2009 TERESSA RAI MD 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 07/05/2009 TERESSA RAI MD 530.81 ESOPHAGEAL REFLUX 07/05/2009 TERESSA RAI MD 305.1 NICOTINE DEPENDENCE 07/05/2009 ETRESSA RAI MD 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 07/05/2009 TERESSA RAI MD 530.81 ESOPHAGEAL REFLUX 07/05/2009 TERESSA RAI MD 305.1 NICOTINE DEPENDENCE 07/05/2009 TERESSA RAI MD 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 07/05/2009 TERESSA RAI MD 530.81 ESOPHAGEAL REFLUX 07/05/2009 305.1 NICOTINE DEPENDENCE 07/05/2009 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 07/05/2009 530.81 ESOPHAGEAL REFLUX 07/05/2009 305.1 NICOTINE DEPENDENCE 07/05/2009 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 07/05/2009 530.81 ESOPHAGEAL REFLUX 07/05/2009 305.1 NICOTINE DEPENDENCE 07/05/2009 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 07/05/2009 530.81 ESOPHAGEAL REFLUX 07/05/2009 305.1 NICOTINE DEPENDENCE 07/05/2009 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 07/05/2009 530.81 ESOPHAGEAL REFLUX 07/05/2009 TERESSA RAI MD 305.1 NICOTINE DEPENDENCE 07/05/2009 TERESSA RAI MD 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 07/05/2009 TERESSA RAI MD 530.81 ESOPHAGEAL REFLUX 07/05/2009 305.1 NICOTINE DEPENDENCE 07/05/2009 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 07/05/2009 530.81 ESOPHAGEAL REFLUX 07/05/2009 305.1 NICOTINE DEPENDENCE 07/05/2009 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 07/05/2009 530.81 ESOPHAGEAL REFLUX 07/05/2009 SONI PICKETT APRN 305.1 NICOTINE DEPENDENCE 07/05/2009 SONI PICKETT APRN R 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 07/05/2009 PICKETT HYDROELECTRIC 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 HELPER, SONI R 530.81 ESOPHAGEAL REFLUX 07/05/2009 PICKETT HYDROELECTRIC 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 HELPER, SONI R 305.1 NICOTINE DEPENDENCE 07/05/2009 PICKETT HYDROELECTRIC 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 HELPER, SONI R 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 07/05/2009 PICKETT HYDROELECTRIC 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 HELPER, SONI R 530.81 ESOPHAGEAL REFLUX 07/05/2009 RODRIGUEZ DO, RICHARD K 305.1 NICOTINE DEPENDENCE 07/05/2009 RODRIGUEZ DO, RICHARD K 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 07/05/2009 RODRIGUEZ DO, RICHARD K 530.81 ESOPHAGEAL REFLUX 07/05/2009 RODRIGUEZ DO, RICHARD K 305.1 NICOTINE DEPENDENCE 07/05/2009 RODRIGUEZ DO, RICHARD K 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 07/05/2009 RODRIGUEZ DO, RICHARD K 530.81 ESOPHAGEAL REFLUX 07/05/2009 RODRIGUEZ DO, RICHARD K 305.1 NICOTINE DEPENDENCE 07/05/2009 RODRIGUEZ DO, RICHARD K 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 07/05/2009 RODRIGUEZ DO, RICHARD K 530.81 ESOPHAGEAL REFLUX 07/05/2009 PICKETT HYDROELECTRIC 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 HELPER SONI R 305.1 NICOTINE DEPENDENCE 07/05/2009 PCIKETT HYDROELECTRIC 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 HELPER, SONI R 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 07/05/2009 PICKETT HYDROELECTRIC 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 HELPER, SONI R 530.81 ESOPHAGEAL REFLUX 07/05/2009 RODRIGUEZ DO, RICHARD K 305.1 NICOTINE DEPENDENCE 07/05/2009 RODRIGUEZ DO, RICHARD K 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 07/05/2009 RODRIGUEZ DO, RICHARD K 530.81 ESOPHAGEAL REFLUX 07/05/2009 PICKETT HYDROELECTRIC 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 HELPER, SONI R 305.1 NICOTINE DEPENDENCE 07/05/2009 PICKETT HYDROELECTRIC 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 HELPER, SONI R 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 07/05/2009 PICKETT HYDROELECTRIC 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 HELPER, SONI R 530.81 ESOPHAGEAL REFLUX 07/05/2009 PICKETT HYDROELECTRIC 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 HELPER, SONI R 305.1 NICOTINE DEPENDENCE 07/05/2009 PICKETT HYDROELECTRIC 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 HELPER, SONI R 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 07/05/2009 PICKETT HYDROELECTRIC 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 HELPER, SONI R 530.81 ESOPHAGEAL REFLUX 07/05/2009 RODRIGUEZ DO, RICHARD K 305.1 NICOTINE DEPENDENCE 07/05/2009 RODRIGUEZ DO, RICHARD K 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 07/05/2009 RODRIGUEZ DO, RICHARD K 530.81 ESOPHAGEAL REFLUX 07/05/2009 RODRIGUEZ DO, IRCHARD K 305.1 NICOTINE DEPENDENCE 07/05/2009 RODRIGUEZ DO, RICHARD K 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 07/05/2009 RODRIGUEZ DO, RICHARD K 530.81 ESOPHAGEAL REFLUX 07/05/2009 PICKETT HYDROELECTRIC 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 HELPER, SONI R 305.1 NICOTINE DEPENDENCE 07/05/2009 PICKETT HYDROELECTRIC 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 HELPER, SONI R 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 07/05/2009 PICKETT HYDROELECTRIC 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 HELPER, SONI R 530.81 ESOPHAGEAL REFLUX 07/05/2009 PICKETT HYDROELECTRIC 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 HELPER, SONI R 305.1 NICOTINE DEPENDENCE 07/05/2009 PICKETT HYDROELECTRIC 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 HELPER, SONI R 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 07/05/2009 PICKETT HYDROELECTRIC 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 HELPER, SONI R 530.81 ESOPHAGEAL REFLUX 07/05/2009 RODRIGUEZ DO, RICHARD K 305.1 NICOTINE DEPENDENCE 07/05/2009 RODRIGUEZ DO, RICHARD K 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 07/05/2009 RODRIGUEZ DO, RICHARD K 530.81 ESOPHAGEAL REFLUX 07/05/2009 PICKETT HYDROELECTRIC 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 HELPER, SONI R 305.1 NICOTINE DEPENDENCE 07/05/2009 PICKETT HYDROELECTRIC 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 HELPER, SONI R 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 07/05/2009 PICKETT HYDROELECTRIC 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 HELPER, SONI R 530.81 ESOPHAGEAL REFLUX 07/05/2009 RODRIGUEZ DO, RICHARD K 305.1 NICOTINE DEPENDENCE 07/05/2009 RODRIGUEZ DO, RICHARD K 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 07/05/2009 RODRIGUEZ DO, RICHARD K 530.81 ESOPHAGEAL REFLUX 07/05/2009 RODRIGUEZ DO, RICHARD K 305.1 NICOTINE DEPENDENCE 07/05/2009 RODRIGUEZ DO, RICHARD K 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 07/05/2009 RODRIGUEZ DO, RICHARD K 530.81 ESOPHAGEAL REFLUX 07/05/2009 PICKETT HYDROELECTRIC 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 HELPER, SONI R 305.1 NICOTINE DEPENDENCE 07/05/2009 PICKETT HYDROELECTRIC 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 HELPER, SONI R 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 07/05/2009 PICKETT HYDROELECTRIC 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 HELPER, SONI R 530.81 ESOPHAGEAL REFLUX 07/05/2009 RODRIGUEZ DO, RICHARD K 305.1 NICOTINE DEPENDENCE 07/05/2009 RODRIGUEZ DO, RICHARD K 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 07/05/2009 RODRIGUEZ DO, RICHARD K 530.81 ESOPHAGEAL REFLUX 07/05/2009 PICKETT HYDROELECTRIC 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 HELPER, SONI R 305.1 NICOTINE DEPENDENCE 07/05/2009 PICKETT HYDROELECTRIC 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 HELPER, SONI R 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 07/05/2009 PICKETT HYDROELECTRIC 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 HELPER, SONI R 530.81 ESOPHAGEAL REFLUX 07/05/2009 RODRIGUEZ DO, RICHARD K 305.1 NICOTINE DEPENDENCE 07/05/2009 RODRIGUEZ DO, RICHARD K 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 07/05/2009 RODRIGUEZ DO, RICHARD K 530.81 ESOPHAGEAL REFLUX 07/05/2009 PICKETT HYDROELECTRIC 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 HELPER SONI R 305.1 NICOTINE DEPENDENCE 07/05/2009 PICKETT HYDROELECTRIC 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 HELPER, SONI R 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 07/05/2009 PICKETT HYDROELECTRIC 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 HELPER, SONI R 530.81 ESOPHAGEAL REFLUX 07/05/2009 PICKETT HYDROELECTRIC 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 HELPER, SONI R 305.1 NICOTINE DEPENDENCE 07/05/2009 PICKETT HYDROELECTRIC 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 HELPER, SONI R 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 07/05/2009 PICKETT HYDROELECTRIC 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 HELPER, SONI R 530.81 ESOPHAGEAL REFLUX 07/05/2009 RODRIGUEZ DO, RICHARD K 305.1 NICOTINE DEPENDENCE 07/05/2009 RODRIGUEZ DO, RICHARD K 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 07/05/2009 RODRIGUEZ DO, RICHARD K 530.81 ESOPHAGEAL REFLUX 07/05/2009 RODRIGUEZ DO, RICHARD K 305.1 NICOTINE DEPENDENCE 07/05/2009 RODRIGUEZ DO, RICHARD K 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 07/05/2009 RODRIGUEZ DO, RICHARD K 530.81 ESOPHAGEAL REFLUX 07/05/2009 PICKETTTUCKER ELIASWing SONI R 305.1 NICOTINE DEPENDENCE 07/05/2009 PICKETT HYDROELECTRIC 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 HELPER, SONI R 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 07/05/2009 PICKETTTUCKER ELIASWing SONI R 530.81 ESOPHAGEAL REFLUX 08/08/2009 TERESSA RAI MD 585.4 CHRONIC KIDNEY DISEASE STAGE 4 08/08/2009 TERESSA RAI MD 585.4 CHRONIC KIDNEY DISEASE STAGE 4 08/08/2009 TERESSA RAI MD 585.4 CHRONIC KIDNEY DISEASE STAGE 4 08/08/2009 TERESSA RAI MD 585.4 CHRONIC KIDNEY DISEASE STAGE 4 08/08/2009 TERESSA RAI MD 585.4 CHRONIC KIDNEY DISEASE STAGE 4 08/08/2009 585.4 CHRONIC KIDNEY DISEASE STAGE 4 08/08/2009 585.4 CHRONIC KIDNEY DISEASE STAGE 4 08/08/2009 585.4 CHRONIC KIDNEY DISEASE STAGE 4 08/08/2009 585.4 CHRONIC KIDNEY DISEASE STAGE 4 08/08/2009 TERESSA RAI MD 585.4 CHRONIC KIDNEY DISEASE STAGE 4 08/08/2009 585.4 CHRONIC KIDNEY DISEASE STAGE 4 08/08/2009 585.4 CHRONIC KIDNEY DISEASE STAGE 4 08/08/2009 PICKETTSONI CEBALLOS APRN R 585.4 CHRONIC KIDNEY DISEASE STAGE 4 08/08/2009 PICKETT SONI SALVADOR R 585.4 CHRONIC KIDNEY DISEASE STAGE 4 08/08/2009 RODRIGUEZ DO, RICHARD K 585.4 CHRONIC KIDNEY DISEASE STAGE 4 08/08/2009 RODRIGUEZ DO, RICHARD K 585.4 CHRONIC KIDNEY DISEASE STAGE 4 08/08/2009 RODRIGUEZ DO, RICHARD K 585.4 CHRONIC KIDNEY DISEASE STAGE 4 08/08/2009 PICKETT SONI SALVADOR R 585.4 CHRONIC KIDNEY DISEASE STAGE 4 08/08/2009 RODRIGUEZ DO RICHARD K 585.4 CHRONIC KIDNEY DISEASE STAGE 4 08/08/2009 PICKETT SONI SALVADOR R 585.4 CHRONIC KIDNEY DISEASE STAGE 4 08/08/2009 PICKETT SONI SALVADOR R 585.4 CHRONIC KIDNEY DISEASE STAGE 4 08/08/2009 RODRIGUEZ DO RICHARD K 585.4 CHRONIC KIDNEY DISEASE STAGE 4 08/08/2009 RODRIGUEZ DO RICHARD K 585.4 CHRONIC KIDNEY DISEASE STAGE 4 08/08/2009 PICKETTSONI CEBALLOS APRN R 585.4 CHRONIC KIDNEY DISEASE STAGE 4 08/08/2009 PICKETT SONI SALVADOR R 585.4 CHRONIC KIDNEY DISEASE STAGE 4 08/08/2009 RODRIGUEZ DO RICHARD K 585.4 CHRONIC KIDNEY DISEASE STAGE 4 08/08/2009 PICKETT SONI SALVADOR R 585.4 CHRONIC KIDNEY DISEASE STAGE 4 08/08/2009 RODRIGUEZ DOMISTYA K 585.4 CHRONIC KIDNEY DISEASE STAGE 4 08/08/2009 RODRIGUEZ DO RICHARD K 585.4 CHRONIC KIDNEY DISEASE STAGE 4 08/08/2009 PICKETT SONI SALVADOR R 585.4 CHRONIC KIDNEY DISEASE STAGE 4 08/08/2009 RDORIGUEZ DO RICHARD K 585.4 CHRONIC KIDNEY DISEASE STAGE 4 08/08/2009 PCIKETT SONI SALVADOR R 585.4 CHRONIC KIDNEY DISEASE STAGE 4 08/08/2009 RODRIGUEZ DO RICHARD K 585.4 CHRONIC KIDNEY DISEASE STAGE 4 08/08/2009 PICKETT SONI SALVADOR R 585.4 CHRONIC KIDNEY DISEASE STAGE 4 08/08/2009 PICKETT SONI SALVADOR R 585.4 CHRONIC KIDNEY DISEASE STAGE 4 08/08/2009 RICHARD RODRIGUEZ DO K 585.4 CHRONIC KIDNEY DISEASE STAGE 4 08/08/2009 RICHARD RODRIGUEZ DO 585.4 CHRONIC KIDNEY DISEASE STAGE 4 08/08/2009 SONI PICKETT APRN 585.4 CHRONIC KIDNEY DISEASE STAGE 4 08/18/2009 TERESSA RAI MD 238.71 ESSENTIAL THROMBOCYTHEMIA 08/18/2009 TERESSA RAI MD 285.9 ANEMIA, UNSPECIFIED 08/18/2009 TERESSA RAI MD 238.71 ESSENTIAL THROMBOCYTHEMIA 08/18/2009 TERESSA RAI MD 285.9 ANEMIA, UNSPECIFIED 08/18/2009 TERESSA RAI MD 238.71 ESSENTIAL THROMBOCYTHEMIA 08/18/2009 TERESSA RAI MD 285.9 ANEMIA, UNSPECIFIED 08/18/2009 TERESSA RAI MD 238.71 ESSENTIAL THROMBOCYTHEMIA 08/18/2009 TERESSA RAI MD 285.9 ANEMIA, UNSPECIFIED 08/18/2009 TERESSA RAI MD 238.71 ESSENTIAL THROMBOCYTHEMIA 08/18/2009 TERESSA RAI MD 285.9 ANEMIA, UNSPECIFIED 08/18/2009 238.71 ESSENTIAL THROMBOCYTHEMIA 08/18/2009 285.9 ANEMIA, UNSPECIFIED 08/18/2009 238.71 ESSENTIAL THROMBOCYTHEMIA 08/18/2009 285.9 ANEMIA, UNSPECIFIED 08/18/2009 238.71 ESSENTIAL THROMBOCYTHEMIA 08/18/2009 285.9 ANEMIA, UNSPECIFIED 08/18/2009 238.71 ESSENTIAL THROMBOCYTHEMIA 08/18/2009 285.9 ANEMIA, UNSPECIFIED 08/18/2009 TERESSA RAI MD 238.71 ESSENTIAL THROMBOCYTHEMIA 08/18/2009 TERESSA RAI MD 285.9 ANEMIA, UNSPECIFIED 08/18/2009 238.71 ESSENTIAL THROMBOCYTHEMIA 08/18/2009 285.9 ANEMIA, UNSPECIFIED 08/18/2009 238.71 ESSENTIAL THROMBOCYTHEMIA 08/18/2009 285.9 ANEMIA, UNSPECIFIED 08/18/2009 SONI PICKETT APRN 238.71 ESSENTIAL THROMBOCYTHEMIA 08/18/2009 SONI PICKETT APRN 285.9 ANEMIA, UNSPECIFIED 08/18/2009 SONI PICKETT APRN 238.71 ESSENTIAL THROMBOCYTHEMIA 08/18/2009 SONI PICKETT APRN 285.9 ANEMIA, UNSPECIFIED 08/18/2009 RODRIGUEZ DO, RICHARD K 238.71 ESSENTIAL THROMBOCYTHEMIA 08/18/2009 RODRIGUEZ DO, RICHARD K 285.9 ANEMIA, UNSPECIFIED 08/18/2009 RODRIGUEZ DO, RICHARD K 238.71 ESSENTIAL THROMBOCYTHEMIA 08/18/2009 RODRIGUEZ DO, RICHARD K 285.9 ANEMIA, UNSPECIFIED 08/18/2009 RODRIGUEZ DO, RICHARD K 238.71 ESSENTIAL THROMBOCYTHEMIA 08/18/2009 RODRIGUEZ DO, RICHARD K 285.9 ANEMIA, UNSPECIFIED 08/18/2009 PICKETT HYDROELECTRIC 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 HELPER, SONI R 238.71 ESSENTIAL THROMBOCYTHEMIA 08/18/2009 PICKETT HYDROELECTRIC 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 HELPER, SONI R 285.9 ANEMIA, UNSPECIFIED 08/18/2009 RODRIGUEZ DO, RICHARD K 238.71 ESSENTIAL THROMBOCYTHEMIA 08/18/2009 RODRIGUEZ DO, RICHARD K 285.9 ANEMIA, UNSPECIFIED 08/18/2009 PICKETT HYDROELECTRIC 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 HELPER, SONI R 238.71 ESSENTIAL THROMBOCYTHEMIA 08/18/2009 PICKETT HYDROELECTRIC 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 HELPER, SONI R 285.9 ANEMIA, UNSPECIFIED 08/18/2009 PICKETT HYDROELECTRIC 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 HELPER, SONI R 238.71 ESSENTIAL THROMBOCYTHEMIA 08/18/2009 PICKETT HYDROELECTRIC 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 HELPER, SONI R 285.9 ANEMIA, UNSPECIFIED 08/18/2009 RODRIGUEZ DO, RICHARD K 238.71 ESSENTIAL THROMBOCYTHEMIA 08/18/2009 RODRIGUEZ DO, RICHARD K 285.9 ANEMIA, UNSPECIFIED 08/18/2009 RODRIGUEZ DO, RICHARD K 238.71 ESSENTIAL THROMBOCYTHEMIA 08/18/2009 RODRIGUEZ DO, RICHARD K 285.9 ANEMIA, UNSPECIFIED 08/18/2009 PICKETT HYDROELECTRIC 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 HELPER, SONI R 238.71 ESSENTIAL THROMBOCYTHEMIA 08/18/2009 PICKETT HYDROELECTRIC 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 HELPER, SONI R 285.9 ANEMIA, UNSPECIFIED 08/18/2009 PICKETT HYDROELECTRIC 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 HELPER, SONI R 238.71 ESSENTIAL THROMBOCYTHEMIA 08/18/2009 PICKETT HYDROELECTRIC 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 HELPER, SONI R 285.9 ANEMIA, UNSPECIFIED 08/18/2009 RODRIGUEZ DO, RICHARD K 238.71 ESSENTIAL THROMBOCYTHEMIA 08/18/2009 RODRIGUEZ DO, RICHARD K 285.9 ANEMIA, UNSPECIFIED 08/18/2009 PICKETT HYDROELECTRIC 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 HELPER, SONI R 238.71 ESSENTIAL THROMBOCYTHEMIA 08/18/2009 PICKETT HYDROELECTRIC 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 HELPER, SONI R 285.9 ANEMIA, UNSPECIFIED 08/18/2009 RODRIGUEZ DO, RICHARD K 238.71 ESSENTIAL THROMBOCYTHEMIA 08/18/2009 RODRIGUEZ DO, RICHARD K 285.9 ANEMIA, UNSPECIFIED 08/18/2009 RODRIGUEZ DO, RICHARD K 238.71 ESSENTIAL THROMBOCYTHEMIA 08/18/2009 RODRIGUEZ DO, RICHARD K 285.9 ANEMIA, UNSPECIFIED 08/18/2009 PICKETT HYDROELECTRIC 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 HELPER, SONI R 238.71 ESSENTIAL THROMBOCYTHEMIA 08/18/2009 PICKETT HYDROELECTRIC 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 HELPER, SONI R 285.9 ANEMIA, UNSPECIFIED 08/18/2009 RODRIGUEZ DO, RICHARD K 238.71 ESSENTIAL THROMBOCYTHEMIA 08/18/2009 RODRIGUEZ DO, RICHARD K 285.9 ANEMIA, UNSPECIFIED 08/18/2009 PICKETT HYDROELECTRIC 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 HELPER, SONI R 238.71 ESSENTIAL THROMBOCYTHEMIA 08/18/2009 PICKETT HYDROELECTRIC 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 HELPER, SONI R 285.9 ANEMIA, UNSPECIFIED 08/18/2009 RODRIGUEZ DO, RICHARD K 238.71 ESSENTIAL THROMBOCYTHEMIA 08/18/2009 RODRIGUEZ DO, RICHARD K 285.9 ANEMIA, UNSPECIFIED 08/18/2009 PICKETT HYDROELECTRIC 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 HELPER, SONI R 238.71 ESSENTIAL THROMBOCYTHEMIA 08/18/2009 PICKETT HYDROELECTRIC 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 HELPER, SONI R 285.9 ANEMIA, UNSPECIFIED 08/18/2009 PICKETT HYDROELECTRIC 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 HELPER, SONI R 238.71 ESSENTIAL THROMBOCYTHEMIA 08/18/2009 PICKETT HYDROELECTRIC 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 HELPER, SONI R 285.9 ANEMIA, UNSPECIFIED 08/18/2009 RODRIGUEZ DO, RICHARD K 238.71 ESSENTIAL THROMBOCYTHEMIA 08/18/2009 RODRIGUEZ DO, RICHARD K 285.9 ANEMIA, UNSPECIFIED 08/18/2009 RODRIGUEZ DO, RICHARD K 238.71 ESSENTIAL THROMBOCYTHEMIA 08/18/2009 RODRIGUEZ DO, RICHARD K 285.9 ANEMIA, UNSPECIFIED 08/18/2009 PICKETT HYDROELECTRIC 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 HELPER, SONI R 238.71 ESSENTIAL THROMBOCYTHEMIA 08/18/2009 PICKETT HYDROELECTRIC 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 HELPER, SONI R 285.9 ANEMIA, UNSPECIFIED 08/30/2009 TERESSA RAI MD 338.18 ACUTE PAIN POSTOPERATIVE 08/30/2009 TERESSA RAI MD V58.69 taking high-risk medication for a long time 08/30/2009 TERESSA RAI MD 338.18 ACUTE PAIN POSTOPERATIVE 08/30/2009 TERESSA RAI MD V58.69 taking high-risk medication for a long time 08/30/2009 TERESSA RAI MD 338.18 ACUTE PAIN POSTOPERATIVE 08/30/2009 TERESSA RAI MD V58.69 taking high-risk medication for a long time 08/30/2009 TERESSA RAI MD 338.18 ACUTE PAIN POSTOPERATIVE 08/30/2009 TERESSA RAI MD V58.69 taking high-risk medication for a long time 08/30/2009 TERESSA RAI MD 338.18 ACUTE PAIN POSTOPERATIVE 08/30/2009 TERESSA RAI MD V58.69 taking high-risk medication for a long time 08/30/2009 338.18 ACUTE PAIN POSTOPERATIVE 08/30/2009 V58.69 taking high-risk medication for a long time 08/30/2009 338.18 ACUTE PAIN POSTOPERATIVE 08/30/2009 V58.69 taking high-risk medication for a long time 08/30/2009 338.18 ACUTE PAIN POSTOPERATIVE 08/30/2009 V58.69 taking high-risk medication for a long time 08/30/2009 338.18 ACUTE PAIN POSTOPERATIVE 08/30/2009 V58.69 taking high-risk medication for a long time 08/30/2009 TERESSA RAI MD 338.18 ACUTE PAIN POSTOPERATIVE 08/30/2009 TERESSA RAI MD V58.69 taking high-risk medication for a long time 08/30/2009 338.18 ACUTE PAIN POSTOPERATIVE 08/30/2009 V58.69 taking high-risk medication for a long time 08/30/2009 338.18 ACUTE PAIN POSTOPERATIVE 08/30/2009 V58.69 taking high-risk medication for a long time 08/30/2009 SONI PICKETT APRN 338.18 ACUTE PAIN POSTOPERATIVE 08/30/2009 SONI PICKETT APRN V58.69 taking high-risk medication for a long time 08/30/2009 SONI PICKETT APRN 338.18 ACUTE PAIN POSTOPERATIVE 08/30/2009 SONI PICKETT APRN V58.69 taking high-risk medication for a long time 08/30/2009 MISTY RODRIGUEZ DOA K 338.18 ACUTE PAIN POSTOPERATIVE 08/30/2009 MISTY RODRIGUEZ DOA K V58.69 taking high-risk medication for a long time 08/30/2009 RODRIGUEZ MISTY RUIZA K 338.18 ACUTE PAIN POSTOPERATIVE 08/30/2009 RODRIGUEZ MISTY RUIZA K V58.69 taking high-risk medication for a long time 08/30/2009 RODRIGUEZ DO RICHARD K 338.18 ACUTE PAIN POSTOPERATIVE 08/30/2009 MISTY RODRIGUEZ DOA K V58.69 taking high-risk medication for a long time 08/30/2009 SONI PICKETT APRN R 338.18 ACUTE PAIN POSTOPERATIVE 08/30/2009 PICKETT SONI SALVADOR R V58.69 taking high-risk medication for a long time 08/30/2009 MISTY RODRIGUEZ DOA K 338.18 ACUTE PAIN POSTOPERATIVE 08/30/2009 MISTY RODRIGUEZ DOA K V58.69 taking high-risk medication for a long time 08/30/2009 PICKETTSONI CEBALLOS APRN R 338.18 ACUTE PAIN POSTOPERATIVE 08/30/2009 PICKETT SONI SALVADOR R V58.69 taking high-risk medication for a long time 08/30/2009 SONI PICKETT APRN R 338.18 ACUTE PAIN POSTOPERATIVE 08/30/2009 PICKETTSONI CEBALLOS APRN R V58.69 taking high-risk medication for a long time 08/30/2009 RICHARD RODRIGUEZ DO K 338.18 ACUTE PAIN POSTOPERATIVE 08/30/2009 MISTY RODRIGUEZ DOA K V58.69 taking high-risk medication for a long time 08/30/2009 MISTY RODRIGUEZ DOA K 338.18 ACUTE PAIN POSTOPERATIVE 08/30/2009 MICHAEL RUIZ RICHARD K V58.69 taking high-risk medication for a long time 08/30/2009 SONI PICKETT APRN R 338.18 ACUTE PAIN POSTOPERATIVE 08/30/2009 PICKETTSONI CEBALLOS APRN R V58.69 taking high-risk medication for a long time 08/30/2009 SONI PICKETT APRN R 338.18 ACUTE PAIN POSTOPERATIVE 08/30/2009 PICKETTSONI CEBALLOS APRN R V58.69 taking high-risk medication for a long time 08/30/2009 RICHARD RODRIGUEZ DO K 338.18 ACUTE PAIN POSTOPERATIVE 08/30/2009 MICHAEL RUIZ RICHARD K V58.69 taking high-risk medication for a long time 08/30/2009 SONI PICKETT APRN R 338.18 ACUTE PAIN POSTOPERATIVE 08/30/2009 SONI PICKETT APRN R V58.69 taking high-risk medication for a long time 08/30/2009 MISTY RODRIGUEZ DOA K 338.18 ACUTE PAIN POSTOPERATIVE 08/30/2009 MISTY RODRIGUEZ DOA K V58.69 taking high-risk medication for a long time 08/30/2009 RICHARD RODRIGUEZ DO K 338.18 ACUTE PAIN POSTOPERATIVE 08/30/2009 MISTY RODRIGUEZ DOA K V58.69 taking high-risk medication for a long time 08/30/2009 SONI PICKETT APRN R 338.18 ACUTE PAIN POSTOPERATIVE 08/30/2009 PICKETT SONI SALVADOR R V58.69 taking high-risk medication for a long time 08/30/2009 RICHARD RODRIGUEZ DO K 338.18 ACUTE PAIN POSTOPERATIVE 08/30/2009 RICHARD RODRIGUEZ DO K V58.69 taking high-risk medication for a long time 08/30/2009 SONI PICKETT APRN R 338.18 ACUTE PAIN POSTOPERATIVE 08/30/2009 PICKETT SONI SALVADOR R V58.69 taking high-risk medication for a long time 08/30/2009 RICHARD RODRIGUEZ DO K 338.18 ACUTE PAIN POSTOPERATIVE 08/30/2009 RICHARD RODRIGUEZ DO V58.69 taking high-risk medication for a long time 08/30/2009 SONI PICKETT APRN R 338.18 ACUTE PAIN POSTOPERATIVE 08/30/2009 SONI PICKETT APRN R V58.69 taking high-risk medication for a long time 08/30/2009 SONI PICKETT APRN R 338.18 ACUTE PAIN POSTOPERATIVE 08/30/2009 SONI PICKETT APRN R V58.69 taking high-risk medication for a long time 08/30/2009 RICHARD RODRIGUEZ DO K 338.18 ACUTE PAIN POSTOPERATIVE 08/30/2009 MISTY RODRIGUEZ DOA K V58.69 taking high-risk medication for a long time 08/30/2009 RIHCARD RODRIGUEZ DO K 338.18 ACUTE PAIN POSTOPERATIVE 08/30/2009 RICHARD RODRIGUEZ DO K V58.69 taking high-risk medication for a long time 08/30/2009 SONI PICKETT APRN R 338.18 ACUTE PAIN POSTOPERATIVE 08/30/2009 SONI PICKETT APRN R V58.69 taking high-risk medication for a long time 11/15/2009 TERESSA RAI MD 627.9 UNSPECIFIED MENOPAUSAL AND POSTMENOPAUSAL DISORDER 11/15/2009 TERESSA RAI MD 627.9 UNSPECIFIED MENOPAUSAL AND POSTMENOPAUSAL DISORDER 11/15/2009 TERESSA RAI MD 627.9 UNSPECIFIED MENOPAUSAL AND POSTMENOPAUSAL DISORDER 11/15/2009 TERESSA RAI MD 627.9 UNSPECIFIED MENOPAUSAL AND POSTMENOPAUSAL DISORDER 11/15/2009 TERESSA RAI MD 627.9 UNSPECIFIED MENOPAUSAL AND POSTMENOPAUSAL DISORDER 11/15/2009 627.9 UNSPECIFIED MENOPAUSAL AND POSTMENOPAUSAL DISORDER 11/15/2009 627.9 UNSPECIFIED MENOPAUSAL AND POSTMENOPAUSAL DISORDER 11/15/2009 627.9 UNSPECIFIED MENOPAUSAL AND POSTMENOPAUSAL DISORDER 11/15/2009 627.9 UNSPECIFIED MENOPAUSAL AND POSTMENOPAUSAL DISORDER 11/15/2009 TERESSA RAI MD 627.9 UNSPECIFIED MENOPAUSAL AND POSTMENOPAUSAL DISORDER 11/15/2009 627.9 UNSPECIFIED MENOPAUSAL AND POSTMENOPAUSAL DISORDER 11/15/2009 627.9 UNSPECIFIED MENOPAUSAL AND POSTMENOPAUSAL DISORDER 11/15/2009 PICKETT SONI SALVADOR R 627.9 UNSPECIFIED MENOPAUSAL AND POSTMENOPAUSAL DISORDER 11/15/2009 PICKETT SONI SALVADOR R 627.9 UNSPECIFIED MENOPAUSAL AND POSTMENOPAUSAL DISORDER 11/15/2009 MISTY RODRIGUEZ DOA K 627.9 UNSPECIFIED MENOPAUSAL AND POSTMENOPAUSAL DISORDER 11/15/2009 MISTY RODRIGUEZ DOA K 627.9 UNSPECIFIED MENOPAUSAL AND POSTMENOPAUSAL DISORDER 11/15/2009 MISTY RODRIGUEZ DOA K 627.9 UNSPECIFIED MENOPAUSAL AND POSTMENOPAUSAL DISORDER 11/15/2009 PICKETT SONI SALVADOR R 627.9 UNSPECIFIED MENOPAUSAL AND POSTMENOPAUSAL DISORDER 11/15/2009 MISTY RODRIGUEZ DOA K 627.9 UNSPECIFIED MENOPAUSAL AND POSTMENOPAUSAL DISORDER 11/15/2009 PICKETT SONI SALVADOR R 627.9 UNSPECIFIED MENOPAUSAL AND POSTMENOPAUSAL DISORDER 11/15/2009 PICKETT SONI SALVADOR R 627.9 UNSPECIFIED MENOPAUSAL AND POSTMENOPAUSAL DISORDER 11/15/2009 MISTY RODRIGUEZ DOA K 627.9 UNSPECIFIED MENOPAUSAL AND POSTMENOPAUSAL DISORDER 11/15/2009 MISTY RODRIGUEZ DOA K 627.9 UNSPECIFIED MENOPAUSAL AND POSTMENOPAUSAL DISORDER 11/15/2009 PICKETT SONI SALVADOR R 627.9 UNSPECIFIED MENOPAUSAL AND POSTMENOPAUSAL DISORDER 11/15/2009 PICKETT SONI SALVADOR R 627.9 UNSPECIFIED MENOPAUSAL AND POSTMENOPAUSAL DISORDER 11/15/2009 MISTY RODRIGUEZ DOA K 627.9 UNSPECIFIED MENOPAUSAL AND POSTMENOPAUSAL DISORDER 11/15/2009 PICKETT SONI SALVADOR R 627.9 UNSPECIFIED MENOPAUSAL AND POSTMENOPAUSAL DISORDER 11/15/2009 MISTY RODRIGUEZ DOA K 627.9 UNSPECIFIED MENOPAUSAL AND POSTMENOPAUSAL DISORDER 11/15/2009 RODRIGUEZ DO, RICHARD K 627.9 UNSPECIFIED MENOPAUSAL AND POSTMENOPAUSAL DISORDER 11/15/2009 PICKETT HYDROELECTRIC 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 HELPER, SONI R 627.9 UNSPECIFIED MENOPAUSAL AND POSTMENOPAUSAL DISORDER 11/15/2009 RODRIGUEZ DO, RICHARD K 627.9 UNSPECIFIED MENOPAUSAL AND POSTMENOPAUSAL DISORDER 11/15/2009 PICKTET HYDROELECTRIC 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 HELPER, SONI R 627.9 UNSPECIFIED MENOPAUSAL AND POSTMENOPAUSAL DISORDER 11/15/2009 RODRIGUEZ DO, RICHARD K 627.9 UNSPECIFIED MENOPAUSAL AND POSTMENOPAUSAL DISORDER 11/15/2009 PICKETT HYDROELECTRIC 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 HELPER, SONI R 627.9 UNSPECIFIED MENOPAUSAL AND POSTMENOPAUSAL DISORDER 11/15/2009 PICKETT HYDROELECTRIC 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 HELPER, SONI R 627.9 UNSPECIFIED MENOPAUSAL AND POSTMENOPAUSAL DISORDER 11/15/2009 RODRIGUEZ DO, RICHARD K 627.9 UNSPECIFIED MENOPAUSAL AND POSTMENOPAUSAL DISORDER 11/15/2009 RODRIGUEZ DO, RICHARD K 627.9 UNSPECIFIED MENOPAUSAL AND POSTMENOPAUSAL DISORDER 11/15/2009 PICKETT HYDROELECTRIC 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 HELPER, SONI R 627.9 UNSPECIFIED MENOPAUSAL AND POSTMENOPAUSAL DISORDER 11/21/2009 TERESSA RAI MD 458.9 Hypotension, Unspecified 11/21/2009 TERESSA RAI MD 733.01 OSTEOPOROSIS POSTMENOPAUSAL 11/21/2009 TERESSA RAI MD 458.9 Hypotension, Unspecified 11/21/2009 TERESSA RAI MD 733.01 OSTEOPOROSIS POSTMENOPAUSAL 11/21/2009 TERESSA RAI MD 458.9 Hypotension, Unspecified 11/21/2009 TERESSA RAI MD 733.01 OSTEOPOROSIS POSTMENOPAUSAL 11/21/2009 TERESSA RAI MD 458.9 Hypotension, Unspecified 11/21/2009 TERESSA RAI MD 733.01 OSTEOPOROSIS POSTMENOPAUSAL 11/21/2009 TERESSA RAI MD 458.9 Hypotension, Unspecified 11/21/2009 TERESSA RAI MD 733.01 OSTEOPOROSIS POSTMENOPAUSAL 11/21/2009 458.9 Hypotension, Unspecified 11/21/2009 733.01 OSTEOPOROSIS POSTMENOPAUSAL 11/21/2009 458.9 Hypotension, Unspecified 11/21/2009 733.01 OSTEOPOROSIS POSTMENOPAUSAL 11/21/2009 458.9 Hypotension, Unspecified 11/21/2009 733.01 OSTEOPOROSIS POSTMENOPAUSAL 11/21/2009 458.9 Hypotension, Unspecified 11/21/2009 733.01 OSTEOPOROSIS POSTMENOPAUSAL 11/21/2009 TERESSA RAI MD 458.9 Hypotension, Unspecified 11/21/2009 RAI MD, TERESSA 733.01 OSTEOPOROSIS POSTMENOPAUSAL 11/21/2009 458.9 Hypotension, Unspecified 11/21/2009 733.01 OSTEOPOROSIS POSTMENOPAUSAL 11/21/2009 458.9 Hypotension, Unspecified 11/21/2009 733.01 OSTEOPOROSIS POSTMENOPAUSAL 11/21/2009 PICKETT HYDROELECTRIC 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 HELPER, SONI R 458.9 Hypotension, Unspecified 11/21/2009 PICKETT HYDROELECTRIC 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 HELPER, SONI R 733.01 OSTEOPOROSIS POSTMENOPAUSAL 11/21/2009 PICKETT HYDROELECTRIC 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 HELPER, OSNI R 458.9 Hypotension, Unspecified 11/21/2009 PICKETT HYDROELECTRIC 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 HELPER, SONI R 733.01 OSTEOPOROSIS POSTMENOPAUSAL 11/21/2009 RODRIGUEZ DO, RICHARD K 458.9 Hypotension, Unspecified 11/21/2009 RODRIGUEZ DO, RICHARD K 733.01 OSTEOPOROSIS POSTMENOPAUSAL 11/21/2009 RODRIGUEZ DO, RICHARD K 458.9 Hypotension, Unspecified 11/21/2009 RODRIGUEZ DO, RICHARD K 733.01 OSTEOPOROSIS POSTMENOPAUSAL 11/21/2009 RODRIGUEZ DO, RICHARD K 458.9 Hypotension, Unspecified 11/21/2009 RODRIGUEZ DO, RICHARD K 733.01 OSTEOPOROSIS POSTMENOPAUSAL 11/21/2009 PICKETT HYDROELECTRIC 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 HELPER, SONI R 458.9 Hypotension, Unspecified 11/21/2009 PICKETT HYDROELECTRIC 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 HELPER, SONI R 733.01 OSTEOPOROSIS POSTMENOPAUSAL 11/21/2009 RODRIGUEZ DO, RICHARD K 458.9 Hypotension, Unspecified 11/21/2009 RODRIGUEZ DO, RICHARD K 733.01 OSTEOPOROSIS POSTMENOPAUSAL 11/21/2009 PICKETT HYDROELECTRIC 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 HELPER, SONI R 458.9 Hypotension, Unspecified 11/21/2009 PICKETT HYDROELECTRIC 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 HELPER, SONI R 733.01 OSTEOPOROSIS POSTMENOPAUSAL 11/21/2009 PICKETT HYDROELECTRIC 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 HELPER, SONI R 458.9 Hypotension, Unspecified 11/21/2009 PICKETT HYDROELECTRIC 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 HELPER, SONI R 733.01 OSTEOPOROSIS POSTMENOPAUSAL 11/21/2009 RODRIGUEZ DO, RICHARD K 458.9 Hypotension, Unspecified 11/21/2009 RODRIGUEZ DO, RICHARD K 733.01 OSTEOPOROSIS POSTMENOPAUSAL 11/21/2009 RODRIGUEZ DO, RICHARD K 458.9 Hypotension, Unspecified 11/21/2009 RODRIGUEZ DO, RICHARD K 733.01 OSTEOPOROSIS POSTMENOPAUSAL 11/21/2009 PICKETT HYDROELECTRIC 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 HELPER, SONI R 458.9 Hypotension, Unspecified 11/21/2009 PICKETT HYDROELECTRIC 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 HELPER, SONI R 733.01 OSTEOPOROSIS POSTMENOPAUSAL 11/21/2009 PICKETT HYDROELECTRIC 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 HELPER, SONI R 458.9 Hypotension, Unspecified 11/21/2009 PICKETT HYDROELECTRIC MACHINERY MECHANIC HELPER, SONI R 733.01 OSTEOPOROSIS POSTMENOPAUSAL 11/21/2009 RODRIGUEZ DO, RICHARD K 458.9 Hypotension, Unspecified 11/21/2009 RODRIGUEZ DO, RICHARD K 733.01 OSTEOPOROSIS POSTMENOPAUSAL 11/21/2009 PICKETT HYDROELECTRIC MACHINERY MECHANIC HELPER, SONI R 458.9 Hypotension, Unspecified 11/21/2009 PICKETT HYDROELECTRIC MACHINERY MECHANIC HELPER, SONI R 733.01 OSTEOPOROSIS POSTMENOPAUSAL 11/21/2009 RODRIGUEZ DO, RICHARD K 458.9 Hypotension, Unspecified 11/21/2009 RODRIGUEZ DO, RICHARD K 733.01 OSTEOPOROSIS POSTMENOPAUSAL 11/21/2009 RODRIGUEZ DO, RICHARD K 458.9 Hypotension, Unspecified 11/21/2009 RODRIGUEZ DO, RICHARD K 733.01 OSTEOPOROSIS POSTMENOPAUSAL 11/21/2009 PICKETT HYDROELECTRIC MACHINERY MECHANIC HELPER, SONI R 458.9 Hypotension, Unspecified 11/21/2009 PICKETT HYDROELECTRIC MACHINERY MECHANIC HELPER, SONI R 733.01 OSTEOPOROSIS POSTMENOPAUSAL 11/21/2009 RODRIGUEZ DO, RICHARD K 458.9 Hypotension, Unspecified 11/21/2009 RODRIGUEZ DO, RICHARD K 733.01 OSTEOPOROSIS POSTMENOPAUSAL 11/21/2009 PICKETT HYDROELECTRIC MACHINERY MECHANIC HELPER, SONI R 458.9 Hypotension, Unspecified 11/21/2009 PICKETT HYDROELECTRIC MACHINERY MECHANIC HELPER, SONI R 733.01 OSTEOPOROSIS POSTMENOPAUSAL 11/21/2009 RODRIGUEZ DO, RICHARD K 458.9 Hypotension, Unspecified 11/21/2009 RODRIGUEZ DO, RICHARD K 733.01 OSTEOPOROSIS POSTMENOPAUSAL 11/21/2009 PICKETT HYDROELECTRIC MACHINERY MECHANIC HELPER, SONI R 458.9 Hypotension, Unspecified 11/21/2009 PICKETT HYDROELECTRIC MACHINERY MECHANIC HELPER, SONI R 733.01 OSTEOPOROSIS POSTMENOPAUSAL 11/21/2009 PICKETT HYDROELECTRIC MACHINERY MECHANIC HELPER, SONI R 458.9 Hypotension, Unspecified 11/21/2009 PICKETT HYDROELECTRIC MACHINERY MECHANIC HELPER, SONI R 733.01 OSTEOPOROSIS POSTMENOPAUSAL 11/21/2009 RODRIGUEZ DO, RICHARD K 458.9 Hypotension, Unspecified 11/21/2009 RODRIGUEZ DO, RICHARD K 733.01 OSTEOPOROSIS POSTMENOPAUSAL 11/21/2009 RODRIGUEZ DO, RICHARD K 458.9 Hypotension, Unspecified 11/21/2009 RODRIGUEZ DO, RICHARD K 733.01 OSTEOPOROSIS POSTMENOPAUSAL 11/21/2009 PICKETT HYDROELECTRIC MACHINERY MECHANIC HELPER, SONI R 458.9 Hypotension, Unspecified 11/21/2009 PICKETT HYDROELECTRIC MACHINERY MECHANIC HELPER, SONI R 733.01 OSTEOPOROSIS POSTMENOPAUSAL 12/12/2009 TERESSA RAI MD 719.41 Pain In Joint, Shoulder Region 12/12/2009 TERESSA RAI MD 719.41 Pain In Joint, Shoulder Region 12/12/2009 TERESSA RAI MD 719.41 Pain In Joint, Shoulder Region 12/12/2009 TERESSA RAI MD 719.41 Pain In Joint, Shoulder Region 12/12/2009 TERESSA RAI MD 719.41 Pain In Joint, Shoulder Region 12/12/2009 719.41 Pain In Joint, Shoulder Region 12/12/2009 719.41 Pain In Joint, Shoulder Region 12/12/2009 719.41 Pain In Joint, Shoulder Region 12/12/2009 719.41 Pain In Joint, Shoulder Region 12/12/2009 TERESSA RAI MD 719.41 Pain In Joint, Shoulder Region 12/12/2009 719.41 Pain In Joint, Shoulder Region 12/12/2009 719.41 Pain In Joint, Shoulder Region 12/12/2009 SONI PICKETT APRN 719.41 Pain In Joint, Shoulder Region 12/12/2009 SONI PICKETT APRN 719.41 Pain In Joint, Shoulder Region 12/12/2009 MISTY RODRIGUEZ DOA K 719.41 Pain In Joint, Shoulder Region 12/12/2009 MISTY RODRIGUEZ DOA K 719.41 Pain In Joint, Shoulder Region 12/12/2009 MISTY RODRIGUEZ DOA K 719.41 Pain In Joint, Shoulder Region 12/12/2009 SONI PICKETT APRN R 719.41 Pain In Joint, Shoulder Region 12/12/2009 MISTY RODRIGUEZ DOA K 719.41 Pain In Joint, Shoulder Region 12/12/2009 SONI PICKETT APRN R 719.41 Pain In Joint, Shoulder Region 12/12/2009 SONI PICKETT APRN R 719.41 Pain In Joint, Shoulder Region 12/12/2009 RODRIGUEZ MISTY RUIZA K 719.41 Pain In Joint, Shoulder Region 12/12/2009 RODRIGUEZ DO RICHARD K 719.41 Pain In Joint, Shoulder Region 12/12/2009 SONI PICKETT APRN R 719.41 Pain In Joint, Shoulder Region 12/12/2009 SONI PICKETT APRN 719.41 Pain In Joint, Shoulder Region 12/12/2009 RODRIGUEZ DO, RICHARD K 719.41 Pain In Joint, Shoulder Region 12/12/2009 SONI PICKETT APRN 719.41 Pain In Joint, Shoulder Region 12/12/2009 RODRIGUEZ DO, RICHARD K 719.41 Pain In Joint, Shoulder Region 12/12/2009 RODRIGUEZ DO, RICHARD K 719.41 Pain In Joint, Shoulder Region 12/12/2009 SONI PICKETT APRN R 719.41 Pain In Joint, Shoulder Region 12/12/2009 RODRIGUEZ DO, RICHARD K 719.41 Pain In Joint, Shoulder Region 12/12/2009 SONI PICKETT APRN R 719.41 Pain In Joint, Shoulder Region 12/12/2009 MICHAEL DO, RICHARD K 719.41 Pain In Joint, Shoulder Region 12/12/2009 SONI PICKETT APRN 719.41 Pain In Joint, Shoulder Region 12/12/2009 SONI PICKETT APRN 719.41 Pain In Joint, Shoulder Region 12/12/2009 MICHAEL DOMISTYA K 719.41 Pain In Joint, Shoulder Region 12/12/2009 RODRIGUEZ DO, RICHARD K 719.41 Pain In Joint, Shoulder Region 12/12/2009 SONI PICKETT APRN 719.41 Pain In Joint, Shoulder Region 02/06/2010 TERESSA RAI MD 787.02 NAUSEA ALONE 02/06/2010 TERESSA RAI MD 787.02 NAUSEA ALONE 02/06/2010 TERESSA RAI MD 787.02 NAUSEA ALONE 02/06/2010 TERESSA RAI MD 787.02 NAUSEA ALONE 02/06/2010 TERESSA RAI MD 787.02 NAUSEA ALONE 02/06/2010 787.02 NAUSEA ALONE 02/06/2010 787.02 NAUSEA ALONE 02/06/2010 787.02 NAUSEA ALONE 02/06/2010 787.02 NAUSEA ALONE 02/06/2010 TERESSA RAI MD 787.02 NAUSEA ALONE 02/06/2010 787.02 NAUSEA ALONE 02/06/2010 787.02 NAUSEA ALONE 02/06/2010 SONI PICKETT APRN 787.02 NAUSEA ALONE 02/06/2010 SONI PICKETT APRN 787.02 NAUSEA ALONE 02/06/2010 RODRIGUEZ DO, RICHARD K 787.02 NAUSEA ALONE 02/06/2010 RODRIGUEZ DO, RICHARD K 787.02 NAUSEA ALONE 02/06/2010 RODRIGUEZ DO, RICHARD K 787.02 NAUSEA ALONE 02/06/2010 SONI PICKETT APRN R 787.02 NAUSEA ALONE 02/06/2010 RODRIGUEZ DO, RICHARD K 787.02 NAUSEA ALONE 02/06/2010 SONI PICKETT APRN R 787.02 NAUSEA ALONE 02/06/2010 SONI PICKETT APRN R 787.02 NAUSEA ALONE 02/06/2010 RODRIGUEZ DO, RICHARD K 787.02 NAUSEA ALONE 02/06/2010 RODRIGUEZ DO, RICHARD K 787.02 NAUSEA ALONE 02/06/2010 SONI PICKETT APRN R 787.02 NAUSEA ALONE 02/06/2010 SONI PICKETT APRN R 787.02 NAUSEA ALONE 02/06/2010 RODRIGUEZ DO, RICHARD K 787.02 NAUSEA ALONE 02/06/2010 SONI PICKETT APRN 787.02 NAUSEA ALONE 02/06/2010 RODRIGUEZ DO, RICHARD K 787.02 NAUSEA ALONE 02/06/2010 RODRIGUEZ DO, RICHARD K 787.02 NAUSEA ALONE 02/06/2010 SONI PICKETT APRN R 787.02 NAUSEA ALONE 02/06/2010 RODRIGUEZ DO, RICHARD K 787.02 NAUSEA ALONE 02/06/2010 SONI PICKETT APRN R 787.02 NAUSEA ALONE 02/06/2010 RODRIGUEZ DO, RICHARD K 787.02 NAUSEA ALONE 02/06/2010 SONI PICKETT APRN R 787.02 NAUSEA ALONE 02/06/2010 SONI PICKETT APRN R 787.02 NAUSEA ALONE 02/06/2010 RODRIGUEZ DO, RICHARD K 787.02 NAUSEA ALONE 02/06/2010 RODRIGUEZ DO, RICHARD K 787.02 NAUSEA ALONE 02/06/2010 SONI PICKETT APRN 787.02 NAUSEA ALONE 04/09/2010 FREDI RAO, TERESSA 782.3 Edema 04/09/2010 TERESSA RAI MD 782.3 Edema 04/09/2010 FREDI RAO, TERESSA 782.3 Edema 04/09/2010 TERESSA RAI MD 782.3 Edema 04/09/2010 TERESSA RAI MD 782.3 Edema 04/09/2010 782.3 Edema 04/09/2010 782.3 Edema 04/09/2010 782.3 Edema 04/09/2010 782.3 Edema 04/09/2010 TERESSA RAI MD 782.3 Edema 04/09/2010 782.3 Edema 04/09/2010 782.3 Edema 04/09/2010 PICKETT HYDROELECTRIC MACHINERY MECHANIC HELPER, SONI R 782.3 Edema 04/09/2010 PICKETT HYDROELECTRIC MACHINERY MECHANIC HELPER, SONI R 782.3 Edema 04/09/2010 RODRIGUEZ DO, RICHARD K 782.3 Edema 04/09/2010 RODRIGUEZ DO, RICHARD K 782.3 Edema 04/09/2010 RODRIGUEZ DO, RICHARD K 782.3 Edema 04/09/2010 PICKETT HYDROELECTRIC MACHINERY MECHANIC HELPER, SONI R 782.3 Edema 04/09/2010 RODRIGUEZ DO, RICHARD K 782.3 Edema 04/09/2010 PICKETT HYDROELECTRIC MACHINERY MECHANIC HELPER, SONI R 782.3 Edema 04/09/2010 PICKETT HYDROELECTRIC MACHINERY MECHANIC HELPER, SONI R 782.3 Edema 04/09/2010 RODRIGUEZ DO, RICHARD K 782.3 Edema 04/09/2010 RODRIGUEZ DO, RICHARD K 782.3 Edema 04/09/2010 PICKETT HYDROELECTRIC MACHINERY MECHANIC HELPER, SONI R 782.3 Edema 04/09/2010 PICKETT HYDROELECTRIC MACHINERY MECHANIC HELPER, SONI R 782.3 Edema 04/09/2010 RODRIGUEZ DO, RICHARD K 782.3 Edema 04/09/2010 PICKETT HYDROELECTRIC MACHINERY MECHANIC HELPER, SONI R 782.3 Edema 04/09/2010 RODRIGUEZ DO, RICHARD K 782.3 Edema 04/09/2010 RODRIGUEZ DO, RICHARD K 782.3 Edema 04/09/2010 PICKETT HYDROELECTRIC MACHINERY MECHANIC HELPER, SONI R 782.3 Edema 04/09/2010 RODRIGUEZ DO, RICHARD K 782.3 Edema 04/09/2010 PICKETT HYDROELECTRIC MACHINERY MECHANIC HELPER, SONI R 782.3 Edema 04/09/2010 RODRIGUEZ DO, RICHARD K 782.3 Edema 04/09/2010 PICKETT HYDROELECTRIC MACHINERY MECHANIC HELPER, SONI R 782.3 Edema 04/09/2010 PICKETT HYDROELECTRIC MACHINERY MECHANIC HELPER, SONI R 782.3 Edema 04/09/2010 RODRIGUEZ DO, RICHARD K 782.3 Edema 04/09/2010 RODRIGUEZ DO, RICHARD K 782.3 Edema 04/09/2010 SONI PICKETT APRN R 782.3 Edema 05/29/2010 TERESSA RAI MD 311 DEPRESSIVE DISORDER NOT ELSEWHERE CLASSIFIED 05/29/2010 TERESSA RAI MD 786.05 shortness of breath 05/29/2010 TERESSA RAI MD 311 DEPRESSIVE DISORDER NOT ELSEWHERE CLASSIFIED 05/29/2010 TERESSA RAI MD 786.05 shortness of breath 05/29/2010 TERESSA RAI MD 311 DEPRESSIVE DISORDER NOT ELSEWHERE CLASSIFIED 05/29/2010 TERESSA RAI MD 786.05 shortness of breath 05/29/2010 TERESSA RAI MD 311 DEPRESSIVE DISORDER NOT ELSEWHERE CLASSIFIED 05/29/2010 TERESSA RAI MD 786.05 shortness of breath 05/29/2010 TERESSA RAI MD 311 DEPRESSIVE DISORDER NOT ELSEWHERE CLASSIFIED 05/29/2010 TERESSA RAI MD 786.05 shortness of breath 05/29/2010 311 DEPRESSIVE DISORDER NOT ELSEWHERE CLASSIFIED 05/29/2010 786.05 shortness of breath 05/29/2010 311 DEPRESSIVE DISORDER NOT ELSEWHERE CLASSIFIED 05/29/2010 786.05 shortness of breath 05/29/2010 311 DEPRESSIVE DISORDER NOT ELSEWHERE CLASSIFIED 05/29/2010 786.05 shortness of breath 05/29/2010 311 DEPRESSIVE DISORDER NOT ELSEWHERE CLASSIFIED 05/29/2010 786.05 shortness of breath 05/29/2010 TERESSA RAI MD 311 DEPRESSIVE DISORDER NOT ELSEWHERE CLASSIFIED 05/29/2010 TERESSA RAI MD 786.05 shortness of breath 05/29/2010 311 DEPRESSIVE DISORDER NOT ELSEWHERE CLASSIFIED 05/29/2010 786.05 shortness of breath 05/29/2010 311 DEPRESSIVE DISORDER NOT ELSEWHERE CLASSIFIED 05/29/2010 786.05 shortness of breath 05/29/2010 SONI PICKETT APRN R 311 DEPRESSIVE DISORDER NOT ELSEWHERE CLASSIFIED 05/29/2010 SONI PICKETT APRN 786.05 shortness of breath 05/29/2010 SONI PICKETT APRN R 311 DEPRESSIVE DISORDER NOT ELSEWHERE CLASSIFIED 05/29/2010 SONI PICKETT APRN R 786.05 shortness of breath 05/29/2010 RODRIGUEZ DO, RICHARD K 311 DEPRESSIVE DISORDER NOT ELSEWHERE CLASSIFIED 05/29/2010 RODRIGUEZ DO, RICHARD K 786.05 shortness of breath 05/29/2010 RODRIGUEZ DO, RICHARD K 311 DEPRESSIVE DISORDER NOT ELSEWHERE CLASSIFIED 05/29/2010 RODRIGUEZ DO, RICHARD K 786.05 shortness of breath 05/29/2010 RODRIGUEZ DO, RICHARD K 311 DEPRESSIVE DISORDER NOT ELSEWHERE CLASSIFIED 05/29/2010 RODRIGUEZ DO, RICHARD K 786.05 shortness of breath 05/29/2010 PICKETT HYDROELECTRIC MACHINERY MECHANIC HELPER, SONI R 311 DEPRESSIVE DISORDER NOT ELSEWHERE CLASSIFIED 05/29/2010 PICKETT HYDROELECTRIC MACHINERY MECHANIC HELPER, SONI R 786.05 shortness of breath 05/29/2010 RODRIGUEZ DO, RICHARD K 311 DEPRESSIVE DISORDER NOT ELSEWHERE CLASSIFIED 05/29/2010 RODRIGUEZ DO, RICHARD K 786.05 shortness of breath 05/29/2010 PICKETT HYDROELECTRIC MACHINERY MECHANIC HELPER, SONI R 311 DEPRESSIVE DISORDER NOT ELSEWHERE CLASSIFIED 05/29/2010 PICKETT HYDROELECTRIC MACHINERY MECHANIC HELPER, SONI R 786.05 shortness of breath 05/29/2010 PICKETT HYDROELECTRIC MACHINERY MECHANIC HELPER, SONI R 311 DEPRESSIVE DISORDER NOT ELSEWHERE CLASSIFIED 05/29/2010 PICKETT HYDROELECTRIC MACHINERY MECHANIC HELPER, SONI R 786.05 shortness of breath 05/29/2010 RODRIGUEZ DO, RICHARD K 311 DEPRESSIVE DISORDER NOT ELSEWHERE CLASSIFIED 05/29/2010 RODRIGUEZ DO, RICHARD K 786.05 shortness of breath 05/29/2010 RODRIGUEZ DO, RICHARD K 311 DEPRESSIVE DISORDER NOT ELSEWHERE CLASSIFIED 05/29/2010 RODRIGUEZ DO, RICHARD K 786.05 shortness of breath 05/29/2010 PICKETT HYDROELECTRIC MACHINERY MECHANIC HELPER, SONI R 311 DEPRESSIVE DISORDER NOT ELSEWHERE CLASSIFIED 05/29/2010 PICKETT HYDROELECTRIC MACHINERY MECHANIC HELPER, SONI R 786.05 shortness of breath 05/29/2010 PICKETT HYDROELECTRIC MACHINERY MECHANIC HELPER, SONI R 311 DEPRESSIVE DISORDER NOT ELSEWHERE CLASSIFIED 05/29/2010 PICKETT HYDROELECTRIC MACHINERY MECHANIC HELPER, SONI R 786.05 shortness of breath 05/29/2010 RODRIGUEZ DO, RICHARD K 311 DEPRESSIVE DISORDER NOT ELSEWHERE CLASSIFIED 05/29/2010 RODRIGUEZ DO, RICHARD K 786.05 shortness of breath 05/29/2010 PICKETT HYDROELECTRIC MACHINERY MECHANIC HELPER, SONI R 311 DEPRESSIVE DISORDER NOT ELSEWHERE CLASSIFIED 05/29/2010 PICKETT HYDROELECTRIC MACHINERY MECHANIC HELPER, SONI R 786.05 shortness of breath 05/29/2010 RODRIGUEZ DO, RICHARD K 311 DEPRESSIVE DISORDER NOT ELSEWHERE CLASSIFIED 05/29/2010 RODRIGUEZ DO, RICHARD K 786.05 shortness of breath 05/29/2010 RODRIGUEZ DO, RICHARD K 311 DEPRESSIVE DISORDER NOT ELSEWHERE CLASSIFIED 05/29/2010 RODRIGUEZ DO, RICHARD K 786.05 shortness of breath 05/29/2010 PICKETT HYDROELECTRIC MACHINERY MECHANIC HELPER, SONI R 311 DEPRESSIVE DISORDER NOT ELSEWHERE CLASSIFIED 05/29/2010 PICKETT HYDROELECTRIC MACHINERY MECHANIC HELPER, SONI R 786.05 shortness of breath 05/29/2010 RODRIGUEZ DO, RICHARD K 311 DEPRESSIVE DISORDER NOT ELSEWHERE CLASSIFIED 05/29/2010 RODRIGUEZ DO, RICHARD K 786.05 shortness of breath 05/29/2010 PICKETT HYDROELECTRIC MACHINERY MECHANIC HELPER, SONI R 311 DEPRESSIVE DISORDER NOT ELSEWHERE CLASSIFIED 05/29/2010 PICKETT HYDROELECTRIC MACHINERY MECHANIC HELPER, SONI R 786.05 shortness of breath 05/29/2010 RODRIGUEZ DO, RICHARD K 311 DEPRESSIVE DISORDER NOT ELSEWHERE CLASSIFIED 05/29/2010 RODRIGUEZ DO, RICHARD K 786.05 shortness of breath 05/29/2010 PICKETT HYDROELECTRIC MACHINERY MECHANIC HELPER, SONI R 311 DEPRESSIVE DISORDER NOT ELSEWHERE CLASSIFIED 05/29/2010 PICKETT HYDROELECTRIC MACHINERY MECHANIC HELPER, SONI R 786.05 shortness of breath 05/29/2010 PICKETT HYDROELECTRIC MACHINERY MECHANIC HELPER, SONI R 311 DEPRESSIVE DISORDER NOT ELSEWHERE CLASSIFIED 05/29/2010 PICKETT HYDROELECTRIC MACHINERY MECHANIC HELPER, SONI R 786.05 shortness of breath 05/29/2010 RODRIGUEZ DO, RICHARD K 311 DEPRESSIVE DISORDER NOT ELSEWHERE CLASSIFIED 05/29/2010 RODRIGUEZ DO, RICHARD K 786.05 shortness of breath 05/29/2010 RODRIGUEZ DO, RICHARD K 311 DEPRESSIVE DISORDER NOT ELSEWHERE CLASSIFIED 05/29/2010 RODRIGUEZ DO, RICHARD K 786.05 shortness of breath 05/29/2010 PICKETT HYDROELECTRIC MACHINERY MECHANIC HELPER, SONI R 311 DEPRESSIVE DISORDER NOT ELSEWHERE CLASSIFIED 05/29/2010 PICKETT HYDROELECTRIC MACHINERY MECHANIC HELPER, SONI R 786.05 shortness of breath 09/07/2010 TERESSA RAI MD 786.09 difficulty breathing (dyspnea) 09/07/2010 TERESSA RAI MD 786.09 difficulty breathing (dyspnea) 09/07/2010 TERESSA RAI MD 786.09 difficulty breathing (dyspnea) 09/07/2010 TERESSA RAI MD 786.09 difficulty breathing (dyspnea) 09/07/2010 TERESSA RAI MD 786.09 difficulty breathing (dyspnea) 09/07/2010 786.09 difficulty breathing (dyspnea) 09/07/2010 786.09 difficulty breathing (dyspnea) 09/07/2010 786.09 difficulty breathing (dyspnea) 09/07/2010 786.09 difficulty breathing (dyspnea) 09/07/2010 TERESSA RAI MD 786.09 difficulty breathing (dyspnea) 09/07/2010 786.09 difficulty breathing (dyspnea) 09/07/2010 786.09 difficulty breathing (dyspnea) 09/07/2010 NIEVES SALVADORSONI R 786.09 difficulty breathing (dyspnea) 09/07/2010 NIEVES ELIASSONI Dimas R 786.09 difficulty breathing (dyspnea) 09/07/2010 MICHAEL DO, RICHARD K 786.09 difficulty breathing (dyspnea) 09/07/2010 MICHAEL DO, RICHARD K 786.09 difficulty breathing (dyspnea) 09/07/2010 MICHAEL DO, RICHARD K 786.09 difficulty breathing (dyspnea) 09/07/2010 NIEVES ELIASSONI Dimas R 786.09 difficulty breathing (dyspnea) 09/07/2010 MICHAEL DO, RICHARD K 786.09 difficulty breathing (dyspnea) 09/07/2010 NIEVES ELIASNSONI R 786.09 difficulty breathing (dyspnea) 09/07/2010 NIEVES ELIASSONI Dimas R 786.09 difficulty breathing (dyspnea) 09/07/2010 MICHAEL DO, RICHARD K 786.09 difficulty breathing (dyspnea) 09/07/2010 MICHAEL DO, RICHARD K 786.09 difficulty breathing (dyspnea) 09/07/2010 NIEVES ELIASSONI Dimas R 786.09 difficulty breathing (dyspnea) 09/07/2010 NIEVES ELIASSONI Dimas R 786.09 difficulty breathing (dyspnea) 09/07/2010 MICHAEL DO, RICHARD K 786.09 difficulty breathing (dyspnea) 09/07/2010 NIEVES ELIASSONI Dimas R 786.09 difficulty breathing (dyspnea) 09/07/2010 MICHAEL DO, RICHARD K 786.09 difficulty breathing (dyspnea) 09/07/2010 MICHAEL DO, RICHARD K 786.09 difficulty breathing (dyspnea) 09/07/2010 NIEVES ELIASSONI Dimas R 786.09 difficulty breathing (dyspnea) 09/07/2010 MICHAEL DO, RICHARD K 786.09 difficulty breathing (dyspnea) 09/07/2010 NIEVES ELIASSONI Dimas R 786.09 difficulty breathing (dyspnea) 09/07/2010 MICHAEL DO, RICHARD K 786.09 difficulty breathing (dyspnea) 09/07/2010 NIEVES ELIASSONI Dimas R 786.09 difficulty breathing (dyspnea) 09/07/2010 NIEVES ELIASSONI Dimas R 786.09 difficulty breathing (dyspnea) 09/07/2010 MICHAEL DO, RICHARD K 786.09 difficulty breathing (dyspnea) 09/07/2010 RODRIGUEZ DO, RICHARD K 786.09 difficulty breathing (dyspnea) 09/07/2010 SONI PICKETT APRN 786.09 difficulty breathing (dyspnea) 09/12/2010 TERESSA RAI MD 719.41 PAIN IN JOINT INVOLVING SHOULDER REGION 09/12/2010 TERESSA RAI MD 719.41 PAIN IN JOINT INVOLVING SHOULDER REGION 09/12/2010 TERESSA RAI MD 719.41 PAIN IN JOINT INVOLVING SHOULDER REGION 09/12/2010 TERESSA RAI MD 719.41 PAIN IN JOINT INVOLVING SHOULDER REGION 09/12/2010 TERESSA RAI MD 719.41 PAIN IN JOINT INVOLVING SHOULDER REGION 09/12/2010 719.41 PAIN IN JOINT INVOLVING SHOULDER REGION 09/12/2010 719.41 PAIN IN JOINT INVOLVING SHOULDER REGION 09/12/2010 719.41 PAIN IN JOINT INVOLVING SHOULDER REGION 09/12/2010 719.41 PAIN IN JOINT INVOLVING SHOULDER REGION 09/12/2010 TERESSA RAI MD 719.41 PAIN IN JOINT INVOLVING SHOULDER REGION 09/12/2010 719.41 PAIN IN JOINT INVOLVING SHOULDER REGION 09/12/2010 719.41 PAIN IN JOINT INVOLVING SHOULDER REGION 09/12/2010 SONI PICKETT APRN 719.41 PAIN IN JOINT INVOLVING SHOULDER REGION 09/12/2010 SONI PICKETT APRN 719.41 PAIN IN JOINT INVOLVING SHOULDER REGION 09/12/2010 RICHARD RDORIGUEZ DO 719.41 PAIN IN JOINT INVOLVING SHOULDER REGION 09/12/2010 RICHARD RODRIGUEZ DO 719.41 PAIN IN JOINT INVOLVING SHOULDER REGION 09/12/2010 RICHARD RODRIGUEZ DO 719.41 PAIN IN JOINT INVOLVING SHOULDER REGION 09/12/2010 SONI PICKETT APRN 719.41 PAIN IN JOINT INVOLVING SHOULDER REGION 09/12/2010 RICHARD RODRIGUEZ DO 719.41 PAIN IN JOINT INVOLVING SHOULDER REGION 09/12/2010 SONI PICKETT APRN 719.41 PAIN IN JOINT INVOLVING SHOULDER REGION 09/12/2010 SONI PICKETT APRN 719.41 PAIN IN JOINT INVOLVING SHOULDER REGION 09/12/2010 RICHARD RODRIGUEZ DO 719.41 PAIN IN JOINT INVOLVING SHOULDER REGION 09/12/2010 RICHARD RODRIGUEZ DO 719.41 PAIN IN JOINT INVOLVING SHOULDER REGION 09/12/2010 SONI PICKETT APRN 719.41 PAIN IN JOINT INVOLVING SHOULDER REGION 09/12/2010 SONI PICKETT APRN 719.41 PAIN IN JOINT INVOLVING SHOULDER REGION 09/12/2010 RICHARD RODRIGUEZ DO 719.41 PAIN IN JOINT INVOLVING SHOULDER REGION 09/12/2010 SONI PICKETT APRN 719.41 PAIN IN JOINT INVOLVING SHOULDER REGION 09/12/2010 RICHARD RODRIGUEZ DO 719.41 PAIN IN JOINT INVOLVING SHOULDER REGION 09/12/2010 RICHARD RODRIGUEZ DO 719.41 PAIN IN JOINT INVOLVING SHOULDER REGION 09/12/2010 SONI PICKETT APRN 719.41 PAIN IN JOINT INVOLVING SHOULDER REGION 09/12/2010 RICHARD RODRIGUEZ DO 719.41 PAIN IN JOINT INVOLVING SHOULDER REGION 09/12/2010 SONI PICKETT APRN 719.41 PAIN IN JOINT INVOLVING SHOULDER REGION 09/12/2010 RICHARD RODRIGUEZ DO 719.41 PAIN IN JOINT INVOLVING SHOULDER REGION 09/12/2010 SONI PICKETT APRN 719.41 PAIN IN JOINT INVOLVING SHOULDER REGION 09/12/2010 SONI PICKETT APRN 719.41 PAIN IN JOINT INVOLVING SHOULDER REGION 09/12/2010 RICHARD RODRIGUEZ DO 719.41 PAIN IN JOINT INVOLVING SHOULDER REGION 09/12/2010 RICHARD RODRIGUEZ DO 719.41 PAIN IN JOINT INVOLVING SHOULDER REGION 09/12/2010 SONI PICKETT APRN 719.41 PAIN IN JOINT INVOLVING SHOULDER REGION 01/08/2011 TERESSA RAI MD 564.00 CONSTIPATION 01/08/2011 TERESSA RAI MD V72.31 ROUTINE GYNECOLOGICAL EXAM 01/08/2011 TERESSA RAI MD 564.00 CONSTIPATION 01/08/2011 TERESSA RAI MD V72.31 ROUTINE GYNECOLOGICAL EXAM 01/08/2011 TERESSA RAI MD 564.00 CONSTIPATION 01/08/2011 TERESSA RAI MD V72.31 ROUTINE GYNECOLOGICAL EXAM 01/08/2011 TERESSA RAI MD 564.00 CONSTIPATION 01/08/2011 TERESSA RAI MD V72.31 ROUTINE GYNECOLOGICAL EXAM 01/08/2011 TERESSA RAI MD 564.00 CONSTIPATION 01/08/2011 TERESSA RAI MD V72.31 ROUTINE GYNECOLOGICAL EXAM 01/08/2011 564.00 CONSTIPATION 01/08/2011 V72.31 ROUTINE GYNECOLOGICAL EXAM 01/08/2011 564.00 CONSTIPATION 01/08/2011 V72.31 ROUTINE GYNECOLOGICAL EXAM 01/08/2011 564.00 CONSTIPATION 01/08/2011 V72.31 ROUTINE GYNECOLOGICAL EXAM 01/08/2011 564.00 CONSTIPATION 01/08/2011 V72.31 ROUTINE GYNECOLOGICAL EXAM 01/08/2011 FREDI RAO, TERESSA 564.00 CONSTIPATION 01/08/2011 FREDI RAO, TERESSA V72.31 ROUTINE GYNECOLOGICAL EXAM 01/08/2011 564.00 CONSTIPATION 01/08/2011 V72.31 ROUTINE GYNECOLOGICAL EXAM 01/08/2011 564.00 CONSTIPATION 01/08/2011 V72.31 ROUTINE GYNECOLOGICAL EXAM 01/08/2011 PICKETTSONI CEBALLOS APRN R 564.00 CONSTIPATION 01/08/2011 PICKETT HYDROELECTRIC MACHINERY MECHANIC HELPERSONI Dimas V72.31 ROUTINE GYNECOLOGICAL EXAM 01/08/2011 PICKETT SONI SALVADOR 564.00 CONSTIPATION 01/08/2011 PICKETT SONI SALVADOR V72.31 ROUTINE GYNECOLOGICAL EXAM 01/08/2011 RODRIGUEZ DO, RICHARD K 564.00 CONSTIPATION 01/08/2011 RODRIGUEZ DO, RICHARD K V72.31 ROUTINE GYNECOLOGICAL EXAM 01/08/2011 RODRIGUEZ DO, RICHARD K 564.00 CONSTIPATION 01/08/2011 RODRIGUEZ DO, RICHARD K V72.31 ROUTINE GYNECOLOGICAL EXAM 01/08/2011 RODRIGUEZ DO, RICHARD K 564.00 CONSTIPATION 01/08/2011 RODRIGUEZ DO, RICHARD K V72.31 ROUTINE GYNECOLOGICAL EXAM 01/08/2011 PICKETT SONI SALVADOR R 564.00 CONSTIPATION 01/08/2011 PICKETT SONI SALVADOR V72.31 ROUTINE GYNECOLOGICAL EXAM 01/08/2011 RODRIGUEZ DO, RICHARD K 564.00 CONSTIPATION 01/08/2011 RODRIGUEZ DO, RICHARD K V72.31 ROUTINE GYNECOLOGICAL EXAM 01/08/2011 PICKETT SONI SALVADOR R 564.00 CONSTIPATION 01/08/2011 PICKETT SONI SALVADOR V72.31 ROUTINE GYNECOLOGICAL EXAM 01/08/2011 PICKETT SONI SALVADOR R 564.00 CONSTIPATION 01/08/2011 PICKETT SONI SALVADOR V72.31 ROUTINE GYNECOLOGICAL EXAM 01/08/2011 RODRIGUEZ DO, RICHARD K 564.00 CONSTIPATION 01/08/2011 RODRIGUEZ DO, RICHARD K V72.31 ROUTINE GYNECOLOGICAL EXAM 01/08/2011 RODRIGUEZ DO, RICHARD K 564.00 CONSTIPATION 01/08/2011 RODRIGUEZ DO, RICHARD K V72.31 ROUTINE GYNECOLOGICAL EXAM 01/08/2011 PICKETT HYDROELECTRIC MACHINERY MECHANIC HELPER, SONI R 564.00 CONSTIPATION 01/08/2011 PICKETT HYDROELECTRIC MACHINERY MECHANIC HELPER, SONI R V72.31 ROUTINE GYNECOLOGICAL EXAM 01/08/2011 PICKETT HYDROELECTRIC MACHINERY MECHANIC HELPER, SONI R 564.00 CONSTIPATION 01/08/2011 PICKETT HYDROELECTRIC MACHINERY MECHANIC HELPER, SONI R V72.31 ROUTINE GYNECOLOGICAL EXAM 01/08/2011 RODRIGUEZ DO, RICHARD K 564.00 CONSTIPATION 01/08/2011 RODRIGUEZ DO, RICHARD K V72.31 ROUTINE GYNECOLOGICAL EXAM 01/08/2011 PICKETT HYDROELECTRIC MACHINERY MECHANIC HELPER, SONI R 564.00 CONSTIPATION 01/08/2011 PICKETT HYDROELECTRIC MACHINERY MECHANIC HELPER, SONI R V72.31 ROUTINE GYNECOLOGICAL EXAM 01/08/2011 RODRIGUEZ DO, RICHARD K 564.00 CONSTIPATION 01/08/2011 RODRIGUEZ DO, RICHARD K V72.31 ROUTINE GYNECOLOGICAL EXAM 01/08/2011 RODRIGUEZ DO, RICHARD K 564.00 CONSTIPATION 01/08/2011 RODRIGUEZ DO, RICHARD K V72.31 ROUTINE GYNECOLOGICAL EXAM 01/08/2011 PICKETT HYDROELECTRIC MACHINERY MECHANIC HELPER, SONI R 564.00 CONSTIPATION 01/08/2011 PICKETT HYDROELECTRIC MACHINERY MECHANIC HELPER, SONI R V72.31 ROUTINE GYNECOLOGICAL EXAM 01/08/2011 RODRIGUEZ DO, RICHARD K 564.00 CONSTIPATION 01/08/2011 RODRIGUEZ DO, RICHARD K V72.31 ROUTINE GYNECOLOGICAL EXAM 01/08/2011 PICKETT HYDROELECTRIC MACHINERY MECHANIC HELPER, SONI R 564.00 CONSTIPATION 01/08/2011 PICKETT HYDROELECTRIC MACHINERY MECHANIC HELPER, SONI Ayoub V72.31 ROUTINE GYNECOLOGICAL EXAM 01/08/2011 RODRIGUEZ DO, RICHARD K 564.00 CONSTIPATION 01/08/2011 RODRIGUEZ DO, RICHARD K V72.31 ROUTINE GYNECOLOGICAL EXAM 01/08/2011 PICKETT HYDROELECTRIC MACHINERY MECHANIC HELPER, SONI R 564.00 CONSTIPATION 01/08/2011 PICKETT HYDROELECTRIC MACHINERY MECHANIC HELPER, SONI R V72.31 ROUTINE GYNECOLOGICAL EXAM 01/08/2011 PICKETT HYDROELECTRIC MACHINERY MECHANIC HELPER, SONI R 564.00 CONSTIPATION 01/08/2011 PICKETT HYDROELECTRIC MACHINERY MECHANIC HELPER, SONI R V72.31 ROUTINE GYNECOLOGICAL EXAM 01/08/2011 RODRIGUEZ DO, RICHARD K 564.00 CONSTIPATION 01/08/2011 RODRIGUEZ DO, RICHARD K V72.31 ROUTINE GYNECOLOGICAL EXAM 01/08/2011 RODRIGUEZ DO, RICHARD K 564.00 CONSTIPATION 01/08/2011 RODRIGUEZ RICHARD V72.31 ROUTINE GYNECOLOGICAL EXAM 01/08/2011 SONI PICKETT APRN 564.00 CONSTIPATION 01/08/2011 SONI PICKETT APRN V72.31 ROUTINE GYNECOLOGICAL EXAM 03/01/2011 TERESSA RAI MD 585.3 CHRONIC KIDNEY DISEASE STAGE 3 03/01/2011 TERESSA RAI MD V03.82 Need For Vaccination Pneumococcal 03/01/2011 TERESSA RAI MD V04.81 Vaccines Prophylactic Need Against Influenza 03/01/2011 TERESSA RAI MD 585.3 CHRONIC KIDNEY DISEASE STAGE 3 03/01/2011 TERESSA RAI MD V03.82 Need For Vaccination Pneumococcal 03/01/2011 TERESSA RAI MD V04.81 Vaccines Prophylactic Need Against Influenza 03/01/2011 TERESSA RAI MD 585.3 CHRONIC KIDNEY DISEASE STAGE 3 03/01/2011 TERESSA RAI MD V03.82 Need For Vaccination Pneumococcal 03/01/2011 TERESSA RAI MD V04.81 Vaccines Prophylactic Need Against Influenza 03/01/2011 TERESSA RAI MD 585.3 CHRONIC KIDNEY DISEASE STAGE 3 03/01/2011 TERESSA RAI MD V03.82 Need For Vaccination Pneumococcal 03/01/2011 TERESSA RAI MD V04.81 Vaccines Prophylactic Need Against Influenza 03/01/2011 TERESSA RAI MD 585.3 CHRONIC KIDNEY DISEASE STAGE 3 03/01/2011 TERESSA RAI MD V03.82 Need For Vaccination Pneumococcal 03/01/2011 TERESSA RAI MD V04.81 Vaccines Prophylactic Need Against Influenza 03/01/2011 585.3 CHRONIC KIDNEY DISEASE STAGE 3 03/01/2011 V03.82 Need For Vaccination Pneumococcal 03/01/2011 V04.81 Vaccines Prophylactic Need Against Influenza 03/01/2011 585.3 CHRONIC KIDNEY DISEASE STAGE 3 03/01/2011 V03.82 Need For Vaccination Pneumococcal 03/01/2011 V04.81 Vaccines Prophylactic Need Against Influenza 03/01/2011 585.3 CHRONIC KIDNEY DISEASE STAGE 3 03/01/2011 V03.82 Need For Vaccination Pneumococcal 03/01/2011 V04.81 Vaccines Prophylactic Need Against Influenza 03/01/2011 585.3 CHRONIC KIDNEY DISEASE STAGE 3 03/01/2011 V03.82 Need For Vaccination Pneumococcal 03/01/2011 V04.81 Vaccines Prophylactic Need Against Influenza 03/01/2011 TERESSA RAI MD 585.3 CHRONIC KIDNEY DISEASE STAGE 3 03/01/2011 TERESSA RAI MD V03.82 Need For Vaccination Pneumococcal 03/01/2011 TERESSA RAI MD V04.81 Vaccines Prophylactic Need Against Influenza 03/01/2011 585.3 CHRONIC KIDNEY DISEASE STAGE 3 03/01/2011 V03.82 Need For Vaccination Pneumococcal 03/01/2011 V04.81 Vaccines Prophylactic Need Against Influenza 03/01/2011 585.3 CHRONIC KIDNEY DISEASE STAGE 3 03/01/2011 V03.82 Need For Vaccination Pneumococcal 03/01/2011 V04.81 Vaccines Prophylactic Need Against Influenza 03/01/2011 PICKETTSONI CEBALLOS APRN 585.3 CHRONIC KIDNEY DISEASE STAGE 3 03/01/2011 SONI PICKETT APRN V03.82 Need For Vaccination Pneumococcal 03/01/2011 PICKETT SONI SALVADOR V04.81 Vaccines Prophylactic Need Against Influenza 03/01/2011 PICKETT SONI SALVADOR 585.3 CHRONIC KIDNEY DISEASE STAGE 3 03/01/2011 PICKETT SONI SALVADOR R V03.82 Need For Vaccination Pneumococcal 03/01/2011 PICKETT SONI SALVADOR R V04.81 Vaccines Prophylactic Need Against Influenza 03/01/2011 RODRIGUEZ MISTY RUIZA K 585.3 CHRONIC KIDNEY DISEASE STAGE 3 03/01/2011 MICHAEL RUIZ RICHARD K V03.82 Need For Vaccination Pneumococcal 03/01/2011 MICHAEL RUIZ RICHARD K V04.81 Vaccines Prophylactic Need Against Influenza 03/01/2011 RODRIGUEZ MISTY RUIZA K 585.3 CHRONIC KIDNEY DISEASE STAGE 3 03/01/2011 MICHAEL RUIZ RICHARD K V03.82 Need For Vaccination Pneumococcal 03/01/2011 RODRIGUEZ DO RICHARD K V04.81 Vaccines Prophylactic Need Against Influenza 03/01/2011 RODRIGUEZ DO, RICHARD K 585.3 CHRONIC KIDNEY DISEASE STAGE 3 03/01/2011 RODRIGUEZ DO RICHARD K V03.82 Need For Vaccination Pneumococcal 03/01/2011 RODRIGUEZ DO RICHARD K V04.81 Vaccines Prophylactic Need Against Influenza 03/01/2011 PICKETT SONI SALVADOR 585.3 CHRONIC KIDNEY DISEASE STAGE 3 03/01/2011 PICKETT SONI SALVADOR V03.82 Need For Vaccination Pneumococcal 03/01/2011 PICKETT HYDROELECTRIC MACHINERY MECHANIC HELPER, SONI R V04.81 Vaccines Prophylactic Need Against Influenza 03/01/2011 MICHAEL RUIZ, RICHARD K 585.3 CHRONIC KIDNEY DISEASE STAGE 3 03/01/2011 MICHAEL RUIZ, RICHARD K V03.82 Need For Vaccination Pneumococcal 03/01/2011 RODRIGUEZ DO, RICHARD K V04.81 Vaccines Prophylactic Need Against Influenza 03/01/2011 PICKETT HYDROELECTRIC MACHINERY MECHANIC HELPER, SONI R 585.3 CHRONIC KIDNEY DISEASE STAGE 3 03/01/2011 PICKETT HYDROELECTRIC MACHINERY MECHANIC HELPER, SONI R V03.82 Need For Vaccination Pneumococcal 03/01/2011 PICKETT HYDROELECTRIC MACHINERY MECHANIC HELPER, SONI R V04.81 Vaccines Prophylactic Need Against Influenza 03/01/2011 PICKETT HYDROELECTRIC MACHINERY MECHANIC HELPER, SONI R 585.3 CHRONIC KIDNEY DISEASE STAGE 3 03/01/2011 PICKETT HYDROELECTRIC MACHINERY MECHANIC HELPER, SONI R V03.82 Need For Vaccination Pneumococcal 03/01/2011 PICKETT HYDROELECTRIC MACHINERY MECHANIC HELPER, SONI R V04.81 Vaccines Prophylactic Need Against Influenza 03/01/2011 RICHARD RODRIGUEZ DO 585.3 CHRONIC KIDNEY DISEASE STAGE 3 03/01/2011 MISTY RODRIGUEZ DOA K V03.82 Need For Vaccination Pneumococcal 03/01/2011 MICHAEL RUIZ RICHARD K V04.81 Vaccines Prophylactic Need Against Influenza 03/01/2011 MISTY RODRIGUEZ DOA K 585.3 CHRONIC KIDNEY DISEASE STAGE 3 03/01/2011 MICHAEL RUIZ RICHARD K V03.82 Need For Vaccination Pneumococcal 03/01/2011 MICHAEL RUIZ, RICHARD K V04.81 Vaccines Prophylactic Need Against Influenza 03/01/2011 PICKETT HYDROELECTRIC MACHINERY MECHANIC HELPER, SONI R 585.3 CHRONIC KIDNEY DISEASE STAGE 3 03/01/2011 PICKETT HYDROELECTRIC MACHINERY MECHANIC HELPER, SONI R V03.82 Need For Vaccination Pneumococcal 03/01/2011 PICKETT HYDROELECTRIC MACHINERY MECHANIC HELPER, SONI R V04.81 Vaccines Prophylactic Need Against Influenza 03/01/2011 PICKETT HYDROELECTRIC MACHINERY MECHANIC HELPER, SONI R 585.3 CHRONIC KIDNEY DISEASE STAGE 3 03/01/2011 PICKETT HYDROELECTRIC MACHINERY MECHANIC HELPER, SONI R V03.82 Need For Vaccination Pneumococcal 03/01/2011 PICKETT HYDROELECTRIC MACHINERY MECHANIC HELPER, SONI R V04.81 Vaccines Prophylactic Need Against Influenza 03/01/2011 MISTY RODRIGUEZ DOA K 585.3 CHRONIC KIDNEY DISEASE STAGE 3 03/01/2011 MICHAEL RUIZ RICHARD K V03.82 Need For Vaccination Pneumococcal 03/01/2011 RODRIGUEZ DO, RICHARD K V04.81 Vaccines Prophylactic Need Against Influenza 03/01/2011 PICKETT HYDROELECTRIC MACHINERY MECHANIC HELPER, SONI R 585.3 CHRONIC KIDNEY DISEASE STAGE 3 03/01/2011 PICKETT HYDROELECTRIC MACHINERY MECHANIC HELPER, SONI R V03.82 Need For Vaccination Pneumococcal 03/01/2011 PICKETT HYDROELECTRIC MACHINERY MECHANIC HELPER, SONI R V04.81 Vaccines Prophylactic Need Against Influenza 03/01/2011 MISTY RODRIGUEZ DOA K 585.3 CHRONIC KIDNEY DISEASE STAGE 3 03/01/2011 MICHAEL RUIZ RICHARD K V03.82 Need For Vaccination Pneumococcal 03/01/2011 MICHAEL RUIZ, RICHARD K V04.81 Vaccines Prophylactic Need Against Influenza 03/01/2011 MICHAEL RUIZ, RICHARD K 585.3 CHRONIC KIDNEY DISEASE STAGE 3 03/01/2011 MICHAEL RUIZ, RICHARD K V03.82 Need For Vaccination Pneumococcal 03/01/2011 MICHAEL RUIZ, RICHARD K V04.81 Vaccines Prophylactic Need Against Influenza 03/01/2011 PICKETT HYDROELECTRIC MACHINERY MECHANIC HELPER, SONI Ayoub 585.3 CHRONIC KIDNEY DISEASE STAGE 3 03/01/2011 PICKETT HYDROELECTRIC MACHINERY MECHANIC HELPERSONI R V03.82 Need For Vaccination Pneumococcal 03/01/2011 PICKETT HYDROELECTRIC MACHINERY MECHANIC HELPER, SONI R V04.81 Vaccines Prophylactic Need Against Influenza 03/01/2011 MICHAEL RUIZ, RICHARD K 585.3 CHRONIC KIDNEY DISEASE STAGE 3 03/01/2011 MICHAEL RUIZ RICHARD K V03.82 Need For Vaccination Pneumococcal 03/01/2011 MICHAEL RUIZ, RICHARD K V04.81 Vaccines Prophylactic Need Against Influenza 03/01/2011 PICKETT HYDROELECTRIC MACHINERY MECHANIC HELPERSONI R 585.3 CHRONIC KIDNEY DISEASE STAGE 3 03/01/2011 PICKETT HYDROELECTRIC MACHINERY MECHANIC HELPERSONI R V03.82 Need For Vaccination Pneumococcal 03/01/2011 PICKETT HYDROELECTRIC MACHINERY MECHANIC HELPER, SONI R V04.81 Vaccines Prophylactic Need Against Influenza 03/01/2011 MICHAEL RUIZ, RICHARD K 585.3 CHRONIC KIDNEY DISEASE STAGE 3 03/01/2011 MICHAEL RUIZ RICHARD K V03.82 Need For Vaccination Pneumococcal 03/01/2011 MICHAEL RUIZ RICHARD K V04.81 Vaccines Prophylactic Need Against Influenza 03/01/2011 PICKETT HYDROELECTRIC MACHINERY MECHANIC HELPER, SONI Ayoub 585.3 CHRONIC KIDNEY DISEASE STAGE 3 03/01/2011 PICKETT HYDROELECTRIC MACHINERY MECHANIC HELPER, SONI R V03.82 Need For Vaccination Pneumococcal 03/01/2011 PICKETT HYDROELECTRIC MACHINERY MECHANIC HELPER, SONI R V04.81 Vaccines Prophylactic Need Against Influenza 03/01/2011 SONI PICKETT APRN 585.3 CHRONIC KIDNEY DISEASE STAGE 3 03/01/2011 SONI PICKETT APRN V03.82 Need For Vaccination Pneumococcal 03/01/2011 SONI PICKETT APRN V04.81 Vaccines Prophylactic Need Against Influenza 03/01/2011 RODRIGUEZ DO, RICHARD K 585.3 CHRONIC KIDNEY DISEASE STAGE 3 03/01/2011 RODRIGUEZ , RICHARD K V03.82 Need For Vaccination Pneumococcal 03/01/2011 RODRIGUEZ DO, RICHARD K V04.81 Vaccines Prophylactic Need Against Influenza 03/01/2011 RODRIGUEZ DO, RICHARD K 585.3 CHRONIC KIDNEY DISEASE STAGE 3 03/01/2011 RODRIGUEZ , RICHARD K V03.82 Need For Vaccination Pneumococcal 03/01/2011 MICHAEL RUIZ, RICHARD K V04.81 Vaccines Prophylactic Need Against Influenza 03/01/2011 SONI PICKETT APRN 585.3 CHRONIC KIDNEY DISEASE STAGE 3 03/01/2011 SONI PICKETT APRN V03.82 Need For Vaccination Pneumococcal 03/01/2011 SONI PICKETT APRN V04.81 Vaccines Prophylactic Need Against Influenza 03/19/2011 TERESSA RAI MD 46Juliocesar ACUTE PHARYNGITIS 03/19/2011 TERESSA RAI MD 46Juliocesar ACUTE PHARYNGITIS 03/19/2011 TERESSA RAI MD 46Juliocesar ACUTE PHARYNGITIS 03/19/2011 TERESSA RAI MD 46Juliocesar ACUTE PHARYNGITIS 03/19/2011 TERESSA RAI MD 46Juliocesar ACUTE PHARYNGITIS 03/19/2011 462 ACUTE PHARYNGITIS 03/19/2011 462 ACUTE PHARYNGITIS 03/19/2011 462 ACUTE PHARYNGITIS 03/19/2011 462 ACUTE PHARYNGITIS 03/19/2011 TERESSA RAI MD 46Juliocesar ACUTE PHARYNGITIS 03/19/2011 462 ACUTE PHARYNGITIS 03/19/2011 462 ACUTE PHARYNGITIS 03/19/2011 SONI PICKETT APRN 46Juliocesar ACUTE PHARYNGITIS 03/19/2011 SONI PICKETT APRN 462 ACUTE PHARYNGITIS 03/19/2011 MISTY RODRIGUEZ DOA K 462 ACUTE PHARYNGITIS 03/19/2011 RICHARD RODRIGUEZ DO K 462 ACUTE PHARYNGITIS 03/19/2011 RODRIGUEZ DO, RICHARD K 462 ACUTE PHARYNGITIS 03/19/2011 PICKETT HYDROELECTRIC MACHINERY MECHANIC HELPER, SONI R 462 ACUTE PHARYNGITIS 03/19/2011 RODRIGUEZ DO, RICHARD K 462 ACUTE PHARYNGITIS 03/19/2011 PICKETT HYDROELECTRIC MACHINERY MECHANIC HELPER, SONI R 462 ACUTE PHARYNGITIS 03/19/2011 PICKETT HYDROELECTRIC MACHINERY MECHANIC HELPER, SONI Ayoub 462 ACUTE PHARYNGITIS 03/19/2011 RODRIGUEZ DO, RICHARD K 462 ACUTE PHARYNGITIS 03/19/2011 RODRIGUEZ DO, RICHARD K 462 ACUTE PHARYNGITIS 03/19/2011 PICKETT HYDROELECTRIC MACHINERY MECHANIC HELPER, SONI R 462 ACUTE PHARYNGITIS 03/19/2011 PICKETT HYDROELECTRIC MACHINERY MECHANIC HELPER, SONI R 462 ACUTE PHARYNGITIS 03/19/2011 RODRIGUEZ DO, RICHARD K 462 ACUTE PHARYNGITIS 03/19/2011 PICKETT HYDROELECTRIC MACHINERY MECHANIC HELPER, SONI Ayoub 462 ACUTE PHARYNGITIS 03/19/2011 RODRIGUEZ DO, RICHARD K 462 ACUTE PHARYNGITIS 03/19/2011 RODRIGUEZ DO, RICHARD K 462 ACUTE PHARYNGITIS 03/19/2011 PICKETT HYDROELECTRIC MACHINERY MECHANIC HELPER, SONI R 462 ACUTE PHARYNGITIS 03/19/2011 RODRIGUEZ DO, RICHARD K 462 ACUTE PHARYNGITIS 03/19/2011 PICKETT HYDROELECTRIC MACHINERY MECHANIC HELPER, SONI R 462 ACUTE PHARYNGITIS 03/19/2011 RODRIGUEZ DO, RICHARD K 462 ACUTE PHARYNGITIS 03/19/2011 PICKTET HYDROELECTRIC MACHINERY MECHANIC HELPERSONI Dimas 462 ACUTE PHARYNGITIS 03/19/2011 PICKETT HYDROELECTRIC MACHINERY MECHANIC HELPER, SONI R 462 ACUTE PHARYNGITIS 03/19/2011 RODRIGUEZ DO, RICHARD K 462 ACUTE PHARYNGITIS 03/19/2011 RODRIGUEZ DO, RICHARD K 462 ACUTE PHARYNGITIS 03/19/2011 PICKETT HYDROELECTRIC MACHINERY MECHANIC HELPERSONI Dimas 462 ACUTE PHARYNGITIS 04/01/2011 TERESSA RAI MD 491.21 CHRONIC BRONCHITIS - WITH ACUTE EXACERBATION 04/01/2011 TERESSA RAI MD 491.21 CHRONIC BRONCHITIS - WITH ACUTE EXACERBATION 04/01/2011 TERESSA RAI MD 491.21 CHRONIC BRONCHITIS - WITH ACUTE EXACERBATION 04/01/2011 TERESSA RAI MD 491.21 CHRONIC BRONCHITIS - WITH ACUTE EXACERBATION 04/01/2011 TERESSA RAI MD 491.21 CHRONIC BRONCHITIS - WITH ACUTE EXACERBATION 04/01/2011 491.21 CHRONIC BRONCHITIS - WITH ACUTE EXACERBATION 04/01/2011 491.21 CHRONIC BRONCHITIS - WITH ACUTE EXACERBATION 04/01/2011 491.21 CHRONIC BRONCHITIS - WITH ACUTE EXACERBATION 04/01/2011 491.21 CHRONIC BRONCHITIS - WITH ACUTE EXACERBATION 04/01/2011 TERESSA RAI MD 491.21 CHRONIC BRONCHITIS - WITH ACUTE EXACERBATION 04/01/2011 491.21 CHRONIC BRONCHITIS - WITH ACUTE EXACERBATION 04/01/2011 491.21 CHRONIC BRONCHITIS - WITH ACUTE EXACERBATION 04/01/2011 SONI PICKETT APRN 491.21 CHRONIC BRONCHITIS - WITH ACUTE EXACERBATION 04/01/2011 SNOI PICKETT APRN 491.21 CHRONIC BRONCHITIS - WITH ACUTE EXACERBATION 04/01/2011 MISTY RODRIGUEZ DOA K 491.21 CHRONIC BRONCHITIS - WITH ACUTE EXACERBATION 04/01/2011 MISTY RODRIGUEZ DOA K 491.21 CHRONIC BRONCHITIS - WITH ACUTE EXACERBATION 04/01/2011 MISTY RODRIGUEZ DOA K 491.21 CHRONIC BRONCHITIS - WITH ACUTE EXACERBATION 04/01/2011 SONI PICKETT APRN 491.21 CHRONIC BRONCHITIS - WITH ACUTE EXACERBATION 04/01/2011 MISTY RODRIGUEZ DOA K 491.21 CHRONIC BRONCHITIS - WITH ACUTE EXACERBATION 04/01/2011 SONI PICKETT APRN 491.21 CHRONIC BRONCHITIS - WITH ACUTE EXACERBATION 04/01/2011 SONI PICKETT APRN R 491.21 CHRONIC BRONCHITIS - WITH ACUTE EXACERBATION 04/01/2011 MISTY RODRIGUEZ DOA K 491.21 CHRONIC BRONCHITIS - WITH ACUTE EXACERBATION 04/01/2011 MISTY RODRIGUEZ DOA K 491.21 CHRONIC BRONCHITIS - WITH ACUTE EXACERBATION 04/01/2011 SONI PICKETT APRN 491.21 CHRONIC BRONCHITIS - WITH ACUTE EXACERBATION 04/01/2011 SONI PICKETT APRN 491.21 CHRONIC BRONCHITIS - WITH ACUTE EXACERBATION 04/01/2011 MISTY RODRIGUEZ DOA K 491.21 CHRONIC BRONCHITIS - WITH ACUTE EXACERBATION 04/01/2011 SONI PICKETT APRN R 491.21 CHRONIC BRONCHITIS - WITH ACUTE EXACERBATION 04/01/2011 MISTY RODRIGUEZ DOA K 491.21 CHRONIC BRONCHITIS - WITH ACUTE EXACERBATION 04/01/2011 MISTY RODRIGUEZ DOA K 491.21 CHRONIC BRONCHITIS - WITH ACUTE EXACERBATION 04/01/2011 SONI PICKETT APRN 491.21 CHRONIC BRONCHITIS - WITH ACUTE EXACERBATION 04/01/2011 RICHARD RODRIGUEZ DO K 491.21 CHRONIC BRONCHITIS - WITH ACUTE EXACERBATION 04/01/2011 SONI PICKETT APRN 491.21 CHRONIC BRONCHITIS - WITH ACUTE EXACERBATION 04/01/2011 RICHARD RODRIGUEZ DO K 491.21 CHRONIC BRONCHITIS - WITH ACUTE EXACERBATION 04/01/2011 SONI PICKETT APRN 491.21 CHRONIC BRONCHITIS - WITH ACUTE EXACERBATION 04/01/2011 SONI PICKETT APRN 491.21 CHRONIC BRONCHITIS - WITH ACUTE EXACERBATION 04/01/2011 RICHARD RODRIGUEZ DO K 491.21 CHRONIC BRONCHITIS - WITH ACUTE EXACERBATION 04/01/2011 RICHARD RODRIGUEZ DO K 491.21 CHRONIC BRONCHITIS - WITH ACUTE EXACERBATION 04/01/2011 SONI PICKETT APRN 491.21 CHRONIC BRONCHITIS - WITH ACUTE EXACERBATION 05/17/2011 FREDI RAO, TERESSA 477.9 ALLERGIC RHINITIS 05/17/2011 FREDI RAO, TERESSA 477.9 ALLERGIC RHINITIS 05/17/2011 TERESSA RAI MD 477.9 ALLERGIC RHINITIS 05/17/2011 TERESSA RAI MD 477.9 ALLERGIC RHINITIS 05/17/2011 TERESSA RAI MD 477.9 ALLERGIC RHINITIS 05/17/2011 477.9 ALLERGIC RHINITIS 05/17/2011 477.9 ALLERGIC RHINITIS 05/17/2011 477.9 ALLERGIC RHINITIS 05/17/2011 477.9 ALLERGIC RHINITIS 05/17/2011 TERESSA ARI MD 477.9 ALLERGIC RHINITIS 05/17/2011 477.9 ALLERGIC RHINITIS 05/17/2011 477.9 ALLERGIC RHINITIS 05/17/2011 SONI PICKETT APRN 477.9 ALLERGIC RHINITIS 05/17/2011 SONI PICKETT APRN 477.9 ALLERGIC RHINITIS 05/17/2011 MISTY RDORIGUEZ DOA K 477.9 ALLERGIC RHINITIS 05/17/2011 MISTY RODRIGUEZ DOA K 477.9 ALLERGIC RHINITIS 05/17/2011 MISTY RODRIGUEZ DOA K 477.9 ALLERGIC RHINITIS 05/17/2011 SONI PICKETT APRN 477.9 ALLERGIC RHINITIS 05/17/2011 RICHARD RODRIGUEZ DO K 477.9 ALLERGIC RHINITIS 05/17/2011 PICKETT HYDROELECTRIC MACHINERY MECHANIC HELPER, SONI R 477.9 ALLERGIC RHINITIS 05/17/2011 PICKETT HYDROELECTRIC MACHINERY MECHANIC HELPER, SONI R 477.9 ALLERGIC RHINITIS 05/17/2011 RODRIGUEZ DO, RICHARD K 477.9 ALLERGIC RHINITIS 05/17/2011 RODRIGUEZ DO, RICHARD K 477.9 ALLERGIC RHINITIS 05/17/2011 PICKETT HYDROELECTRIC MACHINERY MECHANIC HELPER, SONI R 477.9 ALLERGIC RHINITIS 05/17/2011 PICKETT HYDROELECTRIC MACHINERY MECHANIC HELPER, SONI R 477.9 ALLERGIC RHINITIS 05/17/2011 RODRIGUEZ DO, RICHARD K 477.9 ALLERGIC RHINITIS 05/17/2011 PICKETT HYDROELECTRIC MACHINERY MECHANIC HELPER, SONI R 477.9 ALLERGIC RHINITIS 05/17/2011 RODRIGUEZ DO, RICHARD K 477.9 ALLERGIC RHINITIS 05/17/2011 RODRIGUEZ DO, RICHARD K 477.9 ALLERGIC RHINITIS 05/17/2011 PICKETT HYDROELECTRIC MACHINERY MECHANIC HELPER, SONI R 477.9 ALLERGIC RHINITIS 05/17/2011 RODRIGUEZ DO, RICHARD K 477.9 ALLERGIC RHINITIS 05/17/2011 PICKETT HYDROELECTRIC MACHINERY MECHANIC HELPER, SONI R 477.9 ALLERGIC RHINITIS 05/17/2011 RODRIGUEZ DO, RICHARD K 477.9 ALLERGIC RHINITIS 05/17/2011 PICKETT HYDROELECTRIC MACHINERY MECHANIC HELPER, SONI R 477.9 ALLERGIC RHINITIS 05/17/2011 PICKETT HYDROELECTRIC MACHINERY MECHANIC HELPER, SONI R 477.9 ALLERGIC RHINITIS 05/17/2011 RODRIGUEZ DO, RICHARD K 477.9 ALLERGIC RHINITIS 05/17/2011 RODRIGUEZ DO, RICHARD K 477.9 ALLERGIC RHINITIS 05/17/2011 PICKETT HYDROELECTRIC MACHINERY MECHANIC HELPER, SONI R 477.9 ALLERGIC RHINITIS 08/02/2011 TERESSA RAI MD 786.2 cough 08/02/2011 TERESSA RAI MD 786.2 cough 08/02/2011 TERESSA RAI MD 786.2 cough 08/02/2011 TERESSA RIA MD 786.2 cough 08/02/2011 TERESSA RAI MD 786.2 cough 08/02/2011 786.2 cough 08/02/2011 786.2 cough 08/02/2011 786.2 cough 08/02/2011 786.2 cough 08/02/2011 TERESSA RAI MD 786.2 cough 08/02/2011 786.2 cough 08/02/2011 786.2 cough 08/02/2011 PICKETTSONI CEBALLOS APRN R 786.2 cough 08/02/2011 PICKETT HYDROELECTRIC MACHINERY MECHANIC HELPER, SONI R 786.2 cough 08/02/2011 RODRIGUEZ DO, RICHARD K 786.2 cough 08/02/2011 RODRIGUEZ DO, RICHARD K 786.2 cough 08/02/2011 RODRIGUEZ DO, RICHARD K 786.2 cough 08/02/2011 PICKETT HYDROELECTRIC MACHINERY MECHANIC HELPER, SONI R 786.2 cough 08/02/2011 RODRIGUEZ DO, RICHARD K 786.2 cough 08/02/2011 PICKETT HYDROELECTRIC MACHINERY MECHANIC HELPER, SONI R 786.2 cough 08/02/2011 PICKETT HYDROELECTRIC MACHINERY MECHANIC HELPER, SONI R 786.2 cough 08/02/2011 RODRIGUEZ DO, RICHARD K 786.2 cough 08/02/2011 RODRIGUEZ DO, RICHARD K 786.2 cough 08/02/2011 PICKETT HYDROELECTRIC MACHINERY MECHANIC HELPER, SONI R 786.2 cough 08/02/2011 PICKETT HYDROELECTRIC MACHINERY MECHANIC HELPER, SONI R 786.2 cough 08/02/2011 RODRIGUEZ DO, RICHARD K 786.2 cough 08/02/2011 PICKETT HYDROELECTRIC MACHINERY MECHANIC HELPER, SONI R 786.2 cough 08/02/2011 RODRIGUEZ DO, RICHARD K 786.2 cough 08/02/2011 RODRIGUEZ DO, RICHARD K 786.2 cough 08/02/2011 PICKETT HYDROELECTRIC MACHINERY MECHANIC HELPER, SONI R 786.2 cough 08/02/2011 RODRIGUEZ DO, RICHARD K 786.2 cough 08/02/2011 PICKETT HYDROELECTRIC MACHINERY MECHANIC HELPER, SONI R 786.2 cough 08/02/2011 RODRIGUEZ DO, RICHARD K 786.2 cough 08/02/2011 PICKETT HYDROELECTRIC MACHINERY MECHANIC HELPER, SONI R 786.2 cough 08/02/2011 PICKETT HYDROELECTRIC MACHINERY MECHANIC HELPER, SONI R 786.2 cough 08/02/2011 RODRIGUEZ DO, RICHARD K 786.2 cough 08/02/2011 RODRIGUEZ DO, RICHARD K 786.2 cough 08/02/2011 PICKETT HYDROELECTRIC MACHINERY MECHANIC HELPER, SONI R 786.2 cough 09/19/2011 TERESSA RAI MD 780.54 sleeping much more than usual 09/19/2011 TERESSA RAI MD 780.54 sleeping much more than usual 09/19/2011 TERESSA RAI MD 780.54 sleeping much more than usual 09/19/2011 TERESSA RAI MD 780.54 sleeping much more than usual 09/19/2011 TERESSA RAI MD 780.54 sleeping much more than usual 09/19/2011 780.54 sleeping much more than usual 09/19/2011 780.54 sleeping much more than usual 09/19/2011 780.54 sleeping much more than usual 09/19/2011 780.54 sleeping much more than usual 09/19/2011 FREDI RAO, TERESSA 780.54 sleeping much more than usual 09/19/2011 780.54 sleeping much more than usual 09/19/2011 780.54 sleeping much more than usual 09/19/2011 PICKETT HYDROELECTRIC MACHINERY MECHANIC HELPER, SONI R 780.54 sleeping much more than usual 09/19/2011 PICKETT HYDROELECTRIC MACHINERY MECHANIC HELPER, SONI R 780.54 sleeping much more than usual 09/19/2011 RODRIGUEZ DO, RICHARD K 780.54 sleeping much more than usual 09/19/2011 RODRIGUEZ DO, RICHARD K 780.54 sleeping much more than usual 09/19/2011 RODRIGUEZ DO, RICHARD K 780.54 sleeping much more than usual 09/19/2011 PICKETT HYDROELECTRIC MACHINERY MECHANIC HELPER, SONI R 780.54 sleeping much more than usual 09/19/2011 RODRIGUEZ DO, RICHARD K 780.54 sleeping much more than usual 09/19/2011 PICKETT HYDROELECTRIC MACHINERY MECHANIC HELPER, SONI R 780.54 sleeping much more than usual 09/19/2011 PICKETT HYDROELECTRIC MACHINERY MECHANIC HELPER, SONI R 780.54 sleeping much more than usual 09/19/2011 RODRIGUEZ DO, RICHARD K 780.54 sleeping much more than usual 09/19/2011 RODRIGUEZ DO, RICHARD K 780.54 sleeping much more than usual 09/19/2011 PICKETT HYDROELECTRIC MACHINERY MECHANIC HELPER, SONI R 780.54 sleeping much more than usual 09/19/2011 PICKETT HYDROELECTRIC MACHINERY MECHANIC HELPER, SONI R 780.54 sleeping much more than usual 09/19/2011 RODRIGUEZ DO, RICHARD K 780.54 sleeping much more than usual 09/19/2011 PICKETT HYDROELECTRIC MACHINERY MECHANIC HELPER, SONI R 780.54 sleeping much more than usual 09/19/2011 RODRIGUEZ DO, RICHARD K 780.54 sleeping much more than usual 09/19/2011 RODRIGUEZ DO, RICHARD K 780.54 sleeping much more than usual 09/19/2011 PICKETT HYDROELECTRIC MACHINERY MECHANIC HELPER, SONI R 780.54 sleeping much more than usual 09/19/2011 RODRIGUEZ DO, RICHARD K 780.54 sleeping much more than usual 09/19/2011 PICKETT HYDROELECTRIC MACHINERY MECHANIC HELPER, SONI R 780.54 sleeping much more than usual 09/19/2011 RODRIGUEZ DO, RICHARD K 780.54 sleeping much more than usual 09/19/2011 SONI PICKETT APRN 780.54 sleeping much more than usual 09/19/2011 SONI PICKETT APRN 780.54 sleeping much more than usual 09/19/2011 RODRIGUEZ DO, RICHARD K 780.54 sleeping much more than usual 09/19/2011 RODRIGUEZ DO, RICHARD K 780.54 sleeping much more than usual 09/19/2011 SONI PICKETT APRN 780.54 sleeping much more than usual 10/22/2011 TERESSA RAI MD 459.81 VENOUS INSUFFICIENCY 10/22/2011 TERESSA RAI MD 459.81 VENOUS INSUFFICIENCY 10/22/2011 TERESSA RAI MD 459.81 VENOUS INSUFFICIENCY 10/22/2011 TERESSA RAI MD 459.81 VENOUS INSUFFICIENCY 10/22/2011 TERESSA RAI MD 459.81 VENOUS INSUFFICIENCY 10/22/2011 459.81 VENOUS INSUFFICIENCY 10/22/2011 459.81 VENOUS INSUFFICIENCY 10/22/2011 459.81 VENOUS INSUFFICIENCY 10/22/2011 459.81 VENOUS INSUFFICIENCY 10/22/2011 TERESSA RAI MD 459.81 VENOUS INSUFFICIENCY 10/22/2011 459.81 VENOUS INSUFFICIENCY 10/22/2011 459.81 VENOUS INSUFFICIENCY 10/22/2011 SONI PICKETT APRN 459.81 VENOUS INSUFFICIENCY 10/22/2011 SONI PICKETT APRN 459.81 VENOUS INSUFFICIENCY 10/22/2011 RODRIGUEZ DO, RICHARD Lang 459.81 VENOUS INSUFFICIENCY 10/22/2011 RODRIGUEZ DO, RICHARD Lang 459.81 VENOUS INSUFFICIENCY 10/22/2011 RODRIGUEZ DORICHADR 459.81 VENOUS INSUFFICIENCY 10/22/2011 SONI PICKETT APRN 459.81 VENOUS INSUFFICIENCY 10/22/2011 RODRIGUEZ DO, RICHARD K 459.81 VENOUS INSUFFICIENCY 10/22/2011 SONI PICKETT APRN 459.81 VENOUS INSUFFICIENCY 10/22/2011 SONI PICKETT APRN 459.81 VENOUS INSUFFICIENCY 10/22/2011 RODRIGUEZ DO, RICHARD K 459.81 VENOUS INSUFFICIENCY 10/22/2011 RODRIGUEZ DO, RICHARD K 459.81 VENOUS INSUFFICIENCY 10/22/2011 SONI PICKETT APRN 459.81 VENOUS INSUFFICIENCY 10/22/2011 SONI PICKETT APRN 459.81 VENOUS INSUFFICIENCY 10/22/2011 RODRIGUEZ DO, RICHARD K 459.81 VENOUS INSUFFICIENCY 10/22/2011 PICKETT HYDROELECTRIC MACHINERY MECHANIC HELPER, SONI R 459.81 VENOUS INSUFFICIENCY 10/22/2011 RODRIGUEZ DO, RICHARD K 459.81 VENOUS INSUFFICIENCY 10/22/2011 RODRIGUEZ DO, RICHARD K 459.81 VENOUS INSUFFICIENCY 10/22/2011 PICKETT HYDROELECTRIC MACHINERY MECHANIC HELPER, SONI R 459.81 VENOUS INSUFFICIENCY 10/22/2011 RODRIGUEZ DO, RICHARD K 459.81 VENOUS INSUFFICIENCY 10/22/2011 PICKETT HYDROELECTRIC MACHINERY MECHANIC HELPER, SONI R 459.81 VENOUS INSUFFICIENCY 10/22/2011 RODRIGUEZ DO, RICHARD K 459.81 VENOUS INSUFFICIENCY 10/22/2011 PICKETT HYDROELECTRIC MACHINERY MECHANIC HELPER, SONI R 459.81 VENOUS INSUFFICIENCY 10/22/2011 PICKETT HYDROELECTRIC MACHINERY MECHANIC HELPER, SONI R 459.81 VENOUS INSUFFICIENCY 10/22/2011 RODRIGUEZ DO, RICHARD K 459.81 VENOUS INSUFFICIENCY 10/22/2011 RODRIGUEZ DO, RICHARD K 459.81 VENOUS INSUFFICIENCY 10/22/2011 PICKETT HYDROELECTRIC MACHINERY MECHANIC HELPER, SONI Ayoub 459.81 VENOUS INSUFFICIENCY 03/18/2013 PICKETT HYDROELECTRIC MACHINERY MECHANIC HELPER, SONI R NODX NO DIAGNOSIS 03/18/2013 RODRIGUEZ DO, RICHARD K NODX NO DIAGNOSIS 03/18/2013 RODRIGUEZ DO, RICHARD K NODX NO DIAGNOSIS 03/18/2013 RODRIGUEZ DO, RICHARD K NODX NO DIAGNOSIS 03/18/2013 PICKETT HYDROELECTRIC MACHINERY MECHANIC HELPER, SONI R NODX NO DIAGNOSIS 03/18/2013 RODRIGUEZ DO, RICHARD K NODX NO DIAGNOSIS 03/18/2013 PICKETT HYDROELECTRIC MACHINERY MECHANIC HELPER, SONI R NODX NO DIAGNOSIS 03/18/2013 PICKETT HYDROELECT[employer]IC MACHINERY MECHANIC HELPER, SONI R NODX NO DIAGNOSIS 03/18/2013 RODRIGUEZ DO, RICHARD K NODX NO DIAGNOSIS 03/18/2013 RODRIGUEZ DO, RICHARD K NODX NO DIAGNOSIS 03/18/2013 [employer] HYDR[employer] 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 HELPER, SONI R NODX NO DIAGNOSIS 03/18/2013 [employer]T HYDROELECT[employer]IC MACHINERY MECHANIC HELPER, SONI R NODX NO DIAGNOSIS 03/18/2013 RODRIGUEZ DO, RICHARD K NODX NO DIAGNOSIS 03/18/2013 [employer] HY[employer] MACHINERY MECHANIC HELPER, SONI R NODX NO DIAGNOSIS 03/18/2013 RODRIGUEZ DO, RICHARD K NODX NO DIAGNOSIS 03/18/2013 RODRIGUEZ DO, RICHARD K NODX NO DIAGNOSIS 03/18/2013 [employer] HY[employer] MACHINERY MECHANIC HELPER, SONI R NODX NO DIAGNOSIS 03/18/2013 RODRIGUEZ DO, RICHARD K NODX NO DIAGNOSIS 03/18/2013 [employer]T HY[employer] MACHINERY MECHANIC HELPER, SONI R NODX NO DIAGNOSIS 03/18/2013 RODRIGUEZ DO, RICHARD K NODX NO DIAGNOSIS 03/18/2013 [employer]T HYDROELECT[employer]IC MACHINERY MECHANIC HELPER, SONI R NODX NO DIAGNOSIS 03/18/2013 [employer]T HYDROE[employer]IC MACHINERY MECHANIC HELPER, SONI R NODX NO DIAGNOSIS 03/18/2013 RODRIGUEZ DO, RICHARD K NODX NO DIAGNOSIS 03/18/2013 RODRIGUEZ DO, RICHARD K NODX NO DIAGNOSIS 03/18/2013 [employer] MACHIN[employer] MECHANIC HELPER, SONI R NODX NO DIAGNOSIS 04/07/2013 RODRIGUEZ DO, RICHARD K 724.5 BACKACHE UNSPECIFIED 04/07/2013 RODRIGUEZ DO, RICHARD K 724.5 BACKACHE UNSPECIFIED 04/07/2013 [employer] HY[employer] MACHINERY MECHANIC HELPER, SONI Ayoub 724.5 BACKACHE UNSPECIFIED 04/07/2013 RODRIGUEZ DO, RICHARD K 724.5 BACKACHE UNSPECIFIED 04/07/2013 [employer]T HYDROE[employer] MACHINERY MECHANIC HELPER, SONI Ayoub 724.5 BACKACHE UNSPECIFIED 04/07/2013 [employer]T HYDROELECT[employer]IC MACHINERY MECHANIC HELPER, SONI Ayoub 724.5 BACKACHE UNSPECIFIED 04/07/2013 RODRIGUEZ DO, RICHARD K 724.5 BACKACHE UNSPECIFIED 04/07/2013 RODRIGUEZ DO, RICHARD K 724.5 BACKACHE UNSPECIFIED 04/07/2013 [employer]T HYDROE[employer] MACHINERY MECHANIC HELPER, SONI Ayoub 724.5 BACKACHE UNSPECIFIED 04/07/2013 [employer]T HYDROELECT[employer]IC MACHINERY MECHANIC HELPER, SONI Ayoub 724.5 BACKACHE UNSPECIFIED 04/07/2013 RODRIGUEZ DO, RICHARD K 724.5 BACKACHE UNSPECIFIED 04/07/2013 [employer] HY[employer] MACHINERY MECHANIC HELPER, SONI Ayoub 724.5 BACKACHE UNSPECIFIED 04/07/2013 RODRIGUEZ DO, RICHARD K 724.5 BACKACHE UNSPECIFIED 04/07/2013 RODRIGUEZ DO, RICHARD K 724.5 BACKACHE UNSPECIFIED 04/07/2013 [employer]T HYDROE[employer] MACHINERY MECHANIC HELPER, SONI Ayoub 724.5 BACKACHE UNSPECIFIED 04/07/2013 RODRIGUEZ DO, RICHARD K 724.5 BACKACHE UNSPECIFIED 04/07/2013 [employer]T HY[employer]OE[employer] MACHINERY MECHANIC HELPER, SONI Ayoub 724.5 BACKACHE UNSPECIFIED 04/07/2013 RODRIGUEZ DO, RICHARD K 724.5 BACKACHE UNSPECIFIED 04/07/2013 [employer]T HY[employer]OE[employer] MACHINERY MECHANIC HELPER, SONI Ayoub 724.5 BACKACHE UNSPECIFIED 04/07/2013 [employer]T HYDROELECTRIC MACHINERY MECHANIC HELPER, SONI R 724.5 BACKACHE UNSPECIFIED 04/07/2013 RODRIGUEZ DO, RICHARD K 724.5 BACKACHE UNSPECIFIED 04/07/2013 RODRIGUEZ DO, RICHARD K 724.5 BACKACHE UNSPECIFIED 04/07/2013 [employer] HYDR[employer] MACHINERY MECHANIC HELPER, SONI R 724.5 BACKACHE UNSPECIFIED 08/09/2013 RODRIGUEZ DO, RICHARD K 458.9 HYPOTENSION, UNSPECIFIED 08/09/2013 RODRIGUEZ DO, RICHARD K 458.9 HYPOTENSION, UNSPECIFIED 08/09/2013 [employer] HY[employer] MACHINERY MECHANIC HELPER, SONI R 458.9 HYPOTENSION, UNSPECIFIED 08/09/2013 P[employer]T HYDROELECT[employer]IC MACHINERY MECHANIC HELPER, SONI R 458.9 HYPOTENSION, UNSPECIFIED 08/09/2013 RODRIGUEZ DO, RICHARD K 458.9 HYPOTENSION, UNSPECIFIED 08/09/2013 [employer]T HYDR[employer]IC MACHINERY MECHANIC HELPER, SONI R 458.9 HYPOTENSION, UNSPECIFIED 08/09/2013 RODRIGUEZ DO, RICHARD K 458.9 HYPOTENSION, UNSPECIFIED 08/09/2013 RODRIGUEZ DO, RICHARD K 458.9 HYPOTENSION, UNSPECIFIED 08/09/2013 [employer]T HYDROELECT[employer]IC MACHINERY MECHANIC HELPER, SONI R 458.9 HYPOTENSION, UNSPECIFIED 08/09/2013 RODRIGUEZ DO, RICHARD K 458.9 HYPOTENSION, UNSPECIFIED 08/09/2013 [employer]T HYDROE[employer]IC MACHINERY MECHANIC HELPER, SONI R 458.9 HYPOTENSION, UNSPECIFIED 08/09/2013 RODRIGUEZ DO, RICHARD K 458.9 HYPOTENSION, UNSPECIFIED 08/09/2013 [employer] HYDR[employer]IC MACHINERY MECHANIC HELPER, SONI R 458.9 HYPOTENSION, UNSPECIFIED 08/09/2013 [employer]T HYDROELECT[employer]IC MACHINERY MECHANIC HELPER, SONI R 458.9 HYPOTENSION, UNSPECIFIED 08/09/2013 RODRIGUEZ DO, RICHARD K 458.9 HYPOTENSION, UNSPECIFIED 08/09/2013 RODRIGUEZ DO, RICHARD K 458.9 HYPOTENSION, UNSPECIFIED 08/09/2013 [employer] HYDROE[employer]RIC MACHINERY MECHANIC HELPER, SONI R 458.9 HYPOTENSION, UNSPECIFIED 09/20/2013 RODRIGUEZ DO, RICHARD K V72.83 PRE-ADMISSION EXAMINATION 09/20/2013 PICKETT HYDROELECTRIC MACHINERY MECHANIC HELPERSONI Dimas V72.83 PRE-ADMISSION EXAMINATION 09/20/2013 RODRIGUEZ DO, RICHARD K V72.83 PRE-ADMISSION EXAMINATION 09/20/2013 RODRIGUEZ DO, RICHARD K V72.83 PRE-ADMISSION EXAMINATION 09/20/2013 PICKETT HYDROELECTRIC MACHINERY MECHANIC HELPERSONI V72.83 PRE-ADMISSION EXAMINATION 09/20/2013 RODRIGUEZ DO, RICHARD K V72.83 PRE-ADMISSION EXAMINATION 09/20/2013 PICKETT HYDROELECTRIC MACHINERY MECHANIC HELPER, SONI R V72.83 PRE-ADMISSION EXAMINATION 09/20/2013 RODRIGUEZ DO, RICHARD K V72.83 PRE-ADMISSION EXAMINATION 09/20/2013 PICKETT HYDROELECTRIC MACHINERY MECHANIC HELPER, SONI R V72.83 PRE-ADMISSION EXAMINATION 09/20/2013 PICKETT HYDROELECTRIC MACHINERY MECHANIC HELPER, SONI Ayoub V72.83 PRE-ADMISSION EXAMINATION 09/20/2013 RODRIGUEZ DO, RICHARD K V72.83 PRE-ADMISSION EXAMINATION 09/20/2013 RODRIGUEZ DO, RICHARD K V72.83 PRE-ADMISSION EXAMINATION 09/20/2013 PICKETT HYDROELECTRIC MACHINERY MECHANIC HELPER, SONI R V72.83 PRE-ADMISSION EXAMINATION 11/18/2013 RODRIGUEZ DO, RICHARD K 441.4 ABDOMINAL ANEURYSM WITHOUT RUPTURE 11/18/2013 PICKETT HYDROELECTRIC MACHINERY MECHANIC HELPER, SONI R 441.4 ABDOMINAL ANEURYSM WITHOUT RUPTURE 11/18/2013 RODRIGUEZ DO, RICHARD K 441.4 ABDOMINAL ANEURYSM WITHOUT RUPTURE 11/18/2013 PICKETT HYDROELECTRIC MACHINERY MECHANIC HELPER, SONI R 441.4 ABDOMINAL ANEURYSM WITHOUT RUPTURE 11/18/2013 RODRIGUEZ DO, RICHARD K 441.4 ABDOMINAL ANEURYSM WITHOUT RUPTURE 11/18/2013 PICKETT HYDROELECTRIC MACHINERY MECHANIC HELPER, SONI R 441.4 ABDOMINAL ANEURYSM WITHOUT RUPTURE 11/18/2013 PICKETT HYDROELECTRIC MACHINERY MECHANIC HELPER, SONI R 441.4 ABDOMINAL ANEURYSM WITHOUT RUPTURE 11/18/2013 RODRIGUEZ DO, RICHARD K 441.4 ABDOMINAL ANEURYSM WITHOUT RUPTURE 11/18/2013 RODRIGUEZ DO, RICHARD K 441.4 ABDOMINAL ANEURYSM WITHOUT RUPTURE 11/18/2013 PICKETT HYDROELECTRIC MACHINERY MECHANIC HELPER, SONI R 441.4 ABDOMINAL ANEURYSM WITHOUT RUPTURE 02/11/2014 RODRIGUEZ DO, RICHARD K 382.9 UNSPECIFIED OTITIS MEDIA 02/11/2014 PICKETT HYDROELECTRIC MACHINERY MECHANIC HELPERSONI R 382.9 UNSPECIFIED OTITIS MEDIA 02/11/2014 PICKETT HYDROELECTRIC MACHINERY MECHANIC HELPER, SONI R 382.9 UNSPECIFIED OTITIS MEDIA 02/11/2014 RODRIGUEZ DO, RICHARD K 382.9 UNSPECIFIED OTITIS MEDIA 02/11/2014 RODRIGUEZ DO, RICHARD K 382.9 UNSPECIFIED OTITIS MEDIA 02/11/2014 PICKETT HYDROELECTRIC MACHINERY MECHANIC HELPER, SONI R 382.9 UNSPECIFIED OTITIS MEDIA 02/15/2014 PICKETT HYDROELECTRIC MACHINERY MECHANIC HELPERSONI R 112.0 THRUSH (ORAL) 02/15/2014 PICKETT HYDROELECTRIC MACHINERY MECHANIC HELPER, SONI R 380.10 OTITIS EXTERNA LEFT 02/15/2014 NIEVES SONI SALVADOR R 112.0 THRUSH (ORAL) 02/15/2014 NIEVES ELIASSONI Dimas R 380.10 OTITIS EXTERNA LEFT 02/15/2014 MICHAEL RUIZ RICHARD K 112.0 THRUSH (ORAL) 02/15/2014 MICHAEL RUIZ, RICHARD K 380.10 OTITIS EXTERNA LEFT 02/15/2014 MICHAEL RUIZ, RICHARD K 112.0 THRUSH (ORAL) 02/15/2014 MICHAEL RUIZ, RICHARD K 380.10 OTITIS EXTERNA LEFT 02/15/2014 NIEVES ELIASSONI iDmas R 112.0 THRUSH (ORAL) 02/15/2014 NIEVES ELIASSONI Dimas 380.10 OTITIS EXTERNA LEFT 03/23/2014 SONI PICKETT APRN 386.11 VERTIGO- BENIGN PAROXYSMAL POSITIONAL 03/23/2014 MICHAEL RUIZRICHARD K 386.11 VERTIGO- BENIGN PAROXYSMAL POSITIONAL 03/23/2014 MICHAEL RUIZMISTYA K 386.11 VERTIGO- BENIGN PAROXYSMAL POSITIONAL 03/23/2014 PICKETT SONI SALVADOR 386.11 VERTIGO- BENIGN PAROXYSMAL POSITIONAL 07/18/2014 MICHAEL RUIZRICHARD K 729.1 MYALGIA AND MYOSITIS UNSPECIFIED 07/18/2014 PICKETT SONI SALVADOR 729.1 MYALGIA AND MYOSITIS UNSPECIFIED 09/12/2014 PICKETT SONI SALVADOR 723.1 CERVICALGIA Procedures Code [place] [address] NO CHARGE 2012 25342 ROUTINE VENIPUNCTURE 08/19/2012 90343 LIPID PANEL 08/19 04016 RENAL PROFILE 11/2012 49880 VITAMIN D 25-HYDROXY (D2,D3, TOTAL) 08/19/2012 90650 MAGNESIUM 2012 66856 CBC 08/19/2012 PRO/CRE URINE PROTEIN TO CREATNINE RATIO 08/19/2012 32540 ROUTINE VENIPUNCTURE 11/25/2012 80971 CBC 11/25/2012 74142 RENAL PROFILE 05/2013 1639197 GFR CALC (RESULT ONLY) 11/25/2012 PRO/CRE URINE PROTEIN TO CREATNINE RATIO 11/25/2012 7436680 CALCIUM (RESULT ONLY) 11/26/2012 3418925 PTH INTACT CLAUS (RESULT ONLY) 11/26/2012 28983 PTH (intact) (ORDER ONLY) 11/27/2012 64575 ROUTINE VENIPUNCTURE 12/16/2012 19458 RENAL PROFILE 08/2012 11210 CBC 12/16/2012 PRO/CRE URINE PROTEIN TO CREATNINE RATIO 12/16/2012 15050 ROUTINE VENIPUNCTURE 02/17/2013 50771 CBC 02/17/2013 50839 RENAL PROFILE 09/2012 9174043 GFR CALC (RESULT ONLY) 02/17/2013 PRO/CRE URINE PROTEIN TO CREATNINE RATIO 02/17/2013 29686 VITAMIN D 25-HYDROXY (D2,D3, TOTAL) 02/17/2013 6234645 CALCIUM (RESULT ONLY) 02/18/2013 5100448 PTH INTACT CLAUS (RESULT ONLY) 02/18/2013 29676 PTH (intact) (ORDER ONLY) 03/01/2013 17667 ROUTINE VENIPUNCTURE 03/09/2013 74277 CMP 03/09/2013 99518 LIPID PANEL 03/09 9208169 GFR CALC (RESULT ONLY) 03/09/2013 2000F BLOOD PRESSURE CHECK 03/15/2013 58875 NO CHARGE 2012 J1040 DEPO MEDROL 80 MG INJ 03/22/2013 32754 OXIMETRY 2012 82723 NO CHARGE 2012 81363 NO CHARGE 2012 51524 NO CHARGE 2012 55543 ROUTINE VENIPUNCTURE 05/26/2013 58209 CBC 05/26/2013 26789 CMP 05/26/2013 68305 LIPID PANEL 05/26 61761 RENAL PROFILE 04/2013 9116571 GFR CALC (RESULT ONLY) 05/26/2013 PRO/CRE URINE PROTEIN TO CREATNINE RATIO 05/26/2013 90981 NO CHARGE 2013 68164 ROUTINE VENIPUNCTURE 08/18/2013 63707 CBC 08/18/2013 5303160 GFR CALC (RESULT ONLY) 08/18/2013 18409 RENAL PROFILE 10/2013 PRO/CRE URINE PROTEIN TO CREATNINE RATIO 08/18/2013 66655 VITAMIN D 25-HYDROXY (D2,D3, TOTAL) 08/18/2013 8541504 CALCIUM (RESULT ONLY) 08/18/2013 2369754 PTH INTACT CLAUS (RESULT ONLY) 08/19/2013 68422 CULTURE URINE 11/2013 2000F BLOOD PRESSURE MEASURE 08/20/2013 32788 PTH (intact) (ORDER ONLY) 08/26/2013 10489 ROUTINE VENIPUNCTURE 09/20/2013 22476 EKG, TRACING (IN-HOUSE) 09/20/2013 76145 CBC 09/20/2013 45013 CMP 09/20/2013 2828637 GFR CALC (RESULT ONLY) 09/20/2013 84932 ROUTINE VENIPUNCTURE 11/10/2013 05037 CBC 11/10/2013 49044 CMP 11/10/2013 72514 LIPID PANEL 11/10 29248 RENAL PROFILE 1617730 GFR CALC (RESULT ONLY) 11/10/2013 72193 UA W/MICROSCOPY 11/10/2013 PRO/CRE URINE PROTEIN TO CREATNINE RATIO 11/10/2013 08681 ROUTINE VENIPUNCTURE 01/12/2014 86052 CMP 01/12/2014 6043017 GFR CALC (RESULT ONLY) 01/12/2014 31719 THERAPUTIC INJ SQ/IM 02/17/2014 J1030 DEPO MEDROL 40 MG INJ 02/17/2014 87452 ROUTINE VENIPUNCTURE 03/23/2014 G0008 FLU ADMINISTRATION (MEDICARE ONLY) 03/23/2014 28951 CBC 03/23/2014 6447083 GFR CALC (RESULT ONLY) 03/23/2014 48722 RENAL PROFILE 01/2014 Results Encounters ACCT No. Visit Date/Time Discharge Status Pt. Type Provider Facility Loc./Unit Complaint [id number] 09/12/2014 16:58:00 09/12/2014 23: 59:59 CLS Outpatient SONI PICKETT APRN [id number] 07/18/2014 09:09:00 07/18/2014 23: 59:59 CLS Outpatient RICHARD RODRIGUEZ DO [id number] 06/28/2014 09:00:00 06/28/2014 23: 59:59 CLS Outpatient RICHARD RODRIGUEZ DO [id number] 03/23/2014 08:46:00 03/23/2014 23: 59:59 CLS Outpatient SONI PICKETT APRN [id number] 02/17/2014 10:40:00 02/17/2014 23: 59:59 CLS Outpatient SONI PICKETT APRN [id number] 02/11/2014 09:24:00 02/11/2014 23: 59:59 CLS Outpatient RICHARD RODRIGUEZ DO [id number] 01/12/2014 08:41:00 01/12/2014 23: 59:59 CLS Outpatient NIEVES SALVADORSONI [id number] 01/05/2014 08:45:00 01/05/2014 23: 59:59 CLS Outpatient RODRIGUEZ DO RICHARD Lang [id number] 12/01/2013 08:27:00 12/01/2013 23: 59:59 CLS Outpatient NIEVES SALVADORSONI [id number] 11/18/2013 08:21:00 11/18/2013 23: 59:59 CLS Outpatient RODRIGUEZ DO RICHARD Lang [id number] 11/10/2013 08:37:00 11/10/2013 23: 59:59 CLS Outpatient RODRIGUEZ DO RICHARD Lang [id number] 10/12/2013 08:22:00 10/12/2013 23: 59:59 CLS Outpatient NIEVES SALVADORSONI [id number] 09/20/2013 08:36:00 09/20/2013 23: 59:59 CLS Outpatient RODRIGUEZ DO RICHARD Lang [id number] 09/07/2013 08:14:00 09/07/2013 23: 59:59 CLS Outpatient NIEVES SALVADORSONI [id number] 08/18/2013 08:07:00 08/18/2013 23: 59:59 CLS Outpatient NIEVES SALVADORSONI [id number] 08/18/2013 08:07:00 08/18/2013 23: 59:59 CLS Outpatient RODRIGUEZ DO RICHARD Lang [id number] 08/09/2013 07:59:00 08/09/2013 23: 59:59 CLS Outpatient RODRIGUEZ DORICHARD [id number] 07/26/2013 09:39:00 07/26/2013 23: 59:59 CLS Outpatient NIEVES ELIASSONI Dimas [id number] 06/08/2013 08:33:00 06/08/2013 23: 59:59 CLS Outpatient NIEVES ELIASSONI Dimas [id number] 05/26/2013 08:01:00 05/26/2013 23: 59:59 CLS Outpatient RODRIGUEZ DO RICHARD Lang [id number] 04/29/2013 09:51:00 04/29/2013 23: 59:59 CLS Outpatient NIEVES ELIASSONI Dimas [id number] 04/21/2013 08:22:00 04/21/2013 23: 59:59 CLS Outpatient RODRIGUEZ DO RICHARD K [id number] 04/07/2013 10:43:00 04/07/2013 23: 59:59 CLS Outpatient RICHARD RODRIGUEZ DO [id number] 04/05/2013 08:44:00 04/05/2013 23: 59:59 CLS Outpatient RICHARD RODRIGUEZ DO [id number] 03/22/2013 09:12:00 03/22/2013 23: 59:59 CLS Outpatient PICKETTSONI CEBALLOS APRN [id number] 03/15/2013 09:05:00 03/15/2013 23: 59:59 CLS Outpatient SONI PICKETT APRN [id number] 08/19/2012 08:01:00 08/19/2012 23: 59:59 CLS Outpatient TERESSA RAI MD [id number] 08/18/2012 08:54:00 08/18/2012 23: 59:59 CLS Outpatient TERESSA RAI MD [id number] 07/24/2012 09:48:00 07/24/2012 23: 59:59 CLS Outpatient TERESSA RAI MD [id number] 07/16/2012 15:58:00 07/16/2012 23: 59:59 CLS Outpatient TERESSA RAI MD [id number] 04/23/2012 12:42:00 04/23/2012 23: 59:59 [place] [id number] 04/23/2012 12:42:00 04/23/2012 23: 59:59 CLS Outpatient TERESSA RAI MD [id number] 02/17/2013 08:35:00 Document Registration [id number] 02/05/2013 09:08:00 Document Registration [id number] 01/13/2013 08:01:00 Document Registration [id number] 12/16/2012 08:33:00 Document Registration [id number] 12/01/2012 09:03:00 Document Registration [id number] 11/25/2012 08:18:00 Document Registration
== END 2016-12-02 16:51 | disposition home or self-care (01) ==
LOC: EDUNIT# 12:19 → ER 12:20
DX: S01.01XA Laceration without foreign body of scalp, initial encounter (principal)
CPT/HCPCS: 36415; 36680; 80053; 85027; 86850; 86900; 86901; 86922